=== PATIENT | female | born 1940 | race Caucasian/White ===

== ENCOUNTER → 2016-10-20 | Day surgery (SDC) | payer MEDICARE ==
[~2016-10-20] MED LIST: BACITRACIN OINT 1 EACH PACKET TOPICAL ONE; LIDOCAINE 1%-EPI 1:100,000 20 ML VIAL ONE
--- NOTE | 2016-10-20 15:35 | USB ---
EXAMINATION TYPE: US biopsy breast VAD LT DATE OF EXAM: 10/20/2016 12:55 PM CLINICAL HISTORY: R92.8 abnormal mammogram. TECHNIQUE: Ultrasound guided core biopsy of left breast. COMPARISON: NONE FINDINGS: The procedure of ultrasound guided core biopsy was explained to the patient. Benefits, alternatives, and risks were discussed. An informed consent was then obtained. The patient was placed in supine positioning for imaging and for the procedure. The overlying skin was prepped and draped in usual sterile fashion. Lidocaine buffered with bicarbonate was used as anesthetic into the skin and subcutaneous tissue up to area of concern in the left breast. A emime was made with surgical scalpel. Under ultrasound guidance, a 12-gauge vacuum assisted biopsy gun device was used to obtain 7 core samples. Following this, a biopsy clip was left in lesion. The patient tolerated the procedure well without any immediate complication. The patient was kept in the radiology department for short stay after the procedure and then discharged home in stable condition. Postprocedure mammogram was obtained. Biopsy clip is within the 6:00 position density IMPRESSION: Successful, uncomplicated ultrasound guided core biopsy of area of concern in the left breast, full pathology results to follow. Pathology Results: Malignant BREAST, LEFT SIX O'CLOCK, ULTRASOUND GUIDED CORE BIOPSY: DUCTAL CARCINOMA WITH NECROSIS IN A BACKGROUND OF BLOOD AND NECROINFLAMMATORY DEBRIS. Recommendation Surgical consult of the left breast. BONY
--- NOTE | 2016-10-20 15:36 | MM ---
Postprocedure mammogram Post procedure mammogram for clip placement. Clip is within the mass 6:00 position left breast. IMPRESSIONS: 1. Clip in expected region post biopsy. MTDD
== END ==
LOC: RADUSWWP 11:35
PROVIDERS: ATTEND Surgery
DX: C50.912 Malignant neoplasm of unspecified site of left female breast (principal); N64.1 Fat necrosis of breast; R92.8 Other abnormal and inconclusive findings on diagnostic imaging of breast; Z88.5 Allergy status to narcotic agent; Z88.8 Allergy status to other drugs, medicaments and biological substances
CPT/HCPCS: 88305; 88342; 88341; 19083; G0206; A4648

== ENCOUNTER → 2016-11-07 | Outpatient (CLI) | payer MEDICARE ==
--- NOTE | 2016-11-07 15:29 | CT ---
EXAMINATION TYPE: CT ChestAbdPelvis w con DATE OF EXAM: 11/07/2016 INDICATION: Breast cancer COMPARISON: NONE CT DLP: 1958 mGycm CONTRAST: Performed with Oral Contrast and with IV Contrast, patient injected with 100 ml mL of Omnipaque 300. TECHNIQUE: Axial images at 5 mm thick sections. Reconstructed images in the coronal plane. Delayed images through the kidneys. FINDINGS: CT CHEST: Left breast mass measuring 4.3 cm is present. Portion of the thyroid visualized is normal. No suspicious lung nodules or focal infiltrates are present. There multiple lymph nodes in the pretracheal space with the largest measuring 0.9 cm. The ascending aorta diameter at the level of the main pulmonary artery is 3.4 cm. The main pulmonary artery diameter at the bifurcation is 3.[address] ABDOMEN: Liver: Mild fatty infiltration. Spleen: Normal Pancreas: Slightly atrophic. Adrenal glands: The adrenal glands are normal. Gallbladder: Not well visualized Kidneys: No masses are evident. No hydronephrosis is present. No cysts are present. Delayed images were obtained through the kidneys, which remain unremarkable. Aorta: Normal Inferior vena cava: Normal. CT PELVIS: Multiple diverticuli are within the sigmoid colon. Loops of bowel distended with oral contrast appear unremarkable. Distal colon lacks oral contrast limiting its evaluation. Appendix: Not visualized Urinary bladder: Decompressed. Genitourinary structures: Uterus and ovaries are not identified. Osseous structures: No suspicious lytic or sclerotic lesions. IMPRESSIONS: 1. Diverticulosis without acute diverticulitis.
--- NOTE | 2016-11-08 08:08 | NM ---
EXAMINATION TYPE: NM bone scan whole body DATE OF EXAM: 11/07/2016 COMPARISON: 11/07/2016 CT scan HISTORY: Breast cancer Delayed whole-body scanning was performed following the injection of 27.3 mCi Tc 99m MDP. Images acq uired 3 hours post injection. FINDINGS: Abnormal uptake involving the knees, ankles and feet likely post arthritic. Remote posttraumatic etio logy also the differential diagnosis. Faint uptake involving the calvarium likely related to hyperostosis. Faint uptake seen throughout the thoracic and lumbar spine likely degenerative. Abnormal uptake invol ving the shoulders likely post arthritic. Abnormal uptake involving the mandible likely related to periodontal disease. IMPRESSION: 1. No diagnostic evidence of metastases.
== END | disposition home or self-care (01) ==
LOC: RADNMMAIN 12:40
PROVIDERS: ATTEND Internal Medicine Hematology & Oncology
DX: C50.919 Malignant neoplasm of unspecified site of unspecified female breast (principal); K57.30 Diverticulosis of large intestine without perforation or abscess without bleeding
CPT/HCPCS: 71260; 74177; 78306; A9503; Q9967

== ENCOUNTER 2016-11-09 10:19 | Day surgery (SDC) | payer MEDICARE ==
[2016-11-08 08:55] VITALS: BMI 40.6
--- NOTE | 2016-11-09 08:08 | P.GSHP ---
History of Present Illness H&P Date: 11/09/16 CHIEF COMPLAINT: Breast cancer. HISTORY OF PRESENT ILLNESS: The patient is a 76-year-old female diagnosed with left breast cancer. She needs a Mediport placement for chemotherapy. PAST MEDICAL HISTORY: See list PAST SURGICAL HISTORY: See list CURRENT MEDICATIONS: See list. ALLERGIES: See list. SOCIAL HISTORY: No active tobacco or alcohol use. FAMILY HISTORY: Noncontributory. REVIEW OF ORGAN SYSTEMS: CONSTITUTIONAL: Has weight loss. PHYSICAL EXAMINATION: Vital signs: Stable GENERAL: Well developed and in no acute distress. Pleasant. HEENT: No sclera icterus. Extraocular movements grossly intact. Moist buccal mucosa. Head is atraumatic, normocephalic. Hears conversational speech. No nasal drainage. NECK: Supple without lymphadenopathy. No JV distention. CHEST: Non-labored respirations and equal bilateral excursions. CARDIOVASCULAR: Regular rate and rhythm. Palpable 2+ radial pulses. ABDOMEN: Nontender. MUSCULOSKELETAL: No clubbing, cyanosis or edema. NEUROLOGIC: No focal or lateralizing signs. PSYCH: Appropriate affect. Alert and oriented to person, place and time. ASSESSMENT: 1. Left breast cancer. 2. Need for chemotherapeutic access. PLAN: 1. Agree with Port-A-Cath placement. Past Medical History Past Medical History: Cancer, CVA/TIA, Diabetes Mellitus, GERD/Reflux, Hyperlipidemia, Hypertension, Rheumatoid Arthritis (RA), Thyroid Disorder Additional Past Medical History / Comment(s): HX OF TIA., VARICOSE VEINS, DEVIATED SEPTUM, HIATAL HERNIA., BUZZING IN EARS., BLADDER CANCER (OCTOBER 1992), LEFT BREAST CANCER (SEPTEMBER 2016)., STATES LARGE LUMP LEFT BREAST. History of Any Multi-Drug Resistant Organisms: None Reported Past Surgical History: Appendectomy, Cholecystectomy, Heart Catheterization, Hysterectomy, Orthopedic Surgery Additional Past Surgical History / Comment(s): RONAL KNEE ARTHROSCOPY, BREAST BX. Past Anesthesia/Blood Transfusion Reactions: No Reported Reaction, Motion Sickness Past Psychological History: No Psychological Hx Reported Smoking Status: Never smoker Past Alcohol Use History: None Reported Past Drug Use History: None Reported - Past Family History Mother Family Medical History: No Reported History Medications and Allergies Home Medications Medication Instructions Recorded Confirmed Type Acetaminophen Tab [Tylenol Tab] 650 mg PO Q4-6H 11/08/16 11/08/16 History Antibiotic Cream Pain Relief 1 applic TOPICAL DAILY PRN 11/08/16 History Atenolol [Tenormin] 50 mg PO BID 11/08/16 11/08/16 History Doxylamine Succinate [Unisom] 50 mg PO HS PRN 11/08/16 11/08/16 History Fluticasone Nasal [place] [Flonase 2 spr EA NOSTRIL DAILY 11/08/16 11/08/16 History Nasal [place]] Levothyroxine Sodium [Synthroid] 175 mcg PO DAILY 11/08/16 11/08/16 History Lidocaine HCl [Aspercreme] 1 applic TOPICAL DAILY PRN 11/08/16 11/08/16 History Losartan Potassium 100 mg PO DAILY 11/08/16 11/08/16 History Melatonin 10 mg PO HS 11/08/16 11/08/16 History Meloxicam [Mobic] 15 mg PO DAILY 11/08/16 11/08/16 History Naproxen Sodium [Aleve] 440 mg PO DAILY 11/08/16 11/08/16 History Omeprazole [PriLOSEC] 20 mg PO AC-BRKFST 11/08/16 11/08/16 History Simvastatin [Zocor] 20 mg PO HS 11/08/16 11/08/16 History amLODIPine [Norvasc] 5 mg PO BID 11/08/16 11/08/16 History glipiZIDE [Glipizide] 10 mg PO BID 11/08/16 11/08/16 History Allergies Allergy/AdvReac Type Severity Reaction Status Date / Time codeine Allergy Unknown Couldn't Verified 11/08/16 08:37 Swallow glyburide Allergy Unknown Itching Verified 11/08/16 08:37 metformin Allergy Unknown Itching Verified 11/08/16 08:37
[~2016-11-09 10:19] MED LIST changes: -BACITRACIN OINT 1 EACH PACKET TOPICAL ONE; +DEXAMETHASONE SOD PHOSPHATE 10 MG/ML 1 ML VIAL IV ONE; +HYDROmorphone 1 MG/ML 1 ML SYRINGE IVP PRN; +LACTATED RINGERS 1,000 ML IV SCH; -LIDOCAINE 1%-EPI 1:100,000 20 ML VIAL ONE; +ONDANSETRON 4 MG/2 ML VIAL IVP ONE; +ceFAZolin 2 GM in SODIUM CHLORIDE 0.9% 100 ML IVPB ONE
[2016-11-09 10:37] VITALS: TEMP 98
[2016-11-09] MEDS ORDERED: LIDOCAINE 1% 20 ML VIAL (10MG/ML) FOR IV START INTRADERMA ONE (11:08)
[2016-11-09] MEDS ORDERED: INSULIN LISPRO (humaLOG) 300 UNIT/3 ML VIAL SQ ONE (11:09)
[2016-11-09] MEDS ORDERED: DEXAMETHASONE SOD PHOSPHATE 10 MG/ML 1 ML VIAL IV ONE (11:10)
[2016-11-09] MEDS ORDERED: ONDANSETRON 4 MG/2 ML VIAL IVP ONE (11:11)
[2016-11-09 11:12] LABS: Glucose,Whole Blood 232 mg/dL (75-99)
[2016-11-09] MEDS ORDERED: MIDAZOLAM 2 MG/2 ML VIAL ONE (11:40)
[2016-11-09] MEDS ORDERED: fentaNYL (PF) 50 MCG/ML 2 ML AMP ONE (11:40)
[2016-11-09] MEDS ORDERED: SUCCINYLCHOLINE CHLORIDE 100 MG/5 ML SYR IV ONE (11:40)
[2016-11-09] MEDS ORDERED: KETAMINE 10 MG/ML 20 ML VIAL ONE (11:40)
[2016-11-09] MEDS ORDERED: HEPARIN SODIUM,PORCINE 100 UNIT/ML 5 ML VIAL IV ONE ×3 (12:02)
[2016-11-09] MEDS ORDERED: LIDOCAINE (PF) 10 MG/ML 2 ML VIAL SQ ONE ×2 (12:03)
[2016-11-09] MEDS ORDERED: HEPARIN SODIUM,PORCINE 10,000 UNIT/ML 1 ML VIAL IV ONE (12:03)
--- NOTE | 2016-11-09 12:32 | FL ---
EXAMINATION TYPE: FL guided central line placemt HISTORY: Fluoroscopy time Impression: 1. Fluoroscopy support provided to the referring physician. See dictated report from surgery. 3 sec onds of fluoroscopy provided.
--- NOTE | 2016-11-09 12:38 | P.PCN ---
Date of Procedure: 11/09/16 Preoperative Diagnosis: Postoperative Diagnosis: Procedure(s) Performed: Implants: Indications for Procedure: Operative Findings: Description of Procedure: SURGEON: MED LOPEZ MD RESERVES CLERK: None. PREOPERATIVE DIAGNOSES: 1. Breast cancer, left. 2. Need for chemotherapeutic access. 3. Hypertensive heart disease without congestive heart failure. 4. Diabetes type 2 [id number]. 5. Previous history of cerebrovascular accident without sequelae. 6. Morbid obesity, BMI 40.6. 7. Gastroesophageal reflux disease. 8. Hyperlipidemia. 9. Previous history of bladder cancer. POSTOPERATIVE DIAGNOSES: 1. Breast cancer, left. 2. Need for chemotherapeutic access. 3. Hypertensive heart disease without congestive heart failure. 4. Diabetes type 2 [id number]. 5. Previous history of cerebrovascular accident without sequelae. 6. Morbid obesity, BMI 40.6. 7. Gastroesophageal reflux disease. 8. Hyperlipidemia. 9. Previous history of bladder cancer. PROCEDURES PERFORMED: 1. Ultrasound guided central venous access of the right internal jugular venous vein. 2. Fluoroscopic guidance for central venous access right internal jugular vein 3 seconds. 3. Placement of right internal jugular power port 6 [place] by Bard. ANESTHESIA: IV sedation with 20 mL 1% lidocaine. ESTIMATED BLOOD LOSS: 10 mL. SPECIMENS REMOVED: None. COMPLICATIONS: None. INDICATIONS: The patient is a 76-year-old female recently diagnosed with left breast cancer. She presents for chemotherapeutic access. Benefits and risks of surgical intervention were described including bleeding, infection, mechanical problems with his port. Informed consent was obtained. DESCRIPTION OR PROCEDURE: Patient was brought into the operating room, laid in supine position. After adequate IV sedation, the chest and right neck were prepped and draped in a standard sterile fashion including the shoulder with ChloraPrep. Timeout protocol was confirmed with the surgical team regarding the patient's name, procedure to be performed including preoperative medications for which she received IV antibiotics. Bilateral SCDs were placed. An ultrasound was used to capture views of the right internal jugular vein including right carotid artery, which was patent and without thrombus along its course. The right IJ was then localized using anesthetic for the skin. A 16 [place] needle was used to access the IJ. A guidewire was advanced into the IJ with dark nonpulsatile venous blood. Two fingerbreadths distal to the clavicle, on the lateral third, a transverse 1.5 to 2 cm incision was deepened into the skin after localizing the skin. A pocket was created for the port. The port on the back table was flushed with heparinized saline and then attached to the catheter tubing. An adapter was fastened to the actual port site over the tubing. The port easily had fit snug into the pocket. A subcutaneous tunneler was placed along the open end of the tubing and brought out through the separate stab incision. Fluoroscopic guidance confirmed no kinking along the tubing and the port site. Next, the J-wire was exchanged for a catheter sheath for which the tubing was cut to 18 cm and then advanced through the catheter sheath. The [place]-away sheath was then removed and the tubing was secured at the junction of the superior vena cava as well as the right atrium. The tubing was found to be crossed however functional. This was all done under fluoroscopic guidance for a total of 3 seconds. Easy pullback as well as return and aspiration was obtained of the port site. The skin incision was closed using layers using 3-0 Vicryl for the subcu followed by 4-0 Monocryl in a running subcuticular fashion. At the stick site this was also reapproximated using 4-0 Monocryl. The incisions were covered with gauze and Tegaderm. The skin was cleansed and Dermabond was applied. A total of 20 mL of local anesthetic was placed. At the end of the procedure, needle, sponge, and instrument count was verified correct by evidence technician. Heparin lock of 5 mL was placed. The patient was awoken and pain free and taken to the second stage postanesthesia care unit. The patient tolerated the procedure well. FINDINGS: 1. No thrombus encountered along the right carotid artery or internal jugular vein. 2. Access of the right internal jugular vein under ultrasound guidance. 3. Fluoroscopy of 3 seconds. Plan - Discharge Summary New Discharge Prescriptions: No Action glipiZIDE [Glipizide] 10 mg PO BID Losartan Potassium 100 mg PO DAILY amLODIPine [Norvasc] 5 mg PO BID Atenolol [Tenormin] 50 mg PO BID Meloxicam [Mobic] 15 mg PO DAILY Simvastatin [Zocor] 20 mg PO HS Levothyroxine Sodium [Synthroid] 175 mcg PO DAILY Omeprazole [PriLOSEC] 20 mg PO AC-BRKFST Fluticasone Nasal [place] [Flonase Nasal [place]] 2 spr EA NOSTRIL DAILY Doxylamine Succinate [Unisom] 50 mg PO HS PRN PRN Reason: Insomnia Melatonin 10 mg PO HS Naproxen Sodium [Aleve] 440 mg PO DAILY Acetaminophen Tab [Tylenol Tab] 650 mg PO Q4-6H Lidocaine HCl [Aspercreme] 1 applic TOPICAL DAILY PRN PRN Reason: Pain Antibiotic Cream Pain Relief 1 applic TOPICAL DAILY PRN PRN Reason: Pain Discharge Medication List Acetaminophen Tab [Tylenol Tab] 650 mg PO Q4-6H 11/08/16 [History] Antibiotic Cream Pain Relief 1 applic TOPICAL DAILY PRN 11/08/16 [History] Atenolol [Tenormin] 50 mg PO BID 11/08/16 [History] Doxylamine Succinate [Unisom] 50 mg PO HS PRN 11/08/16 [History] Fluticasone Nasal [place] [Flonase Nasal [place]] 2 spr EA NOSTRIL DAILY 11/08/16 [ History] Levothyroxine Sodium [Synthroid] 175 mcg PO DAILY 11/08/16 [History] Lidocaine HCl [Aspercreme] 1 applic TOPICAL DAILY PRN 11/08/16 [History] Losartan Potassium 100 mg PO DAILY 11/08/16 [History] Melatonin 10 mg PO HS 11/08/16 [History] Meloxicam [Mobic] 15 mg PO DAILY 11/08/16 [History] Naproxen Sodium [Aleve] 440 mg PO DAILY 11/08/16 [History] Omeprazole [PriLOSEC] 20 mg PO AC-BRKFST 11/08/16 [History] Simvastatin [Zocor] 20 mg PO HS 11/08/16 [History] amLODIPine [Norvasc] 5 mg PO BID 11/08/16 [History] glipiZIDE [Glipizide] 10 mg PO BID 11/08/16 [History]
[2016-11-09 12:39] VITALS: PULSE 65; RESP 18
[2016-11-09] MEDS ORDERED: NALOXONE 0.4 MG/ML 1 ML VIAL IV PRN (12:40)
[2016-11-09] MEDS ORDERED: ONDANSETRON 4 MG/2 ML VIAL IVP PRN (12:40)
[2016-11-09 12:54] VITALS: BP 123/62
--- NOTE | 2016-11-09 13:05 | XR ---
EXAMINATION TYPE: XR chest 1V confirm line [facility] DATE OF EXAM: 11/09/2016 COMPARISON: NONE HISTORY: Line placement TECHNIQUE: Single frontal view of the chest is obtained. FINDINGS: There is no focal air space opacity, pleural effusion, or pneumothorax seen. The cardiac silhouette size is within normal limits. The osseous structures are intact. Port-A-Cath is seen wit h the tip overlying the region of the SVC. Arthropathy of the shoulders noted. No overt failure. IMPRESSION: 1. Port-A-Cath seen with the tip overlying the SVC and no sizable pneumothorax.
== END 2016-11-09 13:35 | disposition home or self-care (01) ==
LOC: OR 10:19
PROVIDERS: ATTEND Surgery Plastic and Reconstructive Surgery
DX: C50.912 Malignant neoplasm of unspecified site of left female breast (principal); I11.9 Hypertensive heart disease without heart failure; E11.9 Type 2 diabetes mellitus without complications; K21.9 Gastro-esophageal reflux disease without esophagitis; E78.5 Hyperlipidemia, unspecified; M06.9 Rheumatoid arthritis, unspecified; E07.9 Disorder of thyroid, unspecified; E66.01 Morbid (severe) obesity due to excess calories; Z68.41 Body mass index [BMI] 40.0-44.9, adult; Z88.5 Allergy status to narcotic agent; Z88.8 Allergy status to other drugs, medicaments and biological substances; Z79.51 Long term (current) use of inhaled steroids; Z79.1 Long term (current) use of non-steroidal anti-inflammatories (NSAID); Z79.84 Long term (current) use of oral hypoglycemic drugs; Z79.899 Other long term (current) drug therapy; Z85.51 Personal history of malignant neoplasm of bladder; Z86.73 Personal history of transient ischemic attack (TIA), and cerebral infarction without residual deficits; Z90.49 Acquired absence of other specified parts of digestive tract; Z90.710 Acquired absence of both cervix and uterus
CPT/HCPCS: 36561; 77001; C1788; J2250; J2001; J1644; J1642; J1100; J0690; J2405; J3010; J0330

== ENCOUNTER → 2016-11-24 | Outpatient (CLI) | payer MEDICARE ==
--- NOTE | 2016-11-24 15:44 | US ---
EXAMINATION TYPE: US axilla extremity LT DATE OF EXAM: 11/24/2016 COMPARISON: NONE CLINICAL HISTORY: Breast Ca C50.112, R59 Lymphadonopathy. Scanned left axilla, scattered lymph nodes seen. Largest measuring 6.7 x 2.2 x 2.9cm The largest lym ph node appears homogenous. The normal fatty hilum is not identified. Metastatic disease cannot be ex cluded. Results called to the office at the time of the exam. IMPRESSION: Enlarged left axillary lymph node without visualization of a normal fatty hilum. Metasta tic disease is not excluded.
== END | disposition home or self-care (01) ==
LOC: RADUSWWP 14:56
PROVIDERS: ATTEND Internal Medicine Hematology & Oncology
DX: C50.112 Malignant neoplasm of central portion of left female breast (principal); R59.0 Localized enlarged lymph nodes

== ENCOUNTER 2016-11-30 10:51 | Day surgery (SDC) | payer MEDICARE ==
[2016-11-30 11:17] VITALS: TEMP 97.7
[2016-11-30 12:42] VITALS: BP 121/72; PULSE 72; RESP 16
--- NOTE | 2016-11-30 12:47 | US ---
ULTRASOUND GUIDED CORE BIOPSY LEFT AXILLA LYMPHADENOPATHY: CLINICAL HISTORY: Left Axilla lymphadenopathy FINDINGS: The procedure was explained to the patient. The risks, complications, benefits and alternatives were discussed and any questions were answered. Informed consent was obtained. Patient was placed supin e on the ultrasound table and prepped and draped in the usual sterile fashion. Utilizing a 18-gauge core needle,three passes were made into the left axilla lymphadenopathy. Patient was stable throughout the procedure. Pathology is pending. All elements of maximal barrier and sterile technique were utilized. IMPRESSION: 1. Successful ultrasound guided core biopsy left axilla lymphadenopathy. Note is made the lymph node s near complete replacement by fatty hilum with minimal peripheral tissue. This corresponds to the CT scan of 11/07/2016.
== END 2016-11-30 12:30 | disposition home or self-care (01) ==
LOC: RADPROMAIN 10:51
PROVIDERS: ATTEND Internal Medicine Hematology & Oncology
DX: R59.0 Localized enlarged lymph nodes (principal); C50.919 Malignant neoplasm of unspecified site of unspecified female breast
CPT/HCPCS: 36415; 38505; 76942; 88305

== ENCOUNTER 2017-03-08 11:52 | Inpatient (IN) | payer MEDICARE ==
--- NOTE | 2017-03-08 12:22 | ED ---
General Adult HPI - General Chief complaint: Weakness Stated complaint: Weakness/Fall Time Seen by Provider: 03/08/17 11:55 Source: EMS, RN notes reviewed Mode of arrival: EMS - History of Present Illness Initial comments: This is a 77-year-old female presents emergency Department with a past medical history significant for breast cancer which she is being treated for with chemotherapy. Patient states last night she was in the bathroom and then found herself on the floor she doesn't remember clearly how she got to the floor. Patient states she was unable to get up until his son's game this morning about 8:30. Patient states her legs seemed tingly they are not numb but they were weak to hold her up when she tried to stand with her son's assistance this morning. Patient denies any injury. Patient denies any headache patient states her neck feels a little stiff but it does not hurt to move. Patient denies any chest pain palpitations difficulty breathing or shortness of breath per patient denies any abdominal pain patient denies any new back pain. Patient denies any extremity pain. Patient denies any recent fever chills or cough. - Related Data Home Medications Medication Instructions Recorded Confirmed Atenolol [Tenormin] 50 mg PO BID 11/08/16 03/08/17 Levothyroxine Sodium [Synthroid] 175 mcg PO DAILY 11/08/16 03/08/17 Losartan Potassium 100 mg PO DAILY 11/08/16 03/08/17 Meloxicam [Mobic] 15 mg PO DAILY 11/08/16 03/08/17 Omeprazole [PriLOSEC] 20 mg PO AC-BRKFST 11/08/16 03/08/17 Simvastatin [Zocor] 20 mg PO HS 11/08/16 03/08/17 amLODIPine [Norvasc] 5 mg PO BID 11/08/16 03/08/17 glipiZIDE [Glipizide] 10 mg PO BID 11/08/16 03/08/17 sitaGLIPtin PHOSPHATE [Januvia] 25 mg PO DAILY 03/02/17 03/08/17 Allergies Allergy/AdvReac Type Severity Reaction Status Date / Time codeine Allergy Unknown Couldn't Verified 03/08/17 12:24 Swallow glyburide AdvReac Unknown Itching Verified 03/08/17 12:24 metformin AdvReac Unknown Itching Verified 03/08/17 12:24 Review of Systems ROS Statement: Those systems with pertinent positive or pertinent negative responses have been documented in the HPI. ROS Other: All systems not noted in ROS Statement are negative. Past Medical History Past Medical History: Cancer, Diabetes Mellitus, Eye Disorder, GERD/Reflux, Hyperlipidemia, Neurologic Disorder, Rheumatoid Arthritis (RA) Additional Past Medical History / Comment(s): breast cancer 2017, migraines, diverticulitis History of Any Multi-Drug Resistant Organisms: None Reported Past Surgical History: Appendectomy, Cholecystectomy, Heart Catheterization, Hysterectomy, Orthopedic Surgery Additional Past Surgical History / Comment(s): breast biopsy 2017, bilateral knee operations Past Anesthesia/Blood Transfusion Reactions: No Reported Reaction Past Psychological History: No Psychological Hx Reported Smoking Status: Never smoker Past Alcohol Use History: None Reported Past Drug Use History: None Reported - Past Family History Mother Family Medical History: No Reported History Father Family Medical History: Myocardial Infarction ([place]) Sister(s) Family Medical History: Cancer Additional Family Medical History / Comment(s): ovarian/cervical, colon General Exam - General Exam Comments Initial Comments: GENERAL: Patient is well-developed and well-nourished. Patient is nontoxic and well- hydrated and is in no acute distress. ENT: Neck is soft and supple. No significant lymphadenopathy is noted. Oropharynx is clear. Moist mucous membranes. Neck has full range of motion without eliciting any pain. Patient's neck is slightly tender on the trapezius muscles EYES: The sclera were anicteric and conjunctiva were pink and moist. Extraocular movements were intact and pupils were equal round and reactive to light. Eyelids were unremarkable. PULMONARY: Unlabored respirations. Good breath sounds bilaterally. No audible rales rhonchi or wheezing was noted. CARDIOVASCULAR: There is a regular rate and rhythm without any murmurs gallops or rubs. ABDOMEN: Soft and nontender with normal bowel sounds. No palpable organomegaly was noted. There is no palpable pulsatile mass. SKIN: Skin is clear with no lesions or rashes and otherwise unremarkable. NEUROLOGIC: Patient is alert and oriented x3. Cranial nerves II through XII are grossly intact. Motor and sensory are also intact. Normal speech, volume and content. Symmetrical smile. MUSCULOSKELETAL: Normal extremities with adequate strength and full range of motion. No lower extremity swelling or edema. No calf tenderness. LYMPHATICS: No significant lymphadenopathy is noted PSYCHIATRIC: Normal psychiatric evaluation. Normal interpersonal interactions appears functionally intact in deals appropriately with others. No signs of depression. Course Vital Signs 03/08/17 03/08/17 03/08/17 11:55 13:00 14:00 Temperature 97.1 F L Pulse Rate 90 110 H 109 H Respiratory 18 18 16 Rate Blood Pressure 104/57 113/58 114/57 O2 Sat by Pulse 96 100 95 Oximetry Medical Decision Making - Medical Decision Making Chest x-ray shows no acute abnormality C-spine shows no acute abnormality. Patient's urine showed urinary tract infection and treat the patient with Levaquin in the emergency department we'll continue treating the patient Levaquin on the floor. Patient is unable to ambulate so we will be admitting the patient. I spoke with Dr. Douglas he agreed to admit the patient I wrote orders and admitted the patient - Lab Data Result diagrams: 03/08/17 12:05 03/08/17 12:05 Lab Results 03/08/17 03/08/17 03/08/17 Range/Units 12:05 12:05 12:05 WBC 7.0 (3.8-10.6) k/uL RBC 2.55 L (3.80-5.40) m/uL Hgb 8.2 L (11.4-16.0) gm/dL Hct 25.7 L (34.0-46.0) % MCV 101.0 H (80.0-100.0) fL MCH 32.1 (25.0-35.0) pg MCHC 31.8 (31.0-37.0) g/dL RDW 20.4 H (11.5-15.5) % Plt Count 156 (150-450) k/uL Neutrophils % 83 % Lymphocytes % 6 % Monocytes % 7 % Eosinophils % 0 % Basophils % 0 % Neutrophils # 5.8 (1.3-7.7) k/uL Lymphocytes # 0.4 L (1.0-4.8) k/uL Monocytes # 0.5 (0-1.0) k/uL Eosinophils # 0.0 (0-0.7) k/uL Basophils # 0.0 (0-0.2) k/uL Hypochromasia Slight Poikilocytosis Slight Anisocytosis Moderate Macrocytosis Moderate PT (9.0-12.0) sec INR (<1.2) APTT (22.0-30.0) sec Sodium 132 L (137-145) mmol/L Potassium 4.0 (3.5-5.1) mmol/L Chloride 101 (98-107) mmol/L Carbon Dioxide 19 L (22-30) mmol/L Anion Gap 12 mmol/L BUN 32 H (7-17) mg/dL Creatinine 1.81 H (0.52-1.04) mg/dL Est GFR (MDRD) Af Amer 33 (>60 ml/min/1.73 sqM) Est GFR (MDRD) Non-Af 27 (>60 ml/min/1.73 sqM) Glucose 221 H (74-99) mg/dL Calcium 9.0 (8.4-10.2) mg/dL Magnesium 1.5 L (1.6-2.3) mg/dL Total Bilirubin 1.0 (0.2-1.3) mg/dL AST 22 (14-36) U/L ALT 26 (9-52) U/L Alkaline Phosphatase 73 (38-126) U/L Total Creatine Kinase 335 H (30-135) U/L CK-MB (CK-2) 2.2 (0.0-2.4) ng/mL CK-MB (CK-2) Rel Index 0.7 Troponin I 0.095 H* (0.000-0.034) ng/mL Total Protein 5.8 L (6.3-8.2) g/dL Albumin 3.1 L (3.5-5.0) g/dL Urine Color Urine Appearance (Clear) Urine pH (5.0-8.0) Ur Specific [place] (1.001-1.035) Urine Protein (Negative) Urine Glucose (UA) (Negative) Urine Ketones (Negative) Urine Blood (Negative) Urine Nitrite (Negative) Urine Bilirubin (Negative) Urine Urobilinogen (<2.0) mg/dL Ur Leukocyte Esterase (Negative) Urine RBC (0-5) /hpf Urine WBC (0-5) /hpf Urine WBC Clumps (None) /hpf Ur Squamous Epith Cells (0-4) /hpf Amorphous Sediment (None) /hpf Urine Bacteria (None) /hpf Hyaline Casts (0-2) /lpf Granular Casts (0) /lpf Urine Mucus (None) /hpf 03/08/17 03/08/17 Range/Units 12:05 14:14 WBC (3.8-10.6) k/uL RBC (3.80-5.40) m/uL Hgb (11.4-16.0) gm/dL Hct (34.0-46.0) % MCV (80.0-100.0) fL MCH (25.0-35.0) pg MCHC (31.0-37.0) g/dL RDW (11.5-15.5) % Plt Count (150-450) k/uL Neutrophils % % Lymphocytes % % Monocytes % % Eosinophils % % Basophils % % Neutrophils # (1.3-7.7) k/uL Lymphocytes # (1.0-4.8) k/uL Monocytes # (0-1.0) k/uL Eosinophils # (0-0.7) k/uL Basophils # (0-0.2) k/uL Hypochromasia Poikilocytosis Anisocytosis Macrocytosis PT 11.6 (9.0-12.0) sec INR 1.2 H (<1.2) APTT 19.8 L (22.0-30.0) sec Sodium (137-145) mmol/L Potassium (3.5-5.1) mmol/L Chloride (98-107) mmol/L Carbon Dioxide (22-30) mmol/L Anion Gap mmol/L BUN (7-17) mg/dL Creatinine (0.52-1.04) mg/dL Est GFR (MDRD) Af Amer (>60 ml/min/1.73 sqM) Est GFR (MDRD) Non-Af (>60 ml/min/1.73 sqM) Glucose (74-99) mg/dL Calcium (8.4-10.2) mg/dL Magnesium (1.6-2.3) mg/dL Total Bilirubin (0.2-1.3) mg/dL AST (14-36) U/L ALT (9-52) U/L Alkaline Phosphatase (38-126) U/L Total Creatine Kinase (30-135) U/L CK-MB (CK-2) (0.0-2.4) ng/mL CK-MB (CK-2) Rel Index Troponin I (0.000-0.034) ng/mL Total Protein (6.3-8.2) g/dL Albumin (3.5-5.0) g/dL Urine Color Dark Yellow Urine Appearance Turbid H (Clear) Urine pH 5.5 (5.0-8.0) Ur Specific [place] 1.017 (1.001-1.035) Urine Protein 2+ H (Negative) Urine Glucose (UA) Negative (Negative) Urine Ketones Negative (Negative) Urine Blood Trace H (Negative) Urine Nitrite Negative (Negative) Urine Bilirubin 1+ H (Negative) Urine Urobilinogen 3.0 (<2.0) mg/dL Ur Leukocyte Esterase Large H (Negative) Urine RBC 2 (0-5) /hpf Urine WBC >182 H (0-5) /hpf Urine WBC Clumps Many H (None) /hpf Ur Squamous Epith Cells 3 (0-4) /hpf Amorphous Sediment Occasional H (None) /hpf Urine Bacteria Many H (None) /hpf Hyaline Casts 343 H (0-2) /lpf Granular Casts 75 (0) /lpf Urine Mucus Few H (None) /hpf Disposition Clinical Impression: Generalized weakness, Urinary tract infection, Anemia, Renal insufficiency, Elevated troponin Disposition: ADMITTED IP TO THIS HOSP Referrals: Matheus Mccain MD [Primary Care Provider] - 1-2 days Time of Disposition: 14:52
[2017-03-08 12:39] LABS: INR 1.2 (<1.2); Prothrombin Time 11.6 sec (9.0-12.0)
[2017-03-08 12:40] LABS: Anisocytosis Moderate; Basophils % (A) 0 %; CH 32.7; CHCM 32.6; Eosinophils % (A) 0 %; HCT 25.7 % (34.0-46.0); HDW 3.79; HGB 8.2 gm/dL (11.4-16.0); Hypochromasia Slight; Luc # (Auto) 0.29; Luc % (Auto) 4; Lymphocytes # (A) 0.4 k/uL (1.0-4.8); Lymphocytes % (A) 6 %; MCH 32.1 pg (25.0-35.0); MCHC 31.8 g/dL (31.0-37.0); Macrocytosis Moderate; Mean Platelet Volume 9.3; Monocytes # (A) 0.5 k/uL (0-1.0); Monocytes % (A) 7 %; Neutrophils # (A) 5.8 k/uL (1.3-7.7); Neutrophils % (A) 83 %; Poikilocytosis Slight; RBC 2.55 m/uL (3.80-5.40); RDW 20.4 % (11.5-15.5); WBC (Perox) 7.58
--- NOTE | 2017-03-08 12:50 | XR ---
EXAMINATION TYPE: XR chest 2V DATE OF EXAM: 03/08/2017 COMPARISON: Chest x-ray November 09, 2016 HISTORY: Chest pain after fall injury. TECHNIQUE: Frontal and lateral views of the chest are obtained. FINDINGS: Stable right internal jugular Mediport catheter there is noted. There is chronic parenchym al change without suspicious new focal air space opacity, pleural effusion, or pneumothorax seen. Th e cardiac silhouette size remains mildly enlarged with atherosclerotic thoracic aorta. The osseous structures remain demineralized. IMPRESSION: Chronic changes and mild cardiomegaly without acute pulmonary process. No significant ch reji from prior.
--- NOTE | 2017-03-08 12:51 | XR ---
EXAMINATION TYPE: XR cervical spine comp DATE OF EXAM: 03/08/2017 COMPARISON: NONE HISTORY: 77-year-old female pain after fall TECHNIQUE: 6 views FINDINGS: No predental space widening or prevertebral soft tissue swelling. There is suspected congenital fusio n of C2 and C3. There appears to be normal alignment of the cervical spine. Odontoid view appears nor mal. Limited assessment of the neuroforamina due to positioning on the oblique views. Suspect at leas t mild variable neuroforaminal narrowing bilaterally. Scattered facet degenerative change. Right-sided anterior chest wall injection port is present with catheter tip probably in the right bra chiocephalic vein. IMPRESSION: Some limitations due to positioning. No malalignment or acute osseous abnormality seen. Scattered fac et arthropathy.
[2017-03-08 12:59] LABS: Magnesium 1.5 mg/dL (1.6-2.3); Total Protein 5.8 g/dL (6.3-8.2)
[2017-03-08 13:01] LABS: Partial Thromboplastin Time 19.8 sec (22.0-30.0)
[2017-03-08 13:04] LABS: Creatine Kinase MB 2.2 ng/mL (0.0-2.4)
[2017-03-08 13:05] LABS: Troponin I 0.095 ng/mL (0.000-0.034)
[2017-03-08 14:38] LABS: Amorphous Sediment,Urine Occasional /hpf; Appearance,Urine Turbid (Clear); Bacteria,Urine Many /hpf; Bilirubin,Urine 1+ (Negative); Glucose,Urine (UA) Negative (Negative); Granular Casts,Urine 75 /lpf (0); Ketones,Urine Negative (Negative); Leukocyte Esterase,Urine Large (Negative); Mucus,Urine Few /hpf; Nitrite,Urine Negative (Negative); PH, Urine 5.5 (5.0-8.0); Particle Count 80188; Protein,Urine 2+ (Negative); RBC,Urine 2 /hpf (0-5); Specific Gravity,Urine 1.017 (1.001-1.035); Squamous Epithelial Cell,Urine 3 /hpf (0-4); UA Billing (MACRO vs. MICRO) MICRO; WBC,Urine >182 /hpf (0-5)
[2017-03-08] MEDS ORDERED: LEVOFLOXACIN 750MG-D5W PMX 750 MG in DEXTROSE/WATER 1 150ML.BAG IVPB STA (14:43)
[2017-03-08] MEDS ORDERED: SODIUM CHLORIDE 0.9% 1,000 ML IV ONE (14:53)
[2017-03-08] MEDS ORDERED: ONDANSETRON 4 MG/2 ML VIAL IVP STA (14:55)
--- NOTE | 2017-03-08 20:53 | HP ---
HISTORY AND PHYSICAL DATE OF ADMISSION: 03/08/2017 PRESENTING COMPLAINT: Weak and tired. HISTORY OF PRESENTING COMPLAINT: This is a pleasant 77-year-old patient of Dr. Matheus Mccain. Follows with Dr. Romano for breast cancer. Getting chemotherapy weekly. The patient's chronic stable medical conditions include diabetes, GERD, hyperlipidemia, rheumatoid arthritis. The patient's appetite has gone down for few weeks, has been losing weight. Does get dizzy when she stands up. The patient does not remember but did passed out on the bathroom floor. The patient called the son. When the patient came here patient was found to have a fever of 101.5 and a pulse of 133. The patient has got minimum respiratory symptoms if any, some urinary frequency. REVIEW OF SYSTEMS: Constitutional: Weak and tired, dizzy, weight loss. HEENT: None. RESPIRATORY: None. CARDIOVASCULAR: None. GASTROINTESTINAL: None. GENITOURINARY: None. MUSCULOSKELETAL: Pain in the joints. Dermatological and hematologic, lymphatic none. Psychiatry, neurological no focal weakness. Neurological patient has got numbness and tingling in the feet. PAST HISTORY: Diabetes, GERD, hyperlipidemia, rheumatoid arthritis, diverticulitis and breast cancer. PAST SURGICAL HISTORY: Appendectomy, cholecystectomy, cardiac catheterization, hysterectomy, orthopedic surgery, bilateral knee surgery. SOCIAL HISTORY: Lives alone. Does not smoke or drink alcohol. FAMILY HISTORY: Family history reviewed noncontributory to presentation. HOME MEDICATIONS: 1. Zocor 20 mg q.h.s. 2. Prilosec 20 mg a day. 3. Losartan 100 mg a day. 4. Synthroid 125 mcg a day. 5. Tenormin 50 mg p.o. b.i.d. 6. Januvia 25 mg a day. 7. Glipizide 10 mg b.i.d. 8. Norvasc 5 mg p.o. b.i.d. 9. Mobic 50 mg p.o. daily. ALLERGIES: CODEINE, GLYBURIDE, METFORMIN. PHYSICAL EXAMINATION: Temperature 101.5, pulse 133, respiratory rate 16, blood pressure 109/61, pulse 100% on 2 L. GENERAL: Well built, BMI 35.2, lying in bed, tired appearing. Eyes pupils are equal, conjunctivae pale. HEENT: Oral cavity normal. NECK: JVD not raised. Mass not palpable. Respiratory effort normal. LUNGS: Fair entry. Cardiovascular: First and second sounds normal. No edema. ABDOMEN: Soft, nontender. Liver and spleen not palpable. Lymphatics: No lymph nodes palpable in the neck and axillae. PSYCHIATRY: Alert and oriented x3. Mood and affect slightly low appearing. Neurological pupils and cranial nerves grossly intact. Power and sensation grossly intact. INVESTIGATIONS: White count 7, hemoglobin 8.2, platelets 156, potassium 4, BUN 32, creatinine 1.81. UA positive. Chest x-ray unremarkable. ASSESSMENT: 1. Acute urinary tract infection with sepsis. 2. Diabetes mellitus type 2, on oral hypoglycemic. 3. Gastroesophageal reflux disease. 4. Hyperlipidemia. 5. Breast cancer, undergoing chemotherapy. 6. Obesity; BMI 35.2. 7. Troponin leak probably from hemodynamic mismatch, not acute myocardial infarction. 8. Suspect acute renal failure. Could be acute tubular necrosis from sepsis. PLAN: Patient is started on IV ceftriaxone, IV fluids, will hydrate the patient. Check renal function in the morning. Given that patient has lost significant amount of weight we will check patient's TSH. Blood pressure is also running on the low side. We will hold antihypertensives for right now and slowly put them back on depending on the blood pressure. We will put the patient on Januvia and 10 mg of glipizide. Care was discussed with the patient. Questions were answered. Copy to Dr. Mccain. JOCELYN / OMI: [id number] /
[2017-03-08] MEDS: ACETAMINOPHEN TAB 325 MG TAB PO PRN (21:40)
[2017-03-08] MEDS: LACTATED RINGERS 1,000 ML IV SCH (21:40)
[2017-03-08 23:44] LABS: Anisocytosis Moderate; Basophils % (A) 0 %; CH 32.6; CHCM 32.2; Eosinophils % (A) 0 %; HCT 21.9 % (34.0-46.0); HDW 3.83; Hypochromasia Slight; Luc # (Auto) 0.31; Luc % (Auto) 5; Lymphocytes # (A) 0.2 k/uL (1.0-4.8); Lymphocytes % (A) 3 %; MCH 32.1 pg (25.0-35.0); MCHC 31.5 g/dL (31.0-37.0); Macrocytosis Moderate; Monocytes # (A) 0.6 k/uL (0-1.0); Monocytes % (A) 8 %; Neutrophils # (A) 5.9 k/uL (1.3-7.7); Neutrophils % (A) 84 %; Poikilocytosis Slight; RBC 2.14 m/uL (3.80-5.40); RDW 20.4 % (11.5-15.5); WBC (Perox) 7.28
[2017-03-08 23:49] LABS: HGB 6.9 gm/dL (11.4-16.0)
[2017-03-09] MEDS ORDERED: PIPERACILLIN-TAZOBACTAM 3.375 GM in DEXTROSE/WATER 1 50ML.BAG IVPB SCH
[2017-03-09] MEDS: ATENOLOL 12.5 MG TAB PO SCH ×3 (00:12→21:45)
[2017-03-09 00:43] LABS: Anisocytosis Moderate; Basophils % (A) 0 %; CH 32.6; CHCM 32.6; Eosinophils % (A) 0 %; HDW 3.84; Hypochromasia Slight; Immature Gran Flag Slight; Luc # (Auto) 0.27; Luc % (Auto) 4; Lymphocytes # (A) 0.2 k/uL (1.0-4.8); Lymphocytes % (A) 3 %; MCH 31.2 pg (25.0-35.0); MCV 100.7 fL (80.0-100.0); Macrocytosis Moderate; Mean Platelet Volume 9.3; Monocytes # (A) 0.6 k/uL (0-1.0); Monocytes % (A) 9 %; Neutrophils # (A) 5.7 k/uL (1.3-7.7); Neutrophils % (A) 84 %; Poikilocytosis Slight; RBC 2.08 m/uL (3.80-5.40); RDW 20.3 % (11.5-15.5); WBC 6.8 k/uL (3.8-10.6); WBC (Perox) 7.02
[2017-03-09 00:54] LABS: HGB 6.5 gm/dL (11.4-16.0)
[2017-03-09 01:05] LABS: Manual Review Performed; Polychromasia Present
[2017-03-09] MEDS: LEVOTHYROXINE 75 MCG TAB PO SCH (06:31)
[2017-03-09] MEDS: LEVOTHYROXINE 100 MCG TAB PO SCH (06:31)
[2017-03-09] MEDS: glipiZIDE 10 MG TAB PO SCH (06:31)
[2017-03-09] MEDS: PANTOPRAZOLE 40 MG TABLET PO SCH (06:31)
[2017-03-09] MEDS: LACTATED RINGERS 1,000 ML IV SCH ×3 (06:31→22:43)
[2017-03-09 06:46] LABS: Glucose,Whole Blood 199 mg/dL (75-99)
[2017-03-09] MEDS: amLODIPine 5 MG TAB PO SCH ×2 (08:38→21:48)
[2017-03-09] MEDS: LINAGLIPTIN 5 MG TABLET PO SCH (08:38)
[2017-03-09] MEDS: MELOXICAM 7.5 MG TAB PO SCH (08:39)
[2017-03-09] MEDS ORDERED: LOSARTAN 50 MG TAB PO SCH (09:00)
[2017-03-09 09:20] LABS: Anisocytosis Moderate; Basophils % (A) 0 %; CH 32.6; CHCM 33.2; Eosinophils % (A) 0 %; HCT 26.9 % (34.0-46.0); HDW 4.38; Hypochromasia Slight; Luc # (Auto) 0.17; Luc % (Auto) 3; Lymphocytes # (A) 0.3 k/uL (1.0-4.8); Lymphocytes % (A) 4 %; MCHC 32.1 g/dL (31.0-37.0); MCV 99.6 fL (80.0-100.0); Macrocytosis Moderate; Mean Platelet Volume 9.2; Monocytes # (A) 0.5 k/uL (0-1.0); Monocytes % (A) 7 %; Neutrophils # (A) 5.7 k/uL (1.3-7.7); Neutrophils % (A) 86 %; Poikilocytosis Moderate; RDW 21.2 % (11.5-15.5); WBC 6.6 k/uL (3.8-10.6); WBC (Perox) 7.05
[2017-03-09 09:33] LABS: HGB 8.6 gm/dL (11.4-16.0)
--- NOTE | 2017-03-09 11:29 | CT ---
EXAMINATION TYPE: CT thor lumbar spine wo con DATE OF EXAM: 03/09/2017 COMPARISON: NONE HISTORY: Mid back pain, post fall CT DLP: 1243 mGycm Automated exposure control for dose reduction was used. FINDINGS: There is no evidence of acute fracture or malalignment of the thoracic or lumbar spine. Vertebral bod ies maintain normal vertebral body heights. At T3-T4 there is a small central disc osteophyte complex creating mild spinal canal stenosis. Minimal multilevel degenerative changes of the thoracolumbar sp ine are additionally displayed as intervertebral disc space narrowing, small anterior osteophytes, en dplate sclerosis and facet arthropathy of the lower thoracic spine. Sternal and spinous processes emily ear intact. Visualized portions of the ribs display no displaced rib fracture. Single right upper lobe calcified granuloma is seen as well as other areas of focal pleural thickenin g and a single right lower lobe subpleural pulmonary nodule measuring 5 mm. Minimal subsegmental depe ndent bibasilar atelectasis is noted. Evaluation for adenopathy is limited given the lack of intraven ous contrast, however no gross evidence of thoracic adenopathy is seen. Incidental note is made of nonspecific fat stranding around the left kidney and proximal ureter with no identified radiopaque calculus or hydronephrosis. This is best seen on coronal imaging. IMPRESSION: 1. NO EVIDENCE OF FRACTURE OR MALALIGNMENT OF THE THE THORACOLUMBAR SPINE. 2. 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 3. NONSPECIFIC FAT STRANDING AROUND THE LEFT KIDNEY AND PROXIMAL URETER WITH NO HYDRONEPHROSIS. CORRE LATE WITH URINALYSIS TO ASSESS FOR PYELONEPHRITIS AND/OR HEMATURIA.
[2017-03-09 11:32] LABS: Glucose,Whole Blood 63 mg/dL (75-99)
[2017-03-09 11:48] LABS: Glucose,Whole Blood 63 mg/dL (75-99)
[2017-03-09] MEDS: ACETAMINOPHEN TAB 325 MG TAB PO PRN (12:09)
[2017-03-09 12:23] LABS: Glucose,Whole Blood 97 mg/dL (75-99)
[2017-03-09] MEDS ORDERED: LEVOFLOXACIN 750MG-D5W PMX 750 MG in DEXTROSE/WATER 1 150ML.BAG IVPB SCH (15:00)
[2017-03-09] MEDS: traMADol 50 MG TAB PO PRN (16:05)
[2017-03-09 16:43] LABS: Glucose,Whole Blood 65 mg/dL (75-99)
--- NOTE | 2017-03-09 16:53 | P.CONS ---
History of Present Illness - Reason for Consult Consult date: 03/09/17 treatment for breast cancer Requesting physician: Darian Douglas - Chief Complaint confusion and weakness - History of Present Illness Ms. Bryan is a very pleasant female pt of Dr. Romano who presented with a painful, palpable left breast mass, rapidly enlarging and becoming more tender over the previous 2 months, mammogram was abnormal, U/S 09/16/16 revealed 3.5 x 2.5 X 2.8 cm inferior, posterior left breast mass, core biopsy on 10/20/16 path ductal carcinoma with necrosis invasion or grade could not be determined, tumor was not assessed for ER/SD/Her2, final diagnosis was triple negative breast cancer, CT CAP and bone scan showed no metastatic disease. Pt was started on neoadjuvant chemo with DD AC x 4 doses and she is currently s/p 6 cycles of weekly taxol. Pt has required PRBC transfusions for chemo induced anemia, she was found to be iron deficient and parenteral iron has been given. Pt was brought to the ER by her son for weakness and fall at home, she doesn't remember how or why. Her mid back hurts and she has numbness in both her legs, mid harris distal, she does not remember how long that has been there, she feels really weak and "foggy in the head". Pt denied having fever, dysuira, hematuria , urinary frequency, or urgency, no suprapubic pain. she was doing fine, she denied oral irritation, mild nausea, no vomiting, tolerating oral intake, she is not on O2 at home, she does not feel SOB, no cough, chest pain, palpitations , activity intolerance, diarrhea, constipation or swelling. Review of Systems pt was not able to recall many recent events but she was able to communicate currently how she feels, 10 point ROS as stated in HPI Past Medical History Past Medical History: Cancer, Diabetes Mellitus, Eye Disorder, GERD/Reflux, Hyperlipidemia, Neurologic Disorder, Rheumatoid Arthritis (RA) Additional Past Medical History / Comment(s): breast cancer 2017, migraines, diverticulitis History of Any Multi-Drug Resistant Organisms: None Reported Past Surgical History: Appendectomy, Cholecystectomy, Heart Catheterization, Hysterectomy, Orthopedic Surgery Additional Past Surgical History / Comment(s): breast biopsy 2017, bilateral knee operations Past Anesthesia/Blood Transfusion Reactions: No Reported Reaction Past Psychological History: No Psychological Hx Reported Smoking Status: Never smoker Past Alcohol Use History: None Reported Past Drug Use History: None Reported - Past Family History Mother Family Medical History: No Reported History Father Family Medical History: Myocardial Infarction (SD) Sister(s) Family Medical History: Cancer Additional Family Medical History / Comment(s): ovarian/cervical, colon Medications and Allergies Home Medications Medication Instructions Recorded Confirmed Type Atenolol [Tenormin] 50 mg PO BID 11/08/16 03/08/17 History Levothyroxine Sodium [Synthroid] 175 mcg PO DAILY 11/08/16 03/08/17 History Losartan Potassium 100 mg PO DAILY 11/08/16 03/08/17 History Meloxicam [Mobic] 15 mg PO DAILY 11/08/16 03/08/17 History Omeprazole [PriLOSEC] 20 mg PO AC-BRKFST 11/08/16 03/08/17 History Simvastatin [Zocor] 20 mg PO HS 11/08/16 03/08/17 History amLODIPine [Norvasc] 5 mg PO BID 11/08/16 03/08/17 History glipiZIDE [Glipizide] 10 mg PO BID 11/08/16 03/08/17 History sitaGLIPtin PHOSPHATE [Januvia] 25 mg PO DAILY 03/02/17 03/08/17 History Allergies Allergy/AdvReac Type Severity Reaction Status Date / Time codeine Allergy Unknown Couldn't Verified 03/08/17 12:24 Swallow glyburide AdvReac Unknown Itching Verified 03/08/17 12:24 metformin AdvReac Unknown Itching Verified 03/08/17 12:24 Physical Exam Vitals: Vital Signs Temp Pulse Pulse Resp BP BP Pulse Ox 03/09/17 14:58 16 03/09/17 12:00 99.2 F 128 H 16 136/71 100 03/09/17 11:16 16 03/09/17 08:00 98 F 102 H 16 129/66 98 03/09/17 05:26 97.2 F L 91 16 108/63 99 03/09/17 05:25 97.2 F L 91 16 108/63 99 03/09/17 03:40 94 18 03/09/17 03:39 98 F 94 18 100/60 99 03/09/17 03:24 98 F 94 16 100/60 99 03/09/17 02:54 97.7 F 92 16 106/62 98 03/09/17 02:44 98.0 F 93 16 108/69 03/09/17 00:00 99.3 F 102 H 18 105/45 100 03/08/17 20:00 100.5 F H 110 H 18 94/46 96 03/08/17 19:06 101.5 F H 133 H 16 109/61 03/08/17 19:01 16 Intake and Output 03/09/17 03/09/17 03/09/17 06:59 14:59 22:59 Intake Total 310 240 Output Total 350 200 Balance -40 40 Intake: Oral 240 Blood Product 310 Rc As-1 Unit 310 [id number] Output: Urine 350 200 Other: # Voids 1 1 Weight 80.5 kg 80.5 kg Patient Weight 03/10/17 06:59 Weight 80.5 kg - Constitutional General appearance: average body habitus, cooperative, no acute distress - EENT Eyes: anicteric sclerae, EOMI, normal appearance ENT: normal oropharynx - Neck Neck: no lymphadenopathy - Respiratory Respiratory: bilateral: CTA - Cardiovascular Heart sounds: normal: S1, S2 leg Peripheral Edema: bilateral: Trace - Gastrointestinal General gastrointestinal: no absent bowel sounds, no decreased bowel sounds, no distended, no hepatomegaly, no hyperactive bowel sounds, normal bowel sounds, no organomegaly, no rigid, no scaphoid, soft, no splenomegaly, no tenderness, no umbilical hernia, no ventral hernia - Integumentary Integumentary: normal turgor, pale - Neurologic Neurologic: CNII-XII intact - Musculoskeletal Musculoskeletal: generalized weakness, strength equal bilaterally - Psychiatric Psychiatric: A&O x's 3, appropriate affect Results CBC & Chem 7: 03/09/17 09:04 03/08/17 12:05 Labs: Abnormal Lab Results - Last 24 Hours (Table) 03/08/17 03/08/17 03/09/17 Range/Units 23:16 23:16 00:22 RBC 2.14 L 2.08 L (3.80-5.40) m/uL Hgb 6.9 L* 6.5 L* (11.4-16.0) gm/dL Hct 21.9 L 21.0 L (34.0-46.0) % MCV 102.0 H 100.7 H (80.0-100.0) fL RDW 20.4 H 20.3 H (11.5-15.5) % Plt Count 146 L 149 L (150-450) k/uL Lymphocytes # 0.2 L 0.2 L (1.0-4.8) k/uL POC Glucose (mg/dL) (75-99) mg/dL Troponin I 0.086 H* (0.000-0.034) ng/mL Crossmatch 03/09/17 03/09/17 03/09/17 Range/Units 00:22 06:30 09:04 RBC 2.70 L (3.80-5.40) m/uL Hgb 8.6 L D (11.4-16.0) gm/dL Hct 26.9 L (34.0-46.0) % MCV (80.0-100.0) fL RDW 21.2 H (11.5-15.5) % Plt Count 134 L (150-450) k/uL Lymphocytes # 0.3 L (1.0-4.8) k/uL POC Glucose (mg/dL) 199 H (75-99) mg/dL Troponin I (0.000-0.034) ng/mL Crossmatch See Detail 03/09/17 03/09/17 Range/Units 11:31 11:46 RBC (3.80-5.40) m/uL Hgb (11.4-16.0) gm/dL Hct (34.0-46.0) % MCV (80.0-100.0) fL RDW (11.5-15.5) % Plt Count (150-450) k/uL Lymphocytes # (1.0-4.8) k/uL POC Glucose (mg/dL) 63 L 63 L (75-99) mg/dL Troponin I (0.000-0.034) ng/mL Crossmatch Comments: cervical x ray report reviewed Chest x-ray: report reviewed Assessment and Plan (1) Triple negative malignant neoplasm of breast Narrative/Plan: Pt is s/p 4 cycles of neoadjuvant dose dense AC treatments and has had 6 of 12 weekly taxol cycles. Chemo will be held until pt UTI has been treated and she has completed antibiotic course. She verbalized understanding Status: Acute (2) Generalized weakness Narrative/Plan: Secondary to chemo and infection. PT/OT ordered Status: Acute (3) Urinary tract infection Narrative/Plan: Pt is being treated Status: Acute (4) Anemia Narrative/Plan: Pt has been transfused with 1 unit appropriate anticipated increase in Hgb, transfuse for Hgb 7 or less unless pt is symptomatic. Pt has received parenteral iron within the last several weeks, no iron studies yet as they will be falsely elevated due to iron infusion and blood transfusion. Status: Chronic (5) Back pain Status: Acute (6) Neuropathy Status: Acute Plan: There is no documentation of neuropathy or back pain in office notes. Since pt is unsure when neuropathy and back pain started CT ordered of the T and L spine.
[2017-03-09 20:23] LABS: Glucose,Whole Blood 71 mg/dL (75-99)
[2017-03-09] MEDS: ATORVASTATIN 10 MG TAB PO SCH (21:48)
[2017-03-10 02:03] LABS: Glucose,Whole Blood 92 mg/dL (75-99)
[2017-03-10 05:20] LABS: Glucose,Whole Blood 96 mg/dL (75-99)
[2017-03-10] MEDS: PANTOPRAZOLE 40 MG TABLET PO SCH (06:42)
[2017-03-10] MEDS: LEVOTHYROXINE 75 MCG TAB PO SCH (06:42)
[2017-03-10] MEDS: glipiZIDE 10 MG TAB PO SCH (06:42)
[2017-03-10] MEDS: LEVOTHYROXINE 100 MCG TAB PO SCH (06:42)
[2017-03-10 07:20] LABS: Calcium 8.5 mg/dL (8.4-10.2); Potassium 4.2 mmol/L (3.5-5.1)
[2017-03-10] MEDS: LACTATED RINGERS 1,000 ML IV SCH ×2 (09:25→16:56)
[2017-03-10] MEDS: LINAGLIPTIN 5 MG TABLET PO SCH (09:32)
[2017-03-10] MEDS: ATENOLOL 12.5 MG TAB PO SCH ×2 (09:32→20:27)
[2017-03-10] MEDS: MELOXICAM 7.5 MG TAB PO SCH (09:32)
[2017-03-10] MEDS: amLODIPine 5 MG TAB PO SCH ×2 (09:33→20:27)
[2017-03-10 12:09] LABS: Glucose,Whole Blood 60 mg/dL (75-99)
[2017-03-10 12:11] LABS: Glucose,Whole Blood 54 mg/dL (75-99)
[2017-03-10 12:25] LABS: Glucose,Whole Blood 62 mg/dL (75-99)
[2017-03-10 13:09] LABS: Glucose,Whole Blood 57 mg/dL (75-99)
[2017-03-10 13:44] LABS: Glucose,Whole Blood 88 mg/dL (75-99)
[2017-03-10 16:43] LABS: Glucose,Whole Blood 64 mg/dL (75-99)
[2017-03-10 17:14] LABS: Glucose,Whole Blood 66 mg/dL (75-99)
[2017-03-10 18:03] LABS: Glucose,Whole Blood 75 mg/dL (75-99)
[2017-03-10 18:03] LABS: Glucose,Whole Blood 66 mg/dL (75-99)
[2017-03-10] MEDS: ATORVASTATIN 10 MG TAB PO SCH (20:27)
[2017-03-10 20:31] LABS: Glucose,Whole Blood 81 mg/dL (75-99)
--- NOTE | 2017-03-10 22:15 | P.PN ---
Subjective Progress Note Date: 03/09/17 Principal diagnosis: Status post fall This is a 77-year-old female with a known history of hypertension, diabetes2 non -insulin-dependent and recent breast cancer currently undergoing chemotherapy and completed 6 of 12 weekly cycles was brought to the hospital status post fall and generalized weakness.. Patient states last night she was in the bathroom and then found herself on the floor she doesn't remember clearly how she got to the floor. Patient was febrile on admission. On 03/09/2017 Patient says that she is feeling better. Undergoing physical therapy. CT neck showed no acute fractures or dislocations. Patient is being continued on antibiotics in the form of ceftriaxone for urinary tract infection. No fever last since last night. No complaints of chest pain or short of breath. Objective - Vital Signs Vital signs: Vital Signs Temp 97.3 F L 03/09/17 20:00 Pulse 91 03/09/17 20:00 Resp 18 03/09/17 20:00 BP 114/58 03/09/17 20:00 Pulse Ox 98 03/09/17 20:00 Intake & Output 03/09/17 03/09/17 03/10/17 06:59 18:59 06:59 Intake Total 610 365 Output Total 400 200 Balance 210 165 Weight 80.5 kg 80.5 kg Intake: Oral 300 365 Blood Product 310 Rc As-1 Unit 310 [id number] Output: Urine 400 200 Other: # Voids 1 1 - Exam PHYSICAL EXAMINATION: Patient is lying in the bed comfortably, no acute distress, awake alert and oriented.. HEENT: Normocephalic. Neck is supple. Pupils reactive. Nostrils clear. Oral cavity is moist. Ears reveal no drainage. Neck reveals no JVD, carotid bruits, or thyromegaly. CHEST EXAMINATION: Trachea is central. Symmetrical expansion. Lung triplett clear to auscultation and percussion. CARDIAC: Normal S1, S2 with no gallops. No murmurs . Mediport in place ABDOMEN: Soft. Bowel sounds normal. No organomegaly. No abdominal bruits. Extremities: 1+ edema. No clubbing or cyanosis Neurologically awake, alert, oriented x3 with well-coordinated movements. No focal deficits noted Skin: No rash or skin lesions. Psychiatric: Operative. Nonsuicidal Musculoskeletal: No joint swelling or deformity. Normal range of motion. - Labs CBC & Chem 7: 03/09/17 09:04 03/10/17 05:25 Labs: Abnormal Lab Results - Last 24 Hours (Table) 03/08/17 03/08/17 03/09/17 Range/Units 23:16 23:16 00:22 RBC 2.14 L 2.08 L (3.80-5.40) m/uL Hgb 6.9 L* 6.5 L* (11.4-16.0) gm/dL Hct 21.9 L 21.0 L (34.0-46.0) % MCV 102.0 H 100.7 H (80.0-100.0) fL RDW 20.4 H 20.3 H (11.5-15.5) % Plt Count 146 L 149 L (150-450) k/uL Lymphocytes # 0.2 L 0.2 L (1.0-4.8) k/uL POC Glucose (mg/dL) (75-99) mg/dL Troponin I 0.086 H* (0.000-0.034) ng/mL Crossmatch 03/09/17 03/09/17 03/09/17 Range/Units 00:22 06:30 09:04 RBC 2.70 L (3.80-5.40) m/uL Hgb 8.6 L D (11.4-16.0) gm/dL Hct 26.9 L (34.0-46.0) % MCV (80.0-100.0) fL RDW 21.2 H (11.5-15.5) % Plt Count 134 L (150-450) k/uL Lymphocytes # 0.3 L (1.0-4.8) k/uL POC Glucose (mg/dL) 199 H (75-99) mg/dL Troponin I (0.000-0.034) ng/mL Crossmatch See Detail 03/09/17 03/09/17 03/09/17 Range/Units 11:31 11:46 16:39 RBC (3.80-5.40) m/uL Hgb (11.4-16.0) gm/dL Hct (34.0-46.0) % MCV (80.0-100.0) fL RDW (11.5-15.5) % Plt Count (150-450) k/uL Lymphocytes # (1.0-4.8) k/uL POC Glucose (mg/dL) 63 L 63 L 65 L (75-99) mg/dL Troponin I (0.000-0.034) ng/mL Crossmatch 03/09/17 Range/Units 20:20 RBC (3.80-5.40) m/uL Hgb (11.4-16.0) gm/dL Hct (34.0-46.0) % MCV (80.0-100.0) fL RDW (11.5-15.5) % Plt Count (150-450) k/uL Lymphocytes # (1.0-4.8) k/uL POC Glucose (mg/dL) 71 L (75-99) mg/dL Troponin I (0.000-0.034) ng/mL Crossmatch Microbiology - Last 24 Hours (Table) 03/08/17 19:30 Blood Culture - Preliminary Blood No Growth after 24 hours 03/08/17 18:45 Blood Culture - Preliminary Blood No Growth after 24 hours Assessment and Plan Plan: Generalized weakness denied to chemotherapy and infection. Status post fall at home. Sepsis secondary to urinary tract infection Diabetes type 2. Hypoglycemia today GERD Hyperlipidemia Breast cancer undergoing chemotherapy Obesity morbid with BMI 35.1 Troponin leak likely due to demand mismatch Acute Kidney injury. Possible ATN Plan: Patient will be continued on IV hydration and antibiotics follow-up urine culture reports. oncology is following. Continue with the PT OT. Further recommendations based on the clinical course. Time with Patient: Greater than 30
--- NOTE | 2017-03-10 23:03 | P.PN ---
Subjective Progress Note Date: 03/10/17 Principal diagnosis: Status post fall This is a 77-year-old female with a known history of hypertension, diabetes2 non -insulin-dependent and recent breast cancer currently undergoing chemotherapy and completed 6 of 12 weekly cycles was brought to the hospital status post fall and generalized weakness.. Patient states last night she was in the bathroom and then found herself on the floor she doesn't remember clearly how she got to the floor. Patient was febrile on admission. On 03/09/2017 Patient says that she is feeling better. Undergoing physical therapy. CT neck showed no acute fractures or dislocations. Patient is being continued on antibiotics in the form of ceftriaxone for urinary tract infection. No fever last since last night. No complaints of chest pain or short of breath. 03/10/2017 Patient denied any complaints of chest pain or short of breath. Feeling better. Patient is hypoglycemic today and glipizide dose will be reduced to 5 mg daily. Patient is tolerating oral diet and will reduce IV fluids rate as well and possibly discontinue tomorrow. Oncology is following. Continued on PTOT. Sodium level 131 today. Anticipate discharge to rehab. Objective - Vital Signs Vital signs: Vital Signs Temp 98.7 F 03/10/17 20:00 Pulse 90 03/10/17 20:00 Resp 18 03/10/17 20:00 BP 113/62 03/10/17 20:00 Pulse Ox 99 03/10/17 20:00 Intake & Output 03/10/17 03/10/17 03/11/17 06:59 18:59 06:59 Intake Total 1580 2100 Output Total 1025 500 Balance 555 2100 -500 Weight 81.5 kg Intake: IV 1100 1000 Lactated Ringers 1,000 ml 1100 1000 @ 75 mls/hr IV .[id number] [facility] Rx#:[id number] Levofloxacin 750Mg-D5w 0 Pmx 750 mg In Dextrose/ Water 1 150ml.bag @ 100 mls/hr IVPB Q24H [facility] Rx#: [id number] Oral 480 1100 Output: Urine 1025 500 Other: # Voids 2 - Exam PHYSICAL EXAMINATION: Patient is lying in the bed comfortably, no acute distress, awake alert and oriented.. HEENT: Normocephalic. Neck is supple. Pupils reactive. Nostrils clear. Oral cavity is moist. Ears reveal no drainage. Neck reveals no JVD, carotid bruits, or thyromegaly. CHEST EXAMINATION: Trachea is central. Symmetrical expansion. Lung triplett clear to auscultation and percussion. CARDIAC: Normal S1, S2 with no gallops. No murmurs . Mediport in place ABDOMEN: Soft. Bowel sounds normal. No organomegaly. No abdominal bruits. Extremities: 1+ edema. No clubbing or cyanosis Neurologically awake, alert, oriented x3 with well-coordinated movements. No focal deficits noted Skin: No rash or skin lesions. Psychiatric: Operative. Nonsuicidal Musculoskeletal: No joint swelling or deformity. Normal range of motion. - Labs CBC & Chem 7: 03/09/17 09:04 03/10/17 05:25 Labs: Abnormal Lab Results - Last 24 Hours (Table) 03/10/17 03/10/17 03/10/17 Range/Units 05:25 11:51 12:07 Sodium 131 L (137-145) mmol/L Carbon Dioxide 18 L (22-30) mmol/L BUN 28 H (7-17) mg/dL Creatinine 1.08 H (0.52-1.04) mg/dL Glucose 70 L (74-99) mg/dL POC Glucose (mg/dL) 54 L 60 L (75-99) mg/dL 03/10/17 03/10/17 03/10/17 Range/Units 12:22 13:06 16:42 Sodium (137-145) mmol/L Carbon Dioxide (22-30) mmol/L BUN (7-17) mg/dL Creatinine (0.52-1.04) mg/dL Glucose (74-99) mg/dL POC Glucose (mg/dL) 62 L 57 L 64 L (75-99) mg/dL 03/10/17 03/10/17 Range/Units 17:11 17:32 Sodium (137-145) mmol/L Carbon Dioxide (22-30) mmol/L BUN (7-17) mg/dL Creatinine (0.52-1.04) mg/dL Glucose (74-99) mg/dL POC Glucose (mg/dL) 66 L 66 L (75-99) mg/dL Microbiology - Last 24 Hours (Table) 03/08/17 19:30 Blood Culture - Preliminary Blood No Growth after 48 hours 03/08/17 18:45 Blood Culture - Preliminary Blood No Growth after 48 hours Assessment and Plan Plan: Generalized weakness denied to chemotherapy and infection. Status post fall at home. Sepsis secondary to urinary tract infection Diabetes type 2. Hypoglycemia today GERD Hyperlipidemia Breast cancer undergoing chemotherapy Obesity morbid with BMI 35.1 Troponin leak likely due to demand mismatch Acute Kidney injury. Possible ATN Plan: Patient will be continued on IV hydration and antibiotics follow-up urine culture reports. oncology is following. Continue with the PT OT. Further recommendations based on the clinical course.
[2017-03-11 01:55] LABS: Glucose,Whole Blood 102 mg/dL (75-99)
[2017-03-11 06:00] LABS: Glucose,Whole Blood 101 mg/dL (75-99)
[2017-03-11 06:32] LABS: Anisocytosis Moderate; Basophils % (A) 0 %; CH 32.1; CHCM 32.3; Eosinophils % (A) 1 %; HDW 4.05; HGB 8.1 gm/dL (11.4-16.0); Hypochromasia Moderate; Luc # (Auto) 0.13; Luc % (Auto) 4; Lymphocytes # (A) 0.2 k/uL (1.0-4.8); Lymphocytes % (A) 5 %; MCH 31.2 pg (25.0-35.0); MCHC 31.1 g/dL (31.0-37.0); MCV 100.4 fL (80.0-100.0); Macrocytosis Moderate; Mean Platelet Volume 9.4; Monocytes # (A) 0.4 k/uL (0-1.0); Monocytes % (A) 10 %; Neutrophils # (A) 2.9 k/uL (1.3-7.7); Neutrophils % (A) 81 %; Poikilocytosis Moderate; RBC 2.59 m/uL (3.80-5.40); RDW 20.5 % (11.5-15.5); WBC 3.6 k/uL (3.8-10.6)
[2017-03-11] MEDS: PANTOPRAZOLE 40 MG TABLET PO SCH (06:35)
[2017-03-11] MEDS: LEVOTHYROXINE 75 MCG TAB PO SCH (06:35)
[2017-03-11] MEDS: LEVOTHYROXINE 100 MCG TAB PO SCH (06:35)
[2017-03-11 06:36] LABS: Blood Urea Nitrogen 20 mg/dL (7-17); Calcium 8.5 mg/dL (8.4-10.2); Carbon Dioxide 20 mmol/L (22-30); Chloride 104 mmol/L (98-107); Glucose 89 mg/dL (74-99); Non-African American GFR(MDRD) >60 (>60 ml/min/1.73 sqM); Potassium 4.8 mmol/L (3.5-5.1)
[2017-03-11 06:39] LABS: Anion Gap 7 mmol/L; Sodium 131 mmol/L (137-145)
[2017-03-11] MEDS: LACTATED RINGERS 1,000 ML IV SCH ×3 (07:18→20:48)
[2017-03-11] MEDS ORDERED: glipiZIDE 10 MG TAB PO SCH (07:30)
[2017-03-11] MEDS: ENOXAPARIN 30 MG/0.3 ML SYRINGE SQ SCH (08:33)
[2017-03-11] MEDS: amLODIPine 5 MG TAB PO SCH ×2 (08:33→20:49)
[2017-03-11] MEDS: ATENOLOL 12.5 MG TAB PO SCH (08:33)
[2017-03-11] MEDS: MELOXICAM 7.5 MG TAB PO SCH (08:34)
[2017-03-11] MEDS: LINAGLIPTIN 5 MG TABLET PO SCH (08:34)
[2017-03-11 12:17] LABS: Glucose,Whole Blood 73 mg/dL (75-99)
[2017-03-11 12:17] LABS: Glucose,Whole Blood 65 mg/dL (75-99)
--- NOTE | 2017-03-11 13:23 | P.PN ---
Subjective This is a 77-year-old female with a known history of hypertension, diabetes2 non -insulin-dependent and recent breast cancer currently undergoing chemotherapy and completed 6 of 12 weekly cycles was brought to the hospital status post fall and generalized weakness.. Patient states last night she was in the bathroom and then found herself on the floor she doesn't remember clearly how she got to the floor. Patient was febrile on admission. On 03/09/2017 Patient says that she is feeling better. Undergoing physical therapy. CT neck showed no acute fractures or dislocations. Patient is being continued on antibiotics in the form of ceftriaxone for urinary tract infection. No fever last since last night. No complaints of chest pain or short of breath. 03/10/2017 Patient denied any complaints of chest pain or short of breath. Feeling better. Patient is hypoglycemic today and glipizide dose will be reduced to 5 mg daily. Patient is tolerating oral diet and will reduce IV fluids rate as well and possibly discontinue tomorrow. Oncology is following. Continued on PTOT. Sodium level 131 today. Anticipate discharge to rehab. 03/11/2017 Patient overall doesn't have any significant overnight events. Clinically doing well awaiting disposition to rehabilitation. Constitutional: Denied any fatigue denied any fever. Cardio vascular: denied any chest pain, palpitations Gastrointestinal denied any nausea vomiting Pulmonary: Denied any shortness of breath cough Neurologic denied any new focal deficits Objective - Vital Signs Vital signs: Vital Signs Temp 98.9 F 03/11/17 08:00 Pulse 87 03/11/17 11:53 Resp 18 03/11/17 11:53 BP 122/72 03/11/17 11:53 Pulse Ox 97 03/11/17 11:53 Intake & Output 03/10/17 03/11/17 03/11/17 18:59 06:59 18:59 Intake Total 2100 100 220 Output Total 725 250 Balance 2099 Weight 83.3 kg Intake: IV 1000 Lactated Ringers 1,000 ml 1000 @ 75 mls/hr IV .[id number] [facility] Rx#:[id number] Oral 1100 100 220 Output: Urine 725 250 - Exam Patient is lying in the bed comfortably, no acute distress, awake alert and oriented.. HEENT: Normocephalic. Neck is supple. Pupils reactive. Nostrils clear. Oral cavity is moist. Ears reveal no drainage. Neck reveals no JVD, carotid bruits, or thyromegaly. CHEST EXAMINATION: Trachea is central. Symmetrical expansion. Lung triplett clear to auscultation and percussion. CARDIAC: Normal S1, S2 with no gallops. No murmurs . Mediport in place ABDOMEN: Soft. Bowel sounds normal. No organomegaly. No abdominal bruits. Extremities: 1+ edema. No clubbing or cyanosis Neurologically awake, alert, oriented x3 with well-coordinated movements. No focal deficits noted Skin: No rash or skin lesions. Psychiatric: Operative. Nonsuicidal Musculoskeletal: No joint swelling or deformity. Normal range of motion. - Labs CBC & Chem 7: 03/11/17 05:12 03/11/17 05:12 Labs: Abnormal Lab Results - Last 24 Hours (Table) 03/10/17 03/10/17 03/10/17 Range/Units 16:42 17:11 17:32 WBC (3.8-10.6) k/uL RBC (3.80-5.40) m/uL Hgb (11.4-16.0) gm/dL Hct (34.0-46.0) % MCV (80.0-100.0) fL RDW (11.5-15.5) % Plt Count (150-450) k/uL Lymphocytes # (1.0-4.8) k/uL Sodium (137-145) mmol/L Carbon Dioxide (22-30) mmol/L BUN (7-17) mg/dL POC Glucose (mg/dL) 64 L 66 L 66 L (75-99) mg/dL 03/11/17 03/11/17 03/11/17 Range/Units 01:54 05:12 05:12 WBC 3.6 L (3.8-10.6) k/uL RBC 2.59 L (3.80-5.40) m/uL Hgb 8.1 L (11.4-16.0) gm/dL Hct 26.0 L (34.0-46.0) % MCV 100.4 H (80.0-100.0) fL RDW 20.5 H (11.5-15.5) % Plt Count 120 L (150-450) k/uL Lymphocytes # 0.2 L (1.0-4.8) k/uL Sodium 131 L (137-145) mmol/L Carbon Dioxide 20 L (22-30) mmol/L BUN 20 H (7-17) mg/dL POC Glucose (mg/dL) 102 H (75-99) mg/dL 03/11/17 03/11/17 03/11/17 Range/Units 05:49 11:34 12:13 WBC (3.8-10.6) k/uL RBC (3.80-5.40) m/uL Hgb (11.4-16.0) gm/dL Hct (34.0-46.0) % MCV (80.0-100.0) fL RDW (11.5-15.5) % Plt Count (150-450) k/uL Lymphocytes # (1.0-4.8) k/uL Sodium (137-145) mmol/L Carbon Dioxide (22-30) mmol/L BUN (7-17) mg/dL POC Glucose (mg/dL) 101 H 65 L 73 L (75-99) mg/dL Microbiology - Last 24 Hours (Table) 03/08/17 19:30 Blood Culture - Preliminary Blood No Growth after 48 hours 03/08/17 18:45 Blood Culture - Preliminary Blood No Growth after 48 hours Assessment and Plan Plan: Generalized weakness denied to chemotherapy and infection. Status post fall at home. Sepsis secondary to urinary tract infection Diabetes type 2. mildly hypoglycemic glipizide will be discontinued GERD Hyperlipidemia Breast cancer undergoing chemotherapy Obesity morbid with BMI 35.1 Troponin leak likely due to demand mismatch Acute Kidney injury. Possible ATN Plan: Patient will be continued on IV hydration and antibiotics follow-up urine culture reports. oncology is following. Continue with the PT OT. Further recommendations based on the clinical course.
[2017-03-11 13:27] LABS: Glucose,Whole Blood 96 mg/dL (75-99)
[2017-03-11 16:44] LABS: Glucose,Whole Blood 85 mg/dL (75-99)
[2017-03-11] MEDS: traMADol 50 MG TAB PO PRN (17:45)
[2017-03-11] MEDS: MAG HYDROX/AL HYDROX/SIMETH 30 ML, diphenhydrAMINE ELIXIR 75 MG, LIDOCAINE VISCOUS 30 ML PO PRN ×3 (17:47)
--- NOTE | 2017-03-11 19:20 | P.PN ---
Subjective Progress Note Date: 03/11/17 the patient is feeling stronger, and notes some increase in appetite. She is less short of breath. She is complaining of mouth sores on the inside of her lower lip Objective - Vital Signs Vital signs: Vital Signs Temp 98.1 F 03/11/17 16:00 Pulse 80 03/11/17 16:00 Resp 18 03/11/17 16:00 BP 121/70 03/11/17 16:00 Pulse Ox 100 03/11/17 16:00 Intake & Output 03/11/17 03/11/17 03/12/17 06:59 18:59 06:59 Intake Total 100 1160 Output Total 725 1000 Balance -625 160 Weight 83.3 kg Intake: IV 600 Lactated Ringers 1,000 ml 600 @ 75 mls/hr IV .[id number] [facility] Rx#:[id number] Oral 100 560 Output: Urine 725 1000 Other: # Bowel Movements 1 - Constitutional General appearance: Present: no acute distress - EENT Eyes: Present: PERRLA ENT: Present: hearing grossly normal, other ( small, shallow aphthous ulcers mucosa of the lower lip) - Respiratory Respiratory: bilateral: CTA - Cardiovascular Rhythm: regular Heart sounds: normal: S1, S2 - Gastrointestinal General gastrointestinal: Present: normal bowel sounds, soft - Neurologic Neurologic: Present: CNII-XII intact - Musculoskeletal Musculoskeletal: Present: generalized weakness, strength equal bilaterally - Psychiatric Psychiatric: Present: A&O x's 3, appropriate affect - Labs CBC & Chem 7: 03/11/17 05:12 03/11/17 05:12 Labs: Abnormal Lab Results - Last 24 Hours (Table) 03/11/17 03/11/17 03/11/17 Range/Units 01:54 05:12 05:12 WBC 3.6 L (3.8-10.6) k/uL RBC 2.59 L (3.80-5.40) m/uL Hgb 8.1 L (11.4-16.0) gm/dL Hct 26.0 L (34.0-46.0) % MCV 100.4 H (80.0-100.0) fL RDW 20.5 H (11.5-15.5) % Plt Count 120 L (150-450) k/uL Lymphocytes # 0.2 L (1.0-4.8) k/uL Sodium 131 L (137-145) mmol/L Carbon Dioxide 20 L (22-30) mmol/L BUN 20 H (7-17) mg/dL POC Glucose (mg/dL) 102 H (75-99) mg/dL 03/11/17 03/11/17 03/11/17 Range/Units 05:49 11:34 12:13 WBC (3.8-10.6) k/uL RBC (3.80-5.40) m/uL Hgb (11.4-16.0) gm/dL Hct (34.0-46.0) % MCV (80.0-100.0) fL RDW (11.5-15.5) % Plt Count (150-450) k/uL Lymphocytes # (1.0-4.8) k/uL Sodium (137-145) mmol/L Carbon Dioxide (22-30) mmol/L BUN (7-17) mg/dL POC Glucose (mg/dL) 101 H 65 L 73 L (75-99) mg/dL Microbiology - Last 24 Hours (Table) 03/08/17 19:30 Blood Culture - Preliminary Blood No Growth after 48 hours 03/08/17 18:45 Blood Culture - Preliminary Blood No Growth after 48 hours Assessment and Plan (1) Urinary tract infection Narrative/Plan: the patient's sepsis symptoms from UTI have improved significantly. Continue antibiotics per the admitting service Status: Acute (2) Back pain Narrative/Plan: CT of the thoracic and lumbar spine was ordered, due to the patient's back pain. The results were discussed with the patient. There was no evidence of malignancy or fracture. Significant degenerative disease was noted. Status: Acute Plan: Magic mouthwash will be prescribed for the oral ulcers. The ulcers are probably related to antibiotics, as her white blood cell count is normal
[2017-03-11 20:31] LABS: Glucose,Whole Blood 114 mg/dL (75-99)
[2017-03-11] MEDS: ATORVASTATIN 10 MG TAB PO SCH (20:49)
[2017-03-11] MEDS: DOCUSATE 100 MG CAP PO SCH (20:52)
[2017-03-12] MEDS: ATENOLOL 12.5 MG TAB PO SCH ×3 (01:02→23:10)
[2017-03-12 06:00] LABS: Glucose,Whole Blood 127 mg/dL (75-99)
[2017-03-12 06:03] LABS: Anisocytosis Slight; CH 32.1; CHCM 31.9; HCT 25.8 % (34.0-46.0); HDW 3.91; Hypochromasia Moderate; MCH 31.3 pg (25.0-35.0); MCHC 30.9 g/dL (31.0-37.0); MCV 101.3 fL (80.0-100.0); Macrocytosis Moderate; Mean Platelet Volume 9.2; Poikilocytosis Slight; RBC 2.55 m/uL (3.80-5.40); RDW 19.8 % (11.5-15.5); WBC 2.9 k/uL (3.8-10.6)
[2017-03-12 06:13] LABS: Anion Gap 6 mmol/L; Blood Urea Nitrogen 16 mg/dL (7-17); Calcium 8.5 mg/dL (8.4-10.2); Carbon Dioxide 23 mmol/L (22-30); Chloride 104 mmol/L (98-107); Glucose 121 mg/dL (74-99); Non-African American GFR(MDRD) >60 (>60 ml/min/1.73 sqM); Potassium 4.6 mmol/L (3.5-5.1); Sodium 133 mmol/L (137-145)
[2017-03-12] MEDS: LEVOTHYROXINE 75 MCG TAB PO SCH (06:44)
[2017-03-12] MEDS: PANTOPRAZOLE 40 MG TABLET PO SCH (06:44)
[2017-03-12] MEDS: LACTATED RINGERS 1,000 ML IV SCH ×2 (06:45→18:24)
[2017-03-12] MEDS: LEVOTHYROXINE 100 MCG TAB PO SCH (06:45)
[2017-03-12] MEDS: MELOXICAM 7.5 MG TAB PO SCH (09:23)
[2017-03-12] MEDS: ENOXAPARIN 30 MG/0.3 ML SYRINGE SQ SCH (09:23)
[2017-03-12] MEDS: DOCUSATE 100 MG CAP PO SCH ×2 (09:23→23:10)
[2017-03-12] MEDS: amLODIPine 5 MG TAB PO SCH (09:24)
[2017-03-12 11:59] LABS: Glucose,Whole Blood 154 mg/dL (75-99)
--- NOTE | 2017-03-12 15:31 | P.PN ---
Subjective This is a 77-year-old female with a known history of hypertension, diabetes2 non -insulin-dependent and recent breast cancer currently undergoing chemotherapy and completed 6 of 12 weekly cycles was brought to the hospital status post fall and generalized weakness.. Patient states last night she was in the bathroom and then found herself on the floor she doesn't remember clearly how she got to the floor. Patient was febrile on admission. On 03/09/2017 Patient says that she is feeling better. Undergoing physical therapy. CT neck showed no acute fractures or dislocations. Patient is being continued on antibiotics in the form of ceftriaxone for urinary tract infection. No fever last since last night. No complaints of chest pain or short of breath. 03/10/2017 Patient denied any complaints of chest pain or short of breath. Feeling better. Patient is hypoglycemic today and glipizide dose will be reduced to 5 mg daily. Patient is tolerating oral diet and will reduce IV fluids rate as well and possibly discontinue tomorrow. Oncology is following. Continued on PTOT. Sodium level 131 today. Anticipate discharge to rehab. 03/11/2017 Patient overall doesn't have any significant overnight events. Clinically doing well awaiting disposition to rehabilitation. 03/12 2017 Patient will be transferred out of ICU PT and OT evaluation possibly of discharge to subacute rehabilitation no overnight events Constitutional: Denied any fatigue denied any fever. Cardio vascular: denied any chest pain, palpitations Gastrointestinal denied any nausea vomiting Pulmonary: Denied any shortness of breath cough Neurologic denied any new focal deficits Objective - Vital Signs Vital signs: Vital Signs Temp 96.9 F L 03/12/17 08:00 Pulse 88 03/12/17 08:00 Resp 18 03/12/17 08:00 BP 119/64 03/12/17 08:00 Pulse Ox 100 03/12/17 08:00 Intake & Output 03/11/17 03/12/17 03/12/17 18:59 06:59 18:59 Intake Total 1160 600 525 Output Total 1000 900 Balance 160 -300 525 Intake: IV 600 600 525 Lactated Ringers 1,000 ml 600 600 525 @ 75 mls/hr IV .[id number] MAGDA Rx#:[id number] Oral 560 Output: Urine 1000 900 Other: # Voids 2 # Bowel Movements 1 - Exam Patient is lying in the bed comfortably, no acute distress, awake alert and oriented.. HEENT: Normocephalic. Neck is supple. Pupils reactive. Nostrils clear. Oral cavity is moist. Ears reveal no drainage. Neck reveals no JVD, carotid bruits, or thyromegaly. CHEST EXAMINATION: Trachea is central. Symmetrical expansion. Lung triplett clear to auscultation and percussion. CARDIAC: Normal S1, S2 with no gallops. No murmurs . Mediport in place ABDOMEN: Soft. Bowel sounds normal. No organomegaly. No abdominal bruits. Extremities: 1+ edema. No clubbing or cyanosis Neurologically awake, alert, oriented x3 with well-coordinated movements. No focal deficits noted Skin: No rash or skin lesions. Psychiatric: Operative. Nonsuicidal Musculoskeletal: No joint swelling or deformity. Normal range of motion. - Labs CBC & Chem 7: 03/12/17 05:10 03/12/17 05:10 Labs: Abnormal Lab Results - Last 24 Hours (Table) 03/11/17 03/12/17 03/12/17 Range/Units 20:30 05:10 05:10 WBC 2.9 L (3.8-10.6) k/uL RBC 2.55 L (3.80-5.40) m/uL Hgb 8.0 L (11.4-16.0) gm/dL Hct 25.8 L (34.0-46.0) % MCV 101.3 H (80.0-100.0) fL MCHC 30.9 L (31.0-37.0) g/dL RDW 19.8 H (11.5-15.5) % Plt Count 133 L (150-450) k/uL Sodium 133 L (137-145) mmol/L Glucose 121 H (74-99) mg/dL POC Glucose (mg/dL) 114 H (75-99) mg/dL 03/12/17 03/12/17 Range/Units 05:56 11:39 WBC (3.8-10.6) k/uL RBC (3.80-5.40) m/uL Hgb (11.4-16.0) gm/dL Hct (34.0-46.0) % MCV (80.0-100.0) fL MCHC (31.0-37.0) g/dL RDW (11.5-15.5) % Plt Count (150-450) k/uL Sodium (137-145) mmol/L Glucose (74-99) mg/dL POC Glucose (mg/dL) 127 H 154 H (75-99) mg/dL Microbiology - Last 24 Hours (Table) 03/11/17 15:50 Urine Culture - Preliminary Urine,Voided 03/08/17 19:30 Blood Culture - Preliminary Blood No Growth after 72 hours 03/08/17 18:45 Blood Culture - Preliminary Blood No Growth after 72 hours Assessment and Plan Plan: Generalized weakness denied to chemotherapy and infection. Status post fall at home, secondary to generalized deconditioning and weakness. Sepsis secondary to urinary tract infection Diabetes type 2. mildly hypoglycemic yesterday and glipizide was discontinued blood sugars are doing well today GERD Hyperlipidemia Breast cancer undergoing chemotherapy Obesity morbid with BMI 35.1 Troponin leak likely due to demand mismatch Acute Kidney injury. Possible ATN Plan: Patient will be continued on IV hydration and antibiotics follow-up urine culture reports. oncology is following. Continue with the PT OT. Possibly of discharge tomorrow to subacute rehabilitation
[2017-03-12 17:17] LABS: Glucose,Whole Blood 135 mg/dL (75-99)
[2017-03-12] MEDS: traMADol 50 MG TAB PO PRN (18:53)
[2017-03-12 20:55] LABS: Glucose,Whole Blood 202 mg/dL (75-99)
[2017-03-12] MEDS: ATORVASTATIN 10 MG TAB PO SCH (23:10)
[2017-03-13 02:23] LABS: Glucose,Whole Blood 137 mg/dL (75-99)
[2017-03-13] MEDS: LEVOTHYROXINE 100 MCG TAB PO SCH (06:00)
[2017-03-13] MEDS: LEVOTHYROXINE 75 MCG TAB PO SCH (06:00)
[2017-03-13] MEDS: LACTATED RINGERS 1,000 ML IV SCH (06:35)
[2017-03-13] MEDS: MAG HYDROX/AL HYDROX/SIMETH 30 ML, diphenhydrAMINE ELIXIR 75 MG, LIDOCAINE VISCOUS 30 ML PO PRN ×3 (06:58)
[2017-03-13 07:31] VITALS: BP 123/71; PULSE 86; RESP 20; TEMP 97.8
[2017-03-13 07:45] LABS: Glucose,Whole Blood 144 mg/dL (75-99)
[2017-03-13] MEDS: MELOXICAM 7.5 MG TAB PO SCH (08:47)
[2017-03-13] MEDS: ATENOLOL 12.5 MG TAB PO SCH (08:49)
[2017-03-13] MEDS: PANTOPRAZOLE 40 MG TABLET PO SCH (08:49)
[2017-03-13] MEDS: DOCUSATE 100 MG CAP PO SCH (08:49)
[2017-03-13] MEDS: ENOXAPARIN 30 MG/0.3 ML SYRINGE SQ SCH (08:49)
[2017-03-13] MEDS: traMADol 50 MG TAB PO PRN (08:56)
[2017-03-13] MEDS ORDERED: amLODIPine 5 MG TAB PO SCH (09:00)
[2017-03-13 11:32] LABS: Glucose,Whole Blood 156 mg/dL (75-99)
[2017-03-13 14:03] VITALS: BMI 35.9
--- NOTE | 2017-03-13 15:18 | CDI ---
In responding to this query, please exercise your independent professional judgment. The [facility] Coding Staff and Clinical Documentation Specialists appreciate your assistance in clarifying documentation, maintaining compliance with coding guidelines, accurately documenting patients condition and capturing severity of illness. The fact that a question is asked does not imply that any particular answer is desired or expected. Communication forms are a method of clarifying documentation and are not made part of the Legal Health Record. Thank you in advance for your clarification. Last Revision, August 2016 Nicolas Baeza [address] [place] [address] Documentation Clarification Form Date: 03/13/2017 3:08:00 PM From: Mikaela Wong, CCS, CCDS Admit Date: 03/08/2017 2:53:00 PM Patient Name: Mary Bryan Visit Number: [id number] Discharge Date: Dr. David Chaudhary: Per attending progress notes: 77 yo female with known history of hypertension, NIDDM II & recent breast CA, currently in chemotherapy, admitted after a fall & generalized weakness. Diagnosed with Generalized weakness d/t chemo & infection. Sepsis secondary to UTI. HUSSAIN possibly ATN. History/Risk Factors: per above Clinical Indicators: VS: T 97.1*, P 90-110^, BP 104/57 LAB: Hgb 8.2*-6.9, BUN 32, Creatinine 1.81. UA: dark yellow, turbid, 2+ protein, trace blood, 1+ bilirubin, large esterase, WBC >182. Blood cultures: negative, urine culture: Yeast species. Treatment: IV Levaquin, IV fluids 75, IV Zofran, IV Lactated ringers, IV Zosyn In your professional opinion, please clarify if these findings signify one of the following conditions, whether the condition is POA, and cause, if known: Severe Sepsis Unable to determine Other, please specify Present on Admission: Yes No Please document in your progress notes and discharge summary in order to capture severity of illness and risk of mortality. Include clinical findings that support your diagnosis. FYI: Press F11 to launch patient chart. BONY
--- NOTE | 2017-03-13 16:20 | DS ---
DISCHARGE SUMMARY DATE OF SERVICE: 03/13/2017. ATTENDING NOTE: The patient was seen and examined by me. I discussed with my nurse practitioner, Ms. Solis. This is a patient getting chemotherapy for breast cancer. Presented with fall and weakness, found to have a UTI with sepsis on presentation. Urine cultures did not grow anything. Patient overall doing much better. Completed a course of antibiotics. FINAL DIAGNOSIS: 1. Acute urinary tract infection causing sepsis. Present on admission. 2. Medical debility from chemotherapy and urinary tract infection. 3. Diabetes mellitus type 2, on oral hypoglycemic. 4. Gastroesophageal reflux disease. 5. Hyperlipidemia. 6. Breast cancer, undergoing chemotherapy. 7. Obesity; BMI 35.1. 8. Troponin leak due to hemodynamic mismatch, not an acute myocardial infarction. 9. Acute renal failure, likely acute tubular necrosis from sepsis with the creatinine 1.81 down to 0.80. 10.Pancytopenia from chemotherapy. HOSPITAL COURSE: This patient was getting chemotherapy, presented weak and tired and found to have urinary tract infection with sepsis. Responded well to IV ceftriaxone. The patient will be given 6 more tablets of Ceftin. Up and about. Care was discussed with the patient. Patient given an enema today and had a good bowel movement. The patient's glipizide is being discontinued because of hypoglycemia. May be reduced down the road when sugars buildup. Discharge planning more than 35 minutes. MMODL / IJN: [id number] /
[2017-03-13 16:56] LABS: Glucose,Whole Blood 169 mg/dL (75-99)
--- NOTE | 2017-03-13 18:27 | P.DS ---
Providers Date of admission: 03/08/17 14:53 Expected date of discharge: 03/13/17 Attending physician: Darian Douglas Consults: 03/08/17 14:57 Consult Physician Urgent Consulting Provider: Tae Romano Consult Reason/Comments: Breast cancer Do you want consulting provider notified?: Yes Primary care physician: [facility] Course: FINAL DIAGNOSES: -acute urinary tract infection causing sepsis, present on admission. -Medical debility from chemotherapy and urinary tract infection. -Diabetes mellitus type 2 on oral hypoglycemics. -Gastroesophageal reflux disease. -Hyperlipidemia. -Breast cancer, undergoing chemotherapy. -Obesity body mass index 35.1, -Troponin leak due to hemodynamic mismatch not an acute myocardial infarction. -Acute renal failure likely acute tubular necrosis from sepsis with a creatinine 1.81 down to 0.80. -Pancytopenia from chemotherapy. HOSPTIAL COURSE: 77-year-old female who was getting chemotherapy presented to the emergency department with weakness tiredness found to have a urinary tract infection with sepsis. admitted for the same. Responded well to IV ceftriaxone. will complete the antibiotic course with 3 additional days of treatment upon discharge.ambulatory in the room and hallway, tolerating her diet.overall condition is improved and stabilized and therefore patient is appropriate for discharge to home with home care. PHYSICAL EXAM: CARDIOVASCULAR: first and second sounds noted no edema RESPIRATORY: respiratory effort normal lung sounds clear to auscultation GI:abdomen soft nontender no guarding or rigidity liver and spleen not palpable. :clear yellow urine, no burning urgency or pain on urination. PSYCHIATRY: Alert and oriented 3 mood and affect normal. Patient was seen and examined by nurse practitioner Keily Solis in all elements of the case discussed with attending Dr. Douglas DISPOSITION:discharge home with home care Patient Condition at Discharge: Stable Plan - Discharge Summary New Discharge Prescriptions: New Atenolol [Tenormin] 12.5 mg PO BID #60 tab Cefuroxime [Ceftin] 250 mg PO BID #6 tablet diphenhydrAMINE ELIXIR [Benadryl Elixir] 75 mg PO QID PRN dose PRN Reason: mouth pain Lidocaine Viscous [Xylocaine Viscous 2%] 30 ml PO QID PRN bottle PRN Reason: mouth pain traMADol HCl [Ultram] 50 mg PO Q6H PRN #30 tab PRN Reason: Pain Meloxicam [Mobic] 15 mg PO DAILY tab Continue amLODIPine [Norvasc] 5 mg PO BID Simvastatin [Zocor] 20 mg PO HS Levothyroxine Sodium [Synthroid] 175 mcg PO DAILY Omeprazole [PriLOSEC] 20 mg PO AC-BRKFST sitaGLIPtin PHOSPHATE [Januvia] 25 mg PO DAILY Discontinued glipiZIDE [Glipizide] 10 mg PO BID Losartan Potassium 100 mg PO DAILY Atenolol [Tenormin] 50 mg PO BID Meloxicam [Mobic] 15 mg PO DAILY Discharge Medication List Levothyroxine Sodium [Synthroid] 175 mcg PO DAILY 11/08/16 [History] Omeprazole [PriLOSEC] 20 mg PO AC-BRKFST 11/08/16 [History] Simvastatin [Zocor] 20 mg PO HS 11/08/16 [History] amLODIPine [Norvasc] 5 mg PO BID 11/08/16 [History] sitaGLIPtin PHOSPHATE [Januvia] 25 mg PO DAILY 03/02/17 [History] Atenolol [Tenormin] 12.5 mg PO BID #60 tab 03/13/17 [Rx] Cefuroxime [Ceftin] 250 mg PO BID #6 tablet 03/13/17 [Rx] Lidocaine Viscous [Xylocaine Viscous 2%] 30 ml PO QID PRN bottle 03/13/17 [Rx] Meloxicam [Mobic] 15 mg PO DAILY tab 03/13/17 [Rx] diphenhydrAMINE ELIXIR [Benadryl Elixir] 75 mg PO QID PRN dose 03/13/17 [Rx] traMADol HCl [Ultram] 50 mg PO Q6H PRN #30 tab 03/13/17 [Rx] Follow up Appointment(s)/Referral(s): [facility], [NON-STAFF] - Matheus Mccain MD [Primary Care Provider] - 03/15/17 3:45 pm Tae Romano MD [STAFF PHYSICIAN] - 03/23/17 3:00 pm (THIS IS AN OFFICE VISIT WITH AND CHEMO APPT) Patient Instructions/Handouts: Type 2 Diabetes in Adults (DC) Activity/Diet/Wound Care/Special Instructions: CHEMO ON HOLD UNTIL 03/[address] ROMANO. PT HAS APPT Activity: limited until follow-up Diet: consistent carbohydrate, heart healthy Discharge Disposition: HOME WITH HOME HEALTH SERVICES
== END 2017-03-13 18:09 | disposition home health service (06) | DRG 871 ==
LOC: EC 11:52 → 6SEL 14:53 → 4MS4W 03-12 14:28
PROVIDERS: ADMIT Hospitalist; ATTEND Hospitalist
PROC: 30230N1 Transfusion of Nonautologous Red Blood Cells into Peripheral Vein, Open Approach (ICD-10-PCS; principal; 2017-03-09)
DX: A41.9 Sepsis, unspecified organism (principal); N17.0 Acute kidney failure with tubular necrosis; D61.810 Antineoplastic chemotherapy induced pancytopenia; N39.0 Urinary tract infection, site not specified; R65.20 Severe sepsis without septic shock; C50.812 Malignant neoplasm of overlapping sites of left female breast; E11.649 Type 2 diabetes mellitus with hypoglycemia without coma; G62.9 Polyneuropathy, unspecified; M06.9 Rheumatoid arthritis, unspecified; K21.9 Gastro-esophageal reflux disease without esophagitis; K13.70 Unspecified lesions of oral mucosa; E78.5 Hyperlipidemia, unspecified; T45.1X5A Adverse effect of antineoplastic and immunosuppressive drugs, initial encounter; I10 Essential (primary) hypertension; E61.1 Iron deficiency; E66.9 Obesity, unspecified; Z68.35 Body mass index [BMI] 35.0-35.9, adult; G43.909 Migraine, unspecified, not intractable, without status migrainosus; M54.9 Dorsalgia, unspecified; Z79.84 Long term (current) use of oral hypoglycemic drugs; Z79.1 Long term (current) use of non-steroidal anti-inflammatories (NSAID); Z79.899 Other long term (current) drug therapy; Z90.49 Acquired absence of other specified parts of digestive tract; Z90.710 Acquired absence of both cervix and uterus; Z92.21 Personal history of antineoplastic chemotherapy; Z88.5 Allergy status to narcotic agent; Z88.8 Allergy status to other drugs, medicaments and biological substances; W19.XXXA Unspecified fall, initial encounter; Y92.002 Bathroom of unspecified non-institutional (private) residence as the place of occurrence of the external cause
CPT/HCPCS: 36415; 51701; 71020; 72050; 72128; 72131; 80048; 80053; 81001; 82550; 82553; 83605; 83735; 84443; 84484; 85025; 85027; 85610; 85730; 86850; 86900; 86901; 86920; 87040; 87086; 96365; 96375; 99285

== ENCOUNTER 2017-05-23 08:13 | Day surgery (SDC) | payer MEDICARE ==
[2017-05-17 11:04] VITALS: BMI 35.2
[~2017-05-23 08:13] MED LIST changes: +HEPARIN SODIUM,PORCINE 5,000 UNIT/ML 1 ML VIAL SQ ONE; -HYDROmorphone 1 MG/ML 1 ML SYRINGE IVP PRN; -LACTATED RINGERS 1,000 ML IV SCH; +MIDAZOLAM 2 MG/2 ML VIAL IV PRN; -ceFAZolin 2 GM in SODIUM CHLORIDE 0.9% 100 ML IVPB ONE
[2017-05-23 08:52] LABS: Glucose,Whole Blood 142 mg/dL (75-99)
[2017-05-23] MEDS: LACTATED RINGERS 1,000 ML IV SCH (09:00)
[2017-05-23] MEDS ORDERED: SODIUM CHLORIDE 0.9% 50 ML with ceFAZolin 2,000 MG IV ONE ×2 (09:06)
[2017-05-23] MEDS: Pre Op ABX Message 1 EACH MISC MISCELLANE ONE ×2 (09:06→17:03)
[2017-05-23] MEDS ORDERED: PROPOFOL 10 MG/ML 20 ML VIAL IV ONE (09:06)
[2017-05-23] MEDS ORDERED: MIDAZOLAM 2 MG/2 ML VIAL ONE (09:06)
[2017-05-23] MEDS ORDERED: ePHEDrine SULFATE/0.9% NACL/PF 50 MG/5 ML SYRINGE IV ONE (09:06)
[2017-05-23] MEDS ORDERED: LIDOCAINE 1% INJ 10MG/ML (20 ML MDV) ONE (09:06)
[2017-05-23] MEDS ORDERED: fentaNYL (PF) 50 MCG/ML 2 ML AMP ONE (09:06)
[2017-05-23] MEDS ORDERED: SUCCINYLCHOLINE CHLORIDE 100 MG/5 ML SYR IV ONE (09:06)
[2017-05-23] MEDS ORDERED: PHENYLEPHRINE-0.9% NACL SYG 1 MG/10 ML SYRINGE ONE (09:06)
[2017-05-23] MEDS ORDERED: HEPARIN SODIUM,PORCINE 5,000 UNIT/ML 1 ML VIAL SQ ONE (09:19)
[2017-05-23] MEDS ORDERED: LACTATED RINGERS 1,000 ML IV ONE (12:27)
[2017-05-23] MEDS ORDERED: ONDANSETRON 4 MG/2 ML VIAL IVP PRN (12:46)
[2017-05-23] MEDS ORDERED: NALOXONE 0.4 MG/ML 1 ML VIAL IV PRN (12:46)
[2017-05-23] MEDS ORDERED: BENZOCAINE/MENTHOL LOZENG 1 EACH LOZENGE MUCOUS MEM PRN (12:46)
--- NOTE | 2017-05-23 12:46 | P.OP ---
Date of Procedure: 05/23/17 Preoperative Diagnosis: Left breast cancer Postoperative Diagnosis: Same Procedure(s) Performed: Left mastectomy with axillary node dissection Anesthesia: JUSTINA Surgeon: Jenny Avendaño Estimated Blood Loss (ml): 40 IV fluids (ml): 800 Pathology: other (Left breast, left axillary contents) Condition: stable Disposition: PACU Indications for Procedure: Left breast cancer diagnosed in September, treated with neoadjuvant chemotherapy Operative Findings: Residual mass left breast lower inner quadrant with extension to the skin Inflammatory changes in the axilla Description of Procedure: The patient was taken to the operating room and following induction of general anesthesia the left breast and axilla were prepped and draped in a sterile fashion. Superior and inferior skin flap lines were chosen and marked using a marking pen. Superior and inferior skin flaps were incisions were made and the incisions in the flaps were developed using electrocautery device. Upon attempting to develop the inferior flap was noted that the area of tumor extended to the area of the skin. Therefore it was determined that a portion of the skin would be necessary to be removed immediately from the inferior flap. This was discussed with the patient preoperatively. The inferior flap was continued then the breast was taken down from medial to lateral being careful to maintain hemostasis using the electrocautery device the bowel several feeding vessels coming through the pectoralis muscle were identified and these were suture ligated. After assured that hemostasis was attained the breast was removed from the area of the axillary region. The breast will be painted for orientation The area of the axilla was approached. The pectoralis major and minor muscle was followed to the axillary vein. The tissues were swept inferiorly being careful to maintain hemostasis using the harmonic scalpel as well as suture ligating any vessels of concern. The thoracodorsal and long thoracic nerves were identified and preserved. I the axillary contents appeared to have probable lymph nodes within the contents. Both the breast flaps and the area of the axilla were well evaluated following this procedure. No evidence of active bleeding was identified. The areas were well irrigated. After assured that hemostasis was attained 2 Popeye-Patricia drains were placed one into the mastectomy flaps and one in the left axilla. The subcutaneous tissues were closed using a 3-0 Vicryl suture. There was a small incision on the inferior aspect which was brought together using 3-0 Vicryl suture as well. The tumor was very close in approximation to the skin. The skin was then reapproximated using jennifer. The JULIO drains were secured using a nylon suture. The patient tolerated the procedure in stable condition. All instrument and sponge counts were correct at the end of the case.
[2017-05-23] MEDS: HYDROmorphone 0.5 MG/0.5 ML SYRINGE IVP PRN ×4 (13:02→13:32)
[2017-05-23 13:24] LABS: Glucose,Whole Blood 211 mg/dL (75-99)
[2017-05-23] MEDS: ACETAMINOPHEN IV (For NPO) 1,000 MG in EMPTY BAG 1 BAG IVPB SCH (14:27)
--- NOTE | 2017-05-23 16:40 | P.CONS ---
History of Present Illness - Reason for Consult Immunizations regarding antidepressant medications, breast cancer - History of Present Illness Patient was admitted for elective left mastectomy patient's excessive underwent surgery does have couple of drains, pain and blood pressure is well-controlled patient denied any fever, chills, nausea, vomiting patient does have multiple other chronic medical problems during type 2 diabetes mellitus breast cancer hypertension. I do not have any labs available which will be ordered Review of Systems REVIEW OF SYSTEMS: CONSTITUTIONAL: No fever, no malaise, no fatigue. HEENT: No recent visual problems or hearing problems. Denied any sore throat. CARDIOVASCULAR: No chest pain, orthopnea, PND, no palpitations, no syncope. PULMONARY: No shortness of breath, no cough, no hemoptysis. GASTROINTESTINAL: No diarrhea, no nausea, no vomiting, no abdominal pain. Normoactive bowel sounds. NEUROLOGICAL: No headaches, no weakness, no numbness. HEMATOLOGICAL: Denies any bleeding or petechiae. GENITOURINARY: Denies any burning micturition, frequency, or urgency. MUSCULOSKELETAL/RHEUMATOLOGICAL: Denies any joint pain, swelling, or any muscle pain. ENDOCRINE: Denies any polyuria or polydipsia. The rest of the 14-point review of systems is negative. Past Medical History Past Medical History: Cancer, Diabetes Mellitus, Eye Disorder, GERD/Reflux, Hyperlipidemia, Neurologic Disorder, Rheumatoid Arthritis (RA) Additional Past Medical History / Comment(s): breast cancer 2017 with chemo and radiation-last radiation tx 04/27/17, migraines, diverticulitis, cataracts History of Any Multi-Drug Resistant Organisms: None Reported Past Surgical History: Appendectomy, Cholecystectomy, Heart Catheterization, Hysterectomy, Orthopedic Surgery Additional Past Surgical History / Comment(s): lt breast biopsy 2017, bilateral knee surgeries Past Anesthesia/Blood Transfusion Reactions: No Reported Reaction Past Psychological History: No Psychological Hx Reported Smoking Status: Never smoker Past Alcohol Use History: None Reported Past Drug Use History: None Reported - Past Family History Mother Family Medical History: No Reported History Father Family Medical History: Myocardial Infarction ([place]) Sister(s) Family Medical History: Cancer Additional Family Medical History / Comment(s): ovarian/cervical, colon Medications and Allergies Home Medications Medication Instructions Recorded Confirmed Type Levothyroxine Sodium [Synthroid] 175 mcg PO DAILY 11/08/16 05/23/17 History Omeprazole [PriLOSEC] 20 mg PO AC-BRKFST 11/08/16 05/23/17 History Simvastatin [Zocor] 20 mg PO HS 11/08/16 05/23/17 History amLODIPine [Norvasc] 5 mg PO BID 11/08/16 05/23/17 History sitaGLIPtin PHOSPHATE [Januvia] 25 mg PO DAILY 03/02/17 05/23/17 History Meloxicam [Mobic] 15 mg PO DAILY tab 03/13/17 05/23/17 Rx traMADol HCl [Ultram] 50 mg PO Q6H PRN #30 tab 03/13/17 05/23/17 Rx Atenolol [Tenormin] 25 mg PO BID 05/17/17 05/23/17 History Losartan Potassium [Cozaar] 100 mg PO DAILY 05/17/17 05/23/17 History glipiZIDE [Glucotrol] 10 mg PO AC-BID 05/17/17 05/23/17 History Allergies Allergy/AdvReac Type Severity Reaction Status Date / Time codeine Allergy Unknown Couldn't Verified 05/23/17 08:47 Swallow glyburide AdvReac Unknown Itching Verified 05/23/17 08:47 metformin AdvReac Unknown Itching Verified 05/23/17 08:47 Physical Exam Vitals: Vital Signs Temp Pulse Resp BP Pulse Ox 05/23/17 14:45 75 16 138/72 97 05/23/17 14:30 77 18 128/72 97 05/23/17 14:18 74 16 131/72 93 L 05/23/17 14:05 82 16 133/71 94 L 05/23/17 13:46 79 16 135/69 94 L 05/23/17 13:30 79 16 138/70 93 L 05/23/17 13:16 80 16 141/74 99 05/23/17 13:00 77 16 143/75 99 05/23/17 12:49 97.2 F L 82 16 137/73 98 05/23/17 08:43 97.8 F 89 16 174/79 98 Intake and Output 05/23/17 05/23/17 05/23/17 06:59 14:59 22:59 Intake Total 1900 Output Total 40 Balance 1860 Intake: IV 1900 Output: Estimated Blood Loss 40 Other: Weight 81.647 kg Patient Weight 05/24/17 06:59 Weight 81.647 kg PHYSICAL EXAMINATION: GENERAL: The patient is alert and oriented x3, not in any acute distress. Well developed, well nourished. HEENT: Pupils are round and equally reacting to light. EOMI. No scleral icterus. No conjunctival pallor. Normocephalic, atraumatic. No pharyngeal erythema. No thyromegaly. CARDIOVASCULAR: S1 and S2 present. No murmurs, rubs, or gallops. PULMONARY: Chest is clear to auscultation, no wheezing or crackles. She is status post left mastectomy and postsurgically packed ABDOMEN: Soft, nontender, nondistended, normoactive bowel sounds. No palpable organomegaly. MUSCULOSKELETAL: No joint swelling or deformity. EXTREMITIES: No cyanosis, clubbing, or pedal edema. NEUROLOGICAL: Gross neurological examination did not reveal any focal deficits. SKIN: No rashes. Results Labs: Abnormal Lab Results - Last 24 Hours (Table) 05/23/17 05/23/17 Range/Units 08:49 13:21 POC Glucose (mg/dL) 142 H 211 H (75-99) mg/dL Assessment and Plan Plan: -Day 0 of left mastectomy pain management DVT prophylaxis as per primary service -Type 2 diabetes mellitus continue her home regimen except for metformin and also sliding scale insulin and titrated as needed. -Gastric esophageal reflux disease -Hyperlipidemia -Breast cancer undergoing chemotherapy -Morbid obesity Patient's medication reconciliation is taken care of and patient was asked to restarted back on her appropriate home medications.
[2017-05-23 16:46] LABS: Glucose,Whole Blood 254 mg/dL (75-99)
[2017-05-23] MEDS: SODIUM CHLORIDE 0.45% 1,000 ML IV SCH (17:03)
[2017-05-23] MEDS: INSULIN ASPART 100 UNIT/ML 1 ML 10 ML VIAL SQ SCH ×2 (17:53→20:57)
[2017-05-23] MEDS: FAMOTIDINE 20 MG TAB PO SCH (20:50)
[2017-05-23] MEDS: HEPARIN SODIUM,PORCINE 5,000 UNIT/ML 1 ML VIAL SQ SCH (20:50)
[2017-05-23] MEDS: ATENOLOL 25 MG TAB PO SCH (20:51)
[2017-05-23 20:53] LABS: Glucose,Whole Blood 280 mg/dL (75-99)
[2017-05-23] MEDS ORDERED: ATORVASTATIN 10 MG TAB PO SCH (21:00)
[2017-05-23] MEDS: traMADol 50 MG TAB PO PRN (22:24)
[2017-05-23 23:31] VITALS: RESP 18
[2017-05-24] MEDS: ACETAMINOPHEN IV (For NPO) 1,000 MG in EMPTY BAG 1 BAG IVPB SCH ×3 (00:20→11:31)
[2017-05-24] MEDS: SODIUM CHLORIDE 0.45% 1,000 ML IV SCH (04:04)
[2017-05-24] MEDS: traMADol 50 MG TAB PO PRN ×2 (04:04→11:31)
[2017-05-24] MEDS: LACTATED RINGERS 1,000 ML IV SCH (05:47)
[2017-05-24] MEDS ORDERED: LEVOTHYROXINE 75 MCG TAB PO SCH (06:30)
[2017-05-24] MEDS ORDERED: LEVOTHYROXINE 100 MCG TAB PO SCH (06:30)
[2017-05-24 07:14] LABS: Anisocytosis Slight; Basophils % (A) 0 %; CH 31.5; CHCM 29.7; Eosinophils % (A) 0 %; HCT 30.7 % (34.0-46.0); HGB 9.3 gm/dL (11.4-16.0); Hypochromasia Marked; Luc # (Auto) 0.23; Luc % (Auto) 2; Lymphocytes # (A) 0.8 k/uL (1.0-4.8); Lymphocytes % (A) 6 %; MCH 32.2 pg (25.0-35.0); MCHC 30.3 g/dL (31.0-37.0); MCV 106.5 fL (80.0-100.0); Macrocytosis Moderate; Mean Platelet Volume 8.1; Monocytes # (A) 0.7 k/uL (0-1.0); Monocytes % (A) 5 %; Neutrophils # (A) 12.5 k/uL (1.3-7.7); Neutrophils % (A) 88 %; RBC 2.88 m/uL (3.80-5.40); RDW 16.4 % (11.5-15.5); WBC 14.3 k/uL (3.8-10.6)
[2017-05-24 07:30] LABS: Glucose,Whole Blood 160 mg/dL (75-99)
[2017-05-24] MEDS ORDERED: PANTOPRAZOLE 40 MG TABLET PO SCH (07:30)
[2017-05-24 07:31] LABS: ALT 29 U/L (9-52); AST 14 U/L (14-36); Alkaline Phosphatase 57 U/L (38-126); Anion Gap 5 mmol/L; Blood Urea Nitrogen 14 mg/dL (7-17); Calcium 9.7 mg/dL (8.4-10.2); Carbon Dioxide 22 mmol/L (22-30); Chloride 109 mmol/L (98-107); Glucose 171 mg/dL (74-99); Non-African American GFR(MDRD) >60 (>60 ml/min/1.73 sqM); Potassium 4.6 mmol/L (3.5-5.1); Sodium 136 mmol/L (137-145); Total Bilirubin 0.2 mg/dL (0.2-1.3); Total Protein 5.1 g/dL (6.3-8.2)
[2017-05-24] MEDS: ATENOLOL 25 MG TAB PO SCH (08:34)
[2017-05-24] MEDS: FAMOTIDINE 20 MG TAB PO SCH (08:34)
[2017-05-24] MEDS: HEPARIN SODIUM,PORCINE 5,000 UNIT/ML 1 ML VIAL SQ SCH (08:35)
[2017-05-24] MEDS: INSULIN ASPART 100 UNIT/ML 1 ML 10 ML VIAL SQ SCH ×2 (08:39→12:59)
[2017-05-24 08:45] VITALS: BP 143/68; PULSE 81; TEMP 97.7
[2017-05-24] MEDS ORDERED: LINAGLIPTIN 5 MG TABLET PO SCH (09:00)
[2017-05-24] MEDS ORDERED: NON-FORMULARY DRUG (Levothyroxine Sodium [Synthroid] 175 MCG) PO SCH (09:00)
--- NOTE | 2017-05-24 09:43 | P.PN ---
Subjective Progress Note Date: 05/24/17 Patient is a 77-year-old white female status post left mastectomy with extension of the inferior incision to include area of tumor which appeared to be impinging on the skin as well as left axillary node dissection. The patient feels well this morning she is tolerating diet without difficulty. Her JULIO drainage is serosanguineous and there does not appear to be any evidence of any hematoma. Objective - Vital Signs Vital signs: Vital Signs Temp 97.7 F 05/24/17 07:00 Pulse 81 05/24/17 07:00 Resp 18 05/24/17 07:00 BP 143/68 05/24/17 07:00 Pulse Ox 96 05/24/17 07:00 Intake & Output 05/23/17 05/24/17 05/24/17 18:59 06:59 18:59 Intake Total 1900 202 Output Total 80 50 Balance 1820 152 Weight 81.647 kg Intake: IV 1900 Oral 200 Tube Feeding 2 Output: Drainage 40 50 Left Chest 40 50 Estimated Blood Loss 40 Other: Voiding Method Toilet Toilet # Voids 2 - Constitutional General appearance: Present: obese - Respiratory Respiratory: bilateral: CTA - Cardiovascular Rhythm: regular Heart sounds: normal: S1, S2 - Gastrointestinal General gastrointestinal: Present: normal bowel sounds - Integumentary Integumentary Comment(s): Dressing changed Incision Clean and dry The area where the tumor was closest to the skin has some mild erythema, there may be some minimal necrosis that develops at the intersection of the mastectomy incision and the area where the incision was extended inferiorly to include the skin resection bladder tumor was close to the skin No evidence of any hematoma - Psychiatric Psychiatric: Present: A&O x's 3, appropriate affect, intact judgment & insight - Labs CBC & Chem 7: 05/24/17 06:41 05/24/17 06:41 Labs: Abnormal Lab Results - Last 24 Hours (Table) 05/23/17 05/23/17 05/23/17 Range/Units 13:21 16:44 20:51 WBC (3.8-10.6) k/uL RBC (3.80-5.40) m/uL Hgb (11.4-16.0) gm/dL Hct (34.0-46.0) % MCV (80.0-100.0) fL MCHC (31.0-37.0) g/dL RDW (11.5-15.5) % Neutrophils # (1.3-7.7) k/uL Lymphocytes # (1.0-4.8) k/uL Sodium (137-145) mmol/L Chloride (98-107) mmol/L Glucose (74-99) mg/dL POC Glucose (mg/dL) 211 H 254 H 280 H (75-99) mg/dL Total Protein (6.3-8.2) g/dL Albumin (3.5-5.0) g/dL 05/24/17 05/24/17 05/24/17 Range/Units 06:41 06:41 07:27 WBC 14.3 H (3.8-10.6) k/uL RBC 2.88 L (3.80-5.40) m/uL Hgb 9.3 L (11.4-16.0) gm/dL Hct 30.7 L (34.0-46.0) % MCV 106.5 H (80.0-100.0) fL MCHC 30.3 L (31.0-37.0) g/dL RDW 16.4 H (11.5-15.5) % Neutrophils # 12.5 H (1.3-7.7) k/uL Lymphocytes # 0.8 L (1.0-4.8) k/uL Sodium 136 L (137-145) mmol/L Chloride 109 H (98-107) mmol/L Glucose 171 H (74-99) mg/dL POC Glucose (mg/dL) 160 H (75-99) mg/dL Total Protein 5.1 L (6.3-8.2) g/dL Albumin 2.9 L (3.5-5.0) g/dL Assessment and Plan Plan: Impression/plan: 1. Patient status post left mastectomy and axillary node dissection postop day #1 2. Leukocytosis white count 14.3 3. Hemoglobin 9.3 no evidence of hematoma 4. Diabetes 5. Arthritis Plan: 1. Case discussed with medicine patient stable for discharge 2. Teach family drain care 3. We will send patient home on antibiotic secondary to elevated white count and mild erythema at the intersection of the additional skin resection on the inferior flap.
--- NOTE | 2017-05-24 09:51 | P.DS ---
Providers Attending physician: Jenny Avendaño Consults: 05/23/17 12:53 Consult Physician Routine Consulting Provider: Darian Douglas Consult Reason/Comments: medical managment, daibetic Do you want consulting provider notified?: Yes Primary care physician: Matheus Mccain Plan - Discharge Summary New Discharge Prescriptions: New Cephalexin [Keflex] 250 mg PO Q6HR #20 cap No Action amLODIPine [Norvasc] 5 mg PO BID Simvastatin [Zocor] 20 mg PO HS Levothyroxine Sodium [Synthroid] 175 mcg PO DAILY Omeprazole [PriLOSEC] 20 mg PO AC-BRKFST sitaGLIPtin PHOSPHATE [Januvia] 25 mg PO DAILY traMADol HCl [Ultram] 50 mg PO Q6H PRN #30 tab PRN Reason: Pain Meloxicam [Mobic] 15 mg PO DAILY tab Losartan Potassium [Cozaar] 100 mg PO DAILY Atenolol [Tenormin] 25 mg PO BID glipiZIDE [Glucotrol] 10 mg PO AC-BID Discharge Medication List Levothyroxine Sodium [Synthroid] 175 mcg PO DAILY 11/08/16 [History] Omeprazole [PriLOSEC] 20 mg PO AC-BRKFST 11/08/16 [History] Simvastatin [Zocor] 20 mg PO HS 11/08/16 [History] amLODIPine [Norvasc] 5 mg PO BID 11/08/16 [History] sitaGLIPtin PHOSPHATE [Januvia] 25 mg PO DAILY 03/02/17 [History] Meloxicam [Mobic] 15 mg PO DAILY tab 03/13/17 [Rx] traMADol HCl [Ultram] 50 mg PO Q6H PRN #30 tab 03/13/17 [Rx] Atenolol [Tenormin] 25 mg PO BID 05/17/17 [History] Losartan Potassium [Cozaar] 100 mg PO DAILY 05/17/17 [History] glipiZIDE [Glucotrol] 10 mg PO AC-BID 05/17/17 [History] Cephalexin [Keflex] 250 mg PO Q6HR #20 cap 05/24/17 [Rx] Follow up Appointment(s)/Referral(s): Jenny Avendaño MD [STAFF PHYSICIAN] - 05/25/17 Activity/Diet/Wound Care/Special Instructions: diabetic diet teach family wound and drain care do not drive Discharge Disposition: HOME SELF-CARE
[2017-05-24 11:47] LABS: Glucose,Whole Blood 145 mg/dL (75-99)
--- NOTE | 2017-05-24 14:16 | P.PN ---
Subjective Progress Note Date: 05/24/17 Progress note being dictated for Dr. Chaudhary. Interval history: This a 77-year-old female admitted for elective left mastectomy patient's excessive underwent surgery does have couple of drains, pain and blood pressure is well-controlled patient denied any fever, chills, nausea, vomiting patient does have multiple other chronic medical problems during type 2 diabetes mellitus breast cancer hypertension. I do not have any labs available which will be ordered Review of Systems REVIEW OF SYSTEMS: CONSTITUTIONAL: No fever, no malaise, no fatigue. HEENT: No recent visual problems or hearing problems. Denied any sore throat. CARDIOVASCULAR: No chest pain, orthopnea, PND, no palpitations, no syncope. PULMONARY: No shortness of breath, no cough, no hemoptysis. GASTROINTESTINAL: No diarrhea, no nausea, no vomiting, no abdominal pain. Normoactive bowel sounds. NEUROLOGICAL: No headaches, no weakness, no numbness. HEMATOLOGICAL: Denies any bleeding or petechiae. GENITOURINARY: Denies any burning micturition, frequency, or urgency. MUSCULOSKELETAL/RHEUMATOLOGICAL: Denies any joint pain, swelling, or any muscle pain. ENDOCRINE: Denies any polyuria or polydipsia. The rest of the 14-point review of systems is negative 05/24/17 no overnight events. Vital signs stable. Afebrile. WBC 14.3. Tolerating diet with no nausea vomiting or diarrhea. Blood sugars controlled. Pain controlled. Passing minimal flatus, no bowel movement. Hemoglobin 9.3. Denies lightheadedness dizziness or focal deficits. Denies chest pain, palpitations or shortness of breath. Objective - Vital Signs Vital signs: Vital Signs Temp 97.7 F 05/24/17 07:00 Pulse 81 05/24/17 07:00 Resp 18 05/24/17 07:00 BP 143/68 05/24/17 07:00 Pulse Ox 96 05/24/17 07:00 Intake & Output 05/23/17 05/24/17 05/24/17 18:59 06:59 18:59 Intake Total 1900 202 Output Total 80 50 Balance 1820 152 Weight 81.647 kg Intake: IV 1900 Oral 200 Tube Feeding 2 Output: Drainage 40 50 Left Chest 40 50 Estimated Blood Loss 40 Other: Voiding Method Toilet Toilet # Voids 2 - Exam GENERAL: The patient is sitting up in bed, alert and oriented x3, no acute distress. Well developed, well nourished. HEENT: Pupils are round and equally reacting to light. EOMI. No scleral icterus. No conjunctival pallor. Normocephalic, atraumatic. No pharyngeal erythema. No thyromegaly. CARDIOVASCULAR: S1 and S2 present. No murmurs, rubs, or gallops. PULMONARY: Chest is clear to auscultation, no wheezing or crackles. She is status post left mastectomy and postsurgically packed ABDOMEN: Soft, nontender, nondistended, normoactive bowel sounds. No palpable organomegaly. MUSCULOSKELETAL: No joint swelling or deformity. EXTREMITIES: No cyanosis, clubbing, or pedal edema. NEUROLOGICAL: Gross neurological examination did not reveal any focal deficits. SKIN: No rashes. - Labs CBC & Chem 7: 05/24/17 06:41 05/24/17 06:41 Labs: Abnormal Lab Results - Last 24 Hours (Table) 05/23/17 05/23/17 05/24/17 Range/Units 16:44 20:51 06:41 WBC 14.3 H (3.8-10.6) k/uL RBC 2.88 L (3.80-5.40) m/uL Hgb 9.3 L (11.4-16.0) gm/dL Hct 30.7 L (34.0-46.0) % MCV 106.5 H (80.0-100.0) fL MCHC 30.3 L (31.0-37.0) g/dL RDW 16.4 H (11.5-15.5) % Neutrophils # 12.5 H (1.3-7.7) k/uL Lymphocytes # 0.8 L (1.0-4.8) k/uL Sodium (137-145) mmol/L Chloride (98-107) mmol/L Glucose (74-99) mg/dL POC Glucose (mg/dL) 254 H 280 H (75-99) mg/dL Total Protein (6.3-8.2) g/dL Albumin (3.5-5.0) g/dL 05/24/17 05/24/17 05/24/17 Range/Units 06:41 07:27 11:42 WBC (3.8-10.6) k/uL RBC (3.80-5.40) m/uL Hgb (11.4-16.0) gm/dL Hct (34.0-46.0) % MCV (80.0-100.0) fL MCHC (31.0-37.0) g/dL RDW (11.5-15.5) % Neutrophils # (1.3-7.7) k/uL Lymphocytes # (1.0-4.8) k/uL Sodium 136 L (137-145) mmol/L Chloride 109 H (98-107) mmol/L Glucose 171 H (74-99) mg/dL POC Glucose (mg/dL) 160 H 145 H (75-99) mg/dL Total Protein 5.1 L (6.3-8.2) g/dL Albumin 2.9 L (3.5-5.0) g/dL Assessment and Plan Assessment: S/P Left mastectomy. pain management DVT prophylaxis as per primary service -Type 2 diabetes mellitus -Gastric esophageal reflux disease -Hyperlipidemia -Breast cancer undergoing chemotherapy -Morbid obesity -Leukocytosis, suspect reactive -Anemia, suspect chronic, Plan: Continue on current medication regime ,monitoring and symptomatic treatment. Patient is being discharged home today by surgery. Maintain aggressive pulmonary toileting, IS reinforced. Minimal flatus, Senokot as added to discharge med regime. Follow-up with PCP in 1 week with follow-up CBC ordered. The impression and plan of care has been dictated as directed. : I performed a history and examination of this patient, discussed the same with the dictator. I agree with the dictator's note ,documented as a scribe. Any additional findings or plans will be noted.
== END 2017-05-24 14:50 | disposition home health service (06) ==
LOC: OR 08:13 → 5MS5E 12:36 → OR 05-24 14:50
PROVIDERS: ATTEND Surgery
DX: C50.112 Malignant neoplasm of central portion of left female breast (principal); Z92.21 Personal history of antineoplastic chemotherapy; Z92.3 Personal history of irradiation; E11.9 Type 2 diabetes mellitus without complications; K21.9 Gastro-esophageal reflux disease without esophagitis; E78.5 Hyperlipidemia, unspecified; E66.01 Morbid (severe) obesity due to excess calories; Z68.35 Body mass index [BMI] 35.0-35.9, adult; D72.829 Elevated white blood cell count, unspecified; D64.9 Anemia, unspecified; M19.90 Unspecified osteoarthritis, unspecified site; I10 Essential (primary) hypertension; H57.9 Unspecified disorder of eye and adnexa; R29.90 Unspecified symptoms and signs involving the nervous system; M06.9 Rheumatoid arthritis, unspecified; G43.909 Migraine, unspecified, not intractable, without status migrainosus; E07.9 Disorder of thyroid, unspecified; Z85.51 Personal history of malignant neoplasm of bladder; Z88.5 Allergy status to narcotic agent; Z88.8 Allergy status to other drugs, medicaments and biological substances; Z79.2 Long term (current) use of antibiotics; Z79.84 Long term (current) use of oral hypoglycemic drugs; Z79.899 Other long term (current) drug therapy; Z79.891 Long term (current) use of opiate analgesic; Z79.4 Long term (current) use of insulin
CPT/HCPCS: 80053; 85025; 83036; 19307; J2250; J1644 ×2; J1100; J2405; J2001; J3010; J0690; J0131; J2370; J0330; J2704; J1170; 88309; 88341; 88342

== ENCOUNTER 2017-09-28 10:55 | Day surgery (SDC) | payer MEDICARE ==
[2017-09-22 11:13] VITALS: BMI 34.7
--- NOTE | 2017-09-28 08:02 | P.GSHP ---
History of Present Illness H&P Date: 09/28/17 CHIEF COMPLAINT: Breast cancer. HISTORY OF PRESENT ILLNESS: The patient is a 77-year-old female diagnosed with invasive breast cancer. She had a Mediport placement. She presents for Port-A-Cath removal upon completion of her chemotherapy. PAST MEDICAL HISTORY: Breast cancer. PAST SURGICAL HISTORY: Breast biopsy. CURRENT MEDICATIONS: See list. ALLERGIES: See list. SOCIAL HISTORY: No active tobacco or alcohol use. FAMILY HISTORY: Noncontributory. REVIEW OF ORGAN SYSTEMS: CONSTITUTIONAL: Denies any fever or chills. Denies recent weight loss or weight gain. HEENT: Denies any trouble with vision, hearing or nosebleeds. No difficulty swallowing. BREASTS: Please see above. PHYSICAL EXAMINATION: Vital signs: Stable GENERAL: Well developed female and in no acute distress. Pleasant. HEENT: No sclera icterus. Extraocular movements grossly intact. Moist buccal mucosa. Head is atraumatic, normocephalic. Hears conversational speech. No nasal drainage. NECK: Supple without lymphadenopathy. No JV distention. CHEST: Non-labored respirations and equal bilateral excursions. CARDIOVASCULAR: Regular rate and rhythm. Palpable 2+ radial pulses. ABDOMEN: Nontender. MUSCULOSKELETAL: No clubbing, cyanosis or edema. NEUROLOGIC: No focal or lateralizing signs. PSYCH: Appropriate affect. Alert and oriented to person, place and time. ASSESSMENT: 1. Breast cancer. 2. Need for chemotherapeutic access. PLAN: 1. Agree with Port-A-Cath removal per patient's request. Past Medical History Past Medical History: Cancer, Diabetes Mellitus, Eye Disorder, GERD/Reflux, Hyperlipidemia, Hypertension, Neurologic Disorder, Rheumatoid Arthritis (RA), Thyroid Disorder Additional Past Medical History / Comment(s): HX BLADDER CANCER (?2008), BREAST CANCER (2017- LAST CHEMO 04/27/17, LAST RADIATION [place] 08/2017), MIGRAINES, DIVERTICULITIS, RONAL CATARACTS., STATES CHEST PEELING FROM RADIATION [place]., ANEMIA. , HAS PORT-A-CATH. History of Any Multi-Drug Resistant Organisms: None Reported Past Surgical History: Appendectomy, Breast Surgery, Cholecystectomy, Heart Catheterization, Hysterectomy, Orthopedic Surgery Additional Past Surgical History / Comment(s): LEFT BREAST BX, RONAL KNEE SURGERIES, LEFT MASTECTOMY (04/2017)., PORT-A-CATH Past Anesthesia/Blood Transfusion Reactions: No Reported Reaction Additional Past Anesthesia/Blood Transfusion Reaction / Comment(s): STATES RECEIVED 2 BLOOD TRANSFUSIONS AFTER RECEIVING CHEMO- NO REACTION Past Psychological History: No Psychological Hx Reported Smoking Status: Never smoker Past Alcohol Use History: None Reported Past Drug Use History: None Reported - Past Family History Mother Family Medical History: No Reported History Father Family Medical History: Myocardial Infarction ([place]) Sister(s) Family Medical History: Cancer Additional Family Medical History / Comment(s): ovarian/cervical, colon Medications and Allergies Home Medications Medication Instructions Recorded Confirmed Type Levothyroxine Sodium [Synthroid] 175 mcg PO DAILY 11/08/16 09/22/17 History Omeprazole [PriLOSEC] 20 mg PO AC-BRKFST 11/08/16 09/22/17 History Simvastatin [Zocor] 20 mg PO HS 11/08/16 09/22/17 History amLODIPine [Norvasc] 5 mg PO BID 11/08/16 09/22/17 History sitaGLIPtin PHOSPHATE [Januvia] 25 mg PO DAILY 03/02/17 09/22/17 History Meloxicam [Mobic] 15 mg PO DAILY tab 03/13/17 09/22/17 Rx Atenolol [Tenormin] 25 mg PO BID 05/17/17 09/22/17 History Losartan Potassium [Cozaar] 100 mg PO DAILY 05/17/17 09/22/17 History glipiZIDE [Glucotrol] 10 mg PO AC-BID 05/17/17 09/22/17 History Acetaminophen [Tylenol Arthritis] 650 mg PO BID PRN 09/22/17 09/22/17 History Ferrous Sulfate [Feosol] 325 mg PO DAILY 09/22/17 09/22/17 History Triamcinolone Acetonide [Nasacort] 2 spray EA NOSTRIL DAILY 09/22/17 09/22/17 History Allergies Allergy/AdvReac Type Severity Reaction Status Date / Time codeine Allergy Unknown Couldn't Verified 09/22/17 10:41 Swallow glyburide AdvReac Unknown Itching Verified 09/22/17 10:41 metformin AdvReac Unknown Itching Verified 09/22/17 10:41
[~2017-09-28 10:55] MED LIST changes: -HEPARIN SODIUM,PORCINE 5,000 UNIT/ML 1 ML VIAL SQ ONE; +LACTATED RINGERS 1,000 ML IV SCH; -MIDAZOLAM 2 MG/2 ML VIAL IV PRN; +MORPHINE SULFATE 4 MG/ML SYRINGE IV PRN; -ONDANSETRON 4 MG/2 ML VIAL IVP ONE; +ONDANSETRON ODT 4 MG TAB PO ONE; +ceFAZolin IN SWFI 2 GM/20 ML SYRINGE IVP ONE
[2017-09-28 11:23] VITALS: RESP 16; TEMP 97.6
[2017-09-28] MEDS ORDERED: LIDOCAINE 1% 20 ML VIAL (10MG/ML) FOR IV START INTRADERMA ONE (11:33)
[2017-09-28 11:35] LABS: Glucose,Whole Blood 123 mg/dL (75-99)
[2017-09-28 11:41] LABS: Basophils % (A) 0 %; Eosinophils # (A) 0.1 k/uL (0-0.7); Eosinophils % (A) 1 %; HCT 39.7 % (34.0-46.0); HGB 13.1 gm/dL (11.4-16.0); Lymphocytes # (A) 0.9 k/uL (1.0-4.8); Lymphocytes % (A) 13 %; MCH 30.4 pg (25.0-35.0); MCV 92.2 fL (80.0-100.0); Mean Platelet Volume 7.6; Monocytes # (A) 0.6 k/uL (0-1.0); Monocytes % (A) 8 %; Neutrophils # (A) 5.4 k/uL (1.3-7.7); Neutrophils % (A) 75 %; Platelet Count 154 k/uL (150-450); RBC 4.31 m/uL (3.80-5.40); WBC 7.2 k/uL (3.8-10.6)
[2017-09-28] MEDS ORDERED: MIDAZOLAM 2 MG/2 ML VIAL ONE (12:11)
[2017-09-28] MEDS ORDERED: PROPOFOL 10 MG/ML 20 ML VIAL IV ONE (12:11)
[2017-09-28] MEDS ORDERED: LIDOCAINE 2% (PF) 20 MG/ML 10 ML AMP SQ ONE (12:11)
[2017-09-28] MEDS ORDERED: fentaNYL (PF) 50 MCG/ML 2 ML AMP ONE (12:11)
--- NOTE | 2017-09-28 12:37 | P.OP ---
Date of Procedure: 09/28/17 Description of Procedure: SURGEON: MED LOPEZ MD US CUSTOMS AND BORDER OFFICER: None. PREOPERATIVE DIAGNOSIS: 1. Breast cancer 2. Chemotherapeutic venous access. POSTOPERATIVE DIAGNOSIS: 1. Breast cancer 2. Chemotherapeutic venous access. OPERATION: Removal of right internal jugular vein Port-A-Cath. ANESTHESIA: MAC with 30 mL local ESTIMATED BLOOD LOSS: 2 mL SPECIMENS REMOVED: Port-A-Cath COMPLICATIONS: None. INDICATIONS: The patient is a 77-year-old female who completed chemotherapy for breast cancer. She now has elected for removal. Benefits and risks were described. Informed consent was obtained. DESCRIPTION OF PROCEDURE: Patient was brought to the operating room, laid in supine position. After IV sedation the chest wall on the left side was prepped and draped in standard sterile fashion. Prior to incision, a timeout protocol was confirmed with surgical team regarding the patient's name including procedures to be performed. As this was a clean case, no further antibiotics were required. Additionally, early ambulation was encouraged for DVT prophylaxis. Attention was brought to the area of the port site, whereby a total of 30 mL of local was infiltrated into the skin for a field block. A #15 blade was used to incise along the previous cicatrix. Electro- Bovie cautery was used to control for hemostasis. Adhesions were lysed around the Mediport. The port was extracted without sequelae. Pressure for 2 minutes was placed along the internal jugular vein. Hemostasis was checked along the pocket of the Port-A-Cath site. The wound was closed in layers using 3-0 Vicryl for the deep subcutaneous tissues followed by 4-0 Monocryl in a running subcuticular fashion. Dermabond was applied to the skin. Once dried a 4 x 4 Optifoam was applied. At the end of the procedure needle, sponge and instrument counts were verified correct by the surgical assistant. The patient had tolerated the procedure well and was taken to postanesthesia care in stable condition. FINDINGS: 1. Unremarkable Port-a-cath extraction. Plan - Discharge Summary New Discharge Prescriptions: No Action amLODIPine [Norvasc] 5 mg PO BID Simvastatin [Zocor] 20 mg PO HS Levothyroxine Sodium [Synthroid] 175 mcg PO DAILY Omeprazole [PriLOSEC] 20 mg PO AC-BRKFST sitaGLIPtin PHOSPHATE [Januvia] 25 mg PO DAILY Meloxicam [Mobic] 15 mg PO DAILY tab Losartan Potassium [Cozaar] 100 mg PO DAILY Atenolol [Tenormin] 25 mg PO BID glipiZIDE [Glucotrol] 10 mg PO AC-BID Ferrous Sulfate [Feosol] 325 mg PO DAILY Acetaminophen [Tylenol Arthritis] 650 mg PO BID PRN PRN Reason: Pain Triamcinolone Acetonide [Nasacort] 2 spray EA NOSTRIL DAILY Discharge Medication List Levothyroxine Sodium [Synthroid] 175 mcg PO DAILY 11/08/16 [History] Omeprazole [PriLOSEC] 20 mg PO AC-BRKFST 11/08/16 [History] Simvastatin [Zocor] 20 mg PO HS 11/08/16 [History] amLODIPine [Norvasc] 5 mg PO BID 11/08/16 [History] sitaGLIPtin PHOSPHATE [Januvia] 25 mg PO DAILY 03/02/17 [History] Meloxicam [Mobic] 15 mg PO DAILY tab 03/13/17 [Rx] Atenolol [Tenormin] 25 mg PO BID 05/17/17 [History] Losartan Potassium [Cozaar] 100 mg PO DAILY 05/17/17 [History] glipiZIDE [Glucotrol] 10 mg PO AC-BID 05/17/17 [History] Acetaminophen [Tylenol Arthritis] 650 mg PO BID PRN 09/22/17 [History] Ferrous Sulfate [Feosol] 325 mg PO DAILY 09/22/17 [History] Triamcinolone Acetonide [Nasacort] 2 spray EA NOSTRIL DAILY 09/22/17 [History]
[2017-09-28 13:46] VITALS: BP 130/78; PULSE 87
== END 2017-09-28 13:30 | disposition home or self-care (01) ==
LOC: OR 10:55
PROVIDERS: ATTEND Surgery Plastic and Reconstructive Surgery
DX: Z45.2 Encounter for adjustment and management of vascular access device (principal); C50.912 Malignant neoplasm of unspecified site of left female breast; Z92.21 Personal history of antineoplastic chemotherapy; Z92.3 Personal history of irradiation; Z90.12 Acquired absence of left breast and nipple; E11.9 Type 2 diabetes mellitus without complications; K21.9 Gastro-esophageal reflux disease without esophagitis; E78.5 Hyperlipidemia, unspecified; I10 Essential (primary) hypertension; M06.9 Rheumatoid arthritis, unspecified; E07.9 Disorder of thyroid, unspecified; G43.909 Migraine, unspecified, not intractable, without status migrainosus; H26.9 Unspecified cataract; D64.9 Anemia, unspecified; K57.92 Diverticulitis of intestine, part unspecified, without perforation or abscess without bleeding; Z85.51 Personal history of malignant neoplasm of bladder; Z79.84 Long term (current) use of oral hypoglycemic drugs; Z79.890 Hormone replacement therapy; Z79.1 Long term (current) use of non-steroidal anti-inflammatories (NSAID); Z79.51 Long term (current) use of inhaled steroids; Z79.899 Other long term (current) drug therapy; Z88.5 Allergy status to narcotic agent; Z88.8 Allergy status to other drugs, medicaments and biological substances
CPT/HCPCS: 85025; 36590; J2250; J1100; J2001; J3010; J2704; J0690

== ENCOUNTER → 2017-12-28 | Outpatient (CLI) | payer MEDICARE ==
[2017-12-28 14:25] VITALS: BP 140/71; PULSE 103; BMI 35.9
--- NOTE | 2017-12-28 15:12 | P.GSHP ---
History of Present Illness H&P Date: 12/28/17 The patient is a 77-year-old white female who is status post in April 2017 a left mastectomy. 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 The patient preoperatively underwent chemotherapy and postoperatively underwent radiation therapy. At this time she is feeling well and has no complaints. She states she is not on hormonal therapy. Family history: 1 mother: Cancer and lymph nodes 2. sister: Cervical cancer 3. sister: Colon cancer Past surgical history: 1. Hysterectomy states her ovaries were removed at the same time done for fibroids 2. Appendectomy 3. Left mastectomy 4. Bilateral knee surgery 5. Carpal tunnel surgery and a hand 6. Cholecystectomy Past medical history: 1. Bladder cancer treated with laser treatment 2. Diabetes 3. Hypertension 4. High cholesterol Social history: Smoking: Negative Alcohol: Negative Drugs: Negative Review of systems: Cardiovascular: Negative Respiratory: Negative Psychiatric: Negative Neuromuscular/skeletal: Knee surgery GI: Cholecystectomy Hematologic: Negative Urinary: UTIs in the past Genitourinary: Status post hysterectomy Breasts: Status post breast cancer - Constitutional Constitutional: Reports as per HPI - EENT Eyes: bilateral as per HPI - Breasts Breasts: bilateral: as per HPI - Cardiovascular Cardiovascular: Reports as per HPI - Respiratory Respiratory: Reports as per HPI - Gastrointestinal Gastrointestinal: Reports as per HPI - Genitourinary (Female) Genitourinary: Reports as per HPI - Musculoskeletal Musculoskeletal: Reports as per HPI - Neurological Neurological: Reports as per HPI - Psychiatric Psychiatric: Reports as per HPI - Hematologic/Lymphatic Hematologic/Lymphatic: Reports as per HPI Past Medical History Past Medical History: Cancer, Diabetes Mellitus, Eye Disorder, GERD/Reflux, Hyperlipidemia, Hypertension, Neurologic Disorder, Rheumatoid Arthritis (RA), Thyroid Disorder Additional Past Medical History / Comment(s): HX BLADDER CANCER (?2008), BREAST CANCER (2017- LAST CHEMO 04/27/17, LAST RADIATION [place] 08/2017), MIGRAINES, DIVERTICULITIS, RONAL CATARACTS., STATES CHEST PEELING FROM RADIATION [place]., ANEMIA. , HAS PORT-A-CATH. History of Any Multi-Drug Resistant Organisms: None Reported Past Surgical History: Appendectomy, Breast Surgery, Cholecystectomy, Heart Catheterization, Hysterectomy, Orthopedic Surgery Additional Past Surgical History / Comment(s): LEFT BREAST BX, RONAL KNEE SURGERIES, LEFT MASTECTOMY (04/2017)., PORT-A-CATH Past Anesthesia/Blood Transfusion Reactions: No Reported Reaction Additional Past Anesthesia/Blood Transfusion Reaction / Comment(s): STATES RECEIVED 2 BLOOD TRANSFUSIONS AFTER RECEIVING CHEMO- NO REACTION Past Psychological History: No Psychological Hx Reported Smoking Status: Unknown if ever smoked Past Alcohol Use History: None Reported Past Drug Use History: None Reported - Past Family History Mother Family Medical History: No Reported History Father Family Medical History: Myocardial Infarction ([place]) Sister(s) Family Medical History: Cancer Additional Family Medical History / Comment(s): ovarian/cervical, colon Medications and Allergies Home Medications Medication Instructions Recorded Confirmed Type Levothyroxine Sodium [Synthroid] 175 mcg PO DAILY 11/08/16 12/28/17 History Omeprazole [PriLOSEC] 20 mg PO AC-BRKFST 11/08/16 12/28/17 History Simvastatin [Zocor] 20 mg PO HS 11/08/16 12/28/17 History amLODIPine [Norvasc] 5 mg PO BID 11/08/16 12/28/17 History sitaGLIPtin PHOSPHATE [Januvia] 25 mg PO DAILY 03/02/17 12/28/17 History Atenolol [Tenormin] 25 mg PO BID 05/17/17 12/28/17 History Losartan Potassium [Cozaar] 100 mg PO DAILY 05/17/17 12/28/17 History glipiZIDE [Glucotrol] 10 mg PO AC-BID 05/17/17 12/28/17 History Acetaminophen [Tylenol Arthritis] 650 mg PO BID PRN 09/22/17 12/28/17 History Ferrous Sulfate [Feosol] 325 mg PO DAILY 09/22/17 12/28/17 History Triamcinolone Acetonide [Nasacort] 2 spray EA NOSTRIL DAILY 09/22/17 12/28/17 History Allergies Allergy/AdvReac Type Severity Reaction Status Date / Time codeine Allergy Unknown Couldn't Verified 09/22/17 10:41 Swallow glyburide AdvReac Unknown Itching Verified 09/22/17 10:41 metformin AdvReac Unknown Itching Verified 09/22/17 10:41 Surgical - Exam Vital Signs Pulse BP Pulse Ox 103 H 140/71 97 12/28/17 14:22 12/28/17 14:22 12/28/17 14:22 - General obese - Eyes normal ocular movement - ENT no hearing loss, no congestion - Neck no masses, trachea midline - Respiratory normal respiratory effort, clear to auscultation - Cardiovascular Rhythm: regular Heart Sounds: normal: S1, S2 - Abdomen Abdomen: soft, non tender, no guarding, no rigid, no rebound - Integumentary Breast examination: Right breast: Multi-positional exam no dominant masses or nodules of concern Right axilla: No adenopathy of concern Left chest wall: Well-healed scar from prior surgery small nodular area superior to the incision at the midportion of the chest wall Left axilla: No adenopathy of concern - Neurologic no disoriented, no combative - Musculoskeletal normal gait, normal posture - Psychiatric oriented to time, oriented to person, oriented to place, speech is normal, memory intact Results Most recent mammogram results done at [facility] led her to patient reviewed we are attempting to obtain the mammogram results from mammogram performed on 11/21/2017 Assessment and Plan Assessment: Impression/plan: 1. Status post left breast mastectomy following neoadjuvant chemotherapy after which she received radiation therapy 2. Area of nodularity left chest wall 3. History of hypertension 4. Status post bilateral knee surgery 5. History of diabetes 6. Hypothyroidism 7. High cholesterol Plan: 1. Surgical excision of nodularity left chest wall 2. Medical management of medical problems Cc: Dr. Mccain
== END | disposition home or self-care (01) ==
LOC: WWCWWP 14:07
PROVIDERS: ATTEND Surgery
DX: Z53.9 Procedure and treatment not carried out, unspecified reason (principal)

== ENCOUNTER 2018-01-09 08:40 | Day surgery (SDC) | payer MEDICARE ==
[2018-01-02 14:53] VITALS: BMI 35.9
[~2018-01-09 08:40] MED LIST changes: +HEPARIN SODIUM,PORCINE 5,000 UNIT/ML 1 ML VIAL SQ ONE; +LIDOCAINE 1% 20 ML VIAL (10MG/ML) FOR IV START INTRADERMA PRN; +MIDAZOLAM 2 MG/2 ML VIAL IV PRN; -MORPHINE SULFATE 4 MG/ML SYRINGE IV PRN; +ONDANSETRON 4 MG/2 ML VIAL IVP ONE; -ONDANSETRON ODT 4 MG TAB PO ONE; +Pre Op ABX Message 1 EACH MISC MISCELLANE ONE; -ceFAZolin IN SWFI 2 GM/20 ML SYRINGE IVP ONE; +fentaNYL (PF) 50 MCG/ML 2 ML AMP IV PRN
[2018-01-09 09:10] VITALS: RESP 16; TEMP 98.8
[2018-01-09 09:17] LABS: Glucose,Whole Blood 158 mg/dL (75-99)
[2018-01-09] MEDS ORDERED: HEPARIN SODIUM,PORCINE 5,000 UNIT/ML 1 ML VIAL SQ ONE (09:32)
[2018-01-09] MEDS ORDERED: PROPOFOL 10 MG/ML 20 ML VIAL IV ONE (09:53)
[2018-01-09] MEDS ORDERED: fentaNYL (PF) 50 MCG/ML 2 ML AMP ONE (09:53)
[2018-01-09] MEDS ORDERED: MIDAZOLAM 2 MG/2 ML VIAL ONE (09:53)
[2018-01-09] MEDS ORDERED: LIDOCAINE 1% INJ 10MG/ML (20 ML MDV) SQ ONE ×2 (10:04→10:17)
--- NOTE | 2018-01-09 10:21 | P.OP ---
Date of Procedure: 01/09/18 Preoperative Diagnosis: Patient status post left breast mastectomy, presents with nodule left chest wall Postoperative Diagnosis: Same Procedure(s) Performed: Excision nodule left chest wall Anesthesia: MAC Surgeon: Jenny Avendaño Estimated Blood Loss (ml): 2 IV fluids (ml): 200 Pathology: other (Nodule from chest wall) Condition: stable Disposition: PACU Indications for Procedure: Patient status post left mastectomy presents with nodule chest wall rule out metastatic disease Operative Findings: Nodule left chest wall Description of Procedure: Patient was taken to the operating room and the area of concern in the left chest wall was prepped and draped in a sterile fashion. One percent lidocaine was used to anesthetize the area of concern. An excision approximately 2 cm x 1 cm in size was performed. The nodule was excised. This appeared to be contiguous with scar tissue under the area of the superior skin flap. After assured that hemostasis was attained the deep tissues were closed with a Vicryl suture. The skin was closed with a 4-0 Monocryl. All instrument and sponge counts were correct at the end of the case. Patient tolerated the procedure in stable condition. Specimen was sent to pathology.
--- NOTE | 2018-01-09 10:23 | P.DS ---
Providers Attending physician: Jenny Avendaño Primary care physician: Matheus Mccain Plan - Discharge Summary New Discharge Prescriptions: No Action amLODIPine [Norvasc] 5 mg PO BID Simvastatin [Zocor] 20 mg PO HS Levothyroxine Sodium [Synthroid] 175 mcg PO DAILY Omeprazole [PriLOSEC] 20 mg PO AC-BRKFST sitaGLIPtin PHOSPHATE [Januvia] 25 mg PO DAILY Losartan Potassium [Cozaar] 100 mg PO DAILY glipiZIDE [Glucotrol] 10 mg PO AC-BID Ferrous Sulfate [Feosol] 325 mg PO DAILY Acetaminophen [Tylenol Arthritis] 1,300 mg PO BID PRN PRN Reason: Pain Meloxicam [Mobic] 15 mg PO DAILY Doxylamine Succinate [Unisom] 50 mg PO HS PRN PRN Reason: Insomnia Discharge Medication List Levothyroxine Sodium [Synthroid] 175 mcg PO DAILY 11/08/16 [History] Omeprazole [PriLOSEC] 20 mg PO AC-BRKFST 11/08/16 [History] Simvastatin [Zocor] 20 mg PO HS 11/08/16 [History] amLODIPine [Norvasc] 5 mg PO BID 11/08/16 [History] sitaGLIPtin PHOSPHATE [Januvia] 25 mg PO DAILY 03/02/17 [History] Losartan Potassium [Cozaar] 100 mg PO DAILY 05/17/17 [History] glipiZIDE [Glucotrol] 10 mg PO AC-BID 05/17/17 [History] Acetaminophen [Tylenol Arthritis] 1,300 mg PO BID PRN 09/22/17 [History] Ferrous Sulfate [Feosol] 325 mg PO DAILY 09/22/17 [History] Doxylamine Succinate [Unisom] 50 mg PO HS PRN 01/02/18 [History] Meloxicam [Mobic] 15 mg PO DAILY 01/02/18 [History] Follow up Appointment(s)/Referral(s): Jenyn Avendaño MD [STAFF PHYSICIAN] - 1 Week Activity/Diet/Wound Care/Special Instructions: Do not drive today Patient may shower after 48 hours Discharge Disposition: HOME SELF-CARE
[2018-01-09 11:14] VITALS: BP 127/82; PULSE 89
== END 2018-01-09 11:37 | disposition home or self-care (01) ==
LOC: OR 08:40
PROVIDERS: ATTEND Surgery
DX: D17.1 Benign lipomatous neoplasm of skin and subcutaneous tissue of trunk (principal); D18.09 Hemangioma of other sites; E11.9 Type 2 diabetes mellitus without complications; I10 Essential (primary) hypertension; E78.00 Pure hypercholesterolemia, unspecified; K21.9 Gastro-esophageal reflux disease without esophagitis; M06.9 Rheumatoid arthritis, unspecified; H26.9 Unspecified cataract; G43.909 Migraine, unspecified, not intractable, without status migrainosus; D64.9 Anemia, unspecified; E03.9 Hypothyroidism, unspecified; Z90.12 Acquired absence of left breast and nipple; Z90.710 Acquired absence of both cervix and uterus; Z90.49 Acquired absence of other specified parts of digestive tract; Z85.3 Personal history of malignant neoplasm of breast; Z85.51 Personal history of malignant neoplasm of bladder; Z92.21 Personal history of antineoplastic chemotherapy; Z92.3 Personal history of irradiation; Z79.890 Hormone replacement therapy; Z79.899 Other long term (current) drug therapy; Z79.84 Long term (current) use of oral hypoglycemic drugs; Z79.51 Long term (current) use of inhaled steroids; Z88.5 Allergy status to narcotic agent; Z88.8 Allergy status to other drugs, medicaments and biological substances
CPT/HCPCS: 88305; 11402; J2250; J1644; J1100; J2405; J2001; J3010; J2704

== ENCOUNTER → 2018-01-18 | Outpatient (CLI) | payer MEDICARE ==
[2018-01-18 11:57] VITALS: BP 126/80; PULSE 92; BMI 37.3
--- NOTE | 2018-01-18 11:59 | P.PN ---
Progress Note - Text Progress Note Date: 01/18/18 Patient is a 77-year-old white female status post excision of a left chest wall lesion to rule out metastatic deposit. She had previously undergone a left breast mastectomy. 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 The patient is doing well at this time but has some mild erythema at the site. The patient had chemotherapy and radiation therapy. Physical exam: Incision clean and dried mild erythema at site patient has been using silvadene that she had at home, she will change to neosporin Impression/plan: 1. 77-year-old white female status post excision left chest wall lesion rule out metastatic disease, this was benign 2. Mild erythema at the site patient will follow up next week 3. The patient will follow up in 3 months time for surveillance for the breast cancer CC: Dr. Mccain
== END | disposition home or self-care (01) ==
LOC: WWCWWP 11:20
PROVIDERS: ATTEND Surgery
DX: Z53.9 Procedure and treatment not carried out, unspecified reason (principal)

== ENCOUNTER → 2018-02-12 | Outpatient (CLI) | payer MEDICARE ==
--- NOTE | 2018-02-12 22:01 | MR ---
EXAMINATION TYPE: MR brain wo/w con DATE OF EXAM: 02/12/2018 COMPARISON: None HISTORY: Breast CA, headache TECHNIQUE: Multiplanar, multisequence images of the brain and brainstem is performed without and with IV contras t, utilizing 9 mL intravenous Gadavist . FINDINGS: Diffusion weighted images demonstrate no evidence of a recent infarct or other diffusion ab normality. [id number] generalized degenerative change. Midline structures demonstrate normal morphology. The craniocervical junction appears within normal limits. Post contrast images demonstrate no abnormal enhancement. The dural venous sinuses appear pa tent. A partially empty sella turcica noted. Changes of chronic sinusitis are noted. Abnormal signal in the basal ganglia likely represent promine nt Virchow-Gold spaces versus tiny remote lacunar infarct. White matter: There are numerous focal and large areas of confluent abnormal signal throughout the wh ite matter bilaterally. No enhancing lesions. IMPRESSION: 1. No enhancing mass. 2. Degenerative and nonspecific white matter changes most typical of diffuse remote microvascular isc hemia.
== END | disposition home or self-care (01) ==
LOC: RADMRIMAIN 13:01
PROVIDERS: ATTEND Internal Medicine Hematology & Oncology
DX: R90.89 Other abnormal findings on diagnostic imaging of central nervous system (principal); C50.112 Malignant neoplasm of central portion of left female breast
CPT/HCPCS: 82565; 70553; 36415; A9581

== ENCOUNTER → 2018-06-22 | Outpatient (CLI) | payer MEDICARE ==
--- NOTE | 2018-06-22 17:21 | MR ---
EXAMINATION TYPE: MR lumbar spine wo/w con DATE OF EXAM: 06/22/2018 COMPARISON: No prior MRI HISTORY: lumbosacral radiculopathy CONTRAST: 9 mL intravenous Gadavist. TECHNIQUE: Multiplanar, multisequence images of the lumbar spine were acquired. FINDINGS: L5-S1: Facet hypertrophy is present. No spinal canal stenosis present. No significant disc bulge or f ocal disc herniation is evident. Neural foramen are patent. L4-L5: Disc bulge is present in an asymmetric pattern into the left foramen. This has mild infra fora jannette narrowing. No nerve root contact is evident. Mild facet hypertrophy is present. Ligamentum flav um laxity is present with posterior lateral thecal sac compression. Some lateral canal narrowing may be present. No AP spinal canal stenosis is present. Synovial cysts posterior to the facets may be pre sent at this level. Additionally, there is a large synovial cyst adjacent to the facet joint space michel s moderate lateral thecal sac displacement. Displacement of the exiting nerve root is evident. Series 501 image 6. Correlate with the patient's radicular symptoms. L3-L4: No focal disc herniation or significant disc bulge is evident. No spinal canal stenosis or qian ral foraminal stenosis is present. L2-L3: Mild disc bulge has anterior thecal sac flattening. Mild facet hypertrophy is present. No spin al canal stenosis or neural foraminal stenosis is present. L1-L2: Broad-based disc bulge has mild anterior thecal sac compression. This is minimally greater in the right paracentral region. Facet hypertrophy is present. Some posterior lateral thecal sac contact is present. No spinal canal stenosis is present. Neural foramen are patent. T12-L1: Broad-based disc bulge is present. There is a suggestion of subligamentous disc extension in the left paracentral canal on the endplate of L1. This has mild to moderate anterior thecal sac compr ession. No AP spinal canal stenosis is present. Neural foramen are patent Following contrast administration suspicious enhancement is not evident. Enhancement better demonstra cecilia the subligamentous disc herniation at L1-2 and the suspected synovial cyst at L4-5 on the right. IMPRESSION: 1. Synovial cyst extending from the right facet into the spinal canal at L4-5 has moderate thecal sac displacement towards the left. Nerve root displacement within the thecal sac is evident. There is li saige compression of the exiting L5 nerve root. Correlate with the radicular symptoms. 2. Small subligamentous disc herniation L1-L2 with mild anterior thecal sac compression. 3. Multilevel facet degenerative changes greatest L4-5 L5-S1
== END | disposition home or self-care (01) ==
LOC: RADMRIMAIN 13:14
PROVIDERS: ATTEND Internal Medicine Hematology & Oncology
DX: M51.16 Intervertebral disc disorders with radiculopathy, lumbar region (principal); M47.27 Other spondylosis with radiculopathy, lumbosacral region; M71.38 Other bursal cyst, other site; G95.29 Other cord compression
CPT/HCPCS: 72158; A9585

== ENCOUNTER → 2018-06-30 | Outpatient (CLI) | payer MEDICARE ==
--- NOTE | 2018-06-30 17:02 | MR ---
EXAMINATION TYPE: MR pelvis wo/w con DATE OF EXAM: 06/30/2018 COMPARISON: MRI lumbar spine June 22, 2018 HISTORY: Lumbosacral Radiculopathy / Radiating leg pain. History of breast cancer. CONTRAST: Standard multiplanar, multisequence MRI departmental protocol utilizing 8 mL intravenous Gadavist syed olinium contrast. FINDINGS: Visualized osseous structures of the pelvis including sacrum and coccyx show no suspicious edema or enhancement. Sacroiliac joints are symmetric and felt within normal limits. 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 Diverticula in the sigmoid colon are evident. No convincing MRI evidence for acute diverticulitis. Ut erus is surgically absent. Visualized portion of bladder is felt within normal limits. No concerning pelvic fluid collection is seen. No suspicious pelvic or groin adenopathy is noted. No suspicious enhancement is seen. Mild generalized muscular atrophy is present bilaterally. No suspi cious focal atrophy is seen. IMPRESSION: No suspicious enhancement. No suspicious osseous edema noted.
== END | disposition home or self-care (01) ==
LOC: RADMRIMAIN 12:31
PROVIDERS: ATTEND Internal Medicine Hematology & Oncology
DX: M54.17 Radiculopathy, lumbosacral region (principal)
CPT/HCPCS: 82565; 72197; 36415; A9585

== ENCOUNTER → 2019-02-04 | Outpatient (CLI) | payer MEDICARE ==
--- NOTE | 2019-02-04 13:43 | MM ---
Reason for exam: additional evaluation requested from prior study. Last mammogram was performed 2 years and 3 months ago. History: Patient has history of breast cancer at age 76 and history of other cancer. Malignant US biopsy breast VAD LT of the left breast, October 20, 2016. Physical Findings: Nurse did not find any significant physical abnormalities on exam. MG 3D Diag Mammo W/Cad RT CC and MLO view(s) were taken of the right breast. Prior study comparison: October 20, 2016, left breast MG diagnostic mammo LT wo CAD. The breast tissue is heterogeneously dense. This may lower the sensitivity of mammography. Finding: There are typically benign vascular, dystrophic, round calcifications in the right breast. There is a chronic nodularity in the right breast. These results were verbally communicated with the patient and result sheet given to the patient on 02/04/19. ASSESSMENT: Benign, BI-RAD 2 RECOMMENDATION: Follow-up diagnostic mammogram of the right breast in 1 year.
== END | disposition home or self-care (01) ==
LOC: RADMAMWWP 12:50
PROVIDERS: ATTEND Radiology Radiation Oncology
DX: C50.512 Malignant neoplasm of lower-outer quadrant of left female breast (principal); Z92.3 Personal history of irradiation; Z92.21 Personal history of antineoplastic chemotherapy; Z17.1 Estrogen receptor negative status [ER-]
CPT/HCPCS: 77065; G0279; 77061

== ENCOUNTER → 2020-03-17 | Outpatient (CLI) | payer MEDICARE ==
--- NOTE | 2020-03-17 14:59 | MM ---
Reason for exam: additional evaluation requested from prior study. Last mammogram was performed 1 year and 1 month ago. History: Patient is postmenopausal, has history of breast cancer at age 76, and history of other cancer. Malignant US biopsy breast VAD LT of the left breast, October 20, 2016. Mastectomy of the left breast. Chemotherapy. Radiation therapy of the left breast. Physical Findings: Nurse did not find any significant physical abnormalities on exam. MG 3D Diag Mammo W/Cad RT CC and MLO view(s) were taken of the right breast. Prior study comparison: February 04, 2019, right breast MG 3d diag mammo w/cad RT. October 20, 2016, left breast MG diagnostic mammo LT wo CAD. There are scattered fibroglandular densities. There is chronic nodularity in the right breast posterior upper outer quadrant. Vascular calcifications. No significant new findings when compared with previous films. These results were verbally communicated with the patient and result sheet given to the patient on 03/17/20. ASSESSMENT: Negative, BI-RAD 1 RECOMMENDATION: Follow-up diagnostic mammogram of the right breast in 1 year.
== END | disposition home or self-care (01) ==
LOC: RADMAMWWP 13:51
PROVIDERS: ATTEND Internal Medicine Hematology & Oncology
DX: Z08 Encounter for follow-up examination after completed treatment for malignant neoplasm (principal); Z85.3 Personal history of malignant neoplasm of breast
CPT/HCPCS: 77065; G0279; 77061

== ENCOUNTER → 2021-04-21 | Outpatient (CLI) | payer MEDICARE ==
--- NOTE | 2021-04-26 09:12 | MM ---
Reason for exam: additional evaluation requested from prior study. Last mammogram was performed 1 year and 1 month ago. History: Patient is postmenopausal, has history of breast cancer at age 76, and history of other cancer. Malignant US biopsy breast VAD LT of the left breast, October 20, 2016. Mastectomy of the left breast. Chemotherapy. Radiation therapy of the left breast. Physical Findings: Nurse did not find any significant physical abnormalities on exam. MG 3D Diag Mammo W/Cad RT CC and MLO view(s) were taken of the right breast. Prior study comparison: March 17, 2020, right breast MG 3d diag mammo w/cad RT. February 04, 2019, right breast MG 3d diag mammo w/cad RT. October 20, 2016, left breast MG diagnostic mammo LT wo CAD. There are scattered fibroglandular densities. There is chronic nodularity in the right breast. Stable areas of asymmetric density. Benign vascular calcifications. No significant new findings when compared with previous films. These results were verbally communicated with the patient and result sheet given to the patient on 04/21/21. ASSESSMENT: Benign, BI-RAD 2 RECOMMENDATION: Routine screening mammogram of the right breast in 1 year.
== END | disposition home or self-care (01) ==
LOC: RADMAMWWP 14:54
PROVIDERS: ATTEND Internal Medicine Hematology & Oncology
DX: R92.8 Other abnormal and inconclusive findings on diagnostic imaging of breast (principal); R92.1 Mammographic calcification found on diagnostic imaging of breast; Z85.3 Personal history of malignant neoplasm of breast; Z78.0 Asymptomatic menopausal state
CPT/HCPCS: 77065; G0279; 77061

== ENCOUNTER 2021-08-18 17:51 | Inpatient (IN) | payer MEDICARE ==
--- NOTE | 2021-08-18 20:20 | ED ---
General Adult HPI - General Source: patient, RN notes reviewed, old records reviewed Mode of arrival: ambulatory <Estevan Mesa - Last Filed: 08/18/21 20:51> <Darian Grace - Last Filed: 08/18/21 23:38> - General Chief complaint: Abdominal Pain Stated complaint: Stomach Cramps, Vomiting - History of Present Illness Initial comments: This is an 81-year-old female who presents to the emergency department stating that she was vomiting earlier today and had significant abdominal cramping. Patient states she's vomited total 3 times. Patient states she hasn't had a bowel movement and over a week. Patient states today when she gets the emergency department she finally had a large bowel movement and though it made her abdominal cramping better she still states she has some abdominal cramping. Patient denies any nausea at this time. Patient denies any fever chills. Patient denies any point tenderness anywhere on the abdomen. Patient denies any chest pain difficulty breathing shortness of breath. (Estevan Mesa) - Related Data Home Medications Medication Instructions Recorded Confirmed Levothyroxine Sodium [Synthroid] 175 mcg PO DAILY 11/08/16 08/18/21 Simvastatin [Zocor] 20 mg PO HS 11/08/16 08/18/21 amLODIPine [Norvasc] 5 mg PO BID 11/08/16 08/18/21 Losartan Potassium [Cozaar] 100 mg PO DAILY 05/17/17 08/18/21 glipiZIDE [Glucotrol] 15 mg PO BID 05/17/17 08/18/21 Acetaminophen [Tylenol Arthritis] 650 mg PO Q6H PRN 09/22/17 08/18/21 Meloxicam [Mobic] 15 mg PO DAILY 01/02/18 08/18/21 Atenolol [Tenormin] 50 mg PO BID 08/18/21 08/18/21 Omeprazole 40 mg PO DAILY 08/18/21 08/18/21 Allergies Allergy/AdvReac Type Severity Reaction Status Date / Time codeine Allergy Unknown Couldn't Verified 08/18/21 22:27 Swallow glyburide AdvReac Unknown Itching Verified 08/18/21 22:27 metformin AdvReac Unknown Itching Verified 08/18/21 22:27 Review of Systems ROS Other: All systems not noted in ROS Statement are negative. <Estevan Mesa - Last Filed: 08/18/21 20:51> ROS Other: All systems not noted in ROS Statement are negative. <Darian Grace - Last Filed: 08/18/21 23:38> ROS Statement: Those systems with pertinent positive or pertinent negative responses have been documented in the HPI. Past Medical History Past Medical History: Cancer, Diabetes Mellitus, Eye Disorder, GERD/Reflux, Hyperlipidemia, Hypertension, Neurologic Disorder, Osteoarthritis (OA), Rhe umatoid Arthritis (RA), Thyroid Disorder Additional Past Medical History / Comment(s): HX BLADDER CANCER (?2008), BREAST CANCER (2017- LAST CHEMO 03/2017, LAST RADIATION [place] 08/2017), MIGRAINES, DIVERTICULITIS, RONAL CATARACTS., ANEMIA. , NODULE LEFT CHEST., SINUS PROBLEMS., USES WALKER PRN . History of Any Multi-Drug Resistant Organisms: None Reported Past Surgical History: Appendectomy, Breast Surgery, Cholecystectomy, Heart Catheterization, Hysterectomy, Orthopedic Surgery Additional Past Surgical History / Comment(s): LEFT BREAST BX, RONAL KNEE SURGERIES, LEFT MASTECTOMY (04/2017)., PORT-A-CATH INSERTED & REMOVED. Past Anesthesia/Blood Transfusion Reactions: No Reported Reaction Additional Past Anesthesia/Blood Transfusion Reaction / Comment(s): STATES RECEIVED 2 BLOOD TRANSFUSIONS AFTER RECEIVING CHEMO- NO REACTION Past Psychological History: No Psychological Hx Reported Past Alcohol Use History: None Reported Past Drug Use History: None Reported - Past Family History Mother Family Medical History: No Reported History Father Family Medical History: Myocardial Infarction ([place]) Sister(s) Family Medical History: Cancer Additional Family Medical History / Comment(s): ovarian/cervical, colon <Estevan Mesa - Last Filed: 08/18/21 20:51> General Exam <Estevan Mesa - Last Filed: 08/18/21 20:51> - General Exam Comments Initial Comments: GENERAL: Patient is well-developed and well-nourished. Patient is nontoxic and well- hydrated and is in mild distress. ENT: Neck is soft and supple. No significant lymphadenopathy is noted. Oropharynx is clear. Moist mucous membranes. Neck has full range of motion without eliciting any pain. EYES: The sclera were anicteric and conjunctiva were pink and moist. Extraocular movements were intact and pupils were equal round and reactive to light. Eyelids were unremarkable. PULMONARY: Unlabored respirations. Good breath sounds bilaterally. No audible rales rhonchi or wheezing was noted. CARDIOVASCULAR: There is a regular rate and rhythm without any murmurs gallops or rubs. ABDOMEN: Mildly tender diffusely. No point tenderness no rebound or guarding SKIN: Skin is clear with no lesions or rashes and otherwise unremarkable. NEUROLOGIC: Patient is alert and oriented x3. Cranial nerves II through XII are grossly intact. Motor and sensory are also intact. Normal speech, volume and content. Symmetrical smile. MUSCULOSKELETAL: Normal extremities with adequate strength and full range of motion. No lower extremity swelling or edema. No calf tenderness. LYMPHATICS: No significant lymphadenopathy is noted PSYCHIATRIC: Normal psychiatric evaluation. (Estevan Mesa) Course Vital Signs 08/18/21 08/18/21 17:53 22:55 Temperature 98.7 F 98.6 F Pulse Rate 87 82 Respiratory 18 18 Rate Blood Pressure 144/84 148/82 O2 Sat by Pulse 96 95 Oximetry Medical Decision Making - Lab Data Result diagrams: 08/18/21 20:28 08/18/21 20:28 <Estevan Mesa - Last Filed: 08/18/21 20:51> - Lab Data Result diagrams: 08/18/21 20:28 08/18/21 20:28 <Darian Grace - Last Filed: 08/18/21 23:38> - Medical Decision Making Dr. Rodríguez will be taking over the care of this patient at 9 PM (Estevan Mesa) Patient is an 81-year-old woman with abdominal pain and left lower quadrant tenderness on exam. Patient signed out pending studies. I did a head CT given the leukocytosis and tenderness. Show moderate diverticulitis there does not appear to be any complication at this point. Discussed findings with patient and will admit. Case discussed with her, and request surgical consultation to ensure no surgical intervention required. (Darian Grace) - Lab Data Lab Results 08/18/21 08/18/21 Range/Units 20:28 20:28 WBC 20.7 H (3.8-10.6) k/uL RBC 4.93 (3.80-5.40) m/uL Hgb 14.8 (11.4-16.0) gm/dL Hct 48.5 H (34.0-46.0) % MCV 98.4 (80.0-100.0) fL MCH 30.1 (25.0-35.0) pg MCHC 30.6 L (31.0-37.0) g/dL RDW 13.4 (11.5-15.5) % Plt Count 211 (150-450) k/uL MPV 8.6 Neutrophils % 87 % Lymphocytes % 3 % Monocytes % 7 % Eosinophils % 1 % Basophils % 0 % Neutrophils # 18.0 H (1.3-7.7) k/uL Lymphocytes # 0.7 L (1.0-4.8) k/uL Monocytes # 1.4 H (0-1.0) k/uL Eosinophils # 0.1 (0-0.7) k/uL Basophils # 0.1 (0-0.2) k/uL Hypochromasia Slight Sodium 134 L (137-145) mmol/L Potassium 4.6 (3.5-5.1) mmol/L Chloride 102 (98-107) mmol/L Carbon Dioxide 19 L (22-30) mmol/L Anion Gap 13 mmol/L BUN 25 H (7-17) mg/dL Creatinine 1.15 H (0.52-1.04) mg/dL Est GFR (CKD-EPI)AfAm 52 (>60 ml/min/1.73 sqM) Est GFR (CKD-EPI)NonAf 45 (>60 ml/min/1.73 sqM) Glucose 454 H (74-99) mg/dL Calcium 9.4 (8.4-10.2) mg/dL Total Bilirubin 1.1 (0.2-1.3) mg/dL AST 14 (14-36) U/L ALT 14 (4-34) U/L Alkaline Phosphatase 111 (38-126) U/L Total Protein 6.5 (6.3-8.2) g/dL Albumin 4.1 (3.5-5.0) g/dL Amylase 209 H (30-110) U/L Lipase 25 (23-300) U/L Disposition <Estevan Mesa - Last Filed: 08/18/21 20:51> Is patient prescribed a controlled substance at d/c from ED?: No <Darian Grace - Last Filed: 08/18/21 23:38> Clinical Impression: Abdominal pain, Constipation Disposition: HOME SELF-CARE Condition: Good Instructions (If sedation given, give patient instructions): Constipation (ED), Abdominal Pain (ED) Referrals: Matheus Mccain MD [Primary Care Provider] - 1-2 days
[2021-08-18 20:36] LABS: Basophils # (A) 0.1 k/uL (0-0.2); Basophils % (A) 0 %; Eosinophils # (A) 0.1 k/uL (0-0.7); Eosinophils % (A) 1 %; HCT 48.5 % (34.0-46.0); HGB 14.8 gm/dL (11.4-16.0); Hypochromasia Slight; Lymphocytes # (A) 0.7 k/uL (1.0-4.8); Lymphocytes % (A) 3 %; MCH 30.1 pg (25.0-35.0); MCHC 30.6 g/dL (31.0-37.0); MCV 98.4 fL (80.0-100.0); Mean Platelet Volume 8.6; Monocytes # (A) 1.4 k/uL (0-1.0); Monocytes % (A) 7 %; Neutrophils % (A) 87 %; Platelet Count 211 k/uL (150-450); RBC 4.93 m/uL (3.80-5.40); RDW 13.4 % (11.5-15.5); WBC 20.7 k/uL (3.8-10.6)
--- NOTE | 2021-08-18 20:43 | XR ---
EXAMINATION TYPE: XR KUB DATE OF EXAM: 08/18/2021 8:39 PM INDICATION: Patient age:Female; 81 years old; Reason for study: abdominal pain; COMPARISON: None. TECHNIQUE: One radiographic view of the abdomen was obtained. FINDINGS: The bowel gas pattern is nonspecific without dilated loops of small or large bowel. The os seous structures are intact. No abnormal calcifications are present. Fecal material and gas are demo nstrated throughout the colon and rectum. IMPRESSION: Nonspecific bowel gas pattern without radiographic evidence for acute process.
[2021-08-18 20:48] LABS: Albumin 4.1 g/dL (3.5-5.0); Calcium 9.4 mg/dL (8.4-10.2); Potassium 4.6 mmol/L (3.5-5.1); Total Bilirubin 1.1 mg/dL (0.2-1.3); Total Protein 6.5 g/dL (6.3-8.2)
--- NOTE | 2021-08-18 23:24 | CT ---
EXAMINATION TYPE: CT abdomen pelvis wo con DATE OF EXAM: 08/18/2021 COMPARISON: 11/07/2016 HISTORY: LLQ pain CT DLP: 739.9 mGycm Automated exposure control for dose reduction was used. Images obtained from the diaphragm to the floor the pelvis without contrast. Lung bases are clear of consolidation. There is minimal subsegmental atelectasis at the lung bases. H eart size is fairly normal. There is no pericardial effusion. Liver is intact. The bile ducts are not dilated. There are calcified multiples splenic granulomata. There is no pancreatic mass. Gallbladder not seen. There is no adrenal mass. Kidneys have normal size. There is no hydronephrosis. Ureters are not dilat ed. There is no retroperitoneal adenopathy. The bladder distends smoothly. There is no inguinal herni a. There is some diffuse wall thickening of the sigmoid colon and also mild thickening of the descending colon wall. There is mild surrounding mesenteric edema. There are multiple sigmoid diverticula. There are numerous diverticula also present in the right colon and the transverse colon. Appendix not clearly seen. No sign thickened appendix. There is more noticeable fat stranding around the mid sigm oid colon. The lumbar vertebrae have normal alignment. No compression fracture. Bony pelvis is intact. The hip j oints are intact. Sacroiliac joints are intact. IMPRESSION: There is extensive colonic diverticulosis. There is evidence of some diverticulitis or diffuse coliti s involving the sigmoid colon and lower descending colon which is a change compared to old exam. No a bscess.
[2021-08-18] MEDS ORDERED: LEVOFLOXACIN 750MG-D5W PMX 750 MG in DEXTROSE/WATER 1 150ML.BAG IVPB STA (23:27)
[2021-08-18] MEDS ORDERED: metroNIDAZOLE-NS PMX 500 MG in SALINE 1 100ML.BAG IVPB STA (23:27)
[2021-08-18] MEDS ORDERED: MORPHINE SULFATE 4 MG/ML SYRINGE IV PRN (23:32)
[2021-08-18] MEDS ORDERED: NALOXONE 0.4 MG/ML 1 ML VIAL IV PRN (23:32)
[2021-08-18] MEDS ORDERED: ONDANSETRON 4 MG/2 ML VIAL IVP PRN (23:32)
[2021-08-18] MEDS: SODIUM CHLORIDE 0.9% 1,000 ML IV SCH (23:59)
[2021-08-19 07:08] LABS: Glucose,Whole Blood 238 mg/dL (75-99)
[2021-08-19] MEDS ORDERED: ACETAMINOPHEN TAB 325 MG TAB PO PRN (07:23)
[2021-08-19] MEDS ORDERED: glipiZIDE 5 MG TAB PO SCH (07:30)
[2021-08-19] MEDS: LOSARTAN 50 MG TAB PO SCH (08:56)
[2021-08-19] MEDS: atenoloL 50 MG TAB PO SCH ×2 (08:56→19:55)
[2021-08-19] MEDS: FAMOTIDINE 20 MG TAB PO SCH (08:57)
[2021-08-19] MEDS: INSULIN ASPART (NovoLOG) 100 UNIT/ML VIAL SQ SCH ×3 (08:57→16:59)
[2021-08-19] MEDS: amLODIPine 5 MG TAB PO SCH ×2 (08:57→19:55)
[2021-08-19] MEDS ORDERED: FAMOTIDINE 20 MG TAB PO SCH (09:00)
[2021-08-19] MEDS: LEVOTHYROXINE 75 MCG TAB PO SCH (09:14)
[2021-08-19] MEDS: LEVOTHYROXINE 100 MCG TAB PO SCH (09:14)
--- NOTE | 2021-08-19 11:14 | P.GSCN ---
History of Present Illness Consult date: 08/19/21 History of present illness: CHIEF COMPLAINT: Abdominal pain, vomiting HISTORY OF PRESENT ILLNESS: This is a 81-year-old female who presented to the emergency department yesterday evening with complaints of abdominal cramping and vomiting. She has a past medical history including diverticulitis, breast cancer, bladder cancer, diabetes mellitus, GERD, hyperlipidemia, hypertension, migraines, osteoarthritis, rheumatoid arthritis, and thyroid disorder. She had a CT of the abdomen and pelvis without contrast showing extensive colonic diverticulosis. Evidence of some diverticulitis or diffuse colitis involving the sigmoid colon and lower descending colon which is a change compared to old exam. No abscess. She states yesterday warning she started having stomach cramps, and progressed throughout the day and got worse followed by 3 episodes of vomiting. She states no blood in her vomit. She also states she has not had a bowel movement 1 week, denied any history of constipation. Yesterday when she got to the emergency room she states she did have a very large soft loose bowel movement, and no report of blood. She denies any previous history of Crohn's or colitis but states that she has had diverticulitis in the past. Her last colonoscopy was greater than 10 years ago. States most of her abdominal pain is in the left lower quadrant. Today she states she is feeling better however does still have some tenderness in the left lower quadrant region but improved since yesterday. No further nausea or vomiting. She's been on a clear liquid diet and tolerating it well. She states that she's been afebrile, she denied any fevers or chills at home. Her past surgical history includes appendectomy, left breast mastectomy, cholecystectomy, heart catheterization, hysterectomy, orthopedic surgery. Patient had leukocytosis on admission with a WBC 20.7 hemoglobin 14.8. PAST MEDICAL HISTORY: See list. PAST SURGICAL HISTORY: See list. MEDICATIONS: See list. ALLERGIES: See list. SOCIAL HISTORY: No illicit drug use. REVIEW OF SYSTEMS: CONSTITUTIONAL: Denies fever or chills. HEENT: Denies blurred vision, vision changes, or eye pain. Denies hemoptysis ENDOCRINE: Denies heat or cold intolerance. CARDIOVASCULAR: Denies chest pain or pressure. RESPIRATORY: No shortness of breath. GASTROINTESTINAL: Abdominal cramping, greatest in the left lower quadrant. Nausea with vomiting yesterday, none today. Denies any hematemesis, hematochezia. NEURO: Denies history of seizures. PSYCH: No depression or suicidal ideation HEMATOLOGIC: Denies bleeding disorders. LYMPHATIC: The patient denies any lumps and bumps around the neck. GENITOURINARY: Denies any blood in urine or increased urinary frequency. MUSCULOSKELETAL: Denies myalgias. Denies joint swelling. Denies decreased range of motion beyond patients baseline. SKIN: Denies pruitis. Denies rash. PHYSICAL EXAM: VITAL SIGNS: Reviewed GENERAL: Well-developed in no acute distress. HEENT: No sclera icterus. Extraocular movements grossly intact. Moist buccal mucosa. Head is atraumatic, normocephalic. Hears conversational speech. No nasal drainage. NECK: Supple without lymphadenopathy. CHEST: Non-labored respirations and equal bilateral excursions. CARDIOVASCULAR: Palpable 2+ radial pulses. ABDOMEN: Soft. Nondistended. Tenderness with palpation lower abdomen, greatest in the left lower quadrant. Positive bowel sounds. EXTREMITIES: No clubbing or cyanosis. no edema. NEUROLOGIC: No focal or lateralizing signs. Cranial nerves II through XII grossly intact. PSYCH: Appropriate affect. Alert and oriented to person, place and time. SKIN: Well perfused. Good skin turgor. LABORATORY DATA: WBC 20.7 hemoglobin 14.8 hematocrit 48 platelet count 211,000 Sodium 134 potassium 4.6 BUN 25 creatinine 1.15 glucose 454 Total bilirubin 1.1 AST 14 AT 14 alkaline phosphatase 111 amylase 209 lipase 25 IMAGING: CT of the abdomen and pelvis without contrast showing extensive colonic diverticulosis. Evidence of some diverticulitis or diffuse colitis involving the sigmoid colon and lower descending colon which is a change compared to old exam. No abscess. ASSESSMENT: 1. Abdominal pain 2. Diverticulitis/diffuse colitis involving sigmoid colon and lower descending colon seen on CT abdomen and pelvis 3. Nausea and vomiting, improved 4. Leukocytosis 5. Diabetes mellitus 6. Gastroesophageal reflux disease 7. Hyperlipidemia/hypertension 8. History of bladder and breast cancer PLAN: 1. Continue with symptomatic and supportive care 2. Continue Flagyl and Levaquin 3. Continue clear liquid diet 4. Daily CBC with diff 5. Continue with pain control 6. Protonix for GI prophylaxis 7. Further recommendations forthcoming per surgeon Thank you for this consultation, we will continue to follow. The impression and plan of care has been dictated as directed. Dr. Arrington I performed a history and examination of this patient, discussed the same with the dictator. I agree with the dictator's note ,documented as a scribe. Any additional findings or plans will be noted. Please see additional documentation below. REASON FOR CONSULTATION: Abdominal pain HISTORY OF PRESENT ILLNESS: The patient is a 81 year old female known history of breast cancer who presents with lower abdominal pain including moderate constipation for over 1-2 weeks. Patient was admitted to the hospital. Initial presentation include elevated white blood cell count over 20,000. Leukocytosis is moderate swelling improved since admission down to the over 10,000. She is tolerating clear liquid diet. She reports tenderness primarily along the left lower quadrant and lower abdomen. She denies recent blood in stools. Last colonoscopy over 10 years ago. General surgery is consulted for diverticulitis. PAST MEDICAL HISTORY: See list and reviewed PAST SURGICAL HISTORY: See list and reviewed MEDICATIONS: See list and reviewed ALLERGIES: See list and reviewed SOCIAL HISTORY: See list and reviewed FAMILY HISTORY: See list and reviewed REVIEW OF ORGAN SYSTEMS: CONSTITUTIONAL: No fevers or chills. Has morbid obesity, BMI 40.4 EYES: Has bilateral cataracts. HEENT: No difficulties with hearing. No nosebleeds. No difficulty swallowing. RESPIRATORY: Denies pneumonia. Denies any troubles with breathing or dyspnea on exertion. CARDIOVASCULAR: Has hypertensive heart disease. Has hyperlipidemia. GASTROINTESTINAL: Geraldo diverticulitis with change in bowel habits. Has gastroesophageal reflux disease. GENITOURINARY: Denies any blood in urine or increased urinary frequency. NEUROLOGICAL: Denies any numbness or tingling along the distal extremities. No seizure disorders or headaches. MUSCULOSKELETAL: Has back pain, stiffness or joint arthritis. Has rheumatoid arthritis. SKIN: No current skin cancer. No rash. PSYCHIATRIC: Denies current depression or suicidal thoughts. ENDOCRINE: Has hypothyroidism. Has diabetes type 2. HEME/LYMPHATIC: Denies any lumps and bumps around the neck. No recent deep venous thrombosis. ALLERGY/IMMUNOLOGY: History of chemoradiation for breast cancer. BREAST: History of breast cancer. Status post mastectomy. PHYSICAL EXAM: VITALS: Reviewed CONSTITUTIONAL: Well developed and in no acute distress. EYES: Conjuctivae without sclera icterus. Extraocular movements grossly intact. HEAD, EARS, NOSE, THROAT: Moist buccal mucosa. Head is atraumatic, n ormocephalic. Hears conversational speech. No nasal drainage. NECK: Supple. No JV distention. No thyroidomegaly. RESPIRATORY: Non-labored respirations and equal bilateral excursions. No gross wheezes. CARDIOVASCULAR: Regular rate and rhythm. 2+ radial pulses. ABDOMEN: Protuberant. No peritonitis. Tender left lower abdomen. LYMPH: No neck lymphadenopathy. MUSCULOSKELETAL: Nail and fingers with good capillary refill. SKIN: Warm and well perfused with good skin turgor. NEUROLOGIC: Cranial nerves II through XII grossly intact. No focal or lateralizing signs. PSYCH: Appropriate affect. Alert and oriented to person, place and time. Displays appropriate insight. CLINCAL LABS: Reviewed. WBC down over 20,000 to over 10,000. Creatinine down to 1.15-0.96. IMAGING: Independently reviewed CT of the abdomen and pelvis demonstrates sigmoid diverticulitis without free perforation. No pneumoperitoneum. This is my independent interpretation. RADIOLOGY: Report reviewed of CT of the abdomen and pelvis demonstrating sigmoid diverticulitis including presence of right colonic diverticulosis. RECORDS: previous old records reviewed with prior central venous catheter placement 2016. ASSESSMENT: 1. Sigmoid diverticulitis 2. History of breast cancer 3. Leukocytosis 4. Morbid obesity to assist calories, BMI 40.4 PLAN: 1. May advance from liquid diet as abdominal pain improves. 2. Continue IV antibiotics including antibiotics as outpatient. 3. As last colonoscopy was over 10 years or cold, recommend outpatient colonoscopy in 6 weeks 4. Continue inpatient hospitalization as abdominal pain improves ADVANCE DIRECTIVE: Full code Thank you for this kind consultation. Past Medical History Past Medical History: Cancer, Diabetes Mellitus, Eye Disorder, GERD/Reflux, Hyperlipidemia, Hypertension, Neurologic Disorder, Osteoarthritis (OA), Rheumatoid Arthritis (RA), Thyroid Disorder Additional Past Medical History / Comment(s): HX BLADDER CANCER (?2008), BREAST CANCER (2017- LAST CHEMO 03/2017, LAST RADIATION [place] 08/2017), MIGRAINES, DIVERTICULITIS, RONAL CATARACTS., ANEMIA. , NODULE LEFT CHEST., SINUS PROBLEMS., USES WALKER PRN . History of Any Multi-Drug Resistant Organisms: None Reported Past Surgical History: Appendectomy, Breast Surgery, Cholecystectomy, Heart Catheterization, Hysterectomy, Orthopedic Surgery Additional Past Surgical History / Comment(s): LEFT BREAST BX, RONAL KNEE SURGERIES, LEFT MASTECTOMY (04/2017)., PORT-A-CATH INSERTED & REMOVED. Past Anesthesia/Blood Transfusion Reactions: No Reported Reaction Additional Past Anesthesia/Blood Transfusion Reaction / Comm: STATES RECEIVED 2 BLOOD TRANSFUSIONS AFTER RECEIVING CHEMO- NO REACTION Past Psychological History: No Psychological Hx Reported Smoking Status: Never smoker Past Alcohol Use History: None Reported Past Drug Use History: None Reported - Past Family History Mother Family Medical History: No Reported History Father Family Medical History: Myocardial Infarction ([place]) Sister(s) Family Medical History: Cancer Additional Family Medical History / Comment(s): ovarian/cervical, colon Medications and Allergies Home Medications Medication Instructions Recorded Confirmed Type Levothyroxine Sodium [Synthroid] 175 mcg PO DAILY 11/08/16 08/18/21 History Simvastatin [Zocor] 20 mg PO HS 11/08/16 08/18/21 History amLODIPine [Norvasc] 5 mg PO BID 11/08/16 08/18/21 History Losartan Potassium [Cozaar] 100 mg PO DAILY 05/17/17 08/18/21 History glipiZIDE [Glucotrol] 15 mg PO BID 05/17/17 08/18/21 History Acetaminophen [Tylenol Arthritis] 650 mg PO Q6H PRN 09/22/17 08/18/21 History Meloxicam [Mobic] 15 mg PO DAILY 01/02/18 08/18/21 History Atenolol [Tenormin] 50 mg PO BID 08/18/21 08/18/21 History Omeprazole 40 mg PO DAILY 08/18/21 08/18/21 History Allergies Allergy/AdvReac Type Severity Reaction Status Date / Time codeine Allergy Unknown Couldn't Verified 08/18/21 22:27 Swallow glyburide AdvReac Unknown Itching Verified 08/18/21 22:27 metformin AdvReac Unknown Itching Verified 08/18/21 22:27 Surgical - Exam Vital Signs Temp Pulse Resp BP Pulse Ox 98.7 F 87 18 144/84 96 08/18/21 17:53 08/18/21 17:53 08/18/21 17:53 08/18/21 17:53 08/18/21 17:53 Results - Labs 08/19/21 11:32 08/19/21 11:32 Abnormal Lab Results - Last 24 Hours (Table) 08/18/21 08/18/21 08/19/21 Range/Units 20:28 20:28 07:07 WBC 20.7 H (3.8-10.6) k/uL Hct 48.5 H (34.0-46.0) % MCHC 30.6 L (31.0-37.0) g/dL Neutrophils # 18.0 H (1.3-7.7) k/uL Lymphocytes # 0.7 L (1.0-4.8) k/uL Monocytes # 1.4 H (0-1.0) k/uL Sodium 134 L (137-145) mmol/L Carbon Dioxide 19 L (22-30) mmol/L BUN 25 H (7-17) mg/dL Creatinine 1.15 H (0.52-1.04) mg/dL Glucose 454 H (74-99) mg/dL POC Glucose (mg/dL) 238 H (75-99) mg/dL Amylase 209 H (30-110) U/L Diabetes panel 08/18/21 Range/Units 20:28 Sodium 134 L (137-145) mmol/L Potassium 4.6 (3.5-5.1) mmol/L Chloride 102 (98-107) mmol/L Carbon Dioxide 19 L (22-30) mmol/L BUN 25 H (7-17) mg/dL Creatinine 1.15 H (0.52-1.04) mg/dL Glucose 454 H (74-99) mg/dL Calcium 9.4 (8.4-10.2) mg/dL AST 14 (14-36) U/L ALT 14 (4-34) U/L Alkaline Phosphatase 111 (38-126) U/L Total Protein 6.5 (6.3-8.2) g/dL Albumin 4.1 (3.5-5.0) g/dL Calcium panel 08/18/21 Range/Units 20:28 Calcium 9.4 (8.4-10.2) mg/dL Albumin 4.1 (3.5-5.0) g/dL Pituitary panel 08/18/21 Range/Units 20:28 Sodium 134 L (137-145) mmol/L Potassium 4.6 (3.5-5.1) mmol/L Chloride 102 (98-107) mmol/L Carbon Dioxide 19 L (22-30) mmol/L BUN 25 H (7-17) mg/dL Creatinine 1.15 H (0.52-1.04) mg/dL Glucose 454 H (74-99) mg/dL Calcium 9.4 (8.4-10.2) mg/dL Adrenal panel 08/18/21 Range/Units 20:28 Sodium 134 L (137-145) mmol/L Potassium 4.6 (3.5-5.1) mmol/L Chloride 102 (98-107) mmol/L Carbon Dioxide 19 L (22-30) mmol/L BUN 25 H (7-17) mg/dL Creatinine 1.15 H (0.52-1.04) mg/dL Glucose 454 H (74-99) mg/dL Calcium 9.4 (8.4-10.2) mg/dL Total Bilirubin 1.1 (0.2-1.3) mg/dL AST 14 (14-36) U/L ALT 14 (4-34) U/L Alkaline Phosphatase 111 (38-126) U/L Total Protein 6.5 (6.3-8.2) g/dL Albumin 4.1 (3.5-5.0) g/dL Assessment and Plan (1) Sigmoid diverticulitis Current Visit: Yes Status: Acute Code(s): K57.32 - DVTRCLI OF LG INT W/O PERFORATION OR ABSCESS W/O BLEEDING SNOMED Code(s): 443602517 (2) Morbid obesity due to excess calories Current Visit: Yes Status: Acute Code(s): E66.01 - MORBID (SEVERE) OBESITY DUE TO EXCESS CALORIES SNOMED Code(s): 692384372 (3) Diabetic nephropathy Current Visit: Yes Status: Acute Code(s): E11.21 - TYPE 2 DIABETES MELLITUS WITH DIABETIC NEPHROPATHY SNOMED Code(s): 167733217 (4) History of breast cancer Current Visit: Yes Status: Acute Code(s): Z85.3 - PERSONAL HISTORY OF MALIGNANT NEOPLASM OF BREAST SNOMED Code(s): 666059287 (5) Renal insufficiency Current Visit: No Status: Acute Code(s): N28.9 - DISORDER OF KIDNEY AND URETER, UNSPECIFIED SNOMED Code(s): 100305028
[2021-08-19 11:48] LABS: Basophils % (A) 0 %; Eosinophils # (A) 0.1 k/uL (0-0.7); Eosinophils % (A) 1 %; HCT 39.5 % (34.0-46.0); Lymphocytes # (A) 1.5 k/uL (1.0-4.8); Lymphocytes % (A) 13 %; MCH 31.3 pg (25.0-35.0); MCHC 32.9 g/dL (31.0-37.0); Mean Platelet Volume 8.5; Monocytes # (A) 0.7 k/uL (0-1.0); Monocytes % (A) 7 %; Neutrophils # (A) 8.2 k/uL (1.3-7.7); Neutrophils % (A) 75 %; Platelet Count 193 k/uL (150-450); RBC 4.15 m/uL (3.80-5.40); RDW 13.8 % (11.5-15.5); WBC 10.9 k/uL (3.8-10.6)
[2021-08-19 11:56] LABS: Glucose,Whole Blood 134 mg/dL (75-99)
[2021-08-19 12:07] LABS: African American GFR (CKD) 64 (>60 ml/min/1.73 sqM); Anion Gap 8 mmol/L; Blood Urea Nitrogen 23 mg/dL (7-17); Calcium 9.1 mg/dL (8.4-10.2); Carbon Dioxide 19 mmol/L (22-30); Chloride 108 mmol/L (98-107); Glucose 137 mg/dL (74-99); Non-African American GFR(CKD) 56 (>60 ml/min/1.73 sqM); Potassium 3.9 mmol/L (3.5-5.1); Sodium 135 mmol/L (137-145)
[2021-08-19] MEDS: PANTOPRAZOLE 40 MG TABLET PO SCH (12:25)
--- NOTE | 2021-08-19 13:52 | P.HPIM ---
History of Present Illness H&P Date: 08/19/21 Chief Complaint: Abdominal pain This is a pleasant 81-year-old patient who follows with Dr. Matheus Mccain. Chronic stable medical conditions include diabetes, GERD, hypertension, hyperlipidemia, osteoarthritis, rheumatoid arthritis, history of bladder cancer in 1009 breast cancer 2017 with chemotherapy and radiation, migraines. At the baseline uses a cane sometimes. Patient normally has a bowel movement every other day. She has not had a bowel movement for about 7 days. Started having lower abdominal cramping. Vomited 2 times at home and once in the ER. No fever no chills. Had a large BM yesterday evening. Computed tomography scan of the ER showed possible diverticulitis versus colitis. Was started on antibiotics in the ER. Feeling a bit better this morning Review of systems: GEN.: Tired EYES: None HEENT: None NECK: None RESPIRATORY: None CARDIOVASCULAR: None GASTROINTESTINAL: As above GENITOURINARY: None MUSCULOSKELETAL: Joint pains LYMPHATICS: None HEMATOLOGICAL: None PSYCHIATRY: None NEUROLOGICAL: None Past medical history to include: Diabetes, GERD, hyperlipidemia, hypertension, osteoarthritis, rheumatoid arthritis, bladder cancer 2008, breast cancer 2017 with chemoradiation, migraines, diverticulitis, anemia Social history: Lives alone. No smoking or alcohol. Family history: Ovarian;, colon cancer Physical examination: VITAL SIGNS: 98.7, 87, 18, 144/84, 96% room air GENERAL: BMI 40.4, reclining in bed, awake, but tired. EYES: Pupils equal. Conjunctiva normal. HEENT: External appearance of nose and ears normal, oral cavity grossly normal. NECK: JVD not raised; masses not palpable. HEART: First and second heart sounds are normal; no edema. LUNGS: Respiratory rate normal; clear to auscultation. ABDOMEN: Soft, left lower quadrant tenderness, liver spleen not palpable, no masses palpable. PSYCH: Alert and oriented x3; mood and affect normal. MUSCULOSKELETAL:No Clubbing/cyanosis;muscles-grossly intact. Evidence of OA/RA NEUROLOGICAL: Cranial nerves grossly intact; no facial asymmetry, power and sensation grossly intact. LYMPHATICS: No lymph nodes palpable in the axilla and neck INVESTIGATIONS, reviewed in the clinical context: August 19: White count 10.9 hemoglobin 13 platelets 193 potassium 3.9 creatinine 0.96 Admission labs: White count 20.7 hemoglobin 14.8 potassium 3.6 creatinine 1.15 glucose 154 Amylase 209 and lipase 25 Computed tomography scan of the abdomen pelvis: Extensive colonic divert iculosis. Some evidence of diverticulitis/diffuse colitis involving the sigmoid colon lower descending colon. Assessment and plan: -Left-sided distal colitis. Less likely diverticulitis. IV Zosyn. Clear liquid diet -Left-sided colonic diverticulosis -Diabetes mellitus type 2 on oral hypoglycemic Hold glipizide. Start liver bed. Follow Accu-Cheks -Hyperlipidemia Zocor 20 mg daily at bedtime -Essential hypertension Norvasc 5 mg twice a day Tenormin 50 mg twice a day Cozaar 100 mg a day -GERD Omeprazole 40 mg a day -Chronic rheumatoid arthritis/rheumatoid arthritis, Mobic 15 mg day -Hypothyroid 175 g Synthroid per day IV Zosyn. Clear liquid diet. Activity as tolerated. Resume home medications. Consult surgery GI service not available in the hospital. Care was discussed w ith the patient. Questions answered. Past Medical History Past Medical History: Cancer, Diabetes Mellitus, Eye Disorder, GERD/Reflux, Hyperlipidemia, Hypertension, Neurologic Disorder, Osteoarthritis (OA), Rheumatoid Arthritis (RA), Thyroid Disorder Additional Past Medical History / Comment(s): HX BLADDER CANCER (?2008), BREAST CANCER (2017- LAST CHEMO 03/2017, LAST RADIATION [place] 08/2017), MIGRAINES, DIVERTICULITIS, RONAL CATARACTS., ANEMIA. , NODULE LEFT CHEST., SINUS PROBLEMS., USES WALKER PRN . History of Any Multi-Drug Resistant Organisms: None Reported Past Surgical History: Appendectomy, Breast Surgery, Cholecystectomy, Heart Catheterization, Hysterectomy, Orthopedic Surgery Additional Past Surgical History / Comment(s): LEFT BREAST BX, RONAL KNEE SURGERIES, LEFT MASTECTOMY (04/2017)., PORT-A-CATH INSERTED & REMOVED. Past Anesthesia/Blood Transfusion Reactions: No Reported Reaction Additional Past Anesthesia/Blood Transfusion Reaction / Comment(s): STATES RECEIVED 2 BLOOD TRANSFUSIONS AFTER RECEIVING CHEMO- NO REACTION Past Psychological History: No Psychological Hx Reported Smoking Status: Never smoker Past Alcohol Use History: None Reported Past Drug Use History: None Reported - Past Family History Mother Family Medical History: No Reported History Father Family Medical History: Myocardial Infarction ([place]) Sister(s) Family Medical History: Cancer Additional Family Medical History / Comment(s): ovarian/cervical, colon Medications and Allergies Home Medications Medication Instructions Recorded Confirmed Type Levothyroxine Sodium [Synthroid] 175 mcg PO DAILY 11/08/16 08/18/21 History Simvastatin [Zocor] 20 mg PO HS 11/08/16 08/18/21 History amLODIPine [Norvasc] 5 mg PO BID 11/08/16 08/18/21 History Losartan Potassium [Cozaar] 100 mg PO DAILY 05/17/17 08/18/21 History glipiZIDE [Glucotrol] 15 mg PO BID 05/17/17 08/18/21 History Acetaminophen [Tylenol Arthritis] 650 mg PO Q6H PRN 09/22/17 08/18/21 History Meloxicam [Mobic] 15 mg PO DAILY 01/02/18 08/18/21 History Atenolol [Tenormin] 50 mg PO BID 08/18/21 08/18/21 History Omeprazole 40 mg PO DAILY 08/18/21 08/18/21 History Allergies Allergy/AdvReac Type Severity Reaction Status Date / Time codeine Allergy Unknown Couldn't Verified 08/18/21 22:27 Swallow glyburide AdvReac Unknown Itching Verified 08/18/21 22:27 metformin AdvReac Unknown Itching Verified 08/18/21 22:27 Physical Exam Vitals: Vital Signs Temp Pulse Pulse Resp BP BP Pulse Ox 08/19/21 08:00 98.2 F 81 16 147/61 97 08/19/21 01:54 97.9 F 85 17 120/77 94 L 08/18/21 22:55 98.6 F 82 18 148/82 95 08/18/21 17:53 98.7 F 87 18 144/84 96 Intake and Output 08/18/21 08/19/21 08/19/21 22:59 06:59 14:59 Other: Weight 93.894 kg 93.894 kg Results CBC & Chem 7: 08/19/21 11:32 08/19/21 11:32 Labs: Abnormal Lab Results - Last 24 Hours (Table) 08/18/21 08/18/21 08/19/21 Range/Units 20:28 20:28 07:07 WBC 20.7 H (3.8-10.6) k/uL Hct 48.5 H (34.0-46.0) % MCHC 30.6 L (31.0-37.0) g/dL Neutrophils # 18.0 H (1.3-7.7) k/uL Lymphocytes # 0.7 L (1.0-4.8) k/uL Monocytes # 1.4 H (0-1.0) k/uL Sodium 134 L (137-145) mmol/L Carbon Dioxide 19 L (22-30) mmol/L BUN 25 H (7-17) mg/dL Creatinine 1.15 H (0.52-1.04) mg/dL Glucose 454 H (74-99) mg/dL POC Glucose (mg/dL) 238 H (75-99) mg/dL Amylase 209 H (30-110) U/L Thrombosis Risk Factor Assmnt - Choose All That Apply Each Factor Represents 1 point: Obesity (BMI >25) Other Risk Factors: Yes Each Risk Factor Represents 3 Points: Age 75 years or older Other congenital or acquired thrombophilia - If yes, enter type in comment: No Thrombosis Risk Factor Assessment Total Risk Factor Score: 4 Thrombosis Risk Factor Assessment Level: Moderate Risk
[2021-08-19] MEDS ORDERED: CALCIUM CARBONATE 500 MG CHEWABLE PO PRN (13:53)
[2021-08-19] MEDS ORDERED: LACTULOSE 20 GM/30 ML CUP PO PRN (13:53)
[2021-08-19 16:50] LABS: Glucose,Whole Blood 189 mg/dL (75-99)
[2021-08-19] MEDS: INSULIN DETEMIR (LEVEMIR) 100 UNIT/ML SYR SQ SCH (16:51)
[2021-08-19] MEDS: PIPERACILLIN-TAZOBACTAM 3.375 GM in SODIUM CHLORIDE 0.9% 100 ML IVPB SCH ×2 (16:59→21:33)
[2021-08-19] MEDS: ENOXAPARIN 40 MG/0.4 ML SYRINGE SQ SCH (16:59)
[2021-08-19] MEDS: ACETAMINOPHEN TAB 325 MG TAB PO PRN (17:01)
[2021-08-19] MEDS: ATORVASTATIN 10 MG TAB PO SCH (19:55)
[2021-08-19] MEDS: SODIUM CHLORIDE 0.9% 1,000 ML IV SCH (19:58)
[2021-08-19 20:46] LABS: Glucose,Whole Blood 217 mg/dL (75-99)
[2021-08-19] MEDS: LORazepam 0.5 MG TAB PO PRN (21:34)
[2021-08-20] MEDS: INSULIN ASPART (NovoLOG) 100 UNIT/ML VIAL SQ SCH ×5 (00:10→22:01)
[2021-08-20] MEDS: SODIUM CHLORIDE 0.9% 1,000 ML IV SCH ×2 (02:44→11:56)
[2021-08-20 06:07] LABS: Basophils # (A) 0.1 k/uL (0-0.2); Basophils % (A) 1 %; Eosinophils # (A) 0.2 k/uL (0-0.7); Eosinophils % (A) 2 %; HGB 12.6 gm/dL (11.4-16.0); Hypochromasia Slight; Lymphocytes # (A) 1.6 k/uL (1.0-4.8); Lymphocytes % (A) 20 %; MCH 29.8 pg (25.0-35.0); MCHC 30.7 g/dL (31.0-37.0); MCV 97.2 fL (80.0-100.0); Mean Platelet Volume 8.8; Monocytes # (A) 0.5 k/uL (0-1.0); Monocytes % (A) 7 %; Neutrophils # (A) 5.5 k/uL (1.3-7.7); Neutrophils % (A) 67 %; Platelet Count 187 k/uL (150-450); RBC 4.22 m/uL (3.80-5.40); RDW 13.5 % (11.5-15.5); WBC 8.2 k/uL (3.8-10.6)
[2021-08-20] MEDS: LEVOTHYROXINE 75 MCG TAB PO SCH (06:13)
[2021-08-20] MEDS: PIPERACILLIN-TAZOBACTAM 3.375 GM in SODIUM CHLORIDE 0.9% 100 ML IVPB SCH ×3 (06:13→22:01)
[2021-08-20] MEDS: LEVOTHYROXINE 100 MCG TAB PO SCH (06:13)
[2021-08-20] MEDS: ACETAMINOPHEN TAB 325 MG TAB PO PRN (06:20)
[2021-08-20 06:21] LABS: ALT 11 U/L (4-34); AST 15 U/L (14-36); African American GFR (CKD) 74 (>60 ml/min/1.73 sqM); Albumin/Globulin Ratio 1.3; Alkaline Phosphatase 72 U/L (38-126); Anion Gap 6 mmol/L; Blood Urea Nitrogen 15 mg/dL (7-17); Carbon Dioxide 20 mmol/L (22-30); Chloride 111 mmol/L (98-107); Globulin 2.4 g/dL; Glucose 180 mg/dL (74-99); Non-African American GFR(CKD) 64 (>60 ml/min/1.73 sqM); Sodium 137 mmol/L (137-145); Total Bilirubin 0.7 mg/dL (0.2-1.3); Total Protein 5.4 g/dL (6.3-8.2)
[2021-08-20 07:07] LABS: Glucose,Whole Blood 168 mg/dL (75-99)
[2021-08-20] MEDS: ENOXAPARIN 40 MG/0.4 ML SYRINGE SQ SCH (08:21)
[2021-08-20] MEDS: INSULIN DETEMIR (LEVEMIR) 100 UNIT/ML SYR SQ SCH (08:22)
[2021-08-20] MEDS: LOSARTAN 50 MG TAB PO SCH (08:24)
[2021-08-20] MEDS: FAMOTIDINE 20 MG TAB PO SCH (08:24)
[2021-08-20] MEDS: atenoloL 50 MG TAB PO SCH ×2 (08:24→22:00)
[2021-08-20] MEDS: amLODIPine 5 MG TAB PO SCH ×2 (08:24→22:01)
[2021-08-20] MEDS: PANTOPRAZOLE 40 MG TABLET PO SCH (08:24)
[2021-08-20 11:45] LABS: Glucose,Whole Blood 211 mg/dL (75-99)
--- NOTE | 2021-08-20 14:55 | P.PN ---
Progress Note - Text Progress Note Date: 08/20/21 Chief Complaint: Abdominal pain This is a pleasant 81-year-old patient who follows with Dr. Matheus Mccain. Chronic stable medical conditions include diabetes, GERD, hypertension, hyperlipidemia, osteoarthritis, rheumatoid arthritis, history of bladder cancer in 1009 breast cancer 2017 with chemotherapy and radiation, migraines. At the baseline uses a cane sometimes. Patient normally has a bowel movement every other day. She has not had a bowel movement for about 7 days. Started having lower abdominal cramping. Vomited 2 times at home and once in the ER. No fever no chills. Had a large BM yesterday evening. Computed tomography scan of the ER showed possible diverticulitis versus colitis. Was started on antibiotics in the ER. Feeling a bit better this morning Admitted with acute left colitis. Started on IV Zosyn. August 20: Had episode of significant bloody stool yesterday evening. Also some blood in the stool this morning. Diet scale back from full to the liquids. Some lower abdominal pain present. Denies any fever. No nausea. Active Medications Acetaminophen (Acetaminophen Tab 325 Mg Tab) 650 mg PO Q6HR PRN PRN Reason: Mild Pain or Fever > 100.5 Last Admin: 08/20/21 06:20 Dose: 650 mg Documented by: Acetaminophen (Acetaminophen Tab 325 Mg Tab) 650 mg PO Q6H PRN PRN Reason: Mild Pain Amlodipine Besylate (Amlodipine 5 Mg Tab) 5 mg PO BID [facility] Last Admin: 08/20/21 08:24 Dose: 5 mg Documented by: Atenolol (Atenolol 50 Mg Tab) 50 mg PO BID [facility] Last Admin: 08/20/21 08:24 Dose: 50 mg Documented by: Atorvastatin Calcium (Atorvastatin 10 Mg Tab) 10 mg PO HS [facility] Last Admin: 08/19/21 19:55 Dose: 10 mg Documented by: Calcium Carbonate/Glycine (Calcium Carbonate 500 Mg Chewable) 1,000 mg PO Q4HR PRN PRN Reason: Dyspepsia Enoxaparin Sodium (Enoxaparin 40 Mg/0.4 Ml Syringe) 40 mg SQ DAILY [facility] Last Admin: 08/20/21 08:21 Dose: 40 mg Documented by: Famotidine (Famotidine 20 Mg Tab) 20 mg PO DAILY [facility] Last Admin: 08/20/21 08:24 Dose: 20 mg Documented by: Sodium Chloride (Saline 0.9%) 1,000 mls @ 75 mls/hr IV .[id number] [facility] Last Admin: 08/20/21 11:56 Dose: 75 mls/hr Documented by: Piperacillin Sod/Tazobactam (Sod 3.375 gm/ Sodium Chloride) 100 mls @ 25 mls/hr IVPB Q8H [facility]; Protocol Last Admin: 08/20/21 14:00 Dose: 25 mls/hr Documented by: Insulin Aspart (Insulin Aspart (Novolog) 100 Unit/Ml Vial) 0 unit SQ ACHS [facility]; Protocol Last Admin: 08/20/21 11:58 Dose: 3 unit Documented by: Insulin Detemir (Insulin Detemir (Levemir) 100 Unit/Ml Syr) 20 unit SQ DAILY@0700 [facility] Last Admin: 08/20/21 08:22 Dose: 20 unit Documented by: Lactulose (Lactulose 20 Gm/30 Ml Cup) 20 gm PO DAILY PRN PRN Reason: Constipation Levothyroxine Sodium (Levothyroxine 100 Mcg Tab) 100 mcg PO DAILY@0630 [facility] Last Admin: 08/20/21 06:13 Dose: 100 mcg Documented by: Levothyroxine Sodium (Levothyroxine 75 Mcg Tab) 75 mcg PO DAILY@0630 [facility] Last Admin: 08/20/21 06:13 Dose: 75 mcg Documented by: Lorazepam (Lorazepam 0.5 Mg Tab) 0.5 mg PO Q6HR PRN PRN Reason: Anxiety Last Admin: 08/19/21 21:34 Dose: 0.5 mg Documented by: Losartan Potassium (Losartan 50 Mg Tab) 100 mg PO DAILY [facility] Last Admin: 08/20/21 08:24 Dose: 100 mg Documented by: Melatonin (Melatonin 3 Mg Tablet) 3 mg PO HS PRN PRN Reason: Insomnia Naloxone HCl (Naloxone 0.4 Mg/Ml 1 Ml Vial) 0.2 mg IV Q2M PRN PRN Reason: Opioid Reversal Ondansetron HCl (Ondansetron 4 Mg/2 Ml Vial) 4 mg IVP Q8HR PRN PRN Reason: Nausea And Vomiting Last Admin: 08/19/21 19:55 Dose: 4 mg Documented by: Pantoprazole Sodium (Pantoprazole 40 Mg Tablet) 40 mg PO DAILY@0730 [facility] Last Admin: 08/20/21 08:24 Dose: 40 mg Documented by: Past medical history to include: Diabetes, GERD, hyperlipidemia, hypertension, osteoarthritis, rheumatoid arthritis, bladder cancer 2009, breast cancer 2017 with chemoradiation, migraines, diverticulitis, anemia Social history: Lives alone. No smoking or alcohol. Family history: Ovarian;, colon cancer Physical examination: VITAL SIGNS: 97.5, 75, 18, 122/72, 95% room air GENERAL: , reclining in bed, tired. EYES: Pupils equal. Conjunctiva normal. HEENT: External appearance of nose and ears normal, oral cavity grossly normal. NECK: JVD not raised; masses not palpable. HEART: First and second heart sounds are normal; no edema. LUNGS: Respiratory rate normal; clear to auscultation. ABDOMEN: Soft, left lower quadrant tenderness/no guarding rigidity, liver spleen not palpable, no masses palpable. PSYCH: Alert and oriented x3; mood and affect normal. MUSCULOSKELETAL:No Clubbing/cyanosis;muscles-grossly intact. Evidence of OA/RA INVESTIGATIONS, reviewed in the clinical context: August 20: White count 8.2 hemoglobin 12.6 potassium 4 creatinine 0.86 August 19: White count 10.9 hemoglobin 13 platelets 193 potassium 3.9 creatinine 0.96 Admission labs: White count 20.7 hemoglobin 14.8 potassium 3.6 creatinine 1.15 glucose 154 Amylase 209 and lipase 25 Computed tomography scan of the abdomen pelvis: Extensive colonic diverticulosis. Some evidence of diverticulitis/diffuse colitis involving the sigmoid colon lower descending colon. Assessment and plan: -Left-sided distal colitis. Less likely diverticulitis.: Had a bloody BM. Slow to respond IV Zosyn. Change diet back to clear liquid. -Left-sided colonic diverticulosis -Diabetes mellitus type 2 on oral hypoglycemic Hold glipizide. Increase Levemir to 24 units. Follow Accu-Cheks -Hyperlipidemia Zocor 20 mg daily at bedtime -Essential hypertension Norvasc 5 mg twice a day Tenormin 50 mg twice a day Cozaar 100 mg a day -GERD Omeprazole 40 mg a day -Chronic rheumatoid arthritis/rheumatoid arthritis, Mobic 15 mg day -Hypothyroid 175 g Synthroid per day IV Zosyn. Change diet back to clear liquids.. Follow CBC. Discussed with the patient. Up in chair as tolerated.
--- NOTE | 2021-08-20 15:24 | P.PN ---
Subjective Progress Note Date: 08/20/21 CHIEF COMPLAINT: Abdominal pain, diverticulitis HISTORY OF PRESENT ILLNESS: This is an 81-year-old female who presented to the emergency department with complaints of abdominal cramping and vomiting. She has a past medical history including diverticulitis, breast cancer, bladder canc er, diabetes mellitus, GERD, hyperlipidemia, hypertension, migraines, osteoarthritis, rheumatoid arthritis, and thyroid disorder. She had a CT of the abdomen and pelvis without contrast showing extensive colonic diverticulosis. Evidence of some diverticulitis or diffuse colitis involving the sigmoid colon and lower descending colon which is a change compared to old exam. No abscess. Today she is seen and examined at follow-up. She states abdominal pain has improved slightly. She did have several episodes of diarrhea through the night. She did report one episode of bloody diarrhea. She's been afebrile. She continues on IV Flagyl and Levaquin. PHYSICAL EXAM: VITAL SIGNS: Reviewed GENERAL: Well-developed in no acute distress. HEENT: No sclera icterus. Extraocular movements grossly intact. Moist buccal mucosa. Head is atraumatic, normocephalic. Hears conversational speech. No nasal drainage. NECK: Supple without lymphadenopathy. CHEST: Non-labored respirations and equal bilateral excursions. CARDIOVASCULAR: Palpable 2+ radial pulses. ABDOMEN: Soft. Nondistended. Tender to palpation in left lower quadrant. MUSCULOSKELETAL: No clubbing or cyanosis. NEUROLOGIC: No focal or lateralizing signs. Cranial nerves II through XII grossly intact. PSYCH: Appropriate affect. Alert and oriented to person, place and time. SKIN: Well perfused. Good skin turgor. ASSESSMENT: 1. Abdominal pain 2. Diverticulitis/diffuse colitis involving sigmoid colon and lower descending colon seen on CT abdomen and pelvis 3. Nausea and vomiting, improved 4. Leukocytosis 5. Diabetes mellitus 6. Gastroesophageal reflux disease 7. Hyperlipidemia/hypertension 8. History of bladder and breast cancer PLAN: 1. Continue with symptomatic and supportive care 2. Continue Flagyl and Levaquin 3. Continue clear liquid diet for now 4. Daily CBC with diff 5. Continue with pain control 6. Protonix for GI prophylaxis Thank you for this consultation, we will continue to follow. The impression and plan of care has been dictated as directed. I performed a history and examination of this patient, discussed the same with the dictator. I agree with the dictator's note ,documented as a scribe. Any additional findings or plans will be noted. Objective - Vital Signs Vital signs: Vital Signs Temp 97.5 F L 08/20/21 14:00 Pulse 75 08/20/21 14:00 Resp 18 08/20/21 14:00 BP 130/77 08/20/21 14:00 Pulse Ox 98 08/20/21 14:00 Intake & Output 08/19/21 08/20/21 08/20/21 18:59 06:59 18:59 Output Total 1 Balance -1 Output: Stool 1 Other: Voiding Method Toilet Toilet # Voids 1 1 - Labs CBC & Chem 7: 08/20/21 05:36 08/20/21 05:36 Labs: Abnormal Lab Results - Last 24 Hours (Table) 08/19/21 08/19/21 08/20/21 Range/Units 16:49 20:44 05:36 MCHC 30.7 L (31.0-37.0) g/dL Chloride (98-107) mmol/L Carbon Dioxide (22-30) mmol/L Glucose (74-99) mg/dL POC Glucose (mg/dL) 189 H 217 H (75-99) mg/dL Total Protein (6.3-8.2) g/dL Albumin (3.5-5.0) g/dL 08/20/21 08/20/21 08/20/21 Range/Units 05:36 07:05 11:44 MCHC (31.0-37.0) g/dL Chloride 111 H (98-107) mmol/L Carbon Dioxide 20 L (22-30) mmol/L Glucose 180 H (74-99) mg/dL POC Glucose (mg/dL) 168 H 211 H (75-99) mg/dL Total Protein 5.4 L (6.3-8.2) g/dL Albumin 3.0 L (3.5-5.0) g/dL
[2021-08-20 16:09] LABS: Glucose,Whole Blood 165 mg/dL (75-99)
[2021-08-20 21:03] LABS: Glucose,Whole Blood 145 mg/dL (75-99)
[2021-08-20] MEDS: ATORVASTATIN 10 MG TAB PO SCH (22:01)
[2021-08-20] MEDS: LORazepam 0.5 MG TAB PO PRN (23:47)
[2021-08-21 05:43] LABS: Basophils % (A) 1 %; Eosinophils # (A) 0.2 k/uL (0-0.7); Eosinophils % (A) 2 %; HCT 40.3 % (34.0-46.0); HGB 12.9 gm/dL (11.4-16.0); Hypochromasia Slight; Lymphocytes # (A) 1.8 k/uL (1.0-4.8); Lymphocytes % (A) 23 %; MCH 30.8 pg (25.0-35.0); MCV 96.3 fL (80.0-100.0); Mean Platelet Volume 8.4; Monocytes # (A) 0.6 k/uL (0-1.0); Monocytes % (A) 7 %; Neutrophils % (A) 63 %; Platelet Count 190 k/uL (150-450); RBC 4.19 m/uL (3.80-5.40); RDW 13.8 % (11.5-15.5); WBC 7.9 k/uL (3.8-10.6)
[2021-08-21] MEDS: ACETAMINOPHEN TAB 325 MG TAB PO PRN ×2 (06:16→18:17)
[2021-08-21] MEDS: PIPERACILLIN-TAZOBACTAM 3.375 GM in SODIUM CHLORIDE 0.9% 100 ML IVPB SCH ×3 (06:17→20:42)
[2021-08-21] MEDS: LEVOTHYROXINE 75 MCG TAB PO SCH (06:17)
[2021-08-21] MEDS: LEVOTHYROXINE 100 MCG TAB PO SCH (06:17)
[2021-08-21] MEDS: SODIUM CHLORIDE 0.9% 1,000 ML IV SCH ×2 (06:20→16:51)
[2021-08-21 07:21] LABS: Glucose,Whole Blood 127 mg/dL (75-99)
[2021-08-21] MEDS: INSULIN ASPART (NovoLOG) 100 UNIT/ML VIAL SQ SCH ×4 (07:24→20:41)
[2021-08-21] MEDS: ENOXAPARIN 40 MG/0.4 ML SYRINGE SQ SCH (07:31)
[2021-08-21] MEDS: INSULIN DETEMIR (LEVEMIR) 100 UNIT/ML SYR SQ SCH (07:33)
[2021-08-21] MEDS: PANTOPRAZOLE 40 MG TABLET PO SCH (07:33)
[2021-08-21] MEDS: amLODIPine 5 MG TAB PO SCH ×2 (07:33→20:41)
[2021-08-21] MEDS: atenoloL 50 MG TAB PO SCH ×2 (07:33→20:41)
[2021-08-21] MEDS: LOSARTAN 50 MG TAB PO SCH (07:33)
[2021-08-21] MEDS: FAMOTIDINE 20 MG TAB PO SCH (07:33)
[2021-08-21 11:12] LABS: Glucose,Whole Blood 152 mg/dL (75-99)
--- NOTE | 2021-08-21 13:22 | P.PN ---
Subjective Progress Note Date: 08/21/21 CHIEF COMPLAINT: Diverticulitis HISTORY OF PRESENT ILLNESS: The patient is a 81-year-old female admitted for diverticulitis. She reports having a bowel movement today. Blood was only present on toilet paper. She denies worsening abdominal pain. She is on clear liquid diet. Her pain much better since admission. "I have a terrible headache," which is new today. She is ambulating with a walker. ROS: No reports of nausea and vomiting. No bowel movements. No fevers or chills. No new chest pain. No productive sputum PHYSICAL EXAM: VITAL SIGNS: Reviewed CONSTITUTIONAL: Well developed and in no acute distress. EYES: Conjuctivae without sclera icterus. Extraocular movements grossly intact. HEAD, EARS, NOSE, THROAT: Moist buccal mucosa. Head is atraumatic, normocephalic. Hears conversational speech. No nasal drainage. RESPIRATORY: Non-labored respirations and equal bilateral excursions. CARDIOVASCULAR: Palpable 2+ radial pulses. ABDOMEN: No peritonitis. Lower abdominal minimal discomfort. MUSCULOSKELETAL: No gross deformity of the lower extremities noted. No clubbing. No cyanosis. SKIN: Good skin turgor. Well perfused. NEUROLOGIC: Cranial nerves II through XII grossly intact. No focal or lateralizing signs. PSYCH: Appropriate affect. Alert and oriented to person, place and time. CLINICAL LABS: Reviewed. Hgb 12.6 and normal. WBC normal less than 8.0 ASSESSMENT: 1. Diverticulitis 2. History of breast cancer 3. Diabetes type 2, insulin-dependent 4. Hypertensive heart disease 5. Hypothyroidism 6. Migraine/head ache PLAN: 1. Advance to low fiber diet 2. Disposition pending tolerating low fiber diet 3. Continue antibiotics 4. Tylenol/imitrex for headache. Objective - Vital Signs Vital signs: Vital Signs Temp 97.6 F 08/21/21 08:22 Pulse 77 08/21/21 08:22 Resp 18 08/21/21 08:30 BP 151/84 08/21/21 08:22 Pulse Ox 94 L 08/21/21 02:00 Intake & Output 08/20/21 08/21/21 08/21/21 18:59 06:59 18:59 Intake Total 180 100 Output Total 1 Balance 180 99 Intake: Oral 180 100 Output: Stool 1 Other: Voiding Method Toilet Toilet Toilet # Voids 3 4 1 # Bowel Movements 4 1 - Labs CBC & Chem 7: 08/21/21 04:40 08/20/21 05:36 Labs: Abnormal Lab Results - Last 24 Hours (Table) 08/20/21 08/20/21 08/21/21 Range/Units 16:07 21:01 07:19 POC Glucose (mg/dL) 165 H 145 H 127 H (75-99) mg/dL 08/21/21 Range/Units 11:07 POC Glucose (mg/dL) 152 H (75-99) mg/dL Assessment and Plan (1) Sigmoid diverticulitis Current Visit: Yes Status: Acute Code(s): K57.32 - DVTRCLI OF LG INT W/O PERFORATION OR ABSCESS W/O BLEEDING SNOMED Code(s): 647201847 (2) Morbid obesity due to excess calories Current Visit: Yes Status: Acute Code(s): E66.01 - MORBID (SEVERE) OBESITY DUE TO EXCESS CALORIES SNOMED Code(s): 641621530 (3) Diabetic nephropathy Current Visit: Yes Status: Acute Code(s): E11.21 - TYPE 2 DIABETES MELLITUS WITH DIABETIC NEPHROPATHY SNOMED Code(s): 453453318 (4) History of breast cancer Current Visit: Yes Status: Acute Code(s): Z85.3 - PERSONAL HISTORY OF MALIGNANT NEOPLASM OF BREAST SNOMED Code(s): 134391457 (5) Renal insufficiency Current Visit: No Status: Acute Code(s): N28.9 - DISORDER OF KIDNEY AND URETER, UNSPECIFIED SNOMED Code(s): 323133936 (6) Hypertensive heart disease Current Visit: Yes Status: Acute Code(s): I11.9 - HYPERTENSIVE HEART DISEASE WITHOUT HEART FAILURE SNOMED Code(s): 99076768
[2021-08-21] MEDS ORDERED: SUMAtriptan succinate 6 MG/0.5 ML VIAL SQ ONE (14:00)
--- NOTE | 2021-08-21 16:31 | P.PN ---
Progress Note - Text Progress Note Date: 08/21/21 Chief Complaint: Abdominal pain This is a pleasant 81-year-old patient who follows with Dr. Matheus Mccain. Chronic stable medical conditions include diabetes, GERD, hypertension, hyperlipidemia, osteoarthritis, rheumatoid arthritis, history of bladder cancer in 1009 breast cancer 2017 with chemotherapy and radiation, migraines. At the baseline uses a cane sometimes. Patient normally has a bowel movement every other day. She has not had a bowel movement for about 7 days. Started having lower abdominal cramping. Vomited 2 times at home and once in the ER. No fever no chills. Had a large BM yesterday evening. Computed tomography scan of the ER showed possible diverticulitis versus colitis. Was started on antibiotics in the ER. Feeling a bit better this morning Admitted with acute left colitis. Started on IV Zosyn. August 20: Had episode of significant bloody stool yesterday evening. Also some blood in the stool this morning. Diet scale back from full to the liquids. Some lower abdominal pain present. Denies any fever. No nausea. August 21: Abdominal pain persists. No nausea vomiting. Unclear liquid diet. Normal bleeding. Advance to full liquid. Activity as tolerated. Active Medications Acetaminophen (Acetaminophen Tab 325 Mg Tab) 650 mg PO Q6HR PRN PRN Reason: Mild Pain or Fever > 100.5 Last Admin: 08/21/21 06:16 Dose: 650 mg Documented by: Acetaminophen (Acetaminophen Tab 325 Mg Tab) 650 mg PO Q6H PRN PRN Reason: Mild Pain Amlodipine Besylate (Amlodipine 5 Mg Tab) 5 mg PO BID [facility] Last Admin: 08/21/21 07:33 Dose: 5 mg Documented by: Atenolol (Atenolol 50 Mg Tab) 50 mg PO BID [facility] Last Admin: 08/21/21 07:33 Dose: 50 mg Documented by: Atorvastatin Calcium (Atorvastatin 10 Mg Tab) 10 mg PO HS [facility] Last Admin: 08/20/21 22:01 Dose: 10 mg Documented by: Calcium Carbonate/Glycine (Calcium Carbonate 500 Mg Chewable) 1,000 mg PO Q4HR PRN PRN Reason: Dyspepsia Last Admin: 08/21/21 08:27 Dose: 1,000 mg Documented by: Enoxaparin Sodium (Enoxaparin 40 Mg/0.4 Ml Syringe) 40 mg SQ DAILY [facility] Last Admin: 08/21/21 07:31 Dose: 40 mg Documented by: Famotidine (Famotidine 20 Mg Tab) 20 mg PO DAILY [facility] Last Admin: 08/21/21 07:33 Dose: 20 mg Documented by: Sodium Chloride (Saline 0.9%) 1,000 mls @ 75 mls/hr IV .[id number] [facility] Last Admin: 08/21/21 06:20 Dose: Not Given Documented by: Piperacillin Sod/Tazobactam (Sod 3.375 gm/ Sodium Chloride) 100 mls @ 25 mls/hr IVPB Q8H [facility]; Protocol Last Admin: 08/21/21 13:44 Dose: 25 mls/hr Documented by: Insulin Aspart (Insulin Aspart (Novolog) 100 Unit/Ml Vial) 0 unit SQ ACHS [facility]; Protocol Last Admin: 08/21/21 11:24 Dose: 1 unit Documented by: Insulin Detemir (Insulin Detemir (Levemir) 100 Unit/Ml Syr) 24 unit SQ DAILY@0700 [facility] Last Admin: 08/21/21 07:33 Dose: 24 unit Documented by: Lactulose (Lactulose 20 Gm/30 Ml Cup) 20 gm PO DAILY PRN PRN Reason: Constipation Levothyroxine Sodium (Levothyroxine 100 Mcg Tab) 100 mcg PO DAILY@0630 [facility] Last Admin: 08/21/21 06:17 Dose: 100 mcg Documented by: Levothyroxine Sodium (Levothyroxine 75 Mcg Tab) 75 mcg PO DAILY@0630 [facility] Last Admin: 08/21/21 06:17 Dose: 75 mcg Documented by: Lorazepam (Lorazepam 0.5 Mg Tab) 0.5 mg PO Q6HR PRN PRN Reason: Anxiety Last Admin: 08/20/21 23:47 Dose: 0.5 mg Documented by: Losartan Potassium (Losartan 50 Mg Tab) 100 mg PO DAILY [facility] Last Admin: 08/21/21 07:33 Dose: 100 mg Documented by: Melatonin (Melatonin 3 Mg Tablet) 3 mg PO HS PRN PRN Reason: Insomnia Naloxone HCl (Naloxone 0.4 Mg/Ml 1 Ml Vial) 0.2 mg IV Q2M PRN PRN Reason: Opioid Reversal Ondansetron HCl (Ondansetron 4 Mg/2 Ml Vial) 4 mg IVP Q8HR PRN PRN Reason: Nausea And Vomiting Last Admin: 08/19/21 19:55 Dose: 4 mg Documented by: Pantoprazole Sodium (Pantoprazole 40 Mg Tablet) 40 mg PO DAILY@0730 [facility] Last Admin: 08/21/21 07:33 Dose: 40 mg Documented by: Past medical history to include: Diabetes, GERD, hyperlipidemia, hypertension, osteoarthritis, rheumatoid arthritis, bladder cancer 2009, breast cancer 2017 with chemoradiation, migraines, diverticulitis, anemia Social history: Lives alone. No smoking or alcohol. Family history: Ovarian;, colon cancer Physical examination: VITAL SIGNS: 97.5, 76, 14, 140/82, 96% room air GENERAL: , reclining in bed, tired. EYES: Pupils equal. Conjunctiva normal. HEENT: External appearance of nose and ears normal, oral cavity grossly normal. NECK: JVD not raised; masses not palpable. HEART: First and second heart sounds are normal; no edema. LUNGS: Respiratory rate normal; clear to auscultation. ABDOMEN: Soft, left lower quadrant tenderness/no guarding rigidity, liver spleen not palpable, no masses palpable. PSYCH: Alert and oriented x3; mood and affect normal. MUSCULOSKELETAL:No Clubbing/cyanosis;muscles-grossly intact. Evidence of OA/RA INVESTIGATIONS, reviewed in the clinical context: August 20: White count 8.2 hemoglobin 12.6 potassium 4 creatinine 0.86 August 19: White count 10.9 hemoglobin 13 platelets 193 potassium 3.9 creatinine 0.96 Admission labs: White count 20.7 hemoglobin 14.8 potassium 3.6 creatinine 1.15 glucose 154 Amylase 209 and lipase 25 Computed tomography scan of the abdomen pelvis: Extensive colonic diverticulosis. Some evidence of diverticulitis/diffuse colitis involving the sigmoid colon lower descending colon. Assessment and plan: -Left-sided distal colitis. Less likely diverticulitis.: Had a bloody BM. Slow to respond IV Zosyn. Full liquid diet. -Left-sided colonic diverticulosis -Diabetes mellitus type 2 on oral hypoglycemic Hold glipizide. Increase Levemir to 24 units. Follow Accu-Cheks -Hyperlipidemia Zocor 20 mg daily at bedtime -Essential hypertension Norvasc 5 mg twice a day Tenormin 50 mg twice a day Cozaar 100 mg a day -GERD Omeprazole 40 mg a day -Chronic rheumatoid arthritis/rheumatoid arthritis, Mobic 15 mg day -Hypothyroid 175 g Synthroid per day IV Zosyn. Discussed with patient. Change diet to full liquid. Activity as tolerated..
[2021-08-21 16:45] LABS: Glucose,Whole Blood 69 mg/dL (75-99)
[2021-08-21 20:31] LABS: Glucose,Whole Blood 168 mg/dL (75-99)
[2021-08-21] MEDS: ATORVASTATIN 10 MG TAB PO SCH (20:41)
[2021-08-22] MEDS: MELATONIN 3 MG TABLET PO PRN ×2 (00:16→19:53)
[2021-08-22] MEDS: LEVOTHYROXINE 75 MCG TAB PO SCH (05:37)
[2021-08-22] MEDS: LEVOTHYROXINE 100 MCG TAB PO SCH (05:37)
[2021-08-22] MEDS: PIPERACILLIN-TAZOBACTAM 3.375 GM in SODIUM CHLORIDE 0.9% 100 ML IVPB SCH ×3 (05:38→22:55)
[2021-08-22 07:04] LABS: Glucose,Whole Blood 120 mg/dL (75-99)
[2021-08-22] MEDS: INSULIN ASPART (NovoLOG) 100 UNIT/ML VIAL SQ SCH ×4 (08:51→20:34)
[2021-08-22] MEDS: ENOXAPARIN 40 MG/0.4 ML SYRINGE SQ SCH (08:55)
[2021-08-22] MEDS: INSULIN DETEMIR (LEVEMIR) 100 UNIT/ML SYR SQ SCH (08:55)
[2021-08-22] MEDS: FAMOTIDINE 20 MG TAB PO SCH (08:55)
[2021-08-22] MEDS: atenoloL 50 MG TAB PO SCH ×2 (08:56→19:54)
[2021-08-22] MEDS: LOSARTAN 50 MG TAB PO SCH (08:56)
[2021-08-22] MEDS: PANTOPRAZOLE 40 MG TABLET PO SCH (08:56)
[2021-08-22] MEDS: amLODIPine 5 MG TAB PO SCH ×2 (08:56→19:54)
[2021-08-22] MEDS: ACETAMINOPHEN TAB 325 MG TAB PO PRN ×2 (09:01→19:53)
[2021-08-22] MEDS: SODIUM CHLORIDE 0.9% 1,000 ML IV SCH ×2 (10:02→22:57)
[2021-08-22 11:43] LABS: Glucose,Whole Blood 260 mg/dL (75-99)
--- NOTE | 2021-08-22 12:24 | P.PN ---
Subjective Progress Note Date: 08/22/21 Principal diagnosis: She had bowel movement without blood. May advance to low fiber diet. Discharge pending tolerating low fiber diet. Objective - Vital Signs Vital signs: Vital Signs Temp 97.9 F 08/22/21 07:59 Pulse 82 08/22/21 07:59 Resp 17 08/22/21 07:59 BP 127/83 08/22/21 07:59 Pulse Ox 95 08/22/21 07:59 Intake & Output 08/21/21 08/22/21 08/22/21 18:59 06:59 18:59 Intake Total 700 Output Total 1 Balance 699 Intake: Oral 700 Output: Stool 1 Other: Voiding Method Toilet Toilet # Voids 2 # Bowel Movements 1 - Labs CBC & Chem 7: 08/21/21 04:40 08/20/21 05:36 Labs: Abnormal Lab Results - Last 24 Hours (Table) 08/21/21 08/21/21 08/22/21 Range/Units 16:41 20:29 07:03 POC Glucose (mg/dL) 69 L 168 H 120 H (75-99) mg/dL 08/22/21 Range/Units 11:41 POC Glucose (mg/dL) 260 H (75-99) mg/dL Assessment and Plan (1) Sigmoid diverticulitis Current Visit: Yes Status: Acute Code(s): K57.32 - DVTRCLI OF LG INT W/O PERFORATION OR ABSCESS W/O BLEEDING SNOMED Code(s): 857719806 (2) Morbid obesity due to excess calories Current Visit: Yes Status: Acute Code(s): E66.01 - MORBID (SEVERE) OBESITY DUE TO EXCESS CALORIES SNOMED Code(s): 773888282 (3) Diabetic nephropathy Current Visit: Yes Status: Acute Code(s): E11.21 - TYPE 2 DIABETES MELLITUS WITH DIABETIC NEPHROPATHY SNOMED Code(s): 378387986 (4) History of breast cancer Current Visit: Yes Status: Acute Code(s): Z85.3 - PERSONAL HISTORY OF MALIGNANT NEOPLASM OF BREAST SNOMED Code(s): 678586791 (5) Renal insufficiency Current Visit: No Status: Acute Code(s): N28.9 - DISORDER OF KIDNEY AND URETER, UNSPECIFIED SNOMED Code(s): 952403254 (6) Hypertensive heart disease Current Visit: Yes Status: Acute Code(s): I11.9 - HYPERTENSIVE HEART DISEASE WITHOUT HEART FAILURE SNOMED Code(s): 21658512
--- NOTE | 2021-08-22 15:21 | P.PN ---
Progress Note - Text Progress Note Date: 08/22/21 Chief Complaint: Abdominal pain This is a pleasant 81-year-old patient who follows with Dr. Matheus Mccain. Chronic stable medical conditions include diabetes, GERD, hypertension, hyperlipidemia, osteoarthritis, rheumatoid arthritis, history of bladder cancer in 1009 breast cancer 2017 with chemotherapy and radiation, migraines. At the baseline uses a cane sometimes. Patient normally has a bowel movement every other day. She has not had a bowel movement for about 7 days. Started having lower abdominal cramping. Vomited 2 times at home and once in the ER. No fever no chills. Had a large BM yesterday evening. Computed tomography scan of the ER showed possible diverticulitis versus colitis. Was started on antibiotics in the ER. Feeling a bit better this morning Admitted with acute left colitis. Started on IV Zosyn. August 20: Had episode of significant bloody stool yesterday evening. Also some blood in the stool this morning. Diet scale back from full to the liquids. Some lower abdominal pain present. Denies any fever. No nausea. August 21: Abdominal pain persists. No nausea vomiting. Unclear liquid diet. Normal bleeding. Advance to full liquid. Activity as tolerated. August 22: No abdominal pain. Feeling much better. Tolerating full liquids. Advance to soft bland diet. Increase activity. Active Medications Acetaminophen (Acetaminophen Tab 325 Mg Tab) 650 mg PO Q6HR PRN PRN Reason: Mild Pain or Fever > 100.5 Last Admin: 08/22/21 09:01 Dose: 650 mg Documented by: Acetaminophen (Acetaminophen Tab 325 Mg Tab) 650 mg PO Q6H PRN PRN Reason: Mild Pain Amlodipine Besylate (Amlodipine 5 Mg Tab) 5 mg PO BID [facility] Last Admin: 08/22/21 08:56 Dose: 5 mg Documented by: Atenolol (Atenolol 50 Mg Tab) 50 mg PO BID [facility] Last Admin: 08/22/21 08:56 Dose: 50 mg Documented by: Atorvastatin Calcium (Atorvastatin 10 Mg Tab) 10 mg PO HS [facility] Last Admin: 08/21/21 20:41 Dose: 10 mg Documented by: Calcium Carbonate/Glycine (Calcium Carbonate 500 Mg Chewable) 1,000 mg PO Q4HR PRN PRN Reason: Dyspepsia Last Admin: 08/21/21 08:27 Dose: 1,000 mg Documented by: Enoxaparin Sodium (Enoxaparin 40 Mg/0.4 Ml Syringe) 40 mg SQ DAILY [facility] Last Admin: 08/22/21 08:55 Dose: 40 mg Documented by: Famotidine (Famotidine 20 Mg Tab) 20 mg PO DAILY [facility] Last Admin: 08/22/21 08:55 Dose: 20 mg Documented by: Sodium Chloride (Saline 0.9%) 1,000 mls @ 75 mls/hr IV .[id number] [facility] Last Admin: 08/22/21 10:02 Dose: Not Given Documented by: Piperacillin Sod/Tazobactam (Sod 3.375 gm/ Sodium Chloride) 100 mls @ 25 mls/hr IVPB Q8H [facility]; Protocol Last Admin: 08/22/21 13:19 Dose: 25 mls/hr Documented by: Insulin Aspart (Insulin Aspart (Novolog) 100 Unit/Ml Vial) 0 unit SQ ACHS [facility]; Protocol Last Admin: 08/22/21 11:53 Dose: 4 unit Documented by: Insulin Detemir (Insulin Detemir (Levemir) 100 Unit/Ml Syr) 24 unit SQ DAILY@0700 [facility] Last Admin: 08/22/21 08:55 Dose: 24 unit Documented by: Lactulose (Lactulose 20 Gm/30 Ml Cup) 20 gm PO DAILY PRN PRN Reason: Constipation Levothyroxine Sodium (Levothyroxine 100 Mcg Tab) 100 mcg PO DAILY@0630 [facility] Last Admin: 08/22/21 05:37 Dose: 100 mcg Documented by: Levothyroxine Sodium (Levothyroxine 75 Mcg Tab) 75 mcg PO DAILY@0630 [facility] Last Admin: 08/22/21 05:37 Dose: 75 mcg Documented by: Lorazepam (Lorazepam 0.5 Mg Tab) 0.5 mg PO Q6HR PRN PRN Reason: Anxiety Last Admin: 08/20/21 23:47 Dose: 0.5 mg Documented by: Losartan Potassium (Losartan 50 Mg Tab) 100 mg PO DAILY [facility] Last Admin: 08/22/21 08:56 Dose: 100 mg Documented by: Melatonin (Melatonin 3 Mg Tablet) 3 mg PO HS PRN PRN Reason: Insomnia Last Admin: 08/22/21 00:16 Dose: 3 mg Documented by: Naloxone HCl (Naloxone 0.4 Mg/Ml 1 Ml Vial) 0.2 mg IV Q2M PRN PRN Reason: Opioid Reversal Ondansetron HCl (Ondansetron 4 Mg/2 Ml Vial) 4 mg IVP Q8HR PRN PRN Reason: Nausea And Vomiting Last Admin: 08/19/21 19:55 Dose: 4 mg Documented by: Pantoprazole Sodium (Pantoprazole 40 Mg Tablet) 40 mg PO DAILY@0730 [facility] Last Admin: 08/22/21 08:56 Dose: 40 mg Documented by: Past medical history to include: Diabetes, GERD, hyperlipidemia, hypertension, osteoarthritis, rheumatoid arthritis, bladder cancer 2008, breast cancer 2017 with chemoradiation, migr aines, diverticulitis, anemia Social history: Lives alone. No smoking or alcohol. Family history: Ovarian;, colon cancer Physical examination: VITAL SIGNS: 97.4, 66, 18, 109/71, 96% room air GENERAL: , reclining in bed, awake EYES: Pupils equal. Conjunctiva normal. HEENT: External appearance of nose and ears normal, oral cavity grossly normal. NECK: JVD not raised; masses not palpable. HEART: First and second heart sounds are normal; no edema. LUNGS: Respiratory rate normal; clear to auscultation. ABDOMEN: Soft, no tenderness/no guarding rigidity, liver spleen not palpable, no masses palpable. PSYCH: Alert and oriented x3; mood and affect normal. MUSCULOSKELETAL:No Clubbing/cyanosis;muscles-grossly intact. Evidence of OA/RA INVESTIGATIONS, reviewed in the clinical context: August 20: White count 8.2 hemoglobin 12.6 potassium 4 creatinine 0.86 August 19: White count 10.9 hemoglobin 13 platelets 193 potassium 3.9 creatinine 0.96 Admission labs: White count 20.7 hemoglobin 14.8 potassium 3.6 creatinine 1.15 glucose 154 Amylase 209 and lipase 25 Computed tomography scan of the abdomen pelvis: Extensive colonic diverticulosis. Some evidence of diverticulitis/diffuse colitis involving the sigmoid colon lower descending colon. Assessment and plan: -Left-sided distal colitis. Less likely diverticulitis.: Had a bloody BM. Improving IV Zosyn. Advance to soft bland diet. -Left-sided colonic diverticulosis -Diabetes mellitus type 2 on oral hypoglycemic Hold glipizide. Levemir to 24 units. Follow Accu-Cheks -Hyperlipidemia Zocor 20 mg daily at bedtime -Essential hypertension Norvasc 5 mg twice a day Tenormin 50 mg twice a day Cozaar 100 mg a day -GERD Omeprazole 40 mg a day -Chronic rheumatoid arthritis/rheumatoid arthritis, Mobic 15 mg day -Hypothyroid 175 g Synthroid per day IV Zosyn. Advance to soft bland diet. Increase activity. He remains well. Hopefully home tomorrow.
[2021-08-22 16:50] LABS: Glucose,Whole Blood 107 mg/dL (75-99)
[2021-08-22] MEDS: ATORVASTATIN 10 MG TAB PO SCH (19:54)
[2021-08-22 20:09] VITALS: RESP 15
[2021-08-22 20:22] LABS: Glucose,Whole Blood 172 mg/dL (75-99)
[2021-08-23] MEDS: PIPERACILLIN-TAZOBACTAM 3.375 GM in SODIUM CHLORIDE 0.9% 100 ML IVPB SCH (05:52)
[2021-08-23] MEDS: LEVOTHYROXINE 75 MCG TAB PO SCH (05:52)
[2021-08-23] MEDS: LEVOTHYROXINE 100 MCG TAB PO SCH (05:52)
[2021-08-23 06:49] LABS: Glucose,Whole Blood 91 mg/dL (75-99)
[2021-08-23 08:58] VITALS: BP 131/75; PULSE 72; TEMP 98.3
[2021-08-23] MEDS: ENOXAPARIN 40 MG/0.4 ML SYRINGE SQ SCH (09:50)
[2021-08-23] MEDS: INSULIN DETEMIR (LEVEMIR) 100 UNIT/ML SYR SQ SCH (09:50)
[2021-08-23] MEDS: FAMOTIDINE 20 MG TAB PO SCH (09:51)
[2021-08-23] MEDS: PANTOPRAZOLE 40 MG TABLET PO SCH (09:51)
[2021-08-23] MEDS: LOSARTAN 50 MG TAB PO SCH (09:51)
[2021-08-23] MEDS: atenoloL 50 MG TAB PO SCH (09:51)
[2021-08-23] MEDS: amLODIPine 5 MG TAB PO SCH (09:51)
[2021-08-23] MEDS: INSULIN ASPART (NovoLOG) 100 UNIT/ML VIAL SQ SCH ×2 (09:51→12:28)
[2021-08-23 11:15] LABS: Glucose,Whole Blood 225 mg/dL (75-99)
--- NOTE | 2021-08-23 13:22 | P.PN ---
Subjective Progress Note Date: 08/23/21 CHIEF COMPLAINT: Abdominal pain HISTORY OF PRESENT ILLNESS: Patient hospital with diverticulitis. She reports no abdominal pain today. She is tolerating a low fiber diet. She is having bowel movements. Denies any nausea or vomiting. Afebrile. No new labs PHYSICAL EXAM: VITAL SIGNS: Reviewed GENERAL: Well-developed in no acute distress. HEENT: No sclera icterus. Extraocular movements grossly intact. Moist buccal mucosa. Head is atraumatic, normocephalic. Hears conversational speech. No nasal drainage. NECK: Supple without lymphadenopathy. CHEST: Non-labored respirations and equal bilateral excursions. CARDIOVASCULAR: Palpable 2+ radial pulses. ABDOMEN: Soft. Nondistended. Nontender. MUSCULOSKELETAL: No clubbing or cyanosis. NEUROLOGIC: No focal or lateralizing signs. Cranial nerves II through XII grossly intact. PSYCH: Appropriate affect. Alert and oriented to person, place and time. SKIN: Well perfused. Good skin turgor. ASSESSMENT: 1. Diverticulitis 2. History of breast cancer 3. Diabetes type 2, insulin-dependent 4. Hypertensive heart disease 5. Hypothyroidism 6. Migraine/head ache PLAN: -Patient can be discharged from surgical standpoint -Continue antibiotics after discharge -Recommend follow-up in office in 1 month Physician Receiving Checker note has been reviewed by physician. Signing provider agrees with the documented findings, assessment, and plan of care. Objective - Vital Signs Vital signs: Vital Signs Temp 98.3 F 08/23/21 08:00 Pulse 72 08/23/21 08:00 Resp 15 08/23/21 00:16 BP 131/75 08/23/21 08:00 Pulse Ox 97 08/23/21 08:00 Intake & Output 08/22/21 08/23/21 08/23/21 18:59 06:59 18:59 Other: Voiding Method Bedside Commode # Voids 4 1 1 # Bowel Movements 2 2 - Labs CBC & Chem 7: 08/21/21 04:40 08/20/21 05:36 Labs: Abnormal Lab Results - Last 24 Hours (Table) 08/22/21 08/22/21 08/23/21 Range/Units 16:49 20:20 11:13 POC Glucose (mg/dL) 107 H 172 H 225 H (75-99) mg/dL
--- NOTE | 2021-08-23 13:52 | P.DS ---
Providers Date of admission: 08/18/21 23:33 Expected date of discharge: 08/23/21 Attending physician: Darian Douglas Consults: 08/19/21 08:05 Consult Physician Routine Consulting Provider: Lola Arrington Consult Reason/Comments: Diverticulitis Do you want consulting provider notified?: Already Contacted [facility] Course: Chief Complaint: Abdominal pain This is a pleasant 81-year-old patient who follows with Dr. Matheus Mccain. Chronic stable medical conditions include diabetes, GERD, hypertension, hyperli pidemia, osteoarthritis, rheumatoid arthritis, history of bladder cancer in 1009 breast cancer 2017 with chemotherapy and radiation, migraines. At the baseline uses a cane sometimes. Patient normally has a bowel movement every other day. She has not had a bowel movement for about 7 days. Started having lower abdominal cramping. Vomited 2 times at home and once in the ER. No fever no chills. Had a large BM yesterday evening. Computed tomography scan of the ER showed possible diverticulitis versus colitis. Was started on antibiotics in the ER. Feeling a bit better this morning Admitted with acute left colitis. Started on IV Zosyn. Had an episode of bloody stool. Gradually improved. Pain subsided. Tolerating diet. Diet advanced. August 23: Palpation diet. No abdominal pain. Up and about. Care was discussed. Discharged on 1 week of Augmentin. Follow-up with Dr. Oliveira. Past medical history to include: Diabetes, GERD, hyperlipidemia, hypertension, osteoarthritis, rheumatoid arthritis, bladder cancer 2009, breast cancer 2017 with chemoradiation, migraines, diverticulitis, anemia Social history: Lives alone. No smoking or alcohol. Family history: Ovarian;, colon cancer Physical examination: VITAL SIGNS: 98.3, 72, 16, 131/75, 97% room air GENERAL: , reclining in bed, awake EYES: Pupils equal. Conjunctiva normal. HEENT: External appearance of nose and ears normal, oral cavity grossly normal. NECK: JVD not raised; masses not palpable. HEART: First and second heart sounds are normal; no edema. LUNGS: Respiratory rate normal; clear to auscultation. ABDOMEN: Soft, no tenderness/no guarding rigidity, liver spleen not palpable, no masses palpable. PSYCH: Alert and oriented x3; mood and affect normal. MUSCULOSKELETAL:No Clubbing/cyanosis;muscles-grossly intact. Evidence of OA/RA INVESTIGATIONS, reviewed in the clinical context: August 20: White count 8.2 hemoglobin 12.6 potassium 4 creatinine 0.86 August 19: White count 10.9 hemoglobin 13 platelets 193 potassium 3.9 creatinine 0.96 Admission labs: White count 20.7 hemoglobin 14.8 potassium 3.6 creatinine 1.15 glucose 154 Amylase 209 and lipase 25 Computed tomography scan of the abdomen pelvis: Extensive colonic diverticulosis. Some evidence of diverticulitis/diffuse colitis involving the sigmoid colon lower descending colon. Assessment and plan: -Left-sided distal colitis. Less likely diverticulitis.: Had a bloody BM. Much improved IV Zosyn. soft bland diet. Complete Augmentin 875 for 1 week -Left-sided colonic diverticulosis -Diabetes mellitus type 2 on oral hypoglycemic glipizide. Follow Accu-Cheks -Hyperlipidemia Zocor 20 mg daily at bedtime -Essential hypertension Norvasc 5 mg twice a day Tenormin 50 mg twice a day Cozaar 100 mg a day -GERD Omeprazole 40 mg a day -Chronic rheumatoid arthritis/rheumatoid arthritis, Mobic 15 mg day -Hypothyroid 175 g Synthroid per day Disposition: Home Plan - Discharge Summary New Discharge Prescriptions: New Amoxicillin/Potassium Clav [Augmentin 875-125 Tablet] 1 tab PO Q12HR #14 tab Continue amLODIPine [Norvasc] 5 mg PO BID Simvastatin [Zocor] 20 mg PO HS Levothyroxine Sodium [Synthroid] 175 mcg PO DAILY Losartan Potassium [Cozaar] 100 mg PO DAILY glipiZIDE [Glucotrol] 15 mg PO BID Acetaminophen [Tylenol Arthritis] 650 mg PO Q6H PRN PRN Reason: Pain Meloxicam [Mobic] 15 mg PO DAILY Atenolol [Tenormin] 50 mg PO BID Omeprazole 40 mg PO DAILY Discharge Medication List Levothyroxine Sodium [Synthroid] 175 mcg PO DAILY 11/08/16 [History] Simvastatin [Zocor] 20 mg PO HS 11/08/16 [History] amLODIPine [Norvasc] 5 mg PO BID 11/08/16 [History] Losartan Potassium [Cozaar] 100 mg PO DAILY 05/17/17 [History] glipiZIDE [Glucotrol] 15 mg PO BID 05/17/17 [History] Acetaminophen [Tylenol Arthritis] 650 mg PO Q6H PRN 09/22/17 [History] Meloxicam [Mobic] 15 mg PO DAILY 01/02/18 [History] Atenolol [Tenormin] 50 mg PO BID 08/18/21 [History] Omeprazole 40 mg PO DAILY 08/18/21 [History] Amoxicillin/Potassium Clav [Augmentin 875-125 Tablet] 1 tab PO Q12HR #14 tab 08/23/21 [Rx] Follow up Appointment(s)/Referral(s): Lola Arrington MD [STAFF PHYSICIAN] - 09/21/21 4:15 pm Matheus Mccain MD [Primary Care Provider] - 1-2 days (Office will call with appointment time wither office or telehealth) Patient Instructions/Handouts: Constipation (ED), Abdominal Pain (ED) Activity/Diet/Wound Care/Special Instructions: soft bland diet
== END 2021-08-23 13:50 | disposition home or self-care (01) | DRG 386 ==
LOC: EC 17:51 → 4SSUR 23:33
PROVIDERS: ADMIT Hospitalist; ATTEND Hospitalist
DX: K51.50 Left sided colitis without complications (principal); K57.32 Diverticulitis of large intestine without perforation or abscess without bleeding; Z68.41 Body mass index [BMI] 40.0-44.9, adult; E11.21 Type 2 diabetes mellitus with diabetic nephropathy; I11.9 Hypertensive heart disease without heart failure; E03.9 Hypothyroidism, unspecified; E66.01 Morbid (severe) obesity due to excess calories; M06.9 Rheumatoid arthritis, unspecified; E78.5 Hyperlipidemia, unspecified; K21.9 Gastro-esophageal reflux disease without esophagitis; K59.00 Constipation, unspecified; G43.909 Migraine, unspecified, not intractable, without status migrainosus; H26.9 Unspecified cataract; N28.9 Disorder of kidney and ureter, unspecified; F41.9 Anxiety disorder, unspecified; G47.00 Insomnia, unspecified; M19.90 Unspecified osteoarthritis, unspecified site; Z79.1 Long term (current) use of non-steroidal anti-inflammatories (NSAID); Z79.84 Long term (current) use of oral hypoglycemic drugs; Z79.890 Hormone replacement therapy; Z79.899 Other long term (current) drug therapy; Z60.2 Problems related to living alone; Z92.21 Personal history of antineoplastic chemotherapy; Z92.3 Personal history of irradiation; Z85.3 Personal history of malignant neoplasm of breast; Z85.51 Personal history of malignant neoplasm of bladder; Z90.710 Acquired absence of both cervix and uterus; Z90.49 Acquired absence of other specified parts of digestive tract; Z90.12 Acquired absence of left breast and nipple; Z87.19 Personal history of other diseases of the digestive system; Z87.42 Personal history of other diseases of the female genital tract; Z87.39 Personal history of other diseases of the musculoskeletal system and connective tissue; Z86.2 Personal history of diseases of the blood and blood-forming organs and certain disorders involving the immune mechanism; Z98.890 Other specified postprocedural states; Z88.5 Allergy status to narcotic agent; Z88.8 Allergy status to other drugs, medicaments and biological substances; Z82.49 Family history of ischemic heart disease and other diseases of the circulatory system; Z80.0 Family history of malignant neoplasm of digestive organs; Z80.41 Family history of malignant neoplasm of ovary; Z80.49 Family history of malignant neoplasm of other genital organs
CPT/HCPCS: 36415; 74018; 74176; 80048; 80053; 82150; 83690; 84484; 85025; 93005; 96365; 99285

== ENCOUNTER 2021-11-25 06:59 | Day surgery (SDC) | payer MEDICARE ==
[2021-11-23 15:43] VITALS: BMI 36.7
[~2021-11-25 06:59] MED LIST changes: -DEXAMETHASONE SOD PHOSPHATE 10 MG/ML 1 ML VIAL IV ONE; -HEPARIN SODIUM,PORCINE 5,000 UNIT/ML 1 ML VIAL SQ ONE; +LIDOCAINE 1% (10MG/ML) FOR IV START INTRADERMA PRN; -LIDOCAINE 1% 20 ML VIAL (10MG/ML) FOR IV START INTRADERMA PRN; -MIDAZOLAM 2 MG/2 ML VIAL IV PRN; -ONDANSETRON 4 MG/2 ML VIAL IVP ONE; -Pre Op ABX Message 1 EACH MISC MISCELLANE ONE; -fentaNYL (PF) 50 MCG/ML 2 ML AMP IV PRN
[2021-11-25 07:34] VITALS: RESP 16; TEMP 97.4
--- NOTE | 2021-11-25 07:36 | P.GSHP ---
History of Present Illness H&P Date: 11/25/21 CHIEF COMPLAINT: GI bleed HISTORY OF PRESENT ILLNESS: The patient is a 81-year-old female who presents for GI bleed. Lower endoscopy was offered for further evaluation and management. PAST MEDICAL HISTORY: Please see list. PAST SURGICAL HISTORY: Please see list. MEDICATIONS: Please see list. ALLERGIES: Please see list. SOCIAL HISTORY: No illicit drug use FAMILY HISTORY: No reports of Crohn disease or ulcerative colitis. REVIEW OF ORGAN SYSTEMS: CONSTITUTIONAL: No reports of fevers or chills. PHYSICAL EXAM: VITAL SIGNS: Stable GENERAL: Well-developed pleasant in no acute distress. HEENT: No scleral icterus. Extraocular movements grossly intact. Moist buccal mucosa. NECK: Supple without lymphadenopathy. CHEST: Unlabored respirations. Equal bilateral excursions. CARDIOVASCULAR: Regular rate and rhythm. Distal 2+ pulses. ABDOMEN: Soft, nontender, nondistended. MUSCULOSKELETAL: No clubbing, cyanosis, or edema. ASSESSMENT: 1. GI bleed PLAN: 1. Recommend proceeding with a lower endoscopy Past Medical History Past Medical History: Cancer, Diabetes Mellitus, Eye Disorder, GERD/Reflux, Hyperlipidemia, Hypertension, Neurologic Disorder, Osteoarthritis (OA), Rheumatoid Arthritis (RA), Thyroid Disorder Additional Past Medical History / Comment(s): HX BLADDER CANCER (?2008), BREAST CANCER (2017- LAST CHEMO 03/2017, LAST RADIATION [place] 08/2017), MIGRAINES, DIVERTICULITIS, ANEMIA, NODULE LEFT CHEST, SINUS PROBLEMS, USES WALKER PRN . History of Any Multi-Drug Resistant Organisms: None Reported Past Surgical History: Appendectomy, Breast Surgery, Cholecystectomy, Heart Catheterization, Hysterectomy, Orthopedic Surgery Additional Past Surgical History / Comment(s): LEFT BREAST BX, RONAL KNEE SURGERIES, LEFT MASTECTOMY (04/2017)., PORT-A-CATH INSERTED & REMOVED. Past Anesthesia/Blood Transfusion Reactions: No Reported Reaction Additional Past Anesthesia/Blood Transfusion Reaction / Comment(s): STATES RECEIVED 2 BLOOD TRANSFUSIONS AFTER RECEIVING CHEMO- NO REACTION Past Psychological History: No Psychological Hx Reported Smoking Status: Never smoker Past Alcohol Use History: None Reported Past Drug Use History: None Reported - Past Family History Mother Family Medical History: No Reported History Father Family Medical History: Myocardial Infarction ([place]) Sister(s) Family Medical History: Cancer Additional Family Medical History / Comment(s): ovarian/cervical, colon Medications and Allergies Home Medications Medication Instructions Recorded Confirmed Type Levothyroxine Sodium [Synthroid] 150 mcg PO DAILY 11/08/16 11/25/21 History Simvastatin [Zocor] 20 mg PO HS 11/08/16 11/25/21 History amLODIPine [Norvasc] 5 mg PO DAILY 11/08/16 11/25/21 History Losartan Potassium [Cozaar] 100 mg PO DAILY 05/17/17 11/25/21 History glipiZIDE [Glucotrol] 10 mg PO DAILY 05/17/17 11/25/21 History Meloxicam [Mobic] 15 mg PO DAILY 01/02/18 11/25/21 History Omeprazole 40 mg PO DAILY 08/18/21 11/25/21 History atenoloL [Tenormin] 50 mg PO DAILY 08/18/21 11/25/21 History Doxylamine Succinate [Unisom] 25 mg PO HS PRN 11/23/21 11/25/21 History Allergies Allergy/AdvReac Type Severity Reaction Status Date / Time codeine Allergy Unknown Couldn't Verified 11/25/21 07:30 Swallow glyburide Allergy Unknown Itching Verified 11/25/21 07:30 metformin Allergy Unknown Itching Verified 11/25/21 07:30 Surgical - Exam Vital Signs Temp Pulse Resp BP Pulse Ox 97.4 F L 70 16 162/82 95 11/25/21 07:20 11/25/21 07:20 11/25/21 07:20 11/25/21 07:20 11/25/21 07:20
[2021-11-25 07:39] LABS: Glucose,Whole Blood 295 mg/dL (70-110)
[2021-11-25] MEDS ORDERED: LIDOCAINE 2% INJ 20 MG/ML (2 ML VIAL) ONE (07:40)
[2021-11-25] MEDS ORDERED: PROPOFOL 10 MG/ML 20 ML VIAL IV ONE (07:40)
--- NOTE | 2021-11-25 07:52 | P.PCN ---
Date of Procedure: 11/25/21 Description of Procedure: PREOPERATIVE DIAGNOSIS: History of gastrointestinal bleeding POSTOPERATIVE DIAGNOSIS: History of gastrointestinal bleeding Chronic gastritis without bleeding Diaphragmatic hiatal hernia OPERATION: Esophagogastroduodenoscopy SURGEON: Lola Arrington MD ANESTHESIA: MAC. INDICATIONS: The patient is a 81-year-old female who presents with gastrointestinal bleeding. Benefits and risks of the procedure were described. Informed consent was obtained. DESCRIPTION: The patient was brought into the endoscopy suite and laid in the left lateral decubitus position. An Olympus gastroscope was passed along the posterior oropharynx down to the distal esophagus where the squamocolumnar junction was encountered at 35 cm from the incisors. The stomach was entered and no bile reflux was found. Additional findings are listed below. The first through third portion of the duodenum was examined and unremarkable. Retroflexion of the scope confirmed Hill grade 3 lower esophageal valve. The squamocolumnar junction demonstrated LA grade A erosive esophagitis. The stomach was desufflated. The patient tolerated the procedure well. FINDINGS: Squamocolumnar junction 35 cm from the incisors. Diaphragmatic hiatus at 36 cm. Hiatal hernia, 1 cm Hill grade 3 lower esophageal valve. LA grade A erosive esophagitis. No active duodenitis. No stigmata of bleeding Chronic gastritis RECOMMENDATIONS: 1. Diet as tolerated 2. Upper endoscopy as needed
--- NOTE | 2021-11-25 08:18 | P.PCN ---
Date of Procedure: 11/25/21 Description of Procedure: PREOPERATIVE DIAGNOSIS: History of GI bleeding POSTOPERATIVE DIAGNOSIS: Pandiverticulosis Severe sigmoid diverticulosis Tubular adenoma hepatic flexure Tubular adenoma transverse colon Tubular adenoma cecum Tubular adenoma ascending colon Sigmoid diverticulosis Internal hemorrhoids, grade 3 OPERATION: Colonoscopy to the ileocecal valve and appendiceal orifice, cecum Colonoscopy with hot snare polypectomy Colonoscopy with cold forceps biopsy SURGEON: Lola Arrington MD. ANESTHESIA: MAC. INDICATIONS: The patient is an 81-year-old female who presents with gastrointestinal bleeding. Benefits and risks were described and informed consent was obtained. DESCRIPTION OF PROCEDURE: The patient had undergone Sutab prep. The patient had been brought into the operating room and laid in the left lateral decubitus position. After adequate intravenous sedation, the rectum was examined with 2% lidocaine jelly. External hemorrhoids were encountered. The rectal tone was within normal limits. No lesions were palpated in the rectal vault. An Olympus colonoscope was advanced until the cecum, ileocecal valve and appendiceal orifice were clearly viewed. The prep was excellent. Pandiverticulosis with severe sigmoid diverticulosis was encountered. Colonic polyps were found and removed. No evidence of focal colitis was found. Retroflexion of the scope demonstrated grade 3 internal hemorrhoids without active bleeding or inflammation. The colon was desufflated. The patient had tolerated the procedure well. Withdrawal time was over 6 minutes. FINDINGS: Aronchick preparation quality scale 1 (1-5) Internal hemorrhoids, grade 3 External hemorrhoids, grade 3. No arteriovenous malformations. Sigmoid diverticulosis, severe without bleeding Pandiverticulosis, moderate Removal of 4 polyps: - Snare polypectomy cecum, 5 mm tubulovillous adenoma polyp. - Snare polypectomy ascending colon, 8 mm tubulovillous adenoma - Cold forceps biopsy at proximal transverse colon, 4 mm polyp. - Cold forceps biopsy at hepatic flexure, 5 mm polyp. No focal colitis. RECOMMENDATIONS: Recommend repeat colonoscopy 3 years, 2024 Plan - Discharge Summary Discharge Rx Participant: No New Discharge Prescriptions: Continue amLODIPine [Norvasc] 5 mg PO DAILY Simvastatin [Zocor] 20 mg PO HS Levothyroxine Sodium [Synthroid] 150 mcg PO DAILY Losartan Potassium [Cozaar] 100 mg PO DAILY glipiZIDE [Glucotrol] 10 mg PO DAILY Meloxicam [Mobic] 15 mg PO DAILY atenoloL [Tenormin] 50 mg PO DAILY Omeprazole 40 mg PO DAILY Doxylamine Succinate [Unisom] 25 mg PO HS PRN PRN Reason: Insomnia Discharge Medication List Levothyroxine Sodium [Synthroid] 150 mcg PO DAILY 11/08/16 [History] Simvastatin [Zocor] 20 mg PO HS 11/08/16 [History] amLODIPine [Norvasc] 5 mg PO DAILY 11/08/16 [History] Losartan Potassium [Cozaar] 100 mg PO DAILY 05/17/17 [History] glipiZIDE [Glucotrol] 10 mg PO DAILY 05/17/17 [History] Meloxicam [Mobic] 15 mg PO DAILY 01/02/18 [History] Omeprazole 40 mg PO DAILY 08/18/21 [History] atenoloL [Tenormin] 50 mg PO DAILY 08/18/21 [History] Doxylamine Succinate [Unisom] 25 mg PO HS PRN 11/23/21 [History] Follow up Appointment(s)/Referral(s): Lola Arrington MD [STAFF PHYSICIAN] - 12/14/21 Patient Instructions/Handouts: Diverticulosis Diet (GEN), Diverticulosis (DC), Colorectal Polyps (GEN) Activity/Diet/Wound Care/Special Instructions: Repeat colonoscopy in 3 years, 2024 Discharge Disposition: HOME SELF-CARE
[2021-11-25 08:26] LABS: Glucose,Whole Blood 314 mg/dL (70-110)
[2021-11-25] MEDS ORDERED: INSULIN ASPART (NovoLOG) 100 UNIT/ML VIAL SQ ONE (08:30)
[2021-11-25 08:33] VITALS: BP 132/67; PULSE 59
== END 2021-11-25 09:05 | disposition home or self-care (01) ==
LOC: ORWHC2ENDO 06:59
PROVIDERS: ATTEND Surgery Plastic and Reconstructive Surgery
DX: D12.2 Benign neoplasm of ascending colon (principal); D12.0 Benign neoplasm of cecum; D12.3 Benign neoplasm of transverse colon; K57.30 Diverticulosis of large intestine without perforation or abscess without bleeding; K64.2 Third degree hemorrhoids; K29.50 Unspecified chronic gastritis without bleeding; K44.9 Diaphragmatic hernia without obstruction or gangrene; K21.00 Gastro-esophageal reflux disease with esophagitis, without bleeding; E11.69 Type 2 diabetes mellitus with other specified complication; E78.5 Hyperlipidemia, unspecified; I10 Essential (primary) hypertension; M06.9 Rheumatoid arthritis, unspecified; Z85.51 Personal history of malignant neoplasm of bladder; Z85.3 Personal history of malignant neoplasm of breast; D64.9 Anemia, unspecified; G43.909 Migraine, unspecified, not intractable, without status migrainosus; Z90.49 Acquired absence of other specified parts of digestive tract; Z92.21 Personal history of antineoplastic chemotherapy; E07.9 Disorder of thyroid, unspecified; Z80.0 Family history of malignant neoplasm of digestive organs; Z80.41 Family history of malignant neoplasm of ovary; Z80.49 Family history of malignant neoplasm of other genital organs; Z79.890 Hormone replacement therapy; Z79.84 Long term (current) use of oral hypoglycemic drugs; Z79.899 Other long term (current) drug therapy; Z79.1 Long term (current) use of non-steroidal anti-inflammatories (NSAID); Z88.5 Allergy status to narcotic agent; Z88.8 Allergy status to other drugs, medicaments and biological substances; Z86.73 Personal history of transient ischemic attack (TIA), and cerebral infarction without residual deficits
CPT/HCPCS: 88305; 45380; 45385; 43235; J2704; J2001

== ENCOUNTER 2022-03-03 22:01 | Inpatient (IN) | payer MEDICARE ==
[2022-03-03 22:49] LABS: Basophils % (A) 0 %; Eosinophils % (A) 0 %; HCT 39.9 % (34.0-46.0); HGB 12.1 gm/dL (11.4-16.0); Hypochromasia Slight; Lymphocytes # (A) 0.7 k/uL (1.0-4.8); Lymphocytes % (A) 4 %; MCH 28.5 pg (25.0-35.0); MCHC 30.4 g/dL (31.0-37.0); MCV 93.7 fL (80.0-100.0); Mean Platelet Volume 9.5; Monocytes # (A) 1.2 k/uL (0-1.0); Monocytes % (A) 7 %; Neutrophils % (A) 86 %; Platelet Count 143 k/uL (150-450); RBC 4.26 m/uL (3.80-5.40); RDW 13.1 % (11.5-15.5); WBC 16.3 k/uL (3.8-10.6)
[2022-03-03] MEDS ORDERED: SODIUM CHLORIDE 0.9% 500 ML 500 ML IV STA (22:55)
[2022-03-03] MEDS ORDERED: ACETAMINOPHEN TAB 500 MG TAB PO STA (22:58)
[2022-03-03 22:59] LABS: ALT 13 U/L (4-34); AST 13 U/L (14-36); African American GFR (CKD) 79 (>60 ml/min/1.73 sqM); Albumin 3.5 g/dL (3.5-5.0); Alkaline Phosphatase 93 U/L (38-126); Anion Gap 10 mmol/L; Blood Urea Nitrogen 18 mg/dL (7-17); Calcium 8.8 mg/dL (8.4-10.2); Carbon Dioxide 21 mmol/L (22-30); Chloride 99 mmol/L (98-107); Glucose 384 mg/dL (74-99); Lipase <10 U/L (23-300); Non-African American GFR(CKD) 69 (>60 ml/min/1.73 sqM); Potassium 4.7 mmol/L (3.5-5.1); Sodium 130 mmol/L (137-145); Total Bilirubin 1.1 mg/dL (0.2-1.3); Total Protein 5.5 g/dL (6.3-8.2)
--- NOTE | 2022-03-03 23:00 | ED ---
General Adult HPI - General Chief complaint: Abdominal Pain Stated complaint: Abd Pain Time Seen by Provider: 03/03/22 22:02 Source: patient Mode of arrival: EMS Limitations: no limitations - History of Present Illness Initial comments: Dictation was produced using [employer] dictation software. please excuse any grammatical, word or spelling errors. Chief Complaint: 81-year-old female presents to the emergency department for generalized malaise, flank pain and constitutional symptoms History of Present Illness: Patient is a 1-year-old female she has past medical history of diabetes, dyslipidemia hypertension. The last one today she's developed left-sided CVA pain, fever and generalized malaise. Patient's been feeling nauseated. Denies any urinary symptoms. She states that she has left CVA pain that appears to be dull. Denies any symptoms at the bedside. Patient states that she does have a mild cough sore throat. The ROS documented in this emergency department record has been reviewed and confirmed by me. Those systems with pertinent positive or negative responses have been documented in the HPI. All other systems are other negative and/or noncontributory. PHYSICAL EXAM: General Impression: Alert and oriented x3, not in acute distress HEENT: Normocephalic atraumatic, extra-ocular movements intact, pupils equal and reactive to light bilaterally, mucous membranes moist. Cardiovascular: Heart regular rate and rhythm Chest: Able to complete full sentences, no retractions, no tachypnea Abdomen: abdomen soft, non-tender, non-distended, no organomegaly Musculoskeletal: Pulses present and equal in all extremities, no peripheral edema, positive CVA tenderness on the left Motor: no focal deficits noted Neurological: CN II-XII grossly intact, no focal motor or sensory deficits noted Skin: Intact with no visualized rashes Psych: Normal affect and mood ED course: 81-year-old female presents to the emergency department for generalized malaise, nausea and left CVA pain. Vital signs upon arrival are within acceptable limits. Patient allegedly took some Tylenol prior to coming to the emergency room. Laboratory evaluation shows leukocytosis of 16.3. Metabolic panel shows sodium of 1:30. Rest of labs within acceptable limits. Urinalysis positive for urinary tract infection. Given the patient has left-sided CVA pain with UTI there is concerns for pyelonephritis. Patient given ceftriaxone. She'll be admitted for monitoring. - Related Data Home Medications Medication Instructions Recorded Confirmed Levothyroxine Sodium [Synthroid] 150 mcg PO DAILY 11/08/16 11/25/21 Simvastatin [Zocor] 20 mg PO HS 11/08/16 11/25/21 amLODIPine [Norvasc] 5 mg PO DAILY 11/08/16 11/25/21 Losartan Potassium [Cozaar] 100 mg PO DAILY 05/17/17 11/25/21 glipiZIDE [Glucotrol] 10 mg PO DAILY 05/17/17 11/25/21 Meloxicam [Mobic] 15 mg PO DAILY 01/02/18 11/25/21 Omeprazole 40 mg PO DAILY 08/18/21 11/25/21 atenoloL [Tenormin] 50 mg PO DAILY 08/18/21 11/25/21 Doxylamine Succinate [Unisom] 25 mg PO HS PRN 11/23/21 11/25/21 Allergies Allergy/AdvReac Type Severity Reaction Status Date / Time codeine Allergy Unknown Couldn't Verified 11/25/21 07:30 Swallow glyburide Allergy Unknown Itching Verified 11/25/21 07:30 metformin Allergy Unknown Itching Verified 11/25/21 07:30 Review of Systems ROS Statement: Those systems with pertinent positive or pertinent negative responses have been documented in the HPI. ROS Other: All systems not noted in ROS Statement are negative. Past Medical History Past Medical History: Cancer, Diabetes Mellitus, Eye Disorder, GERD/Reflux, Hyperlipidemia, Hypertension, Neurologic Disorder, Osteoarthritis (OA), Rheumatoid Arthritis (RA), Thyroid Disorder Additional Past Medical History / Comment(s): HX BLADDER CANCER (?2008), BREAST CANCER (2017- LAST CHEMO 03/2017, LAST RADIATION [place] 08/2017), MIGRAINES, DIVERTICULITIS, ANEMIA, NODULE LEFT CHEST, SINUS PROBLEMS, USES WALKER PRN . History of Any Multi-Drug Resistant Organisms: None Reported Past Surgical History: Appendectomy, Breast Surgery, Cholecystectomy, Heart Catheterization, Hysterectomy, Orthopedic Surgery Additional Past Surgical History / Comment(s): LEFT BREAST BX, RONAL KNEE SURGERIES, LEFT MASTECTOMY (04/2017)., PORT-A-CATH INSERTED & REMOVED. Past Anesthesia/Blood Transfusion Reactions: No Reported Reaction Additional Past Anesthesia/Blood Transfusion Reaction / Comment(s): STATES RECEIVED 2 BLOOD TRANSFUSIONS AFTER RECEIVING CHEMO- NO REACTION Past Psychological History: No Psychological Hx Reported Smoking Status: Never smoker Past Alcohol Use History: None Reported Past Drug Use History: None Reported - Past Family History Mother Family Medical History: No Reported History Father Family Medical History: Myocardial Infarction ([place]) Sister(s) Family Medical History: Cancer Additional Family Medical History / Comment(s): ovarian/cervical, colon General Exam Limitations: no limitations Course Vital Signs 03/03/22 03/03/22 03/04/22 22:20 23:53 01:46 Temperature 99.0 F 98.3 F Pulse Rate 92 87 85 Respiratory 16 12 14 Rate Blood Pressure 107/66 113/68 118/62 O2 Sat by Pulse 95 97 94 L Oximetry Medical Decision Making - Lab Data Result diagrams: 03/03/22 22:29 03/03/22 22:29 Lab Results 03/03/22 03/03/22 03/03/22 Range/Units 22:29 22:29 22:29 WBC 16.3 H (3.8-10.6) k/uL RBC 4.26 (3.80-5.40) m/uL Hgb 12.1 (11.4-16.0) gm/dL Hct 39.9 (34.0-46.0) % MCV 93.7 (80.0-100.0) fL MCH 28.5 (25.0-35.0) pg MCHC 30.4 L (31.0-37.0) g/dL RDW 13.1 (11.5-15.5) % Plt Count 143 L (150-450) k/uL MPV 9.5 Neutrophils % 86 % Lymphocytes % 4 % Monocytes % 7 % Eosinophils % 0 % Basophils % 0 % Neutrophils # 14.0 H (1.3-7.7) k/uL Lymphocytes # 0.7 L (1.0-4.8) k/uL Monocytes # 1.2 H (0-1.0) k/uL Eosinophils # 0.0 (0-0.7) k/uL Basophils # 0.0 (0-0.2) k/uL Hypochromasia Slight Sodium 130 L (137-145) mmol/L Potassium 4.7 (3.5-5.1) mmol/L Chloride 99 (98-107) mmol/L Carbon Dioxide 21 L (22-30) mmol/L Anion Gap 10 mmol/L BUN 18 H (7-17) mg/dL Creatinine 0.81 (0.52-1.04) mg/dL Est GFR (CKD-EPI)AfAm 79 (>60 ml/min/1.73 sqM) Est GFR (CKD-EPI)NonAf 69 (>60 ml/min/1.73 sqM) Glucose 384 H (74-99) mg/dL Plasma Lactic Acid Timothy 1.2 (0.7-2.0) mmol/L Calcium 8.8 (8.4-10.2) mg/dL Total Bilirubin 1.1 (0.2-1.3) mg/dL AST 13 L (14-36) U/L ALT 13 (4-34) U/L Alkaline Phosphatase 93 (38-126) U/L Total Protein 5.5 L (6.3-8.2) g/dL Albumin 3.5 (3.5-5.0) g/dL Lipase <10 L (23-300) U/L Urine Color Urine Appearance (Clear) Urine pH (5.0-8.0) Ur Specific [place] (1.001-1.035) Urine Protein (Negative) Urine Glucose (UA) (Negative) Urine Ketones (Negative) Urine Blood (Negative) Urine Nitrite (Negative) Urine Bilirubin (Negative) Urine Urobilinogen (<2.0) mg/dL Ur Leukocyte Esterase (Negative) Urine RBC (0-5) /hpf Urine WBC (0-5) /hpf Urine WBC Clumps (None) /hpf Ur Squamous Epith Cells (0-4) /hpf Urine Bacteria (None) /hpf Hyaline Casts (0-2) /lpf Urine Mucus (None) /hpf 03/04/22 Range/Units 00:46 WBC (3.8-10.6) k/uL RBC (3.80-5.40) m/uL Hgb (11.4-16.0) gm/dL Hct (34.0-46.0) % MCV (80.0-100.0) fL MCH (25.0-35.0) pg MCHC (31.0-37.0) g/dL RDW (11.5-15.5) % Plt Count (150-450) k/uL MPV Neutrophils % % Lymphocytes % % Monocytes % % Eosinophils % % Basophils % % Neutrophils # (1.3-7.7) k/uL Lymphocytes # (1.0-4.8) k/uL Monocytes # (0-1.0) k/uL Eosinophils # (0-0.7) k/uL Basophils # (0-0.2) k/uL Hypochromasia Sodium (137-145) mmol/L Potassium (3.5-5.1) mmol/L Chloride (98-107) mmol/L Carbon Dioxide (22-30) mmol/L Anion Gap mmol/L BUN (7-17) mg/dL Creatinine (0.52-1.04) mg/dL Est GFR (CKD-EPI)AfAm (>60 ml/min/1.73 sqM) Est GFR (CKD-EPI)NonAf (>60 ml/min/1.73 sqM) Glucose (74-99) mg/dL Plasma Lactic Acid Timothy (0.7-2.0) mmol/L Calcium (8.4-10.2) mg/dL Total Bilirubin (0.2-1.3) mg/dL AST (14-36) U/L ALT (4-34) U/L Alkaline Phosphatase (38-126) U/L Total Protein (6.3-8.2) g/dL Albumin (3.5-5.0) g/dL Lipase (23-300) U/L Urine Color Yellow Urine Appearance Cloudy H (Clear) Urine pH 5.5 (5.0-8.0) Ur Specific [place] 1.021 (1.001-1.035) Urine Protein 1+ H (Negative) Urine Glucose (UA) 4+ H (Negative) Urine Ketones 2+ H (Negative) Urine Blood Trace H (Negative) Urine Nitrite Negative (Negative) Urine Bilirubin Negative (Negative) Urine Urobilinogen <2.0 (<2.0) mg/dL Ur Leukocyte Esterase Small H (Negative) Urine RBC 1 (0-5) /hpf Urine WBC 39 H (0-5) /hpf Urine WBC Clumps Occasional H (None) /hpf Ur Squamous Epith Cells 1 (0-4) /hpf Urine Bacteria Moderate H (None) /hpf Hyaline Casts 1 (0-2) /lpf Urine Mucus Rare H (None) /hpf Disposition Clinical Impression: Pyelonephritis Disposition: ADMITTED IP TO THIS [facility] Condition: Fair Referrals: Matheus Mccain MD [Primary Care Provider] - 1-2 days Decision Time: 02:26
--- NOTE | 2022-03-03 23:16 | XR ---
EXAMINATION TYPE: XR chest 2V DATE OF EXAM: 03/03/2022 COMPARISON: 03/08/2017 HISTORY: Chest pain TECHNIQUE: FINDINGS: Heart is normal. There are calcified granulomata at the pulmonary juan luis. No pleural effusion . Mediastinum is normal. There are chest leads. IMPRESSION: No active cardiopulmonary disease. Normal heart. No change.
[2022-03-04 01:09] LABS: Appearance,Urine Cloudy (Clear); Bacteria,Urine Moderate /hpf; Bilirubin,Urine Negative (Negative); Blood,Urine Trace (Negative); Color,Urine Yellow; Glucose,Urine (UA) 4+ (Negative); Hyaline Casts,Urine 1 /lpf (0-2); Leukocyte Esterase,Urine Small (Negative); Mucus,Urine Rare /hpf; Nitrite,Urine Negative (Negative); PH, Urine 5.5 (5.0-8.0); Protein,Urine 1+ (Negative); RBC,Urine 1 /hpf (0-5); Specific Gravity,Urine 1.021 (1.001-1.035); Squamous Epithelial Cell,Urine 1 /hpf (0-4); Urobilinogen,Urine <2.0 mg/dL (<2.0); WBC,Urine 39 /hpf (0-5)
[2022-03-04 01:12] LABS: Ketones,Urine 2+ (Negative)
[2022-03-04] MEDS ORDERED: cefTRIAXone IN SWFI 1,000 MG/10 ML SYRINGE IVP STA (01:16)
[2022-03-04] MEDS ORDERED: NALOXONE 0.4 MG/ML 1 ML VIAL IV PRN (02:23)
[2022-03-04] MEDS ORDERED: ONDANSETRON 4 MG/2 ML VIAL IVP PRN (02:23)
[2022-03-04] MEDS ORDERED: SODIUM CHLORIDE 0.9% 1,000 ML IV SCH (02:30)
[2022-03-04] MEDS ORDERED: DEXTROSE 50% SYRINGE 50 ML IVP PRN ×2 (10:25)
[2022-03-04] MEDS: glipiZIDE 10 MG TAB PO SCH ×2 (13:37→18:06)
[2022-03-04] MEDS: MELOXICAM 7.5 MG TAB PO SCH (13:37)
[2022-03-04] MEDS: atenoloL 50 MG TAB PO SCH ×2 (13:37→21:06)
[2022-03-04] MEDS: PANTOPRAZOLE 40 MG TABLET PO SCH (13:37)
[2022-03-04 13:38] LABS: Glucose,Whole Blood 316 mg/dL (70-110)
[2022-03-04] MEDS: INSULIN DETEMIR (LEVEMIR) 100 UNIT/ML SYR SQ SCH (13:38)
[2022-03-04] MEDS: LEVOTHYROXINE 75 MCG TAB PO SCH (13:38)
--- NOTE | 2022-03-04 13:50 | P.HPIM ---
History of Present Illness H&P Date: 03/04/22 Chief Complaint: Nausea vomiting This is a pleasant 81-year-old patient who follows with Dr. Matheus Mccain. Chronic stable medical conditions include diabetes, GERD, hypertension, hyperlipidemia, osteoarthritis, rheumatoid arthritis, history of bladder cancer in 2008 breast cancer 2017 with chemotherapy and radiation, migraines. At the baseline uses a cane sometimes. Patient presented 2 days of worsening nausea vomiting. Left posterior flank pain. Urinary frequency. Poor appetite. Fever and chills. Tired rundown. Review of systems: GEN.: Fever and chills, decreased appetite EYES: None HEENT: None NECK: None RESPIRATORY: None CARDIOVASCULAR: None GASTROINTESTINAL: As above GENITOURINARY: As above MUSCULOSKELETAL: Joint pains LYMPHATICS: None HEMATOLOGICAL: None PSYCHIATRY: None NEUROLOGICAL: None Past medical history to include: Diabetes, GERD, hyperlipidemia, hypertension, osteoarthritis, rheumatoid arthritis, bladder cancer 2008, breast cancer 2017 with chemoradiation, migraines, diverticulitis, anemia Social history: Lives alone. No smoking or alcohol. Family history: Ovarian;, colon cancer Physical examination: VITAL SIGNS: 99, 92, 16, 10 7 x 66, 95% room air GENERAL: BMI 35.2, reclining but awake, tired EYES: Pupils equal. Conjunctiva normal. HEENT: External appearance of nose and ears normal, oral cavity grossly normal. NECK: JVD not raised; masses not palpable. HEART: First and second heart sounds are normal; no edema. LUNGS: Respiratory rate normal; clear to auscultation. ABDOMEN: Soft, renal ankle tenderness, liver spleen not palpable, no masses palpable. PSYCH: Alert and oriented x3; mood and affect normal. MUSCULOSKELETAL:No Clubbing/cyanosis;muscles-grossly intact. Evidence of OA/RA NEUROLOGICAL: Cranial nerves grossly intact; no facial asymmetry, power and sensation grossly intact. LYMPHATICS: No lymph nodes palpable in the axilla and neck INVESTIGATIONS, reviewed in the clinical context: WBC 16.3 hemoglobin 12.1 platelets 143 sodium 1:30 potassium 4.7 BUN 18 creatinine 0.81 UA positive for leukoesterase, WBC, bacteria EKG tracing personally reviewed by me-normal sinus rhythm Chest x-ray film personally reviewed by me-personally reviewed by me: Unremarkable Assessment and plan: -Clinically suspected left pyelonephritis with urinary symptoms and left flank tenderness. Elevated white count. Nausea vomiting. -Left-sided colonic diverticulosis -Diabetes mellitus type 2 on oral hypoglycemic. Uncontrolled with hyperglycemia glipizide. Follow Accu-Cheks with sliding scale. Levemir 12 units. -Hyperlipidemia Zocor 20 mg daily at bedtime -Essential hypertension Tenormin 50 mg twice a day Cozaar 100 mg a day -GERD Omeprazole 40 mg a day -Chronic rheumatoid arthritis/rheumatoid arthritis, Mobic 15 mg day -Hypothyroid 175 g Synthroid per day IV fluids. Levemir. IV ceftriaxone. Resume home medications. Hold Norvasc. Diet as tolerated. Past Medical History Past Medical History: Cancer, Diabetes Mellitus, Eye Disorder, GERD/Reflux, Hyperlipidemia, Hypertension, Neurologic Disorder, Osteoarthritis (OA), Rheumatoid Arthritis (RA), Thyroid Disorder Additional Past Medical History / Comment(s): HX BLADDER CANCER (?2008), BREAST CANCER (2016- LAST CHEMO 03/2017, LAST RADIATION [place] 08/2017), MIGRAINES, DIVERTICULITIS, ANEMIA, NODULE LEFT CHEST, SINUS PROBLEMS, USES WALKER PRN . History of Any Multi-Drug Resistant Organisms: None Reported Past Surgical History: Appendectomy, Breast Surgery, Cholecystectomy, Heart Catheterization, Hysterectomy, Orthopedic Surgery Additional Past Surgical History / Comment(s): LEFT BREAST BX, RONAL KNEE SURGERIES, LEFT MASTECTOMY (04/2017)., PORT-A-CATH INSERTED & REMOVED. Past Anesthesia/Blood Transfusion Reactions: No Reported Reaction Additional Past Anesthesia/Blood Transfusion Reaction / Comment(s): STATES RECEIVED 2 BLOOD TRANSFUSIONS AFTER RECEIVING CHEMO- NO REACTION Past Psychological History: No Psychological Hx Reported Smoking Status: Never smoker Past Alcohol Use History: None Reported Past Drug Use History: None Reported - Past Family History Mother Family Medical History: No Reported History Father Family Medical History: Myocardial Infarction ([place]) Sister(s) Family Medical History: Cancer Additional Family Medical History / Comment(s): ovarian/cervical, colon Medications and Allergies Home Medications Medication Instructions Recorded Confirmed Type Simvastatin [Zocor] 20 mg PO HS 11/08/16 03/04/22 History amLODIPine [Norvasc] 5 mg PO BID 11/08/16 03/04/22 History Losartan Potassium [Cozaar] 100 mg PO DAILY 05/17/17 03/04/22 History glipiZIDE [Glucotrol] 10 mg PO TID 05/17/17 03/04/22 History Meloxicam [Mobic] 15 mg PO DAILY 01/02/18 03/04/22 History Omeprazole 40 mg PO DAILY 08/18/21 03/04/22 History atenoloL [Tenormin] 50 mg PO BID 08/18/21 03/04/22 History Levothyroxine Sodium [Synthroid] 150 mcg PO DAILY 03/04/22 03/04/22 History Allergies Allergy/AdvReac Type Severity Reaction Status Date / Time codeine Allergy Unknown Couldn't Verified 11/25/21 07:30 Swallow glyburide Allergy Unknown Itching Verified 11/25/21 07:30 metformin Allergy Unknown Itching Verified 11/25/21 07:30 aspirin AdvReac Bruising Verified 03/04/22 08:11 Physical Exam Vitals: Vital Signs Temp Pulse Resp BP Pulse Ox 03/04/22 07:42 94 18 120/72 98 03/04/22 06:23 87 16 128/67 97 03/04/22 04:52 84 16 129/60 98 03/04/22 01:46 85 14 118/62 94 L 03/03/22 23:53 98.3 F 87 12 113/68 97 03/03/22 22:20 99.0 F 92 16 107/66 95 Intake and Output 03/03/22 03/04/22 03/04/22 22:59 06:59 14:59 Other: Weight 81.647 kg Results CBC & Chem 7: 03/03/22 22:29 03/03/22 22:29 Labs: Abnormal Lab Results - Last 24 Hours (Table) 03/03/22 03/03/22 03/04/22 Range/Units 22:29 22:29 00:46 WBC 16.3 H (3.8-10.6) k/uL MCHC 30.4 L (31.0-37.0) g/dL Plt Count 143 L (150-450) k/uL Neutrophils # 14.0 H (1.3-7.7) k/uL Lymphocytes # 0.7 L (1.0-4.8) k/uL Monocytes # 1.2 H (0-1.0) k/uL Sodium 130 L (137-145) mmol/L Carbon Dioxide 21 L (22-30) mmol/L BUN 18 H (7-17) mg/dL Glucose 384 H (74-99) mg/dL AST 13 L (14-36) U/L Total Protein 5.5 L (6.3-8.2) g/dL Lipase <10 L (23-300) U/L Urine Appearance Cloudy H (Clear) Urine Protein 1+ H (Negative) Urine Glucose (UA) 4+ H (Negative) Urine Ketones 2+ H (Negative) Urine Blood Trace H (Negative) Ur Leukocyte Esterase Small H (Negative) Urine WBC 39 H (0-5) /hpf Urine WBC Clumps Occasional H (None) /hpf Urine Bacteria Moderate H (None) /hpf Urine Mucus Rare H (None) /hpf
[2022-03-04] MEDS: INSULIN ASPART (NovoLOG) 100 UNIT/ML VIAL SQ SCH ×2 (15:18→17:01)
[2022-03-04 17:00] LABS: Glucose,Whole Blood 75 mg/dL (70-110)
[2022-03-04] MEDS: ENOXAPARIN 40 MG/0.4 ML SYRINGE SQ SCH (17:02)
[2022-03-04] MEDS: LACTATED RINGERS 1,000 ML IV SCH (17:03)
[2022-03-04] MEDS: ACETAMINOPHEN TAB 325 MG TAB PO PRN (17:22)
[2022-03-04 20:17] LABS: Glucose,Whole Blood 198 mg/dL (70-110)
[2022-03-04] MEDS: ATORVASTATIN 10 MG TAB PO SCH (21:06)
[2022-03-05] MEDS: ACETAMINOPHEN TAB 325 MG TAB PO PRN ×3 (01:33→20:43)
[2022-03-05] MEDS: LACTATED RINGERS 1,000 ML IV SCH ×2 (06:03→12:12)
[2022-03-05] MEDS: LEVOTHYROXINE 75 MCG TAB PO SCH (06:03)
[2022-03-05 07:25] LABS: Glucose,Whole Blood 198 mg/dL (70-110)
[2022-03-05] MEDS: INSULIN DETEMIR (LEVEMIR) 100 UNIT/ML SYR SQ SCH (07:59)
[2022-03-05] MEDS: INSULIN ASPART (NovoLOG) 100 UNIT/ML VIAL SQ SCH ×3 (07:59→18:03)
[2022-03-05] MEDS: glipiZIDE 10 MG TAB PO SCH ×2 (07:59→18:06)
[2022-03-05] MEDS: atenoloL 50 MG TAB PO SCH ×2 (08:00→20:39)
[2022-03-05] MEDS: MELOXICAM 7.5 MG TAB PO SCH (08:00)
[2022-03-05] MEDS: PANTOPRAZOLE 40 MG TABLET PO SCH (08:01)
[2022-03-05] MEDS: ENOXAPARIN 40 MG/0.4 ML SYRINGE SQ SCH (08:01)
[2022-03-05 12:23] LABS: Glucose,Whole Blood 210 mg/dL (70-110)
[2022-03-05 17:45] LABS: Glucose,Whole Blood 102 mg/dL (70-110)
[2022-03-05] MEDS: ATORVASTATIN 10 MG TAB PO SCH (20:39)
[2022-03-06] MEDS: ACETAMINOPHEN TAB 325 MG TAB PO PRN ×2 (05:23→15:43)
[2022-03-06] MEDS: LEVOTHYROXINE 75 MCG TAB PO SCH (05:24)
[2022-03-06] MEDS: LACTATED RINGERS 1,000 ML IV SCH (05:24)
[2022-03-06 08:10] LABS: Glucose,Whole Blood 171 mg/dL (70-110)
[2022-03-06] MEDS: atenoloL 50 MG TAB PO SCH ×2 (08:15→21:34)
[2022-03-06] MEDS: MELOXICAM 7.5 MG TAB PO SCH (08:15)
[2022-03-06] MEDS: glipiZIDE 10 MG TAB PO SCH ×2 (08:15→18:06)
[2022-03-06] MEDS: INSULIN DETEMIR (LEVEMIR) 100 UNIT/ML SYR SQ SCH (08:15)
[2022-03-06] MEDS: ENOXAPARIN 40 MG/0.4 ML SYRINGE SQ SCH (08:15)
[2022-03-06] MEDS: INSULIN ASPART (NovoLOG) 100 UNIT/ML VIAL SQ SCH ×3 (08:15→18:06)
[2022-03-06] MEDS: PANTOPRAZOLE 40 MG TABLET PO SCH (08:15)
[2022-03-06 12:21] LABS: Glucose,Whole Blood 237 mg/dL (70-110)
[2022-03-06 17:56] LABS: Glucose,Whole Blood 187 mg/dL (70-110)
--- NOTE | 2022-03-06 19:11 | PN ---
PROGRESS NOTE SUBJECTIVE: This is an 81-year-old woman who was admitted with left pyelonephritis, is being closely monitored. No chest pain. No palpitations. Patient is on antibiotics. The cultures are negative. PHYSICAL EXAMINATION: VITAL SIGNS: Pulse is 68, blood pressure 158/70, respirations 14. HEENT: Conjunctivae normal. CARDIOVASCULAR: S1, S2. RESPIRATION: Breath sounds diminished at the bases. ABDOMEN: Soft. Mild diffuse tenderness on left side. NERVOUS SYSTEM: Nonfocal. LABORATORY DATA: Reviewed. ASSESSMENT: 1. Acute left pyelonephritis. 2. Diabetes mellitus, type 2. 3. Hyperlipidemia. 4. Hypertension. 5. Multiple medical issues. RECOMMENDATIONS: Recommend to continue current management and symptomatic treatment. Otherwise at this time, I would recommend continue with antibiotics. Follow the cultures. Closely follow. Further recommendations to follow. Symptom management. JOCELYN / OMI: [id number] /
[2022-03-06 20:24] LABS: Glucose,Whole Blood 228 mg/dL (70-110)
[2022-03-06] MEDS: ATORVASTATIN 10 MG TAB PO SCH (21:34)
[2022-03-07] MEDS: ACETAMINOPHEN TAB 325 MG TAB PO PRN ×2 (02:00→09:41)
[2022-03-07] MEDS: LACTATED RINGERS 1,000 ML IV SCH (06:02)
[2022-03-07] MEDS: LEVOTHYROXINE 75 MCG TAB PO SCH (06:02)
[2022-03-07 07:04] LABS: Glucose,Whole Blood 130 mg/dL (70-110)
--- NOTE | 2022-03-07 07:32 | PN ---
PROGRESS NOTE SUBJECTIVE: This 82-year-old woman, who was admitted with abdominal pain and pyelonephritis, on antibiotics. Gram-negative bacilli is growing from the urine, which has resulted as Klebsiella pneumonia, poly sensitive. No chest pain. No palpitation. OBJECTIVE: VITAL SIGNS: Pulse is 83, blood pressure 127/70, respirations 18. CHEST: Clear to auscultation. CARDIOVASCULAR: S1, S2. ABDOMEN: Soft. NERVOUS SYSTEM: Nonfocal. LABORATORY DATA: Reviewed. ASSESSMENT: 1. Acute left pyelonephritis secondary to Klebsiella pneumonia. 2. Diabetes mellitus, type 2. 3. Hyperlipidemia. 4. Hypertension. 5. Multiple medical issues. RECOMMENDATIONS: I recommend to continue current management and symptomatic treatment. The patient is on Rocephin. I would recommend to continue the Rocephin. Monitor closely. Guarded prognosis because of multiple complex medical issues. Further recommendations to follow. MMODL / IJN: [id number] /
[2022-03-07] MEDS: INSULIN ASPART (NovoLOG) 100 UNIT/ML VIAL SQ SCH ×2 (07:55→14:03)
[2022-03-07] MEDS: ENOXAPARIN 40 MG/0.4 ML SYRINGE SQ SCH (09:22)
[2022-03-07] MEDS: PANTOPRAZOLE 40 MG TABLET PO SCH (09:32)
[2022-03-07] MEDS: MELOXICAM 7.5 MG TAB PO SCH (09:32)
[2022-03-07] MEDS: atenoloL 50 MG TAB PO SCH (09:33)
[2022-03-07] MEDS: INSULIN DETEMIR (LEVEMIR) 100 UNIT/ML SYR SQ SCH (09:34)
[2022-03-07] MEDS: glipiZIDE 10 MG TAB PO SCH (09:34)
[2022-03-07 11:06] LABS: HCT 37.9 % (34.0-46.0); HGB 12.3 gm/dL (11.4-16.0); Hypochromasia Slight; MCH 30.3 pg (25.0-35.0); MCHC 32.6 g/dL (31.0-37.0); MCV 92.9 fL (80.0-100.0); Platelet Count 192 k/uL (150-450); RBC 4.07 m/uL (3.80-5.40); RDW 12.9 % (11.5-15.5); WBC 10.6 k/uL (3.8-10.6)
[2022-03-07 11:14] LABS: African American GFR (CKD) >90 (>60 ml/min/1.73 sqM); Anion Gap 13 mmol/L; Blood Urea Nitrogen 13 mg/dL (7-17); Carbon Dioxide 21 mmol/L (22-30); Chloride 103 mmol/L (98-107); Glucose 248 mg/dL (74-99); Non-African American GFR(CKD) 82 (>60 ml/min/1.73 sqM); Potassium 4.3 mmol/L (3.5-5.1); Sodium 137 mmol/L (137-145)
[2022-03-07 12:02] VITALS: BP 137/79; PULSE 76; RESP 18; TEMP 97.9
[2022-03-07 12:38] LABS: Glucose,Whole Blood 187 mg/dL (70-110)
--- NOTE | 2022-03-08 16:52 | P.DS ---
Providers Date of admission: 03/04/22 02:24 Attending physician: Darian Douglas Primary care physician: Matheus Mccain [place] Hospital Course: Diagnosis Possible left pyelonephritis with urinary symptoms and flank tenderness Acute UTI with klebsiella Leukocytosis Hyponatremia, hypovolemic secondary to poor oral intake, nausea and vomiting Left sided colonic diverticulosis Diabetes Mellitus type 2 uncontrolled Hyperlipidemia Essential Hypertension GED Chronic rheumatoid arthritis Hypothyroid History of bladder cancer History of breast cancer with chemotherapy Full Code Discharge Disposition Patient is stable for discharge from a medical standpoint. Urinary symptoms have resolved. Patient has received 4 days of IV antibiotic therapy and will discharge on 4 more days of oral antibiotics in the form of ceftin. Recommend to see primary care in 1 to 2 days post discharge and also patient has home care with [facility]. Recommend to hold losartan and amlodipine on discharge as blood pressure is marginal. Discussed monitoring blood pressure at home and resuming medication if needed. Hospital Course This is a pleasant 81-year-old patient who follows with Dr. Matheus Mccain. Chronic stable medical conditions include diabetes, GERD, hypertension, hyperli pidemia, osteoarthritis, rheumatoid arthritis, history of bladder cancer in 2008 breast cancer 2017 with chemotherapy and radiation, migraines. At the baseline uses a cane sometimes. Patient presented 2 days of worsening nausea vomiting. Left posterior flank pain. Urinary frequency. Poor appetite. Fever and chills. Tired rundown. Patient had presented with white count of 16.3 and urinalysis completed showing cloudy urine with trace blood, small leukocyte esterase, 39 wbc, moderate bacteria and rare mucus. Urine culture was completed which has finalized to Klebsiella. Patient was started on IV ceftriaxone and received 4 days of IV antibiotic therapy and will discharge on a course of oral ceftin 500 mg po bid for 4 more days. Clinically she has improved with antibiotics, white count is normalized down to 10.6. She also presented with low sodium of 130 and it has improved up to 137 with gentle hydration. Blood glucose is also improved at 187. 03/07/2022 Patient is evaluated today resting in bed. She would like to go home today. She reports no dysuria, no urgency no frequency. No abdominal pain, no nausea, vomiting or diarrhea. Her flank pain has improved. She had a bowel movement. She is alert x 3, denies chest pain, no shortness of breath, No fever. Her labs have normalized. Ambulating at baseline without difficulty. Lungs are clear S1 S2 auscultated, abdomen is soft and nontender. Focal neurological exam is negative. So flank tenderness pain with palpation, no abdominal pain with palpation. Vitals today showing temp of 97.9, heart rate 76, blood pressure 137/79, 94% room air. Total time taken in discharge planning greater than 30 minutes. Please see medication reconciliation for a list of current medication. Thank you for allowing us to participate in the care of this patient. The impression and plan of care has been dictated by Mary Fernández, Nurse Practitioner as directed. Dr. Jet MD I have performed a history and physical examination and medical decision making of this patient, discussed the same with the dictator, and agree with the dictators assessment and plan as written, documented as a scribe. Based on total visit time, I have performed more than 50% of this visit. Patient Condition at Discharge: Stable Plan - Discharge Summary Discharge Rx Participant: No New Discharge Prescriptions: New Famotidine [Pepcid] 20 mg PO DAILY #5 tablet cefUROXime axetiL [Ceftin] 500 mg PO BID 4 Days #8 tab Continue Simvastatin [Zocor] 20 mg PO HS glipiZIDE [Glucotrol] 10 mg PO TID Meloxicam [Mobic] 15 mg PO DAILY atenoloL [Tenormin] 50 mg PO BID Levothyroxine Sodium [Synthroid] 150 mcg PO DAILY Discontinued amLODIPine [Norvasc] 5 mg PO BID Losartan Potassium [Cozaar] 100 mg PO DAILY Omeprazole 40 mg PO DAILY Discharge Medication List Simvastatin [Zocor] 20 mg PO HS 11/08/16 [History] glipiZIDE [Glucotrol] 10 mg PO TID 05/17/17 [History] Meloxicam [Mobic] 15 mg PO DAILY 01/02/18 [History] atenoloL [Tenormin] 50 mg PO BID 08/18/21 [History] Levothyroxine Sodium [Synthroid] 150 mcg PO DAILY 03/04/22 [History] Famotidine [Pepcid] 20 mg PO DAILY #5 tablet 03/07/22 [Rx] cefUROXime axetiL [Ceftin] 500 mg PO BID 4 Days #8 tab 03/07/22 [Rx] Follow up Appointment(s)/Referral(s): [facility],[place] [NON-STAFF] - As Needed (Home Care Agency) Matheus Mccain MD [Primary Care Provider] - 03/16/22 3:00 pm Patient Instructions/Handouts: Cefuroxime (By mouth), Famotidine (By mouth), Urinary Tract Infection in Women (DC) Activity/Diet/Wound Care/Special Instructions: Complete 4 more days of antibiotic therapy Hold omeprazole while on ceftin, can use pepcid instead. Okay to resume omeprazole when antibiotics are finished. Notify provider of fever, urine burning, urgency, frequency. Follow up with primary care in 1 to 2 days Hold losartan and amlodipine on discharge Monitor blood pressures at home and can resume amlodipine at 5 mg po daily if BP becomes elevated. Discharge Disposition: HOME SELF-CARE
== END 2022-03-07 17:16 | disposition home or self-care (01) | DRG 690 ==
LOC: EC 22:01 → 5NMEDONC 03-04 02:24
PROVIDERS: ADMIT Hospitalist; ATTEND Hospitalist
DX: N10 Acute pyelonephritis (principal); E87.1 Hypo-osmolality and hyponatremia; B96.1 Klebsiella pneumoniae [K. pneumoniae] as the cause of diseases classified elsewhere; K57.30 Diverticulosis of large intestine without perforation or abscess without bleeding; E11.65 Type 2 diabetes mellitus with hyperglycemia; E78.5 Hyperlipidemia, unspecified; I10 Essential (primary) hypertension; K21.9 Gastro-esophageal reflux disease without esophagitis; G43.909 Migraine, unspecified, not intractable, without status migrainosus; D64.9 Anemia, unspecified; M19.90 Unspecified osteoarthritis, unspecified site; M06.9 Rheumatoid arthritis, unspecified; E03.0 Congenital hypothyroidism with diffuse goiter; E03.9 Hypothyroidism, unspecified; Z79.890 Hormone replacement therapy; E86.1 Hypovolemia; Z79.1 Long term (current) use of non-steroidal anti-inflammatories (NSAID); Z79.4 Long term (current) use of insulin; Z79.84 Long term (current) use of oral hypoglycemic drugs; Z79.899 Other long term (current) drug therapy; Z80.0 Family history of malignant neoplasm of digestive organs; Z85.3 Personal history of malignant neoplasm of breast; Z85.51 Personal history of malignant neoplasm of bladder; Z90.12 Acquired absence of left breast and nipple; Z90.710 Acquired absence of both cervix and uterus; Z92.21 Personal history of antineoplastic chemotherapy; Z90.49 Acquired absence of other specified parts of digestive tract; Z92.3 Personal history of irradiation; Z88.5 Allergy status to narcotic agent; Z88.6 Allergy status to analgesic agent; Z96.653 Presence of artificial knee joint, bilateral
CPT/HCPCS: 36415; 71046; 80048; 80053; 81001; 83605; 83690; 85025; 85027; 87077; 87086; 87186; 93005

== ENCOUNTER 2022-05-05 17:18 | Inpatient (IN) | payer MEDICARE ==
[2022-05-05 17:38] LABS: Glucose,Whole Blood 178 mg/dL (70-110)
[2022-05-05 20:17] LABS: Albumin 4.2 g/dL (3.5-5.0); Calcium 9.5 mg/dL (8.4-10.2); Potassium 4.1 mmol/L (3.5-5.1); Total Bilirubin 0.6 mg/dL (0.2-1.3); Total Protein 6.6 g/dL (6.3-8.2)
[2022-05-05 20:32] LABS: Prothrombin Time 10.9 sec (9.0-12.0)
[2022-05-05 20:33] LABS: Partial Thromboplastin Time 22.8 sec (22.0-30.0)
--- NOTE | 2022-05-05 20:34 | XR ---
EXAMINATION: XR chest 2V: 05/05/2022 7:22 PM CLINICAL INDICATION: altered mental status TECHNIQUE: Departmental protocol COMPARISON: 03/03/2022 FINDINGS: The lungs are clear. The pleural spaces are negative. The cardiac silhouette is not enlarged. The remainder of the mediastinal silhouette is unremarkable. The skeletal structures and soft tissues are negative for acute findings. IMPRESSION: No acute process.
[2022-05-05 20:36] LABS: Basophils # (A) 0.1 k/uL (0-0.2); Basophils % (A) 1 %; Eosinophils # (A) 0.2 k/uL (0-0.7); Eosinophils % (A) 2 %; HCT 44.4 % (34.0-46.0); HGB 14.1 gm/dL (11.4-16.0); Hypochromasia Slight; Lymphocytes % (A) 21 %; MCH 29.9 pg (25.0-35.0); MCHC 31.7 g/dL (31.0-37.0); MCV 94.2 fL (80.0-100.0); Mean Platelet Volume 9.6; Monocytes # (A) 0.7 k/uL (0-1.0); Monocytes % (A) 8 %; Neutrophils # (A) 6.2 k/uL (1.3-7.7); Neutrophils % (A) 66 %; Platelet Count 233 k/uL (150-450); RBC 4.71 m/uL (3.80-5.40); RDW 13.3 % (11.5-15.5); WBC 9.4 k/uL (3.8-10.6)
[2022-05-05 22:13] LABS: Appearance,Urine Cloudy (Clear); Bacteria,Urine Rare /hpf; Bilirubin,Urine Negative (Negative); Blood,Urine Negative (Negative); Color,Urine Yellow; Glucose,Urine (UA) Negative (Negative); Ketones,Urine Negative (Negative); Leukocyte Esterase,Urine Large (Negative); Mucus,Urine Rare /hpf; Nitrite,Urine Negative (Negative); PH, Urine 5.5 (5.0-8.0); Protein,Urine 2+ (Negative); RBC,Urine 2 /hpf (0-5); Specific Gravity,Urine 1.026 (1.001-1.035); Squamous Epithelial Cell,Urine 8 /hpf (0-4); Urobilinogen,Urine <2.0 mg/dL (<2.0); WBC,Urine 30 /hpf (0-5)
[2022-05-05] MEDS ORDERED: cefTRIAXone IN SWFI 1,000 MG/10 ML SYRINGE IVP STA (23:57)
--- NOTE | 2022-05-05 23:58 | ED ---
Altered Mental Status HPI - General Chief Complaint: Altered Mental Status Stated Complaint: poss reaction to rx - neuro issues Time Seen by Provider: 05/05/22 23:00 Source: patient, family, RN notes reviewed Mode of arrival: wheelchair Limitations: no limitations - History of Present Illness Initial Comments: This is an 82-year-old female who presents to the emergency department for altered mental status. Her family states that over the last 2 weeks, she's been having visual hallucinations. Patient and her family state that she is seeing animals and children in her house. Additionally, over the last several days she has felt excessively fatigued and run down. All she is wanting to do is sleep. She denies any fevers, chills, or any pain. She is concerned that she may have a urinary tract infection, which she has had several times in the past. Additionally, her family states that her blood sugar has been very erratic. Yesterday it was in the high 400s, which is not common for her at all. Denies any fevers, chills, sore throat, cough, dyspnea, chest pain, palpitations, abdominal pain, nausea, vomiting, diarrhea, back pain, or headaches. MD Complaint: altered mental status Consistency of Symptoms: waxing and waning Associated Symptoms: denies other symptoms - Related Data Home Medications Medication Instructions Recorded Confirmed Simvastatin [Zocor] 20 mg PO HS 11/08/16 03/04/22 glipiZIDE [Glucotrol] 10 mg PO TID 05/17/17 03/04/22 Meloxicam [Mobic] 15 mg PO DAILY 01/02/18 03/04/22 atenoloL [Tenormin] 50 mg PO BID 08/18/21 03/04/22 Levothyroxine Sodium [Synthroid] 150 mcg PO DAILY 03/04/22 03/04/22 Previous Rx's Medication Instructions Recorded Famotidine [Pepcid] 20 mg PO DAILY #5 tablet 03/07/22 cefUROXime axetiL [Ceftin] 500 mg PO BID 4 Days #8 tab 03/07/22 Allergies Allergy/AdvReac Type Severity Reaction Status Date / Time codeine Allergy Unknown Couldn't Verified 11/25/21 07:30 Swallow glyburide Allergy Unknown Itching Verified 11/25/21 07:30 metformin Allergy Unknown Itching Verified 11/25/21 07:30 aspirin AdvReac Bruising Verified 03/04/22 08:11 Review of Systems ROS Statement: Those systems with pertinent positive or pertinent negative responses have been documented in the HPI. ROS Other: All systems not noted in ROS Statement are negative. Past Medical History Past Medical History: Cancer, Diabetes Mellitus, Eye Disorder, GERD/Reflux, Hyperlipidemia, Hypertension, Neurologic Disorder, Osteoarthritis (OA), Rheumatoid Arthritis (RA), Thyroid Disorder Additional Past Medical History / Comment(s): HX BLADDER CANCER (2008?), BREAST CANCER (2017- LAST CHEMO 03/2017, LAST RADIATION [place] 08/2017), MIGRAINES, DIVERTICULITIS, ANEMIA, NODULE LEFT CHEST, SINUS PROBLEMS, USES WALKER PRN . History of Any Multi-Drug Resistant Organisms: None Reported Past Surgical History: Appendectomy, Breast Surgery, Cholecystectomy, Heart Catheterization, Hysterectomy, Orthopedic Surgery Additional Past Surgical History / Comment(s): LEFT BREAST BX, RONAL KNEE SURGERIES, LEFT MASTECTOMY (04/2017)., PORT-A-CATH INSERTED & REMOVED. Past Anesthesia/Blood Transfusion Reactions: No Reported Reaction Additional Past Anesthesia/Blood Transfusion Reaction / Comment(s): STATES RECEIVED 2 BLOOD TRANSFUSIONS AFTER RECEIVING CHEMO- NO REACTION Past Psychological History: No Psychological Hx Reported Smoking Status: Never smoker Past Alcohol Use History: None Reported Past Drug Use History: None Reported - Past Family History Mother Family Medical History: Cancer Father Family Medical History: Myocardial Infarction ([place]) Sister(s) Family Medical History: Cancer Additional Family Medical History / Comment(s): ovarian/cervical, colon General Exam Limitations: no limitations General appearance: alert, in no apparent distress Head exam: Present: atraumatic, normocephalic, normal inspection Eye exam: Present: normal appearance, PERRL, EOMI. Absent: scleral icterus, conjunctival injection, periorbital swelling Respiratory exam: Present: normal lung sounds bilaterally. Absent: respiratory distress, wheezes, rales, rhonchi, stridor Cardiovascular Exam: Present: regular rate, normal rhythm, normal heart sounds. Absent: systolic murmur, diastolic murmur, rubs, gallop, clicks Neurological exam: Present: alert, oriented X3, CN II-XII intact Psychiatric exam: Present: normal affect, normal mood Skin exam: Present: warm, dry, intact, normal color. Absent: rash Course Vital Signs 05/05/22 05/06/22 17:30 02:10 Temperature 97.7 F Pulse Rate 81 77 Respiratory 20 18 Rate Blood Pressure 187/96 141/91 O2 Sat by Pulse 96 94 L Oximetry Medical Decision Making - Medical Decision Making This is an 82-year-old female who presents to the emergency department for altered mental status and hallucinations. Lab work obtained and found to be nonactionable. Urinalysis suggestive of possible UTI. Given her history of UTIs and associated fatigue, she was given a dose of ceftriaxone with blood cultures obtained prior. My interpretation of the chest x-ray reveals no acute localized consolidations or infiltrates. My interpretation of the computed tomography scan of the brain reveals no signs of acute intracranial hemorrhage or mass effect. Will admit to medicine for the UTI with associated confusion and hallucinations. Neurology consult placed per the recommendation of ED attending. This case was discussed in detail with the attending ED physician. Presentation, findings, and treatment plan discussed in detail as well. - Lab Data Result diagrams: 05/05/22 19:38 05/05/22 19:38 Lab Results 05/05/22 05/05/22 05/05/22 Range/Units 17:37 19:38 19:38 WBC 9.4 (3.8-10.6) k/uL RBC 4.71 (3.80-5.40) m/uL Hgb 14.1 (11.4-16.0) gm/dL Hct 44.4 (34.0-46.0) % MCV 94.2 (80.0-100.0) fL MCH 29.9 (25.0-35.0) pg MCHC 31.7 (31.0-37.0) g/dL RDW 13.3 (11.5-15.5) % Plt Count 233 (150-450) k/uL MPV 9.6 Neutrophils % 66 % Lymphocytes % 21 % Monocytes % 8 % Eosinophils % 2 % Basophils % 1 % Neutrophils # 6.2 (1.3-7.7) k/uL Lymphocytes # 2.0 (1.0-4.8) k/uL Monocytes # 0.7 (0-1.0) k/uL Eosinophils # 0.2 (0-0.7) k/uL Basophils # 0.1 (0-0.2) k/uL Hypochromasia Slight PT 10.9 (9.0-12.0) sec INR 1.0 (<1.2) APTT 22.8 (22.0-30.0) sec Sodium (137-145) mmol/L Potassium (3.5-5.1) mmol/L Chloride (98-107) mmol/L Carbon Dioxide (22-30) mmol/L Anion Gap mmol/L BUN (7-17) mg/dL Creatinine (0.52-1.04) mg/dL Est GFR (CKD-EPI)AfAm (>60 ml/min/1.73 sqM) Est GFR (CKD-EPI)NonAf (>60 ml/min/1.73 sqM) Glucose (74-99) mg/dL POC Glucose (mg/dL) 178 H (70-110) mg/dL POC Glu Polisher Aluminum ID Sony Yusuf Calcium (8.4-10.2) mg/dL Total Bilirubin (0.2-1.3) mg/dL AST (14-36) U/L ALT (4-34) U/L Alkaline Phosphatase (38-126) U/L Troponin I (0.000-0.034) ng/mL Total Protein (6.3-8.2) g/dL Albumin (3.5-5.0) g/dL TSH (0.465-4.680) mIU/L Urine Color Urine Appearance (Clear) Urine pH (5.0-8.0) Ur Specific Adger (1.001-1.035) Urine Protein (Negative) Urine Glucose (UA) (Negative) Urine Ketones (Negative) Urine Blood (Negative) Urine Nitrite (Negative) Urine Bilirubin (Negative) Urine Urobilinogen (<2.0) mg/dL Ur Leukocyte Esterase (Negative) Urine RBC (0-5) /hpf Urine WBC (0-5) /hpf Urine WBC Clumps (None) /hpf Ur Squamous Epith Cells (0-4) /hpf Urine Bacteria (None) /hpf Urine Mucus (None) /hpf Salicylates mg/dL Acetaminophen ug/mL 05/05/22 05/05/22 05/05/22 Range/Units 19:38 19:38 19:38 WBC (3.8-10.6) k/uL RBC (3.80-5.40) m/uL Hgb (11.4-16.0) gm/dL Hct (34.0-46.0) % MCV (80.0-100.0) fL MCH (25.0-35.0) pg MCHC (31.0-37.0) g/dL RDW (11.5-15.5) % Plt Count (150-450) k/uL MPV Neutrophils % % Lymphocytes % % Monocytes % % Eosinophils % % Basophils % % Neutrophils # (1.3-7.7) k/uL Lymphocytes # (1.0-4.8) k/uL Monocytes # (0-1.0) k/uL Eosinophils # (0-0.7) k/uL Basophils # (0-0.2) k/uL Hypochromasia PT (9.0-12.0) sec INR (<1.2) APTT (22.0-30.0) sec Sodium 138 (137-145) mmol/L Potassium 4.1 (3.5-5.1) mmol/L Chloride 102 (98-107) mmol/L Carbon Dioxide 28 (22-30) mmol/L Anion Gap 8 mmol/L BUN 17 (7-17) mg/dL Creatinine 0.83 (0.52-1.04) mg/dL Est GFR (CKD-EPI)AfAm 76 (>60 ml/min/1.73 sqM) Est GFR (CKD-EPI)NonAf 66 (>60 ml/min/1.73 sqM) Glucose 195 H (74-99) mg/dL POC Glucose (mg/dL) (70-110) mg/dL POC Glu Polisher Aluminum ID Calcium 9.5 (8.4-10.2) mg/dL Total Bilirubin 0.6 (0.2-1.3) mg/dL AST 13 L (14-36) U/L ALT 11 (4-34) U/L Alkaline Phosphatase 112 (38-126) U/L Troponin I <0.012 (0.000-0.034) ng/mL Total Protein 6.6 (6.3-8.2) g/dL Albumin 4.2 (3.5-5.0) g/dL TSH (0.465-4.680) mIU/L Urine Color Yellow Urine Appearance Cloudy H (Clear) Urine pH 5.5 (5.0-8.0) Ur Specific Adger 1.026 (1.001-1.035) Urine Protein 2+ H (Negative) Urine Glucose (UA) Negative (Negative) Urine Ketones Negative (Negative) Urine Blood Negative (Negative) Urine Nitrite Negative (Negative) Urine Bilirubin Negative (Negative) Urine Urobilinogen <2.0 (<2.0) mg/dL Ur Leukocyte Esterase Large H (Negative) Urine RBC 2 (0-5) /hpf Urine WBC 30 H (0-5) /hpf Urine WBC Clumps Rare H (None) /hpf Ur Squamous Epith Cells 8 H (0-4) /hpf Urine Bacteria Rare H (None) /hpf Urine Mucus Rare H (None) /hpf Salicylates mg/dL Acetaminophen ug/mL 05/05/22 Range/Units 19:38 WBC (3.8-10.6) k/uL RBC (3.80-5.40) m/uL Hgb (11.4-16.0) gm/dL Hct (34.0-46.0) % MCV (80.0-100.0) fL MCH (25.0-35.0) pg MCHC (31.0-37.0) g/dL RDW (11.5-15.5) % Plt Count (150-450) k/uL MPV Neutrophils % % Lymphocytes % % Monocytes % % Eosinophils % % Basophils % % Neutrophils # (1.3-7.7) k/uL Lymphocytes # (1.0-4.8) k/uL Monocytes # (0-1.0) k/uL Eosinophils # (0-0.7) k/uL Basophils # (0-0.2) k/uL Hypochromasia PT (9.0-12.0) sec INR (<1.2) APTT (22.0-30.0) sec Sodium (137-145) mmol/L Potassium (3.5-5.1) mmol/L Chloride (98-107) mmol/L Carbon Dioxide (22-30) mmol/L Anion Gap mmol/L BUN (7-17) mg/dL Creatinine (0.52-1.04) mg/dL Est GFR (CKD-EPI)AfAm (>60 ml/min/1.73 sqM) Est GFR (CKD-EPI)NonAf (>60 ml/min/1.73 sqM) Glucose (74-99) mg/dL POC Glucose (mg/dL) (70-110) mg/dL POC Glu Polisher Aluminum ID Calcium (8.4-10.2) mg/dL Total Bilirubin (0.2-1.3) mg/dL AST (14-36) U/L ALT (4-34) U/L Alkaline Phosphatase (38-126) U/L Troponin I (0.000-0.034) ng/mL Total Protein (6.3-8.2) g/dL Albumin (3.5-5.0) g/dL TSH 2.150 (0.465-4.680) mIU/L Urine Color Urine Appearance (Clear) Urine pH (5.0-8.0) Ur Specific Adger (1.001-1.035) Urine Protein (Negative) Urine Glucose (UA) (Negative) Urine Ketones (Negative) Urine Blood (Negative) Urine Nitrite (Negative) Urine Bilirubin (Negative) Urine Urobilinogen (<2.0) mg/dL Ur Leukocyte Esterase (Negative) Urine RBC (0-5) /hpf Urine WBC (0-5) /hpf Urine WBC Clumps (None) /hpf Ur Squamous Epith Cells (0-4) /hpf Urine Bacteria (None) /hpf Urine Mucus (None) /hpf Salicylates <1.0 mg/dL Acetaminophen <10.0 ug/mL - EKG Data EKG Comments: Sinus rhythm. Ventricular rate 72 bpm, KS interval 150 ms, QRS duration 105 ms, QTC 406 ms. EKG interpreted by myself and ED attending. - Radiology Data Radiology results: report reviewed, image reviewed Disposition Clinical Impression: Altered mental status, Visual hallucinations, UTI (urinary tract infection) Disposition: ADMITTED IP TO THIS HOSP
--- NOTE | 2022-05-06 00:01 | CT ---
EXAMINATION TYPE: CT brain wo con DATE OF EXAM: 05/05/2022 COMPARISON: None HISTORY: AMS CT DLP: 1125.7 mGycm Automated exposure control for dose reduction was used. Images of the brain obtained with no contrast. There is hypodensity in the periventricular white tylor er. There is no mass effect or midline shift. No sign of intracranial hemorrhage. The calvarium is in tact. There is mild cerebral atrophy. IMPRESSION: Cerebral atrophy and chronic small vessel ischemia. No acute intracranial abnormality. Bilateral mild maxillary sinusitis.
[2022-05-06] MEDS ORDERED: ONDANSETRON 4 MG/2 ML VIAL IVP PRN (00:52)
[2022-05-06] MEDS ORDERED: NALOXONE 0.4 MG/ML 1 ML VIAL IV PRN (00:52)
[2022-05-06 00:55] LABS: Acetaminophen <10.0 ug/mL; Salicylate <1.0 mg/dL
[2022-05-06 02:46] LABS: Glucose,Whole Blood 168 mg/dL (70-110)
[2022-05-06] MEDS: ACETAMINOPHEN TAB 325 MG TAB PO PRN (06:26)
[2022-05-06] MEDS ORDERED: PANTOPRAZOLE 40 MG/10 ML VIAL IV SCH (09:00)
--- NOTE | 2022-05-06 11:50 | P.CNNES ---
History of Present Illness Consult date: 05/06/22 Requesting physician: Autumn Grande Reason for Consult: new onset hallucination History of Present Illness: This is 82-year-old woman presented emergency department because of altered status. The history is obtained from medical record as well as the patient nurse. Per the ED team the family notified ED team that for the last 2 weeks she is having visual hallucination she seeing animal and children in her house and been feeling fatigued last several days. Also she's been having excessive sleep. Family is concerned that she had urinary tract infection which she had several times and the recently and her sugars has been erratic. It seems that the day before presented to the hospital her sugars was in the 400s. Some of the workup during his hospital visit consisted of: CBC with differential is unremarkable Initial serum glucose is 195, calcium is 9.5, AST and ALT it does not seem remarkable, sodium BUN and creatinine is within normal limits. TSH is 2.150 Urinalysis seems positive for urinary tract infection Acetaminophen and salicylates are normal. CT of the head is reported as cerebral atrophy and chronic small vessel ischemia. No acute intracranial abnormality. Bilateral mild maxillary sinusit is. I personally attempted to review the CT but unable because of issues with the system. Review of Systems Review of system: The 12 point system was reviewed and apparent positive and negative per HPI. Past Medical History Past Medical History: Cancer, Diabetes Mellitus, Eye Disorder, GERD/Reflux, Hyperlipidemia, Hypertension, Neurologic Disorder, Osteoarthritis (OA), Rheumatoid Arthritis (RA), Thyroid Disorder Additional Past Medical History / Comment(s): HX BLADDER CANCER (2008?), BREAST CANCER (2017- LAST CHEMO 03/2017, LAST RADIATION [place] 08/2017), MIGRAINES, DIVERTICULITIS, ANEMIA, NODULE LEFT CHEST, SINUS PROBLEMS, USES WALKER PRN . History of Any Multi-Drug Resistant Organisms: None Reported Past Surgical History: Appendectomy, Breast Surgery, Cholecystectomy, Heart Catheterization, Hysterectomy, Orthopedic Surgery Additional Past Surgical History / Comment(s): LEFT BREAST BX, RONAL KNEE SURGERI ES, LEFT MASTECTOMY (04/2017)., PORT-A-CATH INSERTED & REMOVED. Past Anesthesia/Blood Transfusion Reactions: No Reported Reaction Additional Past Anesthesia/Blood Transfusion Reaction / Comment(s): STATES RECEIVED 2 BLOOD TRANSFUSIONS AFTER RECEIVING CHEMO- NO REACTION Past Psychological History: No Psychological Hx Reported Smoking Status: Never smoker Past Alcohol Use History: None Reported Past Drug Use History: None Reported - Past Family History Mother Family Medical History: Cancer Father Family Medical History: Myocardial Infarction ([place]) Sister(s) Family Medical History: Cancer Additional Family Medical History / Comment(s): ovarian/cervical, colon Medications and Allergies Home Medications Medication Instructions Recorded Confirmed Type Simvastatin [Zocor] 20 mg PO HS 11/08/16 05/06/22 History glipiZIDE [Glucotrol] 15 mg PO BID 05/17/17 05/06/22 History Meloxicam [Mobic] 15 mg PO DIRECTED 01/02/18 05/06/22 History atenoloL [Tenormin] 50 mg PO BID 08/18/21 05/06/22 History Levothyroxine Sodium [Synthroid] 150 mcg PO DAILY 03/04/22 05/06/22 History Omeprazole 40 mg PO DAILY 05/06/22 05/06/22 History Pioglitazone [Actos] 15 mg PO DIRECTED 05/06/22 05/06/22 History Sulfamethoxazole/Trimethoprim 1 tab PO DIRECTED 05/06/22 05/06/22 History [Sulfamethoxazole-Tmp Ds Tablet] Allergies Allergy/AdvReac Type Severity Reaction Status Date / Time codeine Allergy Unknown Couldn't Verified 05/06/22 10:59 Swallow glyburide Allergy Unknown Itching Verified 05/06/22 10:59 metformin Allergy Unknown Itching Verified 05/06/22 10:59 aspirin AdvReac Bruising Verified 05/06/22 10:59 Physical Examination - Vital Signs Vital Signs: Vital Signs Temp Pulse Resp BP Pulse Ox 05/06/22 06:27 89 18 155/101 97 05/06/22 02:10 77 18 141/91 94 L 05/05/22 17:30 97.7 F 81 20 187/96 96 Intake and Output 05/05/22 05/06/22 05/06/22 22:59 06:59 14:59 Other: Weight 77.111 kg GENERAL: The patient is lying in bed and is not in acute distress. CHEST: The heart rate is regular rate rhythm. No murmurs to auscultation. LUNG: Clear to auscultation bilaterally no wheezing noted throughout. Not labored breathing. ABDOMEN/GI: Bowel sounds present in all 4 quadrants. No tenderness to palpation throughout. NEUROLOGICAL: Higher mental function: The patient is awake, alert, oriented to self, stated she was in the hospital and oriented to current month but stated the year is 2019. Patient is following simple commands. She correctly name pen and paper. No aphasia from limited language and no neglect. Cranial nerves: The pupils are round, equal and reactive to light and accommodation. Visual triplett are full to confrontation throughout. Extraocular movement is intact no nystagmus is noted. Facial sensation is normal to touch throughout. The facial strength is normal throughout. Hearing is severely decreased bilaterally to hand rub. Tongue is midline and moved [id number] without any difficulty. No dysarthria is noted. Shoulder shrug is normal bilaterally. Motor: The strength is 5 over 5 throughout. Normal tone and bulk. Cerebellum: Normal finger to nose bilaterally. Sensation: Sensation is normal to touch throughout. Reflexes (right/left): 1+ throughout. Plantars are mute bilaterally. Results - Laboratory Findings CBC and BMP: 05/05/22 19:38 05/05/22 19:38 Abnormal Lab Findings: Abnormal Labs 05/05/22 05/05/22 05/05/22 17:37 19:38 19:38 Glucose 195 H POC Glucose (mg/dL) 178 H Hemoglobin A1c AST 13 L Urine Appearance Cloudy H Urine Protein 2+ H Ur Leukocyte Esterase Large H Urine WBC 30 H Urine WBC Clumps Rare H Ur Squamous Epith Cells 8 H Urine Bacteria Rare H Urine Mucus Rare H 05/06/22 05/06/22 02:15 02:20 Glucose POC Glucose (mg/dL) 168 H Hemoglobin A1c 9.5 H AST Urine Appearance Urine Protein Ur Leukocyte Esterase Urine WBC Urine WBC Clumps Ur Squamous Epith Cells Urine Bacteria Urine Mucus Assessment and Plan Assessment: Altered mental status with reported visual hallucination seems due to underlying acute urinary tract infection and likely some underlying dementia/cognitive impairment Delerium due to above underlying UTI Likely acute urinary tract infection Diabetes mellitus Hypertension Hyperlipidemia History of breast cancer with radiation last in 2018 Plan: I ordered a routine EEG to rule out any seizure. For her confusion I also ordered ammonia level, vitamin B12, folate. Recommend MRI of the brain as an outpatient Q4 hour neuro checks. Consider seroquel 25mg 1-2 tab qhs if needed for agitation. Please avoid benzo. Will defer the rest of medical management to the primary team. The plan is discussed with the nurse. Thank you for the consultation. Dr. Bourgeois will start neurology service tomorrow A.M. then Dr. Grossman will resume service Monday A.M. Time with Patient: Greater than 30
[2022-05-06] MEDS ORDERED: DEXTROSE 50% SYRINGE 50 ML IVP PRN ×2 (13:07)
[2022-05-06] MEDS ORDERED: NON FORMULARY DRUG (Omeprazole [Omeprazole] 40 MG Capsule.Dr) PO SCH (13:15)
[2022-05-06 14:01] LABS: Glucose,Whole Blood 173 mg/dL (70-110)
[2022-05-06] MEDS: LEVOTHYROXINE 75 MCG TAB PO SCH (14:07)
[2022-05-06] MEDS: INSULIN ASPART (NovoLOG) 100 UNIT/ML VIAL SQ SCH ×2 (14:07→18:52)
[2022-05-06] MEDS: atenoloL 50 MG TAB PO SCH ×2 (14:07→20:30)
[2022-05-06] MEDS ORDERED: CALCIUM CARBONATE 500 MG CHEWABLE PO PRN (15:48)
[2022-05-06] MEDS ORDERED: LACTULOSE 20 GM/30 ML CUP PO PRN (15:48)
[2022-05-06] MEDS ORDERED: LORazepam 0.5 MG TAB PO PRN (15:48)
[2022-05-06] MEDS ORDERED: TEMAZEPAM 15 MG CAP PO PRN (15:48)
--- NOTE | 2022-05-06 16:36 | P.HPIM ---
History of Present Illness H&P Date: 05/06/22 Chief Complaint: Altered mental status This is a 81-year-old patient who follows with Dr. Matheus Mccain. Chronic stable medical conditions include diabetes, GERD, hypertension, hyperlipidemia, osteoarthritis, rheumatoid arthritis, history of bladder cancer in 2008 breast cancer 2017 with chemotherapy and radiation, migraines. At the baseline uses a cane sometimes. Patient was sent to the ER for altered mental status. As per the ER notes family said that for the last 2 weeks patient denies having visual hallucinations family states that she been seeing animals and chills in the house. She is also feeling excessively tired and rundown. Disorders to stay. No fever or chills reported. No pain reported. Has several UTIs in the past. Also Accu-Chek was up to 400 is unusual for her. Neck year-old ER patient awake but really doesn't want to talk. She does speak only to the nurse. Somewhat irritated. Cannot really get much of a history from her. Review of systems: Difficult to obtain as patient is not really talking Past medical history to include: Diabetes, GERD, hyperlipidemia, hypertension, osteoarthritis, rheumatoid arthritis, bladder cancer 2008, breast cancer 2017 with chemoradiation, migraines, diverticulitis, anemia Social history: Lives alone. No smoking or alcohol. Family history: Ovarian;, colon cancer Physical examination: VITAL SIGNS: 97.7, 89, 18, 155/101, 97% room air GENERAL: BMI 33.2, laying in bed, awake, tired EYES: Pupils equal. Conjunctiva normal. HEENT: External appearance of nose and ears normal, oral cavity grossly normal. NECK: JVD not raised; masses not palpable. HEART: First and second heart sounds are normal; no edema. LUNGS: Respiratory rate normal; clear to auscultation. ABDOMEN: Soft, renal ankle tenderness, liver spleen not palpable, no masses palpable. PSYCH: Unable to assess as patient reluctant to answer any questions currently.. MUSCULOSKELETAL:No Clubbing/cyanosis;muscles-grossly intact. Evidence of OA/RA NEUROLOGICAL: Cranial nerves grossly intact; no facial asymmetry, power and sensation grossly intact. LYMPHATICS: No lymph nodes palpable in the axilla and neck INVESTIGATIONS, reviewed in the clinical context: White count 9.4 hemoglobin 14.1 platelets 233 potassium 4.1 creatinine 0.83 UA positive for leukoesterase, WBC, WBC clumps, Assessment and plan: -Acute delirium/metabolic encephalopathy likely from UTI -Possible underlying psychosis, could be age-related Start Seroquel 25 mg daily at bedtime -Acute UTI with cystitis IV ceftriaxone -Clinically suspected left pyelonephritis with urinary symptoms and left flank tenderness. Elevated white count. Nausea vomiting. -Left-sided colonic diverticulosis -Diabetes mellitus type 2 on oral hypoglycemic. Uncontrolled with hyperglycemia glipizide. Follow Accu-Cheks with sliding scale. Levemir 12 units. -Hyperlipidemia Zocor 20 mg daily at bedtime -Essential hypertension Tenormin 50 mg twice a day Cozaar 100 mg a day -GERD Omeprazole 40 mg a day -Chronic rheumatoid arthritis/rheumatoid arthritis, Mobic 15 mg day -Hypothyroid 175 g Synthroid per day Resume medications. Follow Accu-Cheks. IV ceftriaxone. Subcu Lovenox. Seroquel 25 mg at night.. Past Medical History Past Medical History: Cancer, Diabetes Mellitus, Eye Disorder, GERD/Reflux, Hyperlipidemia, Hypertension, Neurologic Disorder, Osteoarthritis (OA), Rheumatoid Arthritis (RA), Thyroid Disorder Additional Past Medical History / Comment(s): HX BLADDER CANCER (2008?), BREAST CANCER (2016- LAST CHEMO 03/2017, LAST RADIATION [place] 08/2017), MIGRAINES, DIVERTICULITIS, ANEMIA, NODULE LEFT CHEST, SINUS PROBLEMS, USES WALKER PRN . History of Any Multi-Drug Resistant Organisms: None Reported Past Surgical History: Appendectomy, Breast Surgery, Cholecystectomy, Heart Catheterization, Hysterectomy, Orthopedic Surgery Additional Past Surgical History / Comment(s): LEFT BREAST BX, RONAL KNEE EL RGERIES, LEFT MASTECTOMY (04/2017)., PORT-A-CATH INSERTED & REMOVED. Past Anesthesia/Blood Transfusion Reactions: No Reported Reaction Additional Past Anesthesia/Blood Transfusion Reaction / Comment(s): STATES RECEIVED 2 BLOOD TRANSFUSIONS AFTER RECEIVING CHEMO- NO REACTION Past Psychological History: No Psychological Hx Reported Smoking Status: Never smoker Past Alcohol Use History: None Reported Past Drug Use History: None Reported - Past Family History Mother Family Medical History: Cancer Father Family Medical History: Myocardial Infarction (SD) Sister(s) Family Medical History: Cancer Additional Family Medical History / Comment(s): ovarian/cervical, colon Medications and Allergies Home Medications Medication Instructions Recorded Confirmed Type Simvastatin [Zocor] 20 mg PO HS 11/08/16 05/06/22 History glipiZIDE [Glucotrol] 15 mg PO BID 05/17/17 05/06/22 History Meloxicam [Mobic] 15 mg PO DIRECTED 01/02/18 05/06/22 History atenoloL [Tenormin] 50 mg PO BID 08/18/21 05/06/22 History Levothyroxine Sodium [Synthroid] 150 mcg PO DAILY 03/04/22 05/06/22 History Omeprazole 40 mg PO DAILY 05/06/22 05/06/22 History Pioglitazone [Actos] 15 mg PO DIRECTED 05/06/22 05/06/22 History Sulfamethoxazole/Trimethoprim 1 tab PO DIRECTED 05/06/22 05/06/22 History [Sulfamethoxazole-Tmp Ds Tablet] Allergies Allergy/AdvReac Type Severity Reaction Status Date / Time codeine Allergy Unknown Couldn't Verified 05/06/22 10:59 Swallow glyburide Allergy Unknown Itching Verified 05/06/22 10:59 metformin Allergy Unknown Itching Verified 05/06/22 10:59 aspirin AdvReac Bruising Verified 05/06/22 10:59 Physical Exam Vitals: Vital Signs Temp Pulse Resp BP Pulse Ox 05/06/22 11:21 85 16 154/95 97 05/06/22 06:27 89 18 155/101 97 05/06/22 02:10 77 18 141/91 94 L 05/05/22 17:30 97.7 F 81 20 187/96 96 Intake and Output 05/05/22 05/06/22 05/06/22 22:59 06:59 14:59 Other: Weight 77.111 kg Results CBC & Chem 7: 05/05/22 19:38 05/05/22 19:38 Labs: Abnormal Lab Results - Last 24 Hours (Table) 05/05/22 05/05/22 05/05/22 Range/Units 17:37 19:38 19:38 Glucose 195 H (74-99) mg/dL POC Glucose (mg/dL) 178 H (70-110) mg/dL Hemoglobin A1c (0.0-6.0) % AST 13 L (14-36) U/L Urine Appearance Cloudy H (Clear) Urine Protein 2+ H (Negative) Ur Leukocyte Esterase Large H (Negative) Urine WBC 30 H (0-5) /hpf Urine WBC Clumps Rare H (None) /hpf Ur Squamous Epith Cells 8 H (0-4) /hpf Urine Bacteria Rare H (None) /hpf Urine Mucus Rare H (None) /hpf 05/06/22 05/06/22 Range/Units 02:15 02:20 Glucose (74-99) mg/dL POC Glucose (mg/dL) 168 H (70-110) mg/dL Hemoglobin A1c 9.5 H (0.0-6.0) % AST (14-36) U/L Urine Appearance (Clear) Urine Protein (Negative) Ur Leukocyte Esterase (Negative) Urine WBC (0-5) /hpf Urine WBC Clumps (None) /hpf Ur Squamous Epith Cells (0-4) /hpf Urine Bacteria (None) /hpf Urine Mucus (None) /hpf Microbiology - Last 24 Hours (Table) 05/05/22 19:38 Urine Culture - Preliminary Urine,Voided
[2022-05-06] MEDS: SODIUM CHLORIDE 0.9% 1,000 ML IV SCH (17:09)
[2022-05-06 20:09] LABS: Glucose,Whole Blood 254 mg/dL (70-110)
[2022-05-06] MEDS: ATORVASTATIN 10 MG TAB PO SCH (20:30)
[2022-05-06] MEDS: glipiZIDE 10 MG TAB PO SCH (20:30)
[2022-05-06] MEDS ORDERED: QUEtiapine 25 MG TAB PO SCH (21:00)
--- NOTE | 2022-05-06 21:56 | EEG ---
ELECTROENCEPHALOGRAM REPORT CLINICAL HISTORY: This is an 82-year-old woman with altered mental status and visual hallucinations. The video EEG is obtained to evaluate for seizure epileptiform activity. RELEVANT MEDICATION: The patient is not on any antiepileptic drugs. EEG TYPE: A routine 21-channel EEG was performed with video using the 10/20 electrode placement system. DESCRIPTION: Wakefulness is only obtained. During awake state, the background consists of low-to- moderate voltage of 5 to 6 hertz activity. At times, the background consists of non- rhythmic delta activity. There is no physiological stage 2 sleep architecture. There is no focal slowing. Interictal and ictal is none. ACTIVATION PROCEDURE: Photic stimulation and hyperventilation are not performed. CLINICAL INTERPRETATION: This is an abnormal EEG. The background slowing is suggestive of [id number] encephalopathy. There is no focal slowing, epileptiform discharge or seizure on the EEG. Clinical correlation is recommended. MMLAURO / IJN: [id number] /
[2022-05-07 06:18] LABS: Glucose,Whole Blood 181 mg/dL (70-110)
[2022-05-07] MEDS: INSULIN ASPART (NovoLOG) 100 UNIT/ML VIAL SQ SCH ×3 (06:33→16:42)
[2022-05-07] MEDS: LEVOTHYROXINE 75 MCG TAB PO SCH (06:35)
[2022-05-07] MEDS: glipiZIDE 10 MG TAB PO SCH ×4 (08:36→20:59)
[2022-05-07] MEDS: atenoloL 50 MG TAB PO SCH ×4 (08:36→20:59)
[2022-05-07 11:25] LABS: Glucose,Whole Blood 231 mg/dL (70-110)
[2022-05-07 14:37] VITALS: BMI 33.2
--- NOTE | 2022-05-07 16:09 | P.PN ---
Progress Note - Text Progress Note Date: 05/07/22 Chief Complaint: Altered mental status This is a 81-year-old patient who follows with Dr. Matheus Mccain. Chronic stable medical conditions include diabetes, GERD, hypertension, hyperlipidemia, osteoarthritis, rheumatoid arthritis, history of bladder cancer in 2008 breast cancer 2017 with chemotherapy and radiation, migraines. At the baseline uses a cane sometimes. Patient was sent to the ER for altered mental status. As per the ER notes family said that for the last 2 weeks patient denies having visual hallucinations family states that she been seeing animals and chills in the house. She is also feeling excessively tired and rundown. Disorders to stay. No fever or chills reported. No pain reported. Has several UTIs in the past. Also Accu-Chek was up to 400 is unusual for her. Neck year-old ER patient awake but really doesn't want to talk. She does speak only to the nurse. Somewhat irritated. Cannot really get much of a history from her. 05/07/2022: Family at the bedside. Did sleep better. Talking more appropriately today. Receive Seroquel last night. Active Medications Acetaminophen (Acetaminophen Tab 325 Mg Tab) 650 mg PO Q6HR PRN PRN Reason: Mild Pain or Fever > 100.5 Last Admin: 05/06/22 06:26 Dose: 650 mg Atenolol (Atenolol 50 Mg Tab) 50 mg PO BID [facility] Last Admin: 05/07/22 11:41 Dose: 50 mg Atorvastatin Calcium (Atorvastatin 10 Mg Tab) 10 mg PO HS [facility] Last Admin: 05/06/22 20:30 Dose: 10 mg Calcium Carbonate/Glycine (Calcium Carbonate 500 Mg Chewable) 1,000 mg PO Q4HR PRN PRN Reason: Dyspepsia Dextrose/Water (Dextrose 50% Syringe 50 Ml) 25 ml IVP PER PROTOCOL PRN; Protocol PRN Reason: Hypoglycemia Dextrose/Water (Dextrose 50% Syringe 50 Ml) 50 ml IVP PER PROTOCOL PRN; Protocol PRN Reason: Hypoglycemia Glipizide (Glipizide 10 Mg Tab) 10 mg PO BID [facility] Last Admin: 05/07/22 11:41 Dose: 10 mg Sodium Chloride (Saline 0.9%) 1,000 mls @ 75 mls/hr IV .[id number] [facility] Last Admin: 05/06/22 17:09 Dose: 75 mls/hr Ceftriaxone Sodium 1 gm/ (Sodium Chloride) 50 mls @ 100 mls/hr IVPB Q24H [facility]; Protocol Last Admin: 05/06/22 20:30 Dose: 100 mls/hr Insulin Aspart (Insulin Aspart (Novolog) 100 Unit/Ml Vial) 0 unit SQ AC-TID [facility]; Protocol Last Admin: 05/07/22 11:40 Dose: 4 unit Lactulose (Lactulose 20 Gm/30 Ml Cup) 20 gm PO DAILY PRN PRN Reason: Constipation Levothyroxine Sodium (Levothyroxine 75 Mcg Tab) 150 mcg PO DAILY@0630 [facility] Last Admin: 05/07/22 06:35 Dose: Not Given Lorazepam (Lorazepam 0.5 Mg Tab) 0.5 mg PO Q6HR PRN PRN Reason: Anxiety Naloxone HCl (Naloxone 0.4 Mg/Ml 1 Ml Vial) 0.2 mg IV Q2M PRN PRN Reason: Opioid Reversal Ondansetron HCl (Ondansetron 4 Mg/2 Ml Vial) 4 mg IVP Q8HR PRN PRN Reason: Nausea And Vomiting Quetiapine Fumarate (Quetiapine 25 Mg Tab) 25 mg PO HS [facility] Last Admin: 05/06/22 20:30 Dose: 25 mg Temazepam (Temazepam 15 Mg Cap) 15 mg PO HS PRN PRN Reason: Insomnia Past medical history to include: Diabetes, GERD, hyperlipidemia, hypertension, osteoarthritis, rheumatoid arthritis, bladder cancer 2008, breast cancer 2017 with chemoradiation, migraines, diverticulitis, anemia Social history: Lives alone. No smoking or alcohol. Family history: Ovarian;, colon cancer Physical examination: VITAL SIGNS: 97.6, 77, 17, 123/76, 96% room air GENERAL: Comfortable EYES: Pupils equal. Conjunctiva normal. HEENT: External appearance of nose and ears normal, oral cavity grossly normal. NECK: JVD not raised; masses not palpable. HEART: First and second heart sounds are normal; no edema. LUNGS: Respiratory rate normal; clear to auscultation. ABDOMEN: Soft, renal ankle tenderness, liver spleen not palpable, no masses palpable. PSYCH: Answering questions appropriately MUSCULOSKELETAL:No Clubbing/cyanosis;muscles-grossly intact. Evidence of OA/RA INVESTIGATIONS, reviewed in the clinical context: White count 9.4 hemoglobin 14.1 platelets 233 potassium 4.1 creatinine 0.83 UA positive for leukoesterase, WBC, WBC clumps, Assessment and plan: -Acute delirium/metabolic encephalopathy likely from UTI: Better -Possible underlying psychosis, could be age-related Decreased Seroquel 12.5 mg daily at bedtime -Acute UTI with cystitis Ceftin -Clinically suspected left pyelonephritis with urinary symptoms and left flank tenderness. Elevated white count. Nausea vomiting. -Left-sided colonic diverticulosis -Diabetes mellitus type 2 on oral hypoglycemic. Uncontrolled with hyperglycemia glipizide. Follow Accu-Cheks with sliding scale. Levemir 12 units. -Hyperlipidemia Zocor 20 mg daily at bedtime -Essential hypertension Tenormin 50 mg twice a day Cozaar 100 mg a day -GERD Omeprazole 40 mg a day -Chronic rheumatoid arthritis/rheumatoid arthritis, Mobic 15 mg day -Hypothyroid 175 g Synthroid per day Spoke to the daughter. Decrease Seroquel to 12.5 daily at bedtime. Change to by mouth Ceftin.
[2022-05-07 16:33] LABS: Glucose,Whole Blood 175 mg/dL (70-110)
[2022-05-07] MEDS: ACETAMINOPHEN TAB 325 MG TAB PO PRN (17:46)
[2022-05-07] MEDS: SODIUM CHLORIDE 0.9% 1,000 ML IV SCH ×2 (20:58→23:18)
[2022-05-07] MEDS: ATORVASTATIN 10 MG TAB PO SCH (20:59)
[2022-05-07] MEDS ORDERED: QUEtiapine 25 MG TAB PO SCH (21:00)
[2022-05-07 21:03] LABS: Glucose,Whole Blood 195 mg/dL (70-110)
[2022-05-08] MEDS: ACETAMINOPHEN TAB 325 MG TAB PO PRN (00:08)
[2022-05-08 06:25] LABS: Glucose,Whole Blood 167 mg/dL (70-110)
[2022-05-08] MEDS: INSULIN ASPART (NovoLOG) 100 UNIT/ML VIAL SQ SCH ×2 (06:39→12:35)
[2022-05-08] MEDS: LEVOTHYROXINE 75 MCG TAB PO SCH (06:40)
[2022-05-08] MEDS ORDERED: CEFDINIR 300 MG CAP PO SCH (09:00)
[2022-05-08] MEDS: atenoloL 50 MG TAB PO SCH (10:27)
[2022-05-08] MEDS: glipiZIDE 10 MG TAB PO SCH (10:27)
[2022-05-08] MEDS: SODIUM CHLORIDE 0.9% 1,000 ML IV SCH (10:27)
[2022-05-08 14:22] VITALS: BP 159/88; PULSE 75; RESP 18; TEMP 98.6
--- NOTE | 2022-05-08 17:13 | P.PN ---
Subjective Progress Note Date: 05/08/22 The patient is an 82-year-old female who is seen in neurologic follow- up on May 08, 2022, via teleneurology. The patient reports that she came into the hospital because she is "confused and seeing people". She reports that her confusion has significantly improved however, remains somewhat. She also reports that she still is occasionally seeing people who are not there. The chart has been reviewed. The initial neurology consultation has also been reviewed. Objective - Vital Signs Vital signs: Vital Signs Temp 98.6 F 05/08/22 14:22 Pulse 75 05/08/22 14:22 Resp 18 05/08/22 14:22 BP 159/88 05/08/22 14: Pulse Ox 97 05/08/22 14: FiO2 Intake & Output 05/07/22 05/08/22 05/08/22 18:59 06:59 18:59 Intake Total 900 Balance 900 Weight 77.111 kg Intake: Intake, IV Titration 900 Amount Sodium Chloride 0.9% 1, 900 000 ml @ 75 mls/hr IV . [id number] [facility] Rx#:[id number] Other: Voiding Method Toilet Toilet Toilet # Voids 1 4 1 # Bowel Movements 1 - Exam Gen.: The patient is reclining in the bed. She is well-nourished. She is in no acute distress. HEENT: Head is atraumatic, normocephalic. Fundus not visualized. There is no scleral icterus. Mucous membranes are moist. Neurological examination Mental status: The patient is awake. She is oriented to her name, date of [facility], age, month and current year. She states the president is "president Jorgito". She does however realizes this is not the correct answer, but cannot remember the name of the real estate developer. Cranial nerves: 2-12 grossly intact - Labs CBC & Chem 7: 05/05/22 19:38 05/05/22 19:38 Labs: Abnormal Lab Results - Last 24 Hours (Table) 05/07/22 05/08/22 Range/Units 21:01 06:24 POC Glucose (mg/dL) 195 H 167 H (70-110) mg/dL Microbiology - Last 24 Hours (Table) 05/06/22 02:30 Blood Culture Gram Stain - Preliminary Blood Blood Culture - Preliminary Coagulase Negative Staph 05/05/22 19:38 Urine Culture - Final Urine,Voided Klebsiella pneumoniae 05/06/22 02:15 Blood Culture - Preliminary Blood No Growth after 48 hours 05/06/22 02:30 Blood Culture - Final Blood Assessment and Plan Assessment: Altered mental status with reported visual hallucination seems due to acute urinary tract infection and likely some underlying dementia/cognitive impairment-improvement Delerium due to above underlying UTI Likely acute urinary tract infection Diabetes mellitus Hypertension Hyperlipidemia History of breast cancer with radiation last in 2018 Plan: 1. No further neurologic intervention is needed at this time 2. Your continuing treatment of patients UTI Time with Patient: Less than 30 (Spent 15 minutes examining patient. An additional 15 minutes was spent reviewing lab reports, documentation and preparing this note)
--- NOTE | 2022-05-09 16:24 | P.DS ---
Providers Date of admission: 05/06/22 00:52 Expected date of discharge: 05/08/22 Attending physician: Darian Douglas Consults: 05/06/22 00:52 Consult Physician Urgent Consulting Provider: Abraham Shaw Consult Reason/Comments: New onset hallucinations Do you want consulting provider notified?: Yes, Notify in am Primary care physician: Matheus Mccain [facility] Course: Chief Complaint: Altered mental status This is a 81-year-old patient who follows with Dr. Matheus Mccain. Chronic stable medical conditions include diabetes, GERD, hypertension, hyperlipidemia, osteoarthritis, rheumatoid arthritis, history of bladder cancer in 2008 breast cancer 2017 with chemotherapy and radiation, migraines. At the baseline uses a cane sometimes. Patient was sent to the ER for altered mental status. As per the ER notes family said that for the last 2 weeks patient denies having visual hallucinations family states that she been seeing animals and chills in the house. She is also feeling excessively tired and rundown. Disorders to stay. No fever or chills reported. No pain reported. Has several UTIs in the past. Also Accu-Chek was up to 400 is unusual for her. Neck year-old ER patient awake but really doesn't want to talk. She does speak only to the nurse. Somewhat irritated. Cannot really get much of a history from her. 05/07/2022: Family at the bedside. Did sleep better. Talking more appropriately today. Receive Seroquel last night. 05/08/2022: Doing well. We'll discharge on current dose of Seroquel. Patient communicating well. Eating well. Complete 2 days of Ceftin for UTI. Answering questions Past medical history to include: Diabetes, GERD, hyperlipidemia, hypertension, osteoarthritis, rheumatoid arthritis, bladder cancer 2008, breast cancer 2017 with chemoradiation, migraines, diverticulitis, anemia Social history: Lives alone. No smoking or alcohol. Family history: Ovarian;, colon cancer Physical examination: VITAL SIGNS: 98.6, 75, 18, 1 5988, 97% room air GENERAL: Comfortable EYES: Pupils equal. Conjunctiva normal. HEENT: External appearance of nose and ears normal, oral cavity grossly normal. NECK: JVD not raised; masses not palpable. HEART: First and second heart sounds are normal; no edema. LUNGS: Respiratory rate normal; clear to auscultation. ABDOMEN: Soft, renal ankle tenderness, liver spleen not palpable, no masses palpable. PSYCH: Answering questions appropriately MUSCULOSKELETAL:No Clubbing/cyanosis;muscles-grossly intact. Evidence of OA/RA INVESTIGATIONS, reviewed in the clinical context: EEG suggestive for encephalopathy. No seizure activity. White count 9.4 hemoglobin 14.1 platelets 233 potassium 4.1 creatinine 0.83 UA positive for leukoesterase, WBC, WBC clumps, CT brain: Cerebral atrophy and chronic small with ischemia. No acute. Assessment and plan: -Acute delirium/metabolic encephalopathy likely from UTI: Improved -Acute UTI with cystitis from Klebsiella pneumoniae Ceftin for 2 more days -Left-sided colonic diverticulosis -Diabetes mellitus type 2 on oral hypoglycemic. Uncontrolled with hyperglycemia Actos, glipizide, Glucotrol -Hyperlipidemia Zocor 20 mg daily at bedtime -Essential hypertension Tenormin 50 mg twice a day Cozaar 100 mg a day -GERD Omeprazole 40 mg a day -Chronic rheumatoid arthritis/rheumatoid arthritis, Mobic 15 mg day -Hypothyroid 150 g Synthroid per day Disposition: Discharge Plan - Discharge Summary Discharge Rx Participant: Yes New Discharge Prescriptions: New Cefdinir [Omnicef] 300 mg PO BID #4 cap QUEtiapine [SEROquel] 12.5 mg PO HS #30 tab Continue Simvastatin [Zocor] 20 mg PO HS Meloxicam [Mobic] 15 mg PO DIRECTED atenoloL [Tenormin] 50 mg PO BID Levothyroxine Sodium [Synthroid] 150 mcg PO DAILY Pioglitazone [Actos] 15 mg PO DIRECTED Omeprazole 40 mg PO DAILY Changed glipiZIDE [Glucotrol] 10 mg PO BID #0 Discontinued Sulfamethoxazole/Trimethoprim [Sulfamethoxazole-Tmp Ds Tablet] 1 tab PO DIRECTED Discharge Medication List Simvastatin [Zocor] 20 mg PO HS 11/08/16 [History] Meloxicam [Mobic] 15 mg PO DIRECTED 01/02/18 [History] atenoloL [Tenormin] 50 mg PO BID 08/18/21 [History] Levothyroxine Sodium [Synthroid] 150 mcg PO DAILY 03/04/22 [History] Omeprazole 40 mg PO DAILY 05/06/22 [History] Pioglitazone [Actos] 15 mg PO DIRECTED 05/06/22 [History] Cefdinir [Omnicef] 300 mg PO BID #4 cap 12/11/22 [Rx] QUEtiapine [SEROquel] 12.5 mg PO HS #30 tab 05/08/22 [Rx] glipiZIDE [Glucotrol] 10 mg PO BID #0 05/08/22 [Rx] Follow up Appointment(s)/Referral(s): Matheus Mccain MD [Primary Care Provider] - 1-2 days Patient Instructions/Handouts: Urinary Tract Infection in Women (DC) Discharge Disposition: HOME SELF-CARE
== END 2022-05-08 16:16 | disposition home or self-care (01) | DRG 689 ==
LOC: EC 17:18 → 4SSUR 05-06 00:52
PROVIDERS: ADMIT Hospitalist; ATTEND Hospitalist
PROC: 4A10X4Z Monitoring of Central Nervous Electrical Activity, External Approach (ICD-10-PCS; principal; 2022-05-06)
DX: N30.00 Acute cystitis without hematuria (principal); G93.41 Metabolic encephalopathy; F03.92 Unspecified dementia, unspecified severity, with psychotic disturbance; K57.32 Diverticulitis of large intestine without perforation or abscess without bleeding; F05 Delirium due to known physiological condition; B96.1 Klebsiella pneumoniae [K. pneumoniae] as the cause of diseases classified elsewhere; B95.7 Other staphylococcus as the cause of diseases classified elsewhere; R44.1 Visual hallucinations; E03.9 Hypothyroidism, unspecified; E11.649 Type 2 diabetes mellitus with hypoglycemia without coma; E11.65 Type 2 diabetes mellitus with hyperglycemia; G47.00 Insomnia, unspecified; K59.00 Constipation, unspecified; G31.84 Mild cognitive impairment of uncertain or unknown etiology; E11.9 Type 2 diabetes mellitus without complications; M06.9 Rheumatoid arthritis, unspecified; I10 Essential (primary) hypertension; J32.0 Chronic maxillary sinusitis; E78.5 Hyperlipidemia, unspecified; K21.9 Gastro-esophageal reflux disease without esophagitis; D64.9 Anemia, unspecified; G43.909 Migraine, unspecified, not intractable, without status migrainosus; M19.90 Unspecified osteoarthritis, unspecified site; Z90.12 Acquired absence of left breast and nipple; Z88.5 Allergy status to narcotic agent; Z88.8 Allergy status to other drugs, medicaments and biological substances; Z88.6 Allergy status to analgesic agent; Z79.84 Long term (current) use of oral hypoglycemic drugs; Z79.1 Long term (current) use of non-steroidal anti-inflammatories (NSAID); Z79.899 Other long term (current) drug therapy; Z79.890 Hormone replacement therapy; Z87.440 Personal history of urinary (tract) infections; Z85.3 Personal history of malignant neoplasm of breast; Z85.51 Personal history of malignant neoplasm of bladder; Z92.21 Personal history of antineoplastic chemotherapy; Z87.19 Personal history of other diseases of the digestive system; Z92.3 Personal history of irradiation; Z82.49 Family history of ischemic heart disease and other diseases of the circulatory system; Z80.41 Family history of malignant neoplasm of ovary; Z80.0 Family history of malignant neoplasm of digestive organs; Z79.4 Long term (current) use of insulin; Z85.038 Personal history of other malignant neoplasm of large intestine; Z90.710 Acquired absence of both cervix and uterus; Z90.49 Acquired absence of other specified parts of digestive tract
CPT/HCPCS: 36415; 70450; 71046; 80053; 80143; 80179; 81001; 82140; 82607; 82746; 83036; 84443; 84484; 85025; 85610; 85730; 87040; 87077; 87086; 87186; 93005; 95816; 96361; 96374; 96375; 99285

== ENCOUNTER 2023-01-13 04:36 | Emergency (ER) | payer MEDICARE ==
[2023-01-13 04:41] VITALS: TEMP 99.3
[2023-01-13 04:53] LABS: Basophils % (A) 0 %; Eosinophils % (A) 0 %; HCT 38.2 % (34.0-46.0); HGB 12.3 gm/dL (11.4-16.0); Hypochromasia Slight; Lymphocytes # (A) 0.7 k/uL (1.0-4.8); Lymphocytes % (A) 7 %; MCH 31.4 pg (25.0-35.0); MCHC 32.1 g/dL (31.0-37.0); MCV 97.7 fL (80.0-100.0); Mean Platelet Volume 9.4; Monocytes # (A) 0.9 k/uL (0-1.0); Monocytes % (A) 8 %; Neutrophils # (A) 8.4 k/uL (1.3-7.7); Neutrophils % (A) 82 %; Platelet Count 104 k/uL (150-450); RBC 3.91 m/uL (3.80-5.40); RDW 13.7 % (11.5-15.5); WBC 10.3 k/uL (3.8-10.6)
[2023-01-13 05:03] LABS: ALT 14 U/L (4-34); AST 14 U/L (14-36); African American GFR (CKD) 65 (>60 ml/min/1.73 sqM); Albumin 3.7 g/dL (3.5-5.0); Alkaline Phosphatase 105 U/L (38-126); Anion Gap 10 mmol/L; Blood Urea Nitrogen 27 mg/dL (7-17); Calcium 9.3 mg/dL (8.4-10.2); Carbon Dioxide 24 mmol/L (22-30); Chloride 100 mmol/L (98-107); Glucose 342 mg/dL (74-99); Lipase 23 U/L (23-300); Magnesium 1.7 mg/dL (1.6-2.3); Non-African American GFR(CKD) 56 (>60 ml/min/1.73 sqM); Potassium 4.4 mmol/L (3.5-5.1); Sodium 134 mmol/L (137-145); Total Bilirubin 1.1 mg/dL (0.2-1.3); Total Protein 6.3 g/dL (6.3-8.2)
--- NOTE | 2023-01-13 05:07 | ED ---
General Adult HPI - General Source: patient, EMS Mode of arrival: EMS <Cl Bazzi - Last Filed: 01/13/23 06:19> <Estevan Mesa - Last Filed: 01/13/23 10:23> - General Stated complaint: Abd pain Time Seen by Provider: 01/13/23 04:39 - History of Present Illness Initial comments: This is a 82-year-old female with a past medical history including hyperli pidemia, hypertension and dementia presents emergency department via EMS for abdominal pain. The patient reportedly has had abdominal pain over the last week that was worsening today. The patient reported associated fever and chills. The patient had recently had a UTI diagnosed about a month ago at an outside facility but was unable to provide many details regarding this. The patient was able to answer questions appropriately however did have baseline dementia. The patient was otherwise resting in bed comfortably without any acute pain or distress. (Cl Bazzi) - Related Data Home Medications Medication Instructions Recorded Confirmed Simvastatin [Zocor] 20 mg PO HS 11/08/16 05/06/22 Meloxicam [Mobic] 15 mg PO DIRECTED 01/02/18 05/06/22 atenoloL [Tenormin] 50 mg PO BID 08/18/21 05/06/22 Levothyroxine Sodium [Synthroid] 150 mcg PO DAILY 03/04/22 05/06/22 Omeprazole 40 mg PO DAILY 05/06/22 05/06/22 Pioglitazone [Actos] 15 mg PO DIRECTED 05/06/22 05/06/22 Previous Rx's Medication Instructions Recorded Cefdinir [Omnicef] 300 mg PO BID #4 cap 05/08/22 QUEtiapine [SEROquel] 12.5 mg PO HS #30 tab 05/08/22 glipiZIDE [Glucotrol] 10 mg PO BID #0 05/08/22 Sulfamethox-Tmp 800-160Mg [Bactrim 1 each PO Q12HR #14 tab 01/13/23 DS 800-160 mg] Allergies Allergy/AdvReac Type Severity Reaction Status Date / Time codeine Allergy Unknown Couldn't Verified 01/13/23 04:41 Swallow glyburide Allergy Unknown Itching Verified 01/13/23 04:41 metformin Allergy Unknown Itching Verified 01/13/23 04:41 aspirin AdvReac Bruising Verified 01/13/23 04:41 Review of Systems ROS Other: All systems not noted in ROS Statement are negative. <Cl Bazzi - Last Filed: 01/13/23 06:19> ROS Other: All systems not noted in ROS Statement are negative. <Estevan Mesa - Last Filed: 01/13/23 10:23> ROS Statement: Those systems with pertinent positive or pertinent negative responses have been documented in the HPI. Past Medical History Past Medical History: Cancer, Diabetes Mellitus, Eye Disorder, GERD/Reflux, Hyperlipidemia, Hypertension, Neurologic Disorder, Osteoarthritis (OA), Rheumatoid Arthritis (RA), Thyroid Disorder Additional Past Medical History / Comment(s): HX BLADDER CANCER (2008?), BREAST CANCER (2017- LAST CHEMO 03/2017, LAST RADIATION [place] 08/2017), MIGRAINES, DIVERTICULITIS, ANEMIA, NODULE LEFT CHEST, SINUS PROBLEMS, USES WALKER PRN . History of Any Multi-Drug Resistant Organisms: None Reported Past Surgical History: Appendectomy, Breast Surgery, Cholecystectomy, Heart Cath eterization, Hysterectomy, Orthopedic Surgery Additional Past Surgical History / Comment(s): LEFT BREAST BX, RONAL KNEE SURGERIES, LEFT MASTECTOMY (04/2017)., PORT-A-CATH INSERTED & REMOVED. Past Anesthesia/Blood Transfusion Reactions: No Reported Reaction Additional Past Anesthesia/Blood Transfusion Reaction / Comment(s): STATES RECEIVED 2 BLOOD TRANSFUSIONS AFTER RECEIVING CHEMO- NO REACTION Past Psychological History: No Psychological Hx Reported Smoking Status: Never smoker Past Alcohol Use History: None Reported Past Drug Use History: None Reported - Past Family History Mother Family Medical History: Cancer Father Family Medical History: Myocardial Infarction ([place]) Sister(s) Family Medical History: Cancer Additional Family Medical History / Comment(s): ovarian/cervical, colon <Cl Bazzi - Last Filed: 01/13/23 06:19> General Exam Limitations: altered mental status (At baseline) General appearance: alert, in no apparent distress Head exam: Present: atraumatic, normocephalic, normal inspection Eye exam: Present: normal appearance, PERRL Pupils: Present: normal accommodation ENT exam: Present: normal exam, normal oropharynx, mucous membranes moist Neck exam: Present: normal inspection, full ROM Respiratory exam: Present: normal lung sounds bilaterally Cardiovascular Exam: Present: regular rate, normal rhythm, normal heart sounds GI/Abdominal exam: Present: soft, tenderness (TTP in all quadrants), normal bowel sounds Extremities exam: Present: normal inspection, full ROM Back exam: Present: normal inspection, full ROM Neurological exam: Present: alert, oriented X3, CN II-XII intact Psychiatric exam: Present: normal affect, normal mood Skin exam: Present: warm, dry <Cl Bazzi - Last Filed: 01/13/23 06:19> Course Vital Signs 01/13/23 01/13/23 04:37 06:00 Temperature 99.3 F Pulse Rate 94 81 Respiratory 18 18 Rate Blood Pressure 150/81 154/86 O2 Sat by Pulse 95 96 Oximetry Medical Decision Making - Lab Data Result diagrams: 01/13/23 04:43 01/13/23 04:43 <Cl Bazzi - Last Filed: 01/13/23 06:19> - Lab Data Result diagrams: 01/13/23 04:43 01/13/23 04:43 <Estevan Mesa - Last Filed: 01/13/23 10:23> - Medical Decision Making Was pt. sent in by a medical professional or institution (, PA, FUEL PILOT ENGINEER, urgent ca re, hospital, or snf...) When possible be specific @ -No Did you speak to anyone other than the patient for history (EMS, parent, family, police, friend...)? What history was obtained from this source @ -No Did you review nursing and triage notes (agree or disagree)? Why? @ -I reviewed and agree with nursing and triage notes Were old charts reviewed (outside hosp., previous admission, EMS record, old EKG, old radiological studies, urgent care reports/EKG's, snf records)? Report findings @ -No old charts were reviewed Differential Diagnosis (chest pain, altered mental status, abdominal pain women, abdominal pain men, vaginal bleeding, weakness, fever, dyspnea, syncope, headache, dizziness, GI bleed, back pain, seizure, CVA, palpatations, mental health)? @ -Gastroenteritis, appendicitis, small bowel obstruction, UTI EKG interpreted by me (3pts min.). @ -As above X-rays interpreted by me (1pt min.). @ -None done CT interpreted by me (1pt min.). @ -CT of the abdomen and pelvis with IV contrast was ordered but was to pending at this time. U/S interpreted by me (1pt. min.). @ -None done What testing was considered but not performed or refused? (CT, X-rays, U/S, labs)? Why? @ -None What meds were considered but not given or refused? Why? @ -None Did you discuss the management of the patient with other professionals (professionals i.e. Dr., PA, FUEL PILOT ENGINEER, lab, RT, psych nurse, clinical social work aide, automated teller manager, teacher, enforcement safety officer, employment evaluator/case manager)? Give summary @ -No Was smoking cessation discussed for >3mins.? @ -No Was critical care preformed (if so, how long)? @ -No Were there social determinants of health that impacted care today? How? (H omelessness, low income, unemployed, alcoholism, drug addiction, transportation, low edu. Level, literacy, decrease access to med. care, prison, rehab)? @ -No Was there de-escalation of care discussed even if they declined (Discuss DNR or withdrawal of care, Hospice)? DNR status @ -No What co-morbidities impacted this encounter? (DM, HTN, Smoking, COPD, CAD, Cancer, CVA, ARF, Chemo, Hep., AIDS, mental health diagnosis, sleep apnea, morbid obesity)? @ -Hypertension, hyperlipidemia, dementia Was patient admitted / discharged? Hospital course, mention meds given and route, prescriptions, significant lab abnormalities, going to OR and other pertinent info. @ -The patient was seen and evaluated emergency department. Physical exam, the patient was resting in bed without any acute distress. Vital signs admission were stable. Due to the nature the patient's complaints, laboratory workup as well as a CT abdomen and pelvis with IV contrast was obtained. The initial laboratory workup was obtained and was within normal limits however CT of the abdomen and pelvis was to pending at this time as was a urinalysis. The patient will be signed out to Dr. Mesa of the workup and reevaluation. (Cl Bazzi) \ Was patient admitted / discharged? Hospital course, mention meds given and route, prescriptions, significant lab abnormalities, going to OR and other pertinent info. @ -Patient's urine came back with elevated white count and patient was given antibiotics IV in the emergency department will be sent home with antibiotics. Patient states her abdominal pain is considerably better. Patient states she gets on a regular basis. Patient states she feels comfortable going home and taking the antibiotic at home Undiagnosed new problem with uncertain prognosis? @ -No Drug Therapy requiring intensive monitoring for toxicity (Heparin, Nitro, Insulin, Cardizem)? @ -No Were any procedures done? @ -No Diagnosis/symptom? @ -Urinary tract infection Acute, or Chronic, or Acute on Chronic? @ -Acute Uncomplicated (without systemic symptoms) or Complicated (systemic symptoms)? @ -Complicated Side effects of treatment? @ -No Exacerbation, Progression, or Severe Exacerbation? @ -No Poses a threat to life or bodily function? How? (Chest pain, [place], [place], pneumonia, PE, COPD, DKA, ARF, appy, cholecystitis, CVA, Diverticulitis, Homicidal, Suicidal, threat to staff... and all critical care pts) @ -No (Estevan Mesa) - Lab Data Lab Results 01/13/23 01/13/23 01/13/23 Range/Units 04:43 04:43 09:26 WBC 10.3 (3.8-10.6) k/uL RBC 3.91 (3.80-5.40) m/uL Hgb 12.3 (11.4-16.0) gm/dL Hct 38.2 (34.0-46.0) % MCV 97.7 (80.0-100.0) fL MCH 31.4 (25.0-35.0) pg MCHC 32.1 (31.0-37.0) g/dL RDW 13.7 (11.5-15.5) % Plt Count 104 L (150-450) k/uL MPV 9.4 Neutrophils % 82 % Lymphocytes % 7 % Monocytes % 8 % Eosinophils % 0 % Basophils % 0 % Neutrophils # 8.4 H (1.3-7.7) k/uL Lymphocytes # 0.7 L (1.0-4.8) k/uL Monocytes # 0.9 (0-1.0) k/uL Eosinophils # 0.0 (0-0.7) k/uL Basophils # 0.0 (0-0.2) k/uL Hypochromasia Slight Sodium 134 L (137-145) mmol/L Potassium 4.4 (3.5-5.1) mmol/L Chloride 100 (98-107) mmol/L Carbon Dioxide 24 (22-30) mmol/L Anion Gap 10 mmol/L BUN 27 H (7-17) mg/dL Creatinine 0.95 (0.52-1.04) mg/dL Est GFR (CKD-EPI)AfAm 65 (>60 ml/min/1.73 sqM) Est GFR (CKD-EPI)NonAf 56 (>60 ml/min/1.73 sqM) Glucose 342 H (74-99) mg/dL Calcium 9.3 (8.4-10.2) mg/dL Magnesium 1.7 (1.6-2.3) mg/dL Total Bilirubin 1.1 (0.2-1.3) mg/dL AST 14 (14-36) U/L ALT 14 (4-34) U/L Alkaline Phosphatase 105 (38-126) U/L Total Protein 6.3 (6.3-8.2) g/dL Albumin 3.7 (3.5-5.0) g/dL Lipase 23 (23-300) U/L Urine Color Light Yellow Urine Appearance Clear (Clear) Urine pH 6.0 (5.0-8.0) Ur Specific [place] 1.018 (1.001-1.035) Urine Protein Trace H (Negative) Urine Glucose (UA) 3+ H (Negative) Urine Ketones Negative (Negative) Urine Blood Negative (Negative) Urine Nitrite Negative (Negative) Urine Bilirubin Negative (Negative) Urine Urobilinogen <2.0 (<2.0) mg/dL Ur Leukocyte Esterase Moderate H (Negative) Urine RBC 1 (0-5) /hpf Urine WBC 41 H (0-5) /hpf Urine WBC Clumps Rare H (None) /hpf Ur Squamous Epith Cells 2 (0-4) /hpf Urine Bacteria Rare H (None) /hpf Disposition <Cl Bazzi - Last Filed: 01/13/23 06:19> Is patient prescribed a controlled substance at d/c from ED?: No Time of Disposition: 10:23 <Estevan Mesa - Last Filed: 01/13/23 10:23> Clinical Impression: Urinary tract infection Disposition: HOME SELF-CARE Condition: Good Prescriptions: Sulfamethox-Tmp 800-160Mg [Bactrim DS 800-160 mg] 1 each PO Q12HR #14 tab Referrals: Tomás Choe MD [Primary Care Provider] - 1-2 days
[2023-01-13] MEDS ORDERED: SODIUM CHLORIDE 0.9% 500 ML 500 ML IV STA (05:21)
--- NOTE | 2023-01-13 07:30 | CT ---
EXAMINATION TYPE: CT abdomen pelvis w con DATE OF EXAM: 01/13/2023 COMPARISON: 08/18/2021 HISTORY: Acute abdominal pain CONTRAST: CT scan of the abdomen and pelvis is performed with Oral Contrast and with IV Contrast, patient injec yoandy with 80 mL of Isovue 300. FINDINGS: LUNG BASES-: No visible nodule. No infiltrate. LIVER/GB: The gallbladder surgically absent. No space occupying hepatic lesion. Biliary tree is of normal caliber. PANCREAS: No inflammation. No distinct mass. SPLEEN: No splenic enlargement. No lesion seen. ADRENALS: No nodule. No thickening. KIDNEYS/BLADDER: No hydronephrosis. No nephrolithiasis. 1.8 cm solid enhancing lesion versus lobati on upper pole left kidney. Consider further evaluation with ultrasound. Additional simple appearing c yst left kidney Urinary bladder grossly unremarkable. BOWEL: Nonvisualization of the appendix. Normal bowel caliber. No inflammation. Duodenal diverticul um noted. Moderate sigmoid diverticulosis without diverticulitis. GENITAL ORGANS: No gross abnormality. LYMPH NODES: No greater than 1cm abdominal or pelvic lymph nodes are appreciated. AORTA: No significant abnormality. OSSEOUS STRUCTURES: No significant abnormality is seen. OTHER: No significant additional abnormality is seen. IMPRESSION: 1. No acute intra-abdominal process seen. 2. There is a 1.8 cm solid enhancing lesion versus lobation upper pole left kidney. Consider further evaluation with ultrasound.
[2023-01-13] MEDS ORDERED: ACETAMINOPHEN TAB 500 MG TAB PO STA (08:21)
[2023-01-13 09:39] LABS: Appearance,Urine Clear (Clear); Bacteria,Urine Rare /hpf; Bilirubin,Urine Negative (Negative); Blood,Urine Negative (Negative); Color,Urine Light Yellow; Glucose,Urine (UA) 3+ (Negative); Ketones,Urine Negative (Negative); Leukocyte Esterase,Urine Moderate (Negative); Nitrite,Urine Negative (Negative); Protein,Urine Trace (Negative); RBC,Urine 1 /hpf (0-5); Specific Gravity,Urine 1.018 (1.001-1.035); Squamous Epithelial Cell,Urine 2 /hpf (0-4); Urobilinogen,Urine <2.0 mg/dL (<2.0); WBC,Urine 41 /hpf (0-5)
[2023-01-13] MEDS ORDERED: cefTRIAXone IN SWFI 1,000 MG/10 ML SYRINGE IVP STA (09:50)
[2023-01-13 10:46] VITALS: BP 160/85; PULSE 70; RESP 16
== END 2023-01-13 11:51 | disposition home or self-care (01) ==
LOC: EC 04:36
DX: N39.0 Urinary tract infection, site not specified (principal); E11.9 Type 2 diabetes mellitus without complications; E78.5 Hyperlipidemia, unspecified; I10 Essential (primary) hypertension; K21.9 Gastro-esophageal reflux disease without esophagitis; Z79.84 Long term (current) use of oral hypoglycemic drugs; Z79.890 Hormone replacement therapy; Z79.899 Other long term (current) drug therapy; Z88.6 Allergy status to analgesic agent; Z88.8 Allergy status to other drugs, medicaments and biological substances
CPT/HCPCS: 36415; 80053; 83690; 83735; 85025; 81001; 74177; 99284; 96374; J0696

== ENCOUNTER 2024-02-13 21:42 | Emergency (ER) | payer MEDICARE ==
--- NOTE | 2024-02-13 22:50 | ED ---
Fall HPI - General Chief Complaint: Fall Stated Complaint: UTI, Fall Time Seen by Provider: 02/13/24 22:07 Source: EMS Mode of arrival: EMS - History of Present Illness Initial Comments: Patient is an 83-year-old woman who presents to have evaluation for confusion and having had a recent fall. The patient states that her son thought that she had urinary tract infection. The patient states she has had similar episodes where she had some confusion and weakness and was told she had urinary tract infection. The patient states that she herself feels relatively well. She matt es pain after the fall. She denies any chest pain, dyspnea, syncope, abdominal pain, nausea or vomiting. She has not noted any new urinary symptoms. MD Complaint: fall Onset/Timin -: hour(s) Fall From: standing When Fall Occurred: 1-[address] Fall Occurred: home Loss of Consciousness: none Prolonged Down Time?: no Severity scale (1-10): 0 Context: tripped/slipped Associated Symptoms: denies - Related Data Home Medications Medication Instructions Recorded Confirmed Simvastatin [Zocor] 20 mg PO HS 11/08/16 05/06/22 Meloxicam [Mobic] 15 mg PO DIRECTED 01/02/18 05/06/22 atenoloL [Tenormin] 50 mg PO BID 08/18/21 05/06/22 Levothyroxine Sodium [Synthroid] 150 mcg PO DAILY 03/04/22 05/06/22 Omeprazole 40 mg PO DAILY 05/06/22 05/06/22 Pioglitazone [Actos] 15 mg PO DIRECTED 05/06/22 05/06/22 Previous Rx's Medication Instructions Recorded Cefdinir [Omnicef] 300 mg PO BID #4 cap 05/08/22 QUEtiapine [SEROquel] 12.5 mg PO HS #30 tab 05/08/22 glipiZIDE [Glucotrol] 10 mg PO BID #0 05/08/22 Sulfamethox-Tmp 800-160Mg [Bactrim 1 each PO Q12HR #14 tab 01/13/23 DS 800-160 mg] Cephalexin [Keflex] 500 mg PO Q6HR #20 cap 02/14/24 Allergies Allergy/AdvReac Type Severity Reaction Status Date / Time codeine Allergy Unknown Couldn't Verified 02/13/24 21:57 Swallow glyburide Allergy Unknown Itching Verified 02/13/24 21:57 metformin Allergy Unknown Itching Verified 02/13/24 21:57 aspirin AdvReac Bruising Verified 02/13/24 21:57 Review of Systems ROS Statement: Those systems with pertinent positive or pertinent negative responses have been documented in the HPI. ROS Other: All systems not noted in ROS Statement are negative. Constitutional: Reports: weakness. Denies: fever Eyes: Denies: vision change Respiratory: Denies: cough, dyspnea Cardiovascular: Denies: chest pain, palpitations Gastrointestinal: Denies: abdominal pain, nausea, vomiting, diarrhea Genitourinary: Denies: dysuria, frequency, hematuria Musculoskeletal: Denies: back pain Skin: Denies: rash Neurological: Denies: headache, weakness, numbness Past Medical History Past Medical History: Cancer, Diabetes Mellitus, Eye Disorder, GERD/Reflux, Hyperlipidemia, Hypertension, Neurologic Disorder, Osteoarthritis (OA), Rheumatoid Arthritis (RA), Thyroid Disorder Additional Past Medical History / Comment(s): HX BLADDER CANCER (2008?), BREAST CANCER (2016- LAST CHEMO 03/2017, LAST RADIATION [place] 08/2017), MIGRAINES, DIVERTICULITIS, ANEMIA, NODULE LEFT CHEST, SINUS PROBLEMS, USES WALKER PRN . History of Any Multi-Drug Resistant Organisms: None Reported Past Surgical History: Appendectomy, Breast Surgery, Cholecystectomy, Heart Catheterization, Hysterectomy, Orthopedic Surgery Additional Past Surgical History / Comment(s): LEFT BREAST BX, RONAL KNEE SURGERIES, LEFT MASTECTOMY (04/2017)., PORT-A-CATH INSERTED & REMOVED. Past Anesthesia/Blood Transfusion Reactions: No Reported Reaction Additional Past Anesthesia/Blood Transfusion Reaction / Comment(s): STATES RECEIVED 2 BLOOD TRANSFUSIONS AFTER RECEIVING CHEMO- NO REACTION Past Psychological History: No Psychological Hx Reported Smoking Status: Never smoker Past Alcohol Use History: None Reported Past Drug Use History: None Reported - Past Family History Mother Family Medical History: Cancer Father Family Medical History: Myocardial Infarction ([place]) Sister(s) Family Medical History: Cancer Additional Family Medical History / Comment(s): ovarian/cervical, colon General Exam General appearance: alert, in no apparent distress Head exam: Present: atraumatic, normocephalic Eye exam: Present: normal appearance. Absent: scleral icterus, conjunctival injection ENT exam: Present: normal oropharynx Neck exam: Present: normal inspection, full ROM. Absent: tenderness Respiratory exam: Present: normal lung sounds bilaterally. Absent: respiratory distress, wheezes, rales, rhonchi, stridor, chest wall tenderness, accessory muscle use Cardiovascular Exam: Present: regular rate, normal rhythm, normal heart sounds. Absent: systolic murmur, diastolic murmur, rubs, gallop GI/Abdominal exam: Present: soft. Absent: distended, tenderness, guarding, rebound, rigid, mass Extremities exam: Present: normal inspection, normal capillary refill. Absent: pedal edema, calf tenderness Back exam: Present: normal inspection. Absent: CVA tenderness (R), CVA te nderness (L), vertebral tenderness Neurological exam: Present: alert, oriented X3 (Oriented to person and recognizes she is in the hospital but was not able to state current date). Absent: motor sensory deficit Skin exam: Present: warm, dry, intact, normal color. Absent: rash Course Vital Signs 02/13/24 02/13/24 02/13/24 21:46 22:59 23:34 Temperature 98.0 F Pulse Rate 100 96 107 H Respiratory 18 18 18 Rate Blood Pressure 169/118 168/114 149/92 O2 Sat by Pulse 99 96 96 Oximetry 02/14/24 02/14/24 02/14/24 00:24 00:56 01:46 Temperature Pulse Rate 87 85 91 Respiratory 18 19 Rate Blood Pressure 157/110 171/118 176/132 O2 Sat by Pulse 97 99 99 Oximetry 02/14/24 02/14/24 02/14/24 02:00 02:32 03:01 Temperature Pulse Rate 87 79 Respiratory 18 17 Rate Blood Pressure 186/112 179/148 109/68 O2 Sat by Pulse 97 94 L Oximetry 02/14/24 02/14/24 02/14/24 03:49 04:11 04:49 Temperature Pulse Rate 74 70 76 Respiratory 18 18 19 Rate Blood Pressure 86/54 91/73 120/76 O2 Sat by Pulse 96 97 98 Oximetry 02/14/24 05:29 Temperature 97.2 F L Pulse Rate 66 Respiratory 18 Rate Blood Pressure 111/86 O2 Sat by Pulse 97 Oximetry Medical Decision Making - Medical Decision Making The patient had CT scan of the brain that I interpreted as negative for acute bony injury, negative for acute intracranial hemorrhage or mass effect Was pt. sent in by a medical professional or institution (SABAS Puentes, TECHNOLOGY PROFESSIONAL, urgent care, hospital, or skilled nursing...) When possible be specific @ -[No] Did you speak to anyone other than the patient for history (EMS, parent, family, police, friend...)? What history was obtained from this source @ -[No] Did you review nursing and triage notes (agree or disagree)? Why? @ -[I reviewed and agree with nursing and triage notes] Were old charts reviewed (outside hosp., previous admission, EMS record, old EKG, old radiological studies, urgent care reports/EKG's, skilled nursing records)? Report findings @ -[No old charts were reviewed] Differential Diagnosis (chest pain, altered mental status, abdominal pain women, abdominal pain men, vaginal bleeding, weakness, fever, dyspnea, syncope, headache, dizziness, GI bleed, back pain, seizure, CVA, palpatations, mental health, musculoskeletal)? @ -[Differential Weakness: Hypoglycemia, shock, sepsis, hyponatremia, anemia, infection, [place], ETOH, adverse medicine reaction, overdose, stroke, this is not meant to be an all-inclusive list. EKG interpreted by me (3pts min.). @ -[As above] X-rays interpreted by me (1pt min.). @ -[None done] CT interpreted by me (1pt min.). @ -[I interpreted as above U/S interpreted by me (1pt. min.). @ -[None done] What testing was considered but not performed or refused? (CT, X-rays, U/S, labs)? Why? @ -[None] What meds were considered but not given or refused? Why? @ -[None] Did you discuss the management of the patient with other professionals (professionals i.e. SABAS Puentes, TECHNOLOGY PROFESSIONAL, lab, RT, psych nurse, health care social worker, ham pumper, teacher, conservation officer, egg caser)? Give summary @ -[No] Was smoking cessation discussed for >3mins.? @ -[No] Was critical care preformed (if so, how long)? @ -[No] Were there social determinants of health that impacted care today? How? (Homelessness, low income, unemployed, alcoholism, drug addiction, transportation, low edu. Level, literacy, decrease access to med. care, group home, rehab)? @ -[No] Was there de-escalation of care discussed even if they declined (Discuss DNR or withdrawal of care, Hospice)? DNR status @ -[No] What co-morbidities impacted this encounter? (DM, HTN, Smoking, COPD, CAD, Cancer, CVA, ARF, Chemo, Hep., AIDS, mental health diagnosis, sleep apnea, morbid obesity)? @ -[None] Was patient admitted / discharged? Hospital course, mention meds given and route, prescriptions, significant lab abnormalities, going to OR and other pertinent info. @ -[Patient is an 83-year-old woman here to have evaluation for weakness, suspected due to UTI as she has previously had urinary tract infection with this presentation. The patient does have urinary tract infection and is started on antibiotics here. At this point her preference was to go home. She does appears to be stable as long as there is close follow-up. Undiagnosed new problem with uncertain prognosis? @ -[No] Drug Therapy requiring intensive monitoring for toxicity (Heparin, Nitro, Insulin, Cardizem)? @ -[No] Were any procedures done? @ -[No] Diagnosis/symptom? @ -Acute urinary tract infection Generalized weakness Acute, or Chronic, or Acute on Chronic? @ -[acute Uncomplicated (without systemic symptoms) or Complicated (systemic symptoms)? @ -[Complicated by generalized weakness Side effects of treatment? @ -[No] Exacerbation, Progression, or Severe Exacerbation? @ -[No] Poses a threat to life or bodily function? How? (Chest pain, [place], [place], pneumonia, PE, COPD, DKA, ARF, appy, cholecystitis, CVA, Diverticulitis, Homicidal, Suicidal, threat to staff... and all critical care pts) @ -[Yes, patient requires close follow-up - Lab Data Result diagrams: 02/13/24 22:54 02/13/24 23:25 Lab Results 02/13/24 02/13/24 02/13/24 Range/Units 22:54 22:54 23:25 WBC 10.2 (3.8-10.6) k/uL RBC 4.11 (3.80-5.40) m/uL Hgb 11.7 (11.4-16.0) gm/dL Hct 37.8 (34.0-46.0) % MCV 91.8 (80.0-100.0) fL MCH 28.4 (25.0-35.0) pg MCHC 30.9 L (31.0-37.0) g/dL RDW 14.5 (11.5-15.5) % Plt Count 167 (150-450) k/uL MPV 9.5 Neutrophils % 74 % Lymphocytes % 13 % Monocytes % 8 % Eosinophils % 0 % Basophils % 0 % Neutrophils # 7.5 (1.3-7.7) k/uL Lymphocytes # 1.3 (1.0-4.8) k/uL Monocytes # 0.9 (0-1.0) k/uL Eosinophils # 0.0 (0-0.7) k/uL Basophils # 0.0 (0-0.2) k/uL Hypochromasia Marked Sodium 135 L (137-145) mmol/L Potassium 4.4 (3.5-5.1) mmol/L Chloride 102 (98-107) mmol/L Carbon Dioxide 25 (22-30) mmol/L Anion Gap 8 mmol/L BUN 23 H (7-17) mg/dL Creatinine 1.02 (0.52-1.04) mg/dL Est GFR (CKD-EPI)AfAm 59 (>60 ml/min/1.73 sqM) Est GFR (CKD-EPI)NonAf 51 (>60 ml/min/1.73 sqM) Glucose 207 H (74-99) mg/dL POC Glucose (mg/dL) (70-110) mg/dL POC Glu Fisheries Technical Officer ID Plasma Lactic Acid Timothy 1.2 (0.7-2.0) mmol/L Calcium 9.6 (8.4-10.2) mg/dL Magnesium 1.5 L (1.6-2.3) mg/dL Total Bilirubin 1.1 (0.2-1.3) mg/dL AST 11 L (14-36) U/L ALT 12 (4-34) U/L Alkaline Phosphatase 99 (38-126) U/L Total Protein 5.9 L (6.3-8.2) g/dL Albumin 3.7 (3.5-5.0) g/dL Urine Color Urine Appearance (Clear) Urine pH (5.0-8.0) Ur Specific [place] (1.001-1.035) Urine Protein (Negative) Urine Glucose (UA) (Negative) Urine Ketones (Negative) Urine Blood (Negative) Urine Nitrite (Negative) Urine Bilirubin (Negative) Urine Urobilinogen (<2.0) mg/dL Ur Leukocyte Esterase (Negative) Urine RBC (0-5) /hpf Urine WBC (0-5) /hpf Ur Squamous Epith Cells (0-4) /hpf Urine Bacteria (None) /hpf Hyaline Casts (0-2) /lpf Urine Mucus (None) /hpf 02/14/24 02/14/24 Range/Units 02:02 03:05 WBC (3.8-10.6) k/uL RBC (3.80-5.40) m/uL Hgb (11.4-16.0) gm/dL Hct (34.0-46.0) % MCV (80.0-100.0) fL MCH (25.0-35.0) pg MCHC (31.0-37.0) g/dL RDW (11.5-15.5) % Plt Count (150-450) k/uL MPV Neutrophils % % Lymphocytes % % Monocytes % % Eosinophils % % Basophils % % Neutrophils # (1.3-7.7) k/uL Lymphocytes # (1.0-4.8) k/uL Monocytes # (0-1.0) k/uL Eosinophils # (0-0.7) k/uL Basophils # (0-0.2) k/uL Hypochromasia Sodium (137-145) mmol/L Potassium (3.5-5.1) mmol/L Chloride (98-107) mmol/L Carbon Dioxide (22-30) mmol/L Anion Gap mmol/L BUN (7-17) mg/dL Creatinine (0.52-1.04) mg/dL Est GFR (CKD-EPI)AfAm (>60 ml/min/1.73 sqM) Est GFR (CKD-EPI)NonAf (>60 ml/min/1.73 sqM) Glucose (74-99) mg/dL POC Glucose (mg/dL) 175 H (70-110) mg/dL POC Glu Fisheries Technical Officer ID Tanisha Velez Plasma Lactic Acid Timothy (0.7-2.0) mmol/L Calcium (8.4-10.2) mg/dL Magnesium (1.6-2.3) mg/dL Total Bilirubin (0.2-1.3) mg/dL AST (14-36) U/L ALT (4-34) U/L Alkaline Phosphatase (38-126) U/L Total Protein (6.3-8.2) g/dL Albumin (3.5-5.0) g/dL Urine Color Light Yellow Urine Appearance Cloudy H (Clear) Urine pH 6.0 (5.0-8.0) Ur Specific [place] 1.011 (1.001-1.035) Urine Protein 1+ H (Negative) Urine Glucose (UA) Negative (Negative) Urine Ketones Negative (Negative) Urine Blood Small H (Negative) Urine Nitrite Positive H (Negative) Urine Bilirubin Negative (Negative) Urine Urobilinogen <2.0 (<2.0) mg/dL Ur Leukocyte Esterase Large H (Negative) Urine RBC 13 H (0-5) /hpf Urine WBC >182 H (0-5) /hpf Ur Squamous Epith Cells 2 (0-4) /hpf Urine Bacteria Many H (None) /hpf Hyaline Casts 2 (0-2) /lpf Urine Mucus Occasional H (None) /hpf - EKG Data -: EKG Interpreted by Id EKG shows normal: intervals (Normal), QRS complexes (Probable old anterior [place]) Rate: normal (Rate 93 bpm) Interpretation: other (Atrial fibrillation) Disposition Clinical Impression: Urinary tract infection Disposition: HOME SELF-CARE Condition: Good Instructions (If sedation given, give patient instructions): Urinary Tract Infection in Women (ED) Prescriptions: Cephalexin [Keflex] 500 mg PO Q6HR #20 cap Is patient prescribed a controlled substance at d/c from ED?: No Referrals: Tomás Choe MD [Primary Care Provider] - 1-2 days
[2024-02-13] MEDS: atenoloL 50 MG TAB PO STA (23:01)
[2024-02-13 23:05] LABS: Basophils % (A) 0 %; Eosinophils % (A) 0 %; HCT 37.8 % (34.0-46.0); HGB 11.7 gm/dL (11.4-16.0); Hypochromasia Marked; Lymphocytes # (A) 1.3 k/uL (1.0-4.8); Lymphocytes % (A) 13 %; MCH 28.4 pg (25.0-35.0); MCHC 30.9 g/dL (31.0-37.0); MCV 91.8 fL (80.0-100.0); Mean Platelet Volume 9.5; Monocytes # (A) 0.9 k/uL (0-1.0); Monocytes % (A) 8 %; Neutrophils # (A) 7.5 k/uL (1.3-7.7); Neutrophils % (A) 74 %; Platelet Count 167 k/uL (150-450); RBC 4.11 m/uL (3.80-5.40); RDW 14.5 % (11.5-15.5); WBC 10.2 k/uL (3.8-10.6)
[2024-02-14 00:02] LABS: ALT 12 U/L (4-34); AST 11 U/L (14-36); African American GFR (CKD) 59 (>60 ml/min/1.73 sqM); Albumin 3.7 g/dL (3.5-5.0); Alkaline Phosphatase 99 U/L (38-126); Anion Gap 8 mmol/L; Blood Urea Nitrogen 23 mg/dL (7-17); Calcium 9.6 mg/dL (8.4-10.2); Carbon Dioxide 25 mmol/L (22-30); Chloride 102 mmol/L (98-107); Glucose 207 mg/dL (74-99); Magnesium 1.5 mg/dL (1.6-2.3); Non-African American GFR(CKD) 51 (>60 ml/min/1.73 sqM); Potassium 4.4 mmol/L (3.5-5.1); Sodium 135 mmol/L (137-145); Total Bilirubin 1.1 mg/dL (0.2-1.3); Total Protein 5.9 g/dL (6.3-8.2)
--- NOTE | 2024-02-14 00:40 | CT ---
EXAMINATION TYPE: CT brain wo con DATE OF EXAM: 02/14/2024 HISTORY: Pt presents to ED c/o witness fall, and family reports pt hit head. Pt hasn't taken eliquis since Monday. Family reports frequent UTI, Pt recently at [facility] for UTI. CT DLP: 1137.2 mGycm. Automated Exposure Control for Dose Reduction was Utilized. TECHNIQUE: CT scan of the head is performed without contrast. COMPARISON: Prior CT brain May 05, 2022. FINDINGS: There is no acute intracranial hemorrhage or midline shift identified. There is mild diff use ventricular and sulcal prominence redemonstrated. There is moderate low-attenuation in the periv entricular white matter redemonstrated. The globes are intact and the visualized sinuses are clear. The calvarium is intact. IMPRESSION: No acute intracranial hemorrhage or midline shift. No significant change from prior CT. [facility], , 02/14/2024 12:38 AM
[2024-02-14] MEDS: lisinopriL 10 MG TAB PO STA (01:00)
[2024-02-14 02:03] LABS: Glucose,Whole Blood 175 mg/dL (70-110)
[2024-02-14] MEDS: cloNIDine HCL 0.2 MG TAB PO STA (02:14)
[2024-02-14 03:39] LABS: Appearance,Urine Cloudy (Clear); Bacteria,Urine Many /hpf; Bilirubin,Urine Negative (Negative); Blood,Urine Small (Negative); Color,Urine Light Yellow; Glucose,Urine (UA) Negative (Negative); Hyaline Casts,Urine 2 /lpf (0-2); Ketones,Urine Negative (Negative); Leukocyte Esterase,Urine Large (Negative); Mucus,Urine Occasional /hpf; Nitrite,Urine Positive (Negative); Protein,Urine 1+ (Negative); RBC,Urine 13 /hpf (0-5); Specific Gravity,Urine 1.011 (1.001-1.035); Squamous Epithelial Cell,Urine 2 /hpf (0-4); Urobilinogen,Urine <2.0 mg/dL (<2.0); WBC,Urine >182 /hpf (0-5)
[2024-02-14 05:32] VITALS: BP 111/86; PULSE 66; RESP 18
[2024-02-14 05:36] VITALS: TEMP 97.2
== END 2024-02-14 08:17 | disposition home or self-care (01) ==
LOC: EC 21:42
CPT/HCPCS: 36415; 70450; 80053; 81001; 83605; 83735; 85025; 87077; 87086; 87186; 93005; 96365; 99285